=== PATIENT | female | born 1985 | race Caucasian/White ===

== ENCOUNTER 2019-03-31 14:20 | Emergency (ER) | payer OTHER, SELFPAY ==
--- OUTSIDE RECORDS SUMMARY | 2019-03-31 14:22 | XMS REPORT | Encounter Summary ---
:1985 Author Care Team Providers Name Role Phone Yane Clayton LINNETTE Primary Care Provider [phone] Reason for Visit medication refill Instructions 1. Insomnia insomnia: care instructions zolpidem 10 mg tablet Discussion Note: None recorded. Plan of Care Reminders Provider Appointments None recorded. Lab None recorded. Referral None recorded. Procedures None recorded. Surgeries None recorded. Imaging None recorded. Medications Name Start Date Dexilant 60 mg capsule, delayed release TAKE ONE CAPSULE BY MOUTH ONCE DAILY duloxetine 60 mg capsule,delayed release Take 1 capsule every day by oral route. omeprazole 40 mg capsule,delayed release pantoprazole 40 mg tablet,delayed release sumatriptan 50 mg tablet Xifaxan 550 mg tablet zolpidem 10 mg tablet TAKE 1 TABLET BY MOUTH ONCE DAILY take as needed for sleep Medications Administered None recorded. Vitals Height Weight BMI Blood Pressure 66 in 250 lbs 16 oz 40.5 kg/m2 108/92 mm[Hg] Lab Results None recorded. Allergies Code Code System Name Reaction Severity Status Onset 2556 RxNorm Citalopram Active Problems Name Status Onset Date Source Obesity Active Encounter Insomnia Active Encounter Migraine Active Encounter Acute Upper Respiratory Infection Active Encounter Gastroesophageal Reflux Disease Active Encounter Gastroenteritis Active Encounter Urinary Tract Infectious Disease Active Encounter Low Back Pain Active Encounter Fatigue Active Encounter Dyspnea Active Encounter Abdominal Pain Active Encounter Right Upper Quadrant Pain Active Encounter Sprain of Calcaneofibular Ligament Active Encounter Sprain of Distal Tibiofibular Ligament Active Encounter Strain of Back Muscle Active Encounter Procedures Date Name Performed by 03/05/2008 Cholecystectomy Information not available Vaccine List Vaccine Type Hep B, adolescent or pediatric 12/30/20150.5 mL Hep B, adult mL mL influenza, seasonal, injectable 03/05/2014 Social History Smoking Status Heavy Tobacco Smoker (1/2 PPD) Past Encounters 08/29/2018 Insomnia Yair Peters MD: [address] [place] [address], [address], [place] [address], Ph. History of Present Illness Note: CC insomnia<div>hpi pt has not been seen since 12/20 and is requesting ambien refill before going on vacation</div><div>ros</ div><div>gen doing well</div><div>c v neg</div>< div>resp neg</div><div>gi neg</div><div>
&lt ;/div>Review of Systems: ROS as noted in the HPI Review of Systems None recorded. Physical Exam Dr. Peters Brief Adult Exam - M/F Reported By: Patient Constitutional: General Appearance: well-developed, overweight. Level of Distress: NAD. Ambulation: ambulating normally Lungs: Auscultation: breath sounds normal, good air movement, CTA except as noted, no wheezing, no rales/crackles, no rhonchi Cardiovascular: Heart Auscultation: RRR, no rubs, no gallops
--- OUTSIDE RECORDS SUMMARY | 2019-03-31 14:23 | XMS REPORT | Encounter Summary ---
:1985 Author Care Team Providers Name Role Phone Yane Clayton LINNETTE Primary Care Provider [phone] Reason for Visit rash Instructions 1. Coxsackie virus exanthem Discussion Note: None recorded.Patient educational handouts: No information available. Plan of Care Patient Instructions May return to work 09/30/2018 Reminders Provider Appointments None recorded. Lab None recorded. Referral None recorded. Procedures None recorded. Surgeries None recorded. Imaging None recorded. Medications Name Start Date Dexilant 60 mg capsule, delayed release TAKE ONE CAPSULE BY MOUTH ONCE DAILY sumatriptan 50 mg tablet zolpidem 10 mg tablet TAKE 1 TABLET BY MOUTH ONCE DAILY take as needed for sleep Medications Administered None recorded. Vitals Height Weight BMI Blood Pressure 66 in 249 lbs 16 oz 40.4 kg/m2 118/81 mm[Hg] Lab Results Date Name Specimen Result Interpretation Description Value Range Status Address 09/23/2018 Rapid Flu Flu negative In-House (A+B) Results: For Internal Use Only 09/23/2018 Rapid Strep Strep negative In-House Group a, Result Results: For Throat Internal Use Only Allergies Code Code System Name Reaction Severity Status Onset 6086 RxNorm Citalopram Active Problems Name Status Onset [...] Performed by 03/05/2008 Cholecystectomy Information not available Ankle Arthroscopy/surgery Information not available Vaccine List Vaccine Type Hep B, adolescent or pediatric 12/30/20150.5 mL Hep B, adult mL mL influenza, seasonal, injectable 03/05/2014 Social History Tobacco Smoking Status Heavy Tobacco Smoker (1/2 PPD) Past Encounters 09/27/2018 Coxsackie Virus Exanthem Kate Guzmánkim Bartlett, HEAD PIECE ASSEMBLER: [address], [address], [place] [address], Ph. 09/23/2018 Coxsackie Virus Exanthem; Insomnia Yane Oseas, HEAD PIECE ASSEMBLER: [address], [address], [place] [address], Ph. 09/20/2018 Acute Pharyngitis; Headache Kate Nubia Bartlett, HEAD PIECE ASSEMBLER: [address], [address], [place] [address], Ph. 08/29/2018 Insomnia Yair Peters MD: [address], [address], [place] [address], Ph. History of Present Illness Note: Hand foot and mouth dx, now needs release for work. Denies fevers. Rash on hands going away. Review of Systems General Adult ROS Reported By: Patient Constitutional: Constitutional: no fever Eyes: Eyes: no dry eyes, no irritation, no vision change ENMT: Ears: no difficulty hearing, no ear pain. Nose: no frequent nosebleeds, no nose/sinus problems. Mouth/Throat: no sore throat, no snoring, no dry mouth, no mouth ulcers, no oral abnormalities, no teeth problems, No Post Nasal Dripping, Constantly clearing the throat, hiccups, itching throat, (normal) weak voice: constant Cardiovascular: Cardiovascular: no chest pain, no arm pain on exertion, no shortness of breath when walking, no shortness of breath when lying down, no palpitations, no known heart murmur Gastrointestinal: Gastrointestinal: no abdominal pain, no vomiting, normal appetite, no diarrhea, not vomiting blood Genitourinary: Genitourinary: no incontinence, no difficulty urinating, no hematuria, no increased frequency Musculoskeletal: Musculoskeletal: no muscle aches, no muscle weakness, no arthralgias/joint pain, no back pain, no swelling in the extremities Integumentary: Skin: no abnormal mole, no jaundice, no rashes Neurologic: Neurologic: no loss of consciousness, no weakness, no numbness, no seizures, no dizziness, no headaches Psychiatric: Psych: no depression, feeling safe in relationship, no alcohol abuse Endocrine: Endocrine: no fatigue Hematologic/Lymphatic: Hematologic/Lymphatic no swollen glands, no bruising Allergic/Immunologic: Allergy/Immunologic: no runny nose, no sinus pressure, no itching, no hives, no frequent sneezing Physical Exam Damaso Brief Adult Exam - M/F Reported By: Patient Constitutional: General Appearance: healthy-appearing, well-nourished, well-developed. Level of Distress: NAD. Ambulation: ambulating normally Psychiatric: Mental Status: active and alert ENMT: Ears: no lesions on external ear, EACs clear, TMs clear, TM mobility normal. Nose: nares patent, nasal passages clear. Oropharynx: moist mucous membranes, no erythema, no exudates, tonsils not enlarged Lungs: Auscultation: breath sounds normal Cardiovascular: Heart Auscultation: RRR, normal S1, normal S2, no murmurs Abdomen: Bowel Sounds: normal. Inspection and Palpation: soft, non-distended, no tenderness, no guarding Skin: Inspection and palpation: ; maculopapular rash noted to bilateral palmar and plantar surfaces
--- OUTSIDE RECORDS SUMMARY | 2019-03-31 14:23 | XMS REPORT | Encounter Summary ---
:1985 Author Care Team Providers Name Role Phone Yane Clayton LINNETTE Primary Care Provider [phone] Reason for Visit Follow Up Visit Instructions 1. Coxsackie virus exanthem 2. Insomnia zolpidem 10 mg tablet Discussion Note RTC for any other concerns Patient educational handouts: No information available. Plan of Care Patient Instructions push fluids and ensure rest; motrin and tylenol as needed Reminders Provider Appointments None recorded. Lab None [...] in 250 lbs 16 oz 40.5 kg/m2 108/78 mm[Hg] Lab Results Date Name Specimen Result [...] Heavy Tobacco Smoker (1/2 PPD) Past Encounters 09/23/2018 Coxsackie Virus Exanthem; Insomnia Yane Farooq, CHEESE WRAPPER: [address] [facility], [address], [place] [address], Ph. 09/20/2018 Acute Pharyngitis; Headache Kate Delacruz Tri, CHEESE WRAPPER: [address] [facility], [address], [place] [address], Ph. 08/29/2018 Insomnia Yair Peters MD: [address] [facility], [address], [place] [address], Ph. [phone] History of Present Illness Note: pt to clinic for f/u from ED; she was recently dx with hand foot and mouth; seen last week as walk in and told possible viral infection; dr in ED gave her fluids, toradol, solumedrol and rocephinReview of Systems: ROS as noted in the HPI Review of Systems None recorded. Physical Exam Damaso Brief Adult Exam - M/F Reported By: Patient Constitutional: General Appearance: healthy-appearing, well-nourished, well-developed. Level of Distress: NAD. Ambulation: ambulating normally Psychiatric: Mental Status: active and alert ENMT: Oropharynx: erythema, tonsils enlarged Lungs: Auscultation: breath sounds normal Cardiovascular: Heart Auscultation: RRR, normal S1, normal S2, no murmurs Abdomen: Bowel Sounds: normal. Inspection and Palpation: soft, non-distended, no tenderness, no guarding Skin: Inspection and palpation: ; maculopapular rash noted to bilateral palmar and plantar surfaces
--- OUTSIDE RECORDS SUMMARY | 2019-03-31 14:23 | XMS REPORT | Encounter Summary ---
:1985 Author Care Team Providers Name Role Phone Yane Clayton LINNETTE Primary Care Provider [phone] Reason for Visit Nausea; Abdominal Pain Instructions 1. Epigastric pain lipase, serum or plasma amylase, serum or plasma CBC w/ auto diff CMP, serum or plasma H pylori Ab, serum 2. Nausea ondansetron 4 mg disintegrating tablet 3. Gastroesophageal reflux disease without esophagitis Discussion Note RTC for any other concerns Patient educational handouts: No information available. Plan of Care Patient Instructions bland diet and advance as tolerated; ensure adequate rest, hydration and nutrition Reminders Provider Appointments None recorded. Lab Lipase, 12/19/2018 [facility] Serum or Plasma [facility] (Labs) (Xray) Amylase, 12/19/2018 [facility] Serum or Plasma [facility] (Labs) (Xray) CBC W/ Auto 12/19/2018 [facility] (Labs) (Xray) CMP, Serum 12/19/2018 [facility] (Labs) (Xray) H Pylori 12/19/2018 [facility] Ab Serum [facility] (Labs) (Xray) Referral None recorded. Procedures None recorded. Surgeries None recorded. Imaging None recorded. Medications Name Start Date Dexilant 60 mg capsule, delayed release TAKE ONE CAPSULE BY MOUTH ONCE DAILY ondansetron 4 mg disintegrating tablet Take 1-2 tablets every 6-8 hours as needed for nausea. Medications Administered None recorded. Vitals Height Weight BMI Blood Pressure 66 in 253 lbs 40.8 kg/m2 118/77 mm[Hg] Results Lab Results None recorded. Allergies Code Code System Name Reaction Severity Status Onset 4016 RxNorm Citalopram Active Problems Name Status Onset [...] Heavy Tobacco Smoker (1/2 PPD) Past Encounters 12/19/2018 Epigastric Pain; Nausea; Gastroesophageal Reflux Disease without Esophagitis Yane Farooq, HAIR DRESSER: [address], [place] [address], Ph. History of Present Illness Note: pt to clinic for nausea and upper abdominal pain; she sees GI; she reports hx of GERD, IBS; reports pain seems different than IBS and GERD; intermittent diarrhea; no constipation; last bm this am; takes dexilant dailyReview of Systems: ROS as noted in the HPI Review of Systems None recorded. Physical Exam Damaso Brief Adult Exam - M/F Reported By: Patient Constitutional: General Appearance: healthy-appearing, well-nourished, well-developed. Level of Distress: NAD. Ambulation: ambulating normally Psychiatric: Mental Status: active and alert Lungs: Auscultation: breath sounds normal Cardiovascular: Heart Auscultation: RRR, normal S1, normal S2, no murmurs Abdomen: Bowel Sounds: normal. Inspection and Palpation: soft, non-distended, no guarding, epigastric tenderness
--- OUTSIDE RECORDS SUMMARY | 2019-03-31 14:23 | XMS REPORT | Encounter Summary ---
:1985 Author Care Team Providers Name Role Phone Yane Clayton LINNETTE Primary Care Provider [phone] Reason for Visit sore throat; fever; headache Instructions 1. Acute pharyngitis rapid strep group A, throat rapid flu (A+B) sore throat: care instructions 2. Headache headache: care instructions ketorolac 30 mg/mL (1 mL) injection solution Phenergan 25 mg/mL injection solution Discussion Note: None recorded. Plan of Care Patient Instructions Push fluids gatorade and water. Rest. Do not take zolpidem tonight. Stay out of the sun and heat. Reminders Provider Appointments None recorded. Lab Rapid Strep 09/20/2018 In-House Results Group a, Throat Rapid Flu 09/20/2018 In-House Results (A+B) Referral None recorded. Procedures None recorded. Surgeries None recorded. Imaging None recorded. Medications Name Start Date Dexilant 60 mg capsule, delayed release TAKE ONE CAPSULE BY MOUTH ONCE DAILY sumatriptan 50 mg tablet zolpidem 10 mg tablet TAKE 1 TABLET BY MOUTH ONCE DAILY take as needed for sleep Medications Administered None recorded. Vitals Height Weight BMI Blood Pressure 66 in 253 lbs 1 oz 40.8 kg/m2 118/83 mm[Hg] Lab Results None recorded. Allergies Code [...] Vaccine Type Hep B, adolescent or pediatric .5 mL Hep B, adult mL mL influenza, seasonal, injectable 03/05/2014 Social History Smoking Status Heavy Tobacco Smoker (1/2 PPD) Past Encounters 09/20/2018 Acute Pharyngitis; Headache Kate Bartlett NP: [address], [address], [place] [address], Ph. 08/29/2018 Insomnia Yair Peters MD: [address], [address], [place] [address], Ph. History of Present Illness Note: Severe headache, body aches, sore throat and fever x 1 day. Taking ibuprofen for fever. 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 Review of Systems General Adult ROS Reported By: Patient Constitutional: Constitutional: fever Eyes: Eyes: no dry eyes, no irritation, no vision change ENMT: Mouth/Throat: sore throat Cardiovascular: Cardiovascular: no chest pain, no arm [...] in relationship, no alcohol abuse Endocrine: Endocrine: fatigue Hematologic/Lymphatic: Hematologic/Lymphatic no swollen glands, no bruising Allergic/Immunologic: Allergy/Immunologic: no runny nose, no sinus pressure, no itching, no hives, no frequent sneezing Physical Exam General Adult Exam - Female Reported By: Patient Constitutional: Level of Distress: moderate distress, acutely ill Psychiatric: Insight: good judgement. Mental Status: active and alert, normal mood, normal affect. Orientation: to time, to place, to person. Memory: recent memory normal, remote memory normal Head: Head: normocephalic, atraumatic Eyes: Lids and Conjunctivae: non-injected, no discharge, no pallor. Pupils: PERRLA. Corneas: grossly intact. Fundoscopic: grossly normal except where noted, normal optic discs, normal vessels, no exudates, no hemorrhages. EOM: EOMI. Lens: clear. Sclerae: non-icteric. Vision: peripheral vision grossly intact, acuity grossly intact ENMT: Ears: no lesions on external ear, EACs clear, TM bulging. Hearing: no hearing loss. Nose: no lesions on external nose, nares patent, no septal deviation, nasal passages clear, no sinus tenderness, no nasal discharge. Lips, Teeth, and Gums: no mouth or lip ulcers, no bleeding gums, normal dentition. Oropharynx: erythema Neck: Lymph Nodes: cervical LAD Lungs: Respiratory effort: no dyspnea. Percussion: no dullness, flatness, or hyperresonance. Auscultation: breath sounds normal, good air movement, CTA except as noted, no wheezing, no rales/crackles, no rhonchi Cardiovascular: Apical Impulse: not displaced. Heart Auscultation: RRR, normal S1, normal S2, no murmurs, no rubs, no gallops. Neck vessels: no carotid bruits. Pulses including femoral / pedal: normal throughout Neurologic: Gait and Station: normal gait, normal station. Cranial Nerves: grossly intact. Sensation: grossly intact, monofilament test intact. Reflexes: DTRs 2+ bilaterally throughout. Coordination and Cerebellum: [id number] intact, no tremor Skin: Inspection and palpation: ; sun burn face. Nails: normal
[2019-03-31] MEDS ORDERED: CYCLOBENZAPRINE 10 MG TAB ONE (15:36)
[2019-03-31] MEDS ORDERED: LIDOCAINE 4% PATCH ONE (15:37)
--- NOTE | 2019-03-31 16:47 | RAD REPORT ---
EXAM DESCRIPTION: RAD - Lumbar Spine 3 Views - 03/31/2019 4:42 pm CLINICAL HISTORY: PAIN Radiculopathy COMPARISON: No comparisons FINDINGS: Vertebral body heights appear maintained. No compression fracture noted. Mild disc thinnin g is present at L4-5 and L5-S1. Mild degenerative dextroscoliosis is evident. Pars defects may be pre sent at L5-S1.
--- NOTE | 2019-03-31 17:11 | ER ---
Nurse's Notes [facility] Name: Vicenta Daigle Age: 33 yrs Sex: Female : 1985 Arrival Date: 03/31/2019 Time: 14:22 Bed 27 Private MD: Diagnosis: Low back pain;Strain of muscle and tendon of back wall of thorax Presentation: 03/31 14:23 Presenting complaint: Patient states: was assisting a pt off of the ground to get her sv in the stretcher and pt started "flailing" around and lost her balance and she attempted to prevent her from falling, c/o mid back pain and left upper back pain. Transition of care: patient was not received from another setting of care. Onset of symptoms was March 31, 2019 at 13:45. Risk Assessment: Do you want to hurt yourself or someone else? Patient reports no desire to harm self or others. Initial Sepsis Screen: Does the patient meet any 2 criteria? No. Patient's initial sepsis screen is negative. Does the patient have a suspected source of infection? No. Patient's initial sepsis screen is negative. Care prior to arrival: None. 14:23 Method Of Arrival: Ambulatory sv 14:23 Acuity: SEAN 4 sv Triage Assessment: 14:26 General: Appears in no apparent distress. uncomfortable, well groomed, well developed, sv Behavior is calm, cooperative, appropriate for age. Pain: Complains of pain in left scapular area, left subscapular area, right subscapular area, left mid back and right mid back Pain currently is 6 out of 10 on a pain scale. Pain began 30 min ago. Is continuous, Aggravated by increased activity. Neuro: Level of Consciousness is awake, alert, obeys commands, Oriented to person, place, time, situation, Moves all extremities. Full function Gait is steady, Speech is normal. Respiratory: Airway is patent Respiratory effort is even, unlabored, Respiratory pattern is regular, symmetrical. Derm: Skin is pink, warm \\T\\ dry. Musculoskeletal: Circulation, motion, and sensation intact. Range of motion: intact in all extremities. Historical: - Allergies: 14:25 Aspirin; sv - PMHx: 14:25 Anxiety; GERD; insomnia; sv - PSHx: 14:25 Cholecystectomy; abd sx; left ankle; sv - Immunization history:: Adult Immunizations up to date. - Coronavirus screen:: The patient has NOT traveled to [place], [place], or [place] in the past 14 days. Proceed with normal triage process as indicated. The patient has NOT had contact with known/suspected case of Coronavirus? Proceed with normal triage procedures. - Social history:: Smoking status: Patient denies any tobacco usage or history of. - Ebola Screening: : No symptoms or risks identified at this time. Screenin:27 Abuse screen: Denies threats or abuse. Denies injuries from another. Nutritional sv screening: No deficits noted. Tuberculosis screening: No symptoms or risk factors identified. Fall Risk None identified. Assessment: 15:50 Reassessment: Patient appears in no apparent distress at this time. No changes from sv previously documented assessment. Patient and/or family updated on plan of care and expected duration. Pain level reassessed. Patient is alert, oriented x 3, equal unlabored respirations, skin warm/dry/pink. 17:36 Reassessment: Patient appears in no apparent distress at this time. Patient and/or sv family updated on plan of care and expected duration. Pain level reassessed. Patient is alert, oriented x 3, equal unlabored respirations, skin warm/dry/pink. Vital Signs: 14:24 BP 127 / 82; Pulse 113; Resp 18; Temp 98.6(O); Pulse Ox 98% ; lt1 15:59 BP 97 / 68; Pulse 104; Resp 16; Pulse Ox 99% ; sv ED Course: 14:22 Patient arrived in ED. sv 14:23 Pascale Winston RN is Primary Nurse. sv 14:24 Triage completed. sv 14:26 Arm band placed on. sv 14:27 Gregg Sood NP is PHCP. pm1 14:27 Steve Mcallister MD is Attending Physician. pm1 14:27 Patient has correct armband on for positive identification. Placed in gown. Bed in low sv position. Call light in reach. Pulse ox on. NIBP on. Door closed. Head of bed elevated. 15:50 Urine Dipstick--Ancillary (enter results) Sent. sv 16:26 Awaiting for x-ray. sv 16:43 Lumbar Spine (3 Views) XRAY In Process Unspecified. EDMS 17:36 No provider procedures requiring assistance completed. Patient did not have IV access sv during this emergency room visit. Administered Medications: 15:50 Drug: Flexeril 10 mg Route: PO; sv 17:30 Follow up: Response: No adverse reaction sv 15:51 Drug: Lidoderm 5 % (700 mg/patch) 1 patches Route: Topical; Site: affected area; sv Outcome: 17:11 Discharge ordered by . pm1 17:36 Patient left the ED. sv 17:36 Discharged to home ambulatory. sv 17:36 Condition: stable 17:36 Discharge instructions given to patient, Instructed on discharge instructions, follow up and referral plans. medication usage, Demonstrated understanding of instructions, follow-up care, medications, Prescriptions given X 3. Signatures: Dispatcher [employer] Pascale Collier RN RN sv Marinas, Patrick, NP PERSONAL DEVELOPMENT EDUCATOR pm1 Sanjuana Ortiz [facility] [facility]
--- NOTE | 2019-03-31 17:12 | EDPHYS ---
Physician Documentation [facility] Name: Vicenta Daigle Age: 33 yrs Sex: Female : 1985 Arrival Date: 03/31/2019 Time: 14:22 Bed 27 Private MD: ED Physician Steve Mcallister HPI: 03/31 16:32 This 33 yrs old Female presents to ER via Ambulatory with complaints of Back pm1 Injury. 16:32 The patient presents with pain that is acute. The symptoms are located in the left pm1 subscapular area, lumbar area and right mid back. Onset: The symptoms/episode began/occurred just prior to arrival. The pain does not radiate. Associated signs and symptoms: Pertinent negatives: abdominal pain, chest pain, dysuria, fever, incontinence, nausea, numbness, tingling, vomiting. 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 It caused her to lose her balance and she was trying to prevent the patient from falling at the same time. Presenting with pain to lower back, left subscapular area, and right mid back. Modifying factors: The patient symptoms are alleviated by nothing, the patient symptoms are aggravated by movement. Severity of symptoms: in the emergency department the symptoms are unchanged. The patient has not experienced similar symptoms in the past. The patient has not recently seen a physician. Historical: - Allergies: 14:25 Aspirin; sv - PMHx: 14:25 Anxiety; GERD; insomnia; sv - PSHx: 14:25 Cholecystectomy; abd sx; left ankle; sv - Immunization history:: Adult Immunizations up to date. - Coronavirus screen:: The patient has NOT traveled to [place], [place], or [place] in the past 14 days. Proceed with normal triage process as indicated. The patient has NOT had contact with known/suspected case of Coronavirus? Proceed with normal triage procedures. - Social history:: Smoking status: Patient denies any tobacco usage or history of. - Ebola Screening: : No symptoms or risks identified at this time. ROS: 16:32 Constitutional: Negative for fever, chills, and weight loss, Neck: Negative for injury, pm1 pain, and swelling, Cardiovascular: Negative for chest pain, palpitations, and edema, Respiratory: Negative for shortness of breath, cough, wheezing, and pleuritic chest pain, Abdomen/GI: Negative for abdominal pain, nausea, vomiting, diarrhea, and constipation. 16:32 : Negative for injury, bleeding, discharge, and swelling, MS/Extremity: Negative for injury and deformity, Skin: Negative for injury, rash, and discoloration. 16:32 Back: Positive for pain at rest, pain with movement, of the left subscapular area, lumbar area and right mid back. 16:32 Neuro: Negative for dizziness, headache, numbness, tingling, weakness. Exam: 16:39 Constitutional: This is a well developed, well nourished patient who is awake, alert, pm1 and in no acute distress. Head/Face: Normocephalic, atraumatic. Neck: Trachea midline, no thyromegaly or masses palpated, and no cervical lymphadenopathy. Supple, full range of motion without nuchal rigidity, or vertebral point tenderness. No Meningismus. Chest/axilla: Normal chest wall appearance and motion. Nontender with no deformity. No lesions are appreciated. Cardiovascular: Regular rate and rhythm with a normal S1 and S2. No gallops, murmurs, or rubs. Normal PMI, no JVD. No pulse deficits. Respiratory: Lungs have equal breath sounds bilaterally, clear to auscultation and percussion. No rales, rhonchi or wheezes noted. No increased work of breathing, no retractions or nasal flaring. 16:39 Skin: Warm, dry with normal turgor. Normal color with no rashes, no lesions, and no evidence of cellulitis. MS/ Extremity: Pulses equal, no cyanosis. Neurovascular intact. Full, normal range of motion. 16:39 Back: pain, that is moderate, of the left subscapular area, lumbar area and right mid back, normal spinal alignment noted, muscle spasm, is appreciated in the left subscapular area and right mid back. 16:39 Neuro: Orientation: is normal, Motor: is normal, moves all fours, Sensation: is normal, no obvious gross deficits, Gait: is steady, at a normal pace, without difficulty. Vital Signs: 14:24 BP 127 / 82; Pulse 113; Resp 18; Temp 98.6(O); Pulse Ox 98% ; lt1 15:59 BP 97 / 68; Pulse 104; Resp 16; Pulse Ox 99% ; sv MDM: 14:28 Patient medically screened. [facility] 16:40 Data reviewed: vital signs. Data interpreted: Pulse oximetry: on room air is 99 %. pm1 Interpretation: normal. 17:10 Counseling: I had a detailed discussion with the patient and/or guardian regarding: the pm1 historical points, exam findings, and any diagnostic results supporting the discharge/admit diagnosis, radiology results, the need for outpatient follow up, to return to the emergency department if symptoms worsen or persist or if there are any questions or concerns that arise at home. 03/31 15:49 Order name: Urine Dipstick--Ancillary (enter results) bd 03/31 16:08 Order name: Urine --Ancillary (enter results) bd 03/31 15:21 Order name: Lumbar Spine (3 Views) XRAY; Complete Time: 17:06 pm1 03/31 15:21 Order name: Urine Dipstick-Ancillary (obtain specimen); Complete Time: 15:50 pm1 03/31 15:21 Order name: Urine Test (obtain specimen); Complete Time: 15:50 pm1 Administered Medications: 15:50 Drug: Flexeril 10 mg Route: PO; sv 17:30 Follow up: Response: No adverse reaction sv 15:51 Drug: Lidoderm 5 % (700 mg/patch) 1 patches Route: Topical; Site: affected area; sv Disposition: 04/01 08:55 Co-signature as Attending Physician, Steve Mcallister MD I agree with the assessment and [facility] plan of care. Disposition: 03/31/19 17:11 Discharged to Home. Impression: Low back pain, Strain of muscle and tendon of back wall of thorax. - Condition is Stable. - Discharge Instructions: Back Pain, Adult, Muscle Strain, Musculoskeletal Pain, Back Injury Prevention, [id number]. - Prescriptions for Lidoderm 5 % Topical adhesive patch,medicated - apply 1 patch by TRANSDERMAL route once daily As needed; 30 Transdermal Patch. Cyclobenzaprine 10 mg Oral Tablet - take 1 tablet by ORAL route every 8 hours As needed; 30 tablet. Tylenol- Codeine #3 300-30 mg Oral Tablet - take 2 tablets by ORAL route every 6 hours As needed; 20 tablet. - Work release form, Medication Reconciliation Form, Thank You Letter, Antibiotic Education, Prescription Opioid Use form. - Follow up: Emergency Department; When: As needed; Reason: Worsening of condition. Follow up: Private Physician; When: 2 - 3 days; Reason: Recheck today's complaints, Continuance of care, Re-evaluation by your physician. - Problem is new. - Symptoms have improved. Signatures: Dispatcher [employer] Pascale Collier RN RN sv Anderson, Corey, MD MD cha Marinas, Patrick, OUTSOLE LEVELER OUTSOLE LEVELER pm1 Corrections: (The following items were deleted from the chart) 03/31 17:36 17:11 03/31/2019 17:11 Discharged to Home. Impression: Low back pain; Strain of muscle sv and tendon of back wall of thorax. Condition is Stable. Forms are Medication Reconciliation Form, Thank You Letter, Antibiotic Education, Prescription Opioid Use. Follow up: Emergency Department; When: As needed; Reason: Worsening of condition. Follow up: Private Physician; When: 2 - 3 days; Reason: Recheck today's complaints, Continuance of care, Re-evaluation by your physician. Problem is new. Symptoms have improved. pm1
[2019-03-31 17:53] VITALS: TEMP 98.6
[2019-03-31 17:55] VITALS: BP 97/68; O2SAT 99
[2019-03-31 20:13] LABS: Urine Glucose NEGATIVE (NEG)
[2019-03-31 20:15] LABS: Urine Blood NEGATIVE (NEG); Urine Protein NEGATIVE (NEG)
== END 2019-03-31 17:36 | disposition home or self-care (01) ==
LOC: ER 14:20
DX: S29.012A Strain of muscle and tendon of back wall of thorax, initial encounter (principal); X50.0XXA Overexertion from strenuous movement or load, initial encounter; Y93.89 Activity, other specified; Y92.9 Unspecified place or not applicable; Y99.8 Other external cause status; Z88.6 Allergy status to analgesic agent
CPT/HCPCS: 72100; 81003; 81025; 99284

== ENCOUNTER 2022-04-13 20:57 | Emergency (ER) | payer OTHER, SELFPAY ==
--- OUTSIDE RECORDS SUMMARY | 2022-04-13 21:03 | XMS REPORT | Continuity of Care Document ---
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 Height 2018-12-19 00:00:00 66 [in_i] [facility] BMI (Body Mass 2018-12-19 00:00:00 40.8 kg/m2 [facility] Index) Group BP Systolic 2018-12-19 00:00:00 118 mm[Hg] [facility] Body Weight 2018-12-19 00:00:00 4048 [oz_av] [facility] BP Diastolic 2018-09-27 00:00:00 81 mm[Hg] [facility] Height 2018-09-27 00:00:00 66 [in_i] [facility] BMI (Body Mass 2018-09-27 00:00:00 40.4 kg/m2 [facility] Index) Group BP Systolic 2018-09-27 00:00:00 118 mm[Hg] [facility] Body Weight 2018-09-27 00:00:00 4000 [oz_av] [facility] BP Diastolic 2018-09-23 00:00:00 78 mm[Hg] [facility] Height 2018-09-23 00:00:00 66 [in_i] [facility] BMI (Body Mass 2018-09-23 00:00:00 40.5 kg/m2 [facility] Index) Group BP Systolic 2018-09-23 00:00:00 108 mm[Hg] [facility] Body Weight 2018-09-23 00:00:00 4016 [oz_av] [facility] BP Diastolic 2018-09-20 00:00:00 83 mm[Hg] [facility] Height 2018-09-20 00:00:00 66 [in_i] [facility] BMI (Body Mass 2018-09-20 00:00:00 40.8 kg/m2 [facility]) Group BP Systolic 2018-09-20 00:00:00 118 mm[Hg] [facility] Body Weight 2018-09-20 00:00:00 4049 [oz_av] [facility] BP Diastolic 2018-08-29 00:00:00 92 mm[Hg] [facility] Height 2018-08-29 00:00:00 66 [in_i] [facility] BMI (Body Mass 2018-08-29 00:00:00 40.5 kg/m2 [facility]) Group BP Systolic 2018-08-29 00:00:00 108 mm[Hg] [facility] Body Weight 2018-08-29 00:00:00 4016 [oz_av] [facility] Procedures Procedure Date / Time Performing Clinician Source Performed unlisted imaging order 2022-03-23 00:00:00 [facility] Group unlisted imaging order 2021-07-06 00:00:00 [facility] Medical [facility] unlisted imaging order 2020-06-10 00:00:00 [facility] Group XR, knee, 1 or 2 view 2020-02-02 00:00:00 [facility] XR, knee, 1 or 2 view 2019-12-16 00:00:00 [facility] unlisted imaging order 2019-12-16 00:00:00 [facility] XR, knee, 3 view 2019-07-30 00:00:00 [facility] Colonoscopy 2017-09-11 00:00:00 [facility] Esophagogastroduodenoscopy 2017-08-14 00:00:00 [facility] Cholecystectomy [facility] Ankle Arthroscopy/surgery [facility] Ankle Surgery [facility] Plan of Care Planned Activity Planned Date Details Comments Source Diagnostic Test 2022-01-19 CMP, serum or [facility] P[facility] 00:00:00 plasma [code = CMP, Group serum or plasma] Diagnostic Test 2022-01-19 lipid panel, serum [facility] Pending 00:00:00 [code = lipid Group panel, serum] Diagnostic Test 2022-01-19 TSH, serum or [facility] 00:00:00 plasma [code = TSH, Group serum or plasma] Diagnostic Test 2022-01-19 CBC w/ auto diff [facility] Pending 00:00:00 [code = CBC w/ auto Group diff] Diagnostic Test 2022-01-19 hemoglobin A1c, QN, [facility] Pending 00:00:00 blood [code = Group hemoglobin A1c, QN, blood] Diagnostic Test 2022-01-19 urinalysis Abigail Laguna dical Pending 00:00:00 complete, reflex Group culture [code = urinalysis complete, reflex culture] Future Appointment 2022-04-24 Yane Peters, [address] [facility] 09:30:00 [facility] [address]; , [place] [address] Instructions [facility] Encounters Start End Encounter Admission Attending Care Care Encounter Source Date/Time Date/Time Type Type Clinicians Facility Department ID 2022-03-23 2022-03-23 Outpatient [facility] [id number] [facility] 10:45:00 10:45:00 YANE [id number] [facility] 2022-03-23 2022-03-23 Outpatient Shield MMG MMG [id number] [place] 00:00:00 00:00:00 119 [facility] 2022-03-23 2022-03-23 Yane [facility]G [place] - [id number] M [facility] 00:00:00 00:00:00 Discovery Lorraine da SELF CONTAINED BEHAVIOR UNIT TEACHER: 600 [facility] - [address] [place] [address] , Ph. 2022-02-21 2022-02-21 Outpatient Shield [facility] MMG [id number] [place] 00:00:00 00:00:00 220 [facility] 2022-02-21 2022-02-21 Yane MMG [place] - [id number] M [facility] 00:00:00 00:00:00 Discovery Lorraine da SELF CONTAINED BEHAVIOR UNIT TEACHER: [address] [place] [address] , Ph. 2022-02-15 2022-02-15 Outpatient Shield [facility]G MMG [id number] [place] 00:00:00 00:00:00 214 [facility] 2022-01-19 2022-01-19 [facility] [id number] [place] 11:24:00 11:24:00 YANE -[id number] da [facility] 2022-01-19 2022-01-19 Outpatient Shield MMG MMG [id number] 221 [place] 00:00:00 00:00:00 117 [facility] 2022-01-19 2022-01-19 Yane MMG [place] - [id number] M [facility] 00:00:00 00:00:00 Discovery Lorraine da SELF CONTAINED BEHAVIOR UNIT TEACHER: [address] [place] [address] , Ph. 2022-01-17 2022-01-17 Outpatient Shield [facility]G MMG [id number] 221 [place] 00:00:00 00:00:00 115 [facility] 2021-07-06 2021-07-06 Outpatient Shield [facility]G MMG [id number] 220 [place] 02:23:00 02:23:00 504 [facility] 2021-07-06 2021-07-06 Yane MMG [place] - [id number] M [facility] 00:00:00 00:00:00 Discovery Lorraine da SELF CONTAINED BEHAVIOR UNIT TEACHER: 600 [facility] - [address], [facility] [place] [address] , Ph. 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 2021-01-06 2021-01-06 Outpatient Shield [facility]G MMG [id number] [place] 04:08:00 04:08:00 104 [facility] 2020-12-08 2020-12-08 Outpatient Shield [facility] MMG [id number] 211 [place] 10:51:00 10:51:00 006 [facility] 2020-12-08 2020-12-08 Yane MMG [place] - [id number] M [facility] 00:00:00 00:00:00 Discovery josr Peters SELF CONTAINED BEHAVIOR UNIT TEACHER: 600 [facility] - [address], [facility] [place] [address] , Ph. 2020-07-08 2020-07-08 Outpatient Shield [facility] MMG [id number] 210 [place] 10:46:00 10:46:00 506 [facility] 2020-07-08 2020-07-08 Yane MMG [place] - [id number] M [facility] 00:00:00 00:00:00 Discovery josr Peters SELF CONTAINED BEHAVIOR UNIT TEACHER: 600 [facility] [place] [address] , Ph. 2020-06-30 2020-06-30 Outpatient Shield [facility] MMG [id number] 210 [place] 03:21:00 03:21:00 505 [facility] 2020-06-30 2020-06-30 Outpatient Shield [facility] MMG [id number] 210 [place] 03:18:00 03:18:00 428 [facility] 2020-06-10 2020-06-10 Outpatient [facility] [id number] [place] 11:25:00 11:25:00 H [id number] [facility] 2020-06-09 2020-06-09 Outpatient [facility] [id number] [place] 09:39:00 09:39:00 H [id number] [facility] 2020-06-08 2020-06-08 Outpatient [facility] [id number] [place] 04:52:00 04:52:00 H [id number] [facility] 2020-06-02 2020-06-02 Outpatient Shield [facility]G MMG [id number] [place] 11:04:00 11:04:00 331 [facility] 2020-05-31 2020-05-31 Outpatient [facility] [id number]- [place] 01:47:00 01:47:00 H [id number] [facility] 2020-05-31 2020-05-31 Efrain Payton [facility] [place] - [id number] [place] 00:00:00 00:00:00 Abigail Lara MD: [id number] [employer]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 2020-05-28 2020-05-28 Outpatient [facility] [id number]- [place] 03:14:00 03:14:00 H [id number] [facility] 2020-05-27 2020-05-27 Outpatient Shield [facility]G MMG [id number] 210 [place] 10:43:00 10:43:00 325 [facility] 2020-05-24 2020-05-24 Outpatient Shield [facility]G MMG [id number] 210 [place] 11:22:00 11:22:00 322 [facility] 2020-05-24 2020-05-24 Yane MMG [place] - [id number] M [place] 00:00:00 00:00:00 Discovery Lorraine da SELF CONTAINED BEHAVIOR UNIT TEACHER: 600 [facility] [address], [facility] [place] [address] , Ph. 2020-04-07 2020-04-07 Outpatient Shield [facility]G MMG [id number] 210 [place] 11:12:00 11:12:00 203 [facility] 2020-04-07 2020-04-07 Outpatient Shield [facility] MMG [id number] 210 [place] 11:12:00 11:12:00 205 [facility] 2020-04-07 2020-04-07 Yane MMG [place] - [id number] M [place] 00:00:00 00:00:00 Discovery Lorraine da SELF CONTAINED BEHAVIOR UNIT TEACHER: 600 [facility] [address], [facility] [place] [address] , Ph. 2020-03-04 2020-03-04 Outpatient [facility] 111 [id number] [place] 09:24:00 09:24:00 H [id number] [facility] 2020-03-04 2020-03-04 Outpatient [facility] 111 [id number] [place] 09:24:00 09:24:00 H [id number] [facility] 2020-03-01 2020-03-01 Outpatient Shield [facility]G MMG [id number] 201 [place] 09:29:00 09:29:00 228 [facility] 2020-03-01 2020-03-01 Outpatient Shield [facility] MMG [id number] 201 [place] 09:29:00 09:29:00 229 [facility] 2020-03-01 2020-03-01 Yane MMG [place] - [id number] M [place] 00:00:00 00:00:00 Lorraine da SELF CONTAINED BEHAVIOR UNIT TEACHER: 600 [facility] [address], [facility] [place] [address] , Ph. 2020-02-24 2020-02-24 Outpatient [facility] [id number] [place] 05:12:00 05:12:00 H [id number] [facility] 2020-02-17 2020-02-17 Outpatient Shield MMG MM [id number] 201 [place] 06:49:00 06:49:00 215 [facility] 2020-02-12 2020-02-12 Outpatient Shield [facility] MM [id number] 201 [place] 09:46:00 09:46:00 210 [facility] 2020-02-12 2020-02-12 Yane [facility] [place] - [id number] M at[place] 00:00:00 00:00:00 Discovery Lorraine da SELF CONTAINED BEHAVIOR UNIT TEACHER: 600 [facility] [address], [facility] [place] [address] , Ph. 2020-02-09 2020-02-09 Outpatient [facility] [id number] [place] 12:15:00 12:15:00 H [id number] [facility] 2020-02-09 2020-02-09 Iqra UMANA [place] - [id number] [place] 00:00:00 00:00:00 Renetta willett, RESEARCH SCHOLAR: Nondenominational Episco p 1700 [facility] deb [facility] [address] [facility] , Ph. [phone]) -20072020-02-08 2020-02-08 Outpatient cMcDonald MMG MM [id number]- [place] 11:24:00 11:24:00 206 [facility] 2020-02-03 2020-02-03 Outpatient cMcDonald MMG MM [id number]- [place] 12:09:00 12:09:00 201 [facility] 2020-02-03 2020-02-03 [facility] [place] [facility] [id number] M [facility] 00:00:00 00:00:00 Discovery josr Mcclellan MD: 600 [facility] [place] - [address], [place] [address] , Ph. 2020-01-21 2020-01-21 Outpatient cMcDonald MMG MMG [place] 02:48:00 02:48:00 118 [facility] 2020-01-18 2020-01-18 Outpatient cMcDonald MMG MMG [place] 01:17:00 01:17:00 115 [facility] 2020-01-16 2020-01-16 Outpatient cMcDonald MMG MMG 87 [place] 12:04:00 12:04:00 113 [facility] 2020-01-15 2020-01-15 Outpatient [facility] 111 [id number] [place] 05:47:00 05:47:00 H [id number] [facility] 2020-01-13 2020-01-13 Outpatient Shield MMG MMG [id number] 201 [place] 11:34:00 11:34:00 110 [facility] 2020-01-13 2020-01-13 Tono [facility] [place] - [id number] M at[place]or 00:00:00 00:00:00 Discovery josr Mcclellan MD: [address] [facility] [place] - [address], [place] [address] , Ph. 2020-01-09 2020-01-09 Outpatient Shield MMG MMG [id number] 201 [place] 10:12:00 10:12:00 106 [facility] 2020-01-09 2020-01-09 Outpatient Shield [facility] MMG [id number] 201 [place] 10:12:00 10:12:00 108 [facility] 2020-01-09 2020-01-09 Yane MMG [place] - [id number] M [place] 00:00:00 00:00:00 Discovery josr Peters SELF CONTAINED BEHAVIOR UNIT TEACHER: 600 [facility] [place] - [address], [facility] [address] , Ph. 2020-01-08 2020-01-08 Outpatient Shield [facility] MMG 201 [place] 03:08:00 03:08:00 105 [facility] 2019-12-25 2019-12-25 Outpatient cMcDonald MMG MMG [place] 03:52:00 03:52:00 022 [facility] 2019-12-25 2019-12-25 Outpatient cMcDonald MMG MMG [place] 03:52:00 03:52:00 023 [facility] 2019-12-23 2019-12-23 Outpatient cMcDonald MMG MMG [place] 10:29:00 10:29:00 020 [facility] 2019-12-23 2019-12-23 Tono MMG [place] - [id number] M [place] 00:00:00 00:00:00 Discovery josr Mcclellan MD: 600 [facility] [address], [place] [address] , Ph. 2019-12-23 2019-12-23 Letter Veronica WYAMBER [id number] 00:00:00 00:00:00 (Out) [facility] [id number] Surgical [id number] Special [id number] [address] [place] 2019-12-21 2019-12-21 Outpatient cMcDonald MMG MMG [place] 01:43:00 01:43:00 018 [facility] 2019-12-18 2019-12-18 Outpatient cMcDonald MMG MMG [place] 10:49:00 10:49:00 015 [facility] 2019-12-18 2019-12-18 Yane MMG [place] - [id number] M [place] 00:00:00 00:00:00 Discovery josr Peters SELF CONTAINED BEHAVIOR UNIT TEACHER: 600 [facility] - [address], [facility] [address] , Ph. 2019-12-18 2019-12-18 Telephone Veronica WYAMBER [id number] 00:00:00 00:00:00 [facility] [id number] Surgical [id number] Specialti [id number] es [address] [place] 2019-12-16 2019-12-16 Outpatient cMcDonald MMG MM [id number] [place] 10:06:00 10:06:00 013 [facility] 2019-12-16 2019-12-16 Tono MM [place] - [id number] M [place] 00:00:00 00:00:00 Discovery josr Mcclellan MD: 600 [facility] [address], [place] [address] , Ph. 2019-12-15 2019-12-15 Outpatient cMcDonald MMG MM [id number] [place] 09:46:00 09:46:00 012 Medical Group 2019-12-10 2019-12-10 Outpatient Shield [facility]G MM [id number] 201 [place] 09:30:00 09:30:00 008 [facility] 2019-12-09 2019-12-09 Outpatient Shield MM[facility] MM [id number] 201 [place] 09:44:00 09:44:00 006 Medical Group 2019-12-09 2019-12-09 Yane [facility] [place] - [id number] M at[place] 00:00:00 00:00:00 Discovery josr Peters SELF CONTAINED BEHAVIOR UNIT TEACHER: 600 [facility] [address], [facility] [address] , Ph. 2019-12-08 2019-12-08 Orders Doctor MASTERSON [id number] 00:00:00 00:00:00 Only Unassigned, NICOLE [id number] [facility] [id number] [id number] 2019-12-05 2019-12-05 [facility] [id number] 12:04:47 23:59:00 Encounter [facility] [id number] Surgical [id number] Specialti [id number] es 809 [place] 2019-12-05 2019-12-05 Office [place], [facility] [id number] 10:06:53 10:21:53 Visit [facility] [id number] Surgical [id number] Specialti [id number] es 198 [place] 2019-12-05 2019-12-05 [facility] [id number] Univers 10:15:00 10:15:00 TONO villavicencio [facility] 2019-12-05 2019-12-05 [facility] [id number] 00:00:00 00:00:00 (Out) [facility] [id number] Surgical [id number] Specialti [id number] es 198 [place] 2019-11-18 2019-11-18 Outpatient Shield MMG MMG [id number] 200 [place] 01:50:00 01:50:00 915 Medical [facility] 2019-11-18 2019-11-18 Outpatient Shield MMG MMG [id number] 200 [place] 01:50:00 01:50:00 923 Medical [facility] 2019-11-18 2019-11-18 Outpatient Shield MMG MMG [id number] 201 [place] 01:50:00 01:50:00 002 Medical [facility] 2019-11-18 2019-11-18 Yane MMG [place] - [id number] M [place] 00:00:00 00:00:00 Discovery Lorraine da SELF CONTAINED BEHAVIOR UNIT TEACHER: [address] [facility] [place] - [address], [facility] [place] [address] , Ph. 2019-10-22 2019-10-22 Outpatient Shield MMG MMG [id number] 200 [place] 06:57:00 06:57:00 819 Medical [facility] 2019-10-22 2019-10-22 Yane MMG [place] - [id number] M [place] 00:00:00 00:00:00 Discovery Lorraine da SELF CONTAINED BEHAVIOR UNIT TEACHER: [address] [facility] [place] - [address], [facility] [place] [address] , Ph. 2019-08-27 2019-08-27 Outpatient Shield MMG MMG [id number] 200 [place] 04:58:00 04:58:00 624 [facility] 2019-08-27 2019-08-27 Yane MMG [place] - [id number] M [place] 00:00:00 00:00:00 Discovery Lorraine da SELF CONTAINED BEHAVIOR UNIT TEACHER: [address] [facility] [place] - [address], [facility] [place] [address] , Ph. 2019-08-25 2019-08-25 Outpatient Shield MMG MMG [id number] 200 [place] 09:54:00 09:54:00 622 [facility] 2019-07-30 2019-07-30 Outpatient Shield [facility] MMG [id number] 200 [place] 05:09:00 05:09:00 527 [facility] 2019-07-30 2019-07-30 Yane MMG [place] - [id number] M [place] 00:00:00 00:00:00 Discovery Lorraine da SELF CONTAINED BEHAVIOR UNIT TEACHER: [address] [facility] [place] - [address], [facility] [place] [address] , Ph. 2019-06-08 2019-06-08 Outpatient Shield MMG MMG [id number] 200 [place] 02:34:00 02:34:00 405 [facility] 2019-06-05 2019-06-05 Yane MMG [place] - [id number] M [place] 00:00:00 00:00:00 Discovery Lorraine da SELF CONTAINED BEHAVIOR UNIT TEACHER: [address] [facility] [place] - [address], [facility] [place] [address] , Ph. 2018-12-31 2018-12-31 Outpatient Shield MMG MMG [id number] 200 [place] 03:36:00 03:36:00 402 [facility] 2018-12-19 2018-12-19 Yane MMG [place] - [id number] M [place] 00:00:00 00:00:00 Discovery Lorraine da SELF CONTAINED BEHAVIOR UNIT TEACHER: [address] [facility] [place] - [address], [facility] [place] [address] , Ph. 2018-09-27 2018-09-27 Kate MMG [place] - [id number] M [place] 00:00:00 00:00:00 [facility] SELF CONTAINED BEHAVIOR UNIT TEACHER: [address] [place] [address], [place] [address] , Ph. 2018-09-23 2018-09-23 Yane [facility] [place] - [id number] M at[place]or 00:00:00 00:00:00 Discovery josr Peters SELF CONTAINED BEHAVIOR UNIT TEACHER: [address] [place] [address], [facility] [address] , Ph. 2018-09-20 2018-09-20 Kate [facility] [place] - [id number] M at[place]or 00:00:00 00:00:00 [facility] SELF CONTAINED BEHAVIOR UNIT TEACHER: [address] [place] [address], [place] [address] , Ph. 2018-08-29 2018-08-29 Yair Mack [facility] [place] - [id number] M [place] 00:00:00 00:00:00 MD Fran: Discovery ovalles [address] [place] [address], [facility] [address] , Ph. Results Test Description Test Time Test Comments Results Result Comments Source rapid influenza virus A + B and SARS CoV + SARS CoV 2 Ag panel, 2021-03-04 09:42:00 [place], upper respiratory specimen Test Item Value Reference Range Interpretation Comme nts RAPID SARS COV (test code = RAPID SARS COV) negative RAPID FLU A (test code = RAPID FLU A) negative RAPID FLU B (test code = RAPID FLU B) negative [facility] W Auto Differential panel - [id number] 09:30:00 Test Item Value Reference Range Interpretation Comments white blood count (test code = 8.9 K/uL 4.0-11.5 white blood count) red blood count (test code = red 4.70 M/uL 3.80-5.20 blood count) hemoglobin (test code = 14.4 g/dL 10.5-15.7 hemoglobin) hematocrit (test code = 43.4 % 34.0-50.0 hematocrit) MCV [Entitic volume] (test code = 92.3 fL 86-100 52312-9) mean corpuscular hemoglobin (test 30.6 pg 26.2-33.4 code = mean corpuscular hemoglobin) mean corpuscular HGB conc (test 33.2 g/dL 30-34 code = mean corpuscular HGB conc) red cell distribution width (test 12.9 % 12.0-15.5 code = red cell distribution width) platelet count (test code = 323 K/uL 165-450 platelet count) mean platelet volume (test code = 9.0 fL 9.4-12.6 L mean platelet volume) Segmented neutrophils/100 66.3 % 44.4-80.1 leukocytes in Blood (test code = 68880-3) Immature granulocytes [#/volume] 0.0 K/uL 0.0-0.03 in Blood (test code = 36306-5) lymphocyte% (test code = 24.1 % 10.0-50.0 lymphocyte%) mono % (test code = mono %) 6.2 % 3.6-12.0 eos % (test code = eos %) 2.7 % 0.0-5.4 Basophils/100 leukocytes in 0.4 % 0.1-1.2 Unspecified specimen (test code = 50613-5) Band form neutrophils [#/volume] 5.89 K/uL 1.56-6.13 in Blood (test code = 15723-5) Lymphocytes [#/volume] in 2.1 K/uL 1.18-3.74 Unspecified specimen by Automated count (test code = 77438-8) mono # (test code = mono #) 0.55 K/uL 0.24-0.86 eos # (test code = eos #) 0.24 K/uL 0.04-0.36 basophil # (test code = basophil 0.04 K/uL 0.01-0.08 #) NRBC% (test code = NRBC%) 0 /100 WBC 0-0.2 NRBC# (test code = NRBC#) 0 [facility] Plasma 2020-12-08 09:30:00 Test Item Value Reference Range Interpretation Comments Glucose [Mass/volume] in Serum or 92 mg/dL 74-106 Plasma (test code = 2345-7) Urea nitrogen [Mass/volume] in 13 mg/dL 6-20 Serum or Plasma (test code = 3094-0) osmolality calculated,serum (test 276 mOsm/kg 280-300 L code = osmolality calculated,serum) creatinine (test code = 0.5 mg/dL 0.50-0.90 creatinine) glomerular filtration rate (test >60.00 code = glomerular filtration rate) Urea nitrogen/Creatinine [Mass 26.0 12-20 H Ratio] in Serum or Plasma (test code = 3097-3) sodium level (test code = sodium 138 mmol/L 135-145 level) potassium level (test code = 4.2 mmol/L 3.5-5.2 potassium level) chloride level (test code = 104 mmol/L 98-108 chloride level) CO2 (test code = CO2) 23 mmol/L 21-32 anion gap (test code = anion gap) 15.2 mEq/L 12-20 calcium level (test code = 9.4 mg/dL 8.6-10.0 calcium level) total protein (test code = total 7.5 g/dL 6.6-8.7 protein) albumin (test code = albumin) 4.3 g/dL 3.5-5.2 globulin (test code = globulin) 3.2 gm/dL A/G ratio (test code = A/G ratio) 1.3 >1.0 bilirubin,total (test code = 0.4 mg/dL 0.0-1.2 bilirubin,total) AST/SGOT (test code = AST/SGOT) 12 U/L 15-32 L Alanine aminotransferase 11 U/L 0-33 [Enzymatic activity/volume] in Serum or Plasma (test code = 1742-6) Alkaline phosphatase [Enzymatic 53 U/L 35-105 activity/volume] in Serum or Plasma (test code = 6768-6) [facility] - Serum or [id number] 09:30:00 Test Item Value Reference Range Interpretation Comments cholesterol level (test code = 230 mg/dL 150-200 H cholesterol level) triglycerides level (test code = 149 mg/dL <150 triglycerides level) HDL cholesterol (test code = HDL 43 mg/dL >65 L cholesterol) LDL cholesterol direct (test code = 167 mg/dL <100 H LDL cholesterol direct) cholesterol risk ratio (test code = 5.348 cholesterol risk ratio) [facility] Center[facility]inal[facility] complete W Reflex Culture panel - Urine 2020-12-08 09:30:00 Test Item Value Reference Range Interpretation Comments Color of Urine by Auto (test light yellow code = 81804-4) Appearance of Urine (test code = SL cloudy clear A 5767-9) Glucose [Presence] in Urine by negative negative Automated test strip (test code = 20893-8) Bilirubin.total [Mass/volume] in negative negative Urine (test code = 1978-6) Ketones [Mass/volume] in Urine negative negative by Automated test strip (test code = 95230-5) Specific gravity of Urine by 1.020 1.003-1.030 Automated test strip (test code = 73394-6) blood urine (test code = blood negative negative urine) pH of Urine (test code = 2756-5) 5.500 5-9 protein urine (UA) (test code = negative negative protein urine (UA)) Urobilinogen [Presence] in Urine normal 0.2-1.0 (test code = 96468-5) Nitrite [Presence] in Urine by negative negative Test strip (test code = 5802-4) Leukocyte esterase [Presence] in negative negative Urine by Automated test strip (test code = 79165-0) Erythrocytes [#/volume] in Urine =1-5 0-5 by Automated count (test code = 798-9) Leukocytes [#/area] in Urine =11-14 0-5 H sediment by Automated count (test code = 86649-3) Epithelial cells [Presence] in =6-10 0-5 Urine sediment by Light microscopy (test code = 61268-5) Bacteria identified in Urine by tntc (4 none detect H Culture (test code = 630-4) Casts [#/area] in Urine sediment =2-5 none detect by Automated count (test code = 75539-8) urine culture added? (test code yes = urine culture added?) Pathologic casts [Presence] in none seen none detect Urine by Automated (test code = 89705-5) [facility] CenterBacteria identified in Urine by [id number] 09:30:00[facility] testing, [id number] 09:30:00 Test Item Value Reference Range Interpretation Comments Gentamicin [Susceptibility] by >8 Minimum inhibitory concentration (NELSON) (test code = 267-5) Ampicillin [Susceptibility] by >16 Minimum inhibitory concentration (NELSON) (test code = 28-1) ceFAZolin [Susceptibility] by Minimum 2 ug/mL inhibitory concentration (NELSON) (test code = 76-0) Trimethoprim+Sulfamethoxazole =2/38 [Susceptibility] by Minimum inhibitory concentration (NELSON) (test code = 516-5) Tetracycline [Susceptibility] by >8 Minimum inhibitory concentration (NELSON) (test code = 496-0) Amoxicillin+Clavulanate =8/4 [Susceptibility] by Minimum inhibitory concentration (NELSON) (test code = 20-8) Tobramycin [Susceptibility] by 8 ug/mL Minimum inhibitory concentration (NELSON) (test code = 508-2) Nitrofurantoin [Susceptibility] by <=16 Minimum inhibitory concentration (NELSON) (test code = 363-2) cefOXitin [Susceptibility] by Minimum <=4 inhibitory concentration (NELSON) (test code = 116-4) levoFLOXacin [Susceptibility] by <=0.5 Minimum inhibitory concentration (NELSON) (test code = 59784-8) cefTAZidime [Susceptibility] by <=2 Minimum inhibitory concentration (NELSON) (test code = 133-9) cefTRIAXone [Susceptibility] by <=1 Minimum inhibitory concentration (NELSON) (test code = 141-2) Ciprofloxacin [Susceptibility] by <=0.25 Minimum inhibitory concentration (NELSON) (test code = 185-9) Ampicillin+Sulbactam [Susceptibility] =16/8 by Minimum inhibitory concentration (NELSON) (test code = 32-3) Ertapenem [Susceptibility] by Minimum <=0.25 inhibitory concentration (NELSON) (test code = 08641-9) Aztreonam [Susceptibility] by Minimum <=2 inhibitory concentration (NELSON) (test code = 44-8) Cefepime [Susceptibility] by Minimum <=1 inhibitory concentration (NELSON) (test code = 6644-9) Meropenem [Susceptibility] by Minimum <=0.5 inhibitory concentration (NELSON) (test code = 6652-2) Moxifloxacin [Susceptibility] by <=1 Minimum inhibitory concentration (NELSON) (test code = 34515-8) Amikacin [Susceptibility] by Minimum <=8 inhibitory concentration (NELSON) (test code = 12-5) Piperacillin+Tazobactam =2/4 [Susceptibility] by Minimum inhibitory concentration (NELSON) (test code = 412-7) Ceftaroline [Susceptibility] by <=0.25 Minimum inhibitory concentration (NELSON) (test code = 64989-2) Tigecycline [Susceptibility] by <=1 Minimum inhibitory concentration (NELSON) (test code = 92432-5) [facility] CenterHemoglobin A1c [Mass/volume] in [id number] 00:00:00 Test Item Value Reference Range Interpretation Comments Hemoglobin A1c [Mass/volume] in Blood 5.7 % 4.0-6.0 (test code = 26082-3) [facility] CenterDifferential panel, method unspecified - [id number] 00:00:00NeutrophilsBandLymphocyteAtypical LymphMonocyteEosinophilBasophilMetamyelocyteMyelocytePromyelocyteAbs Neutrophil Count (Man)Abs Lymph Count (Man)Abs Monocyte Count (Man)Abs Eosinophil Count (Man)Abs Basophil Count (Man)Platelet EstimatePlatelet MorphologyHypochromasiaAnisocytosisTear Drop CellsStomatocytDiamond Grove Centerpregnancy test, [id number] 05:20:00 Test Item Value Reference Range Interpretation Comments Choriogonadotropin ( test) negative neg [Presence] in Urine (test code = 2106-3) [facility] CenterUrinalysis macro (dipstick) panel - [id number] 17:11:00 Test Item Value Reference Range Interpretation Comments Leukocytes (test code = Trace Leukocytes) Nitrite (test code = Nitrite) negative Urobilinogen (test code = .2 Urobilinogen) Protein (test code = Protein) Negative pH (test code = pH) 5.5 Blood (test code = Blood) Negative Specific [place] (test code = 1.030 Specific [place]) Ketone (test code = Ketone) Negative Bilirubin (test code = Bilirubin) Negative Glucose (test code = Glucose) Negative Appearance (test code = Turbid Appearance) Color (test code = Color) Dark Yellow [facility] W Auto Differential panel - [id number] 03:24:00 Test Item Value Reference Range Interpretation Comments white blood count (test code = 9.8 K/uL 4.0-11.5 white blood count) red blood count (test code = red 4.89 M/uL 3.80-5.20 blood count) hemoglobin (test code = 15.2 g/dL 10.5-15.7 hemoglobin) hematocrit (test code = 44.9 % 34.0-50.0 hematocrit) MCV [Entitic volume] (test code = 91.8 fL 86-100 27327-7) mean corpuscular hemoglobin (test 31.1 pg 26.2-33.4 code = mean corpuscular hemoglobin) mean corpuscular HGB conc (test 33.9 g/dL 30-34 code = mean corpuscular HGB conc) red cell distribution width (test 13.6 % 12.0-15.5 code = red cell distribution width) platelet count (test code = 312 K/uL 165-450 platelet count) mean platelet volume (test code = 8.6 fL 9.4-12.6 L mean platelet volume) Segmented neutrophils/100 68.3 % 44.4-80.1 leukocytes in Blood (test code = 04775-3) Immature granulocytes [#/volume] 0.1 K/uL 0.0-0.03 H in Blood (test code = 12857-6) lymphocyte% (test code = 22.9 % 10.0-50.0 lymphocyte%) mono % (test code = mono %) 6.0 % 3.6-12.0 eos % (test code = eos %) 1.8 % 0.0-5.4 Basophils/100 leukocytes in 0.5 % 0.1-1.2 Unspecified specimen (test code = 14425-2) Band form neutrophils [#/volume] 6.69 K/uL 1.56-6.13 H in Blood (test code = 76861-2) Lymphocytes [#/volume] in 2.2 K/uL 1.18-3.74 Unspecified specimen by Automated count (test code = 69369-1) mono # (test code = mono #) 0.59 K/uL 0.24-0.86 eos # (test code = eos #) 0.18 K/uL 0.04-0.36 basophil # (test code = basophil 0.05 K/uL 0.01-0.08 #) NRBC% (test code = NRBC%) 0 /100 WBC 0-0.2 NRBC# (test code = NRBC#) 0 K/uL [facility] CenterDifferential panel, method unspecified - [id number] 03:24:00NeutrophilsBandLymphocyteAtypical LymphMonocyteEosinophilBasophilMetamyelocyteMyelocyteNucleated RedBlood CellAbs Neutrophil Count (Man)Abs Lymph Count (Man)Abs Monocyte Count (Man)Abs Eosinophil Count (Man)Abs Basophil Count (Man)Platelet EstimatePlatelet MorphologyHypochromasiaAnisocytosisMacrocytosisToxic GranulationToxic VacuolationCla[facility] CenterComprehensive metabolic 2000 panel - Serum or [id number] 03:24:00 Test Item Value Reference Range Interpretation Comments glucose (test code = glucose) 115 mg/dL 74-106 H Urea nitrogen [Mass/volume] in 19 mg/dL 6-20 Serum or Plasma (test code = 3094-0) osmolality calculated,serum (test 277 mOsm/kg 280-300 L code = osmolality calculated,serum) creatinine (test code = 0.8 mg/dL 0.50-0.90 creatinine) glomerular filtration rate (test >60.00 code = glomerular filtration rate) Urea nitrogen/Creatinine [Mass 23.8 12-20 H Ratio] in Serum or Plasma (test code = 3097-3) sodium level (test code = sodium 137 mmol/L 135-145 level) Potassium [Moles/volume] in Body 3.8 mmol/L 3.5-5.2 fluid (test code = 2821-7) chloride level (test code = 102 mmol/L 98-108 chloride level) CO2 (test code = CO2) 22 mmol/L 21-32 anion gap (test code = anion gap) 16.8 mEq/L 12-20 calcium level (test code = 9.6 mg/dL 8.6-10.0 calcium level) total protein (test code = total 7.8 g/dL 6.6-8.7 protein) albumin (test code = albumin) 4.4 g/dL 3.5-5.2 globulin (test code = globulin) 3.4 gm/dL A/G ratio (test code = A/G ratio) 1.3 >1.0 bilirubin,total (test code = <0.3 0.0-1.2 bilirubin,total) AST/SGOT (test code = AST/SGOT) 15 U/L 15-32 Alanine aminotransferase 13 U/L 0-33 [Enzymatic activity/volume] in Serum or Plasma (test code = 1742-6) Alkaline phosphatase [Enzymatic 70 U/L 35-105 activity/volume] in Serum or Plasma (test code = 6768-6) [facility] CenterLipase [Enzymatic activity/volume] in Serum or Plasma 2020-05-22 03:24:00 Test Item Value Reference Range Interpretation Comments lipase (test code = lipase) 18 U/L 13-60 [facility] Centerrapid flu (A+B)2018-09-23 08:08:00 Test Item Value Reference Range Interpretation Comments Flu (test code = Flu) negative [facility], [id number] 08:08:00 Test Item Value Reference Range Interpretation Comments Strep Result (test code = Strep negative Result) [facility]2018-09-23 08:08:00 Test Item Value Reference Range Interpretation Comments Flu (test code = Flu) negative [facility] group A, [id number] 08:08:00 Test Item Value Reference Range Interpretation Comments Strep Result (test code = Strep negative Result) [facility]
[2022-04-13 21:46] LABS: Urine Blood Negative (Negative); Urine Glucose Negative (Negative); Urine Protein Negative (Negative); Urine Specific Gravity <=1.005 (1.005-1.030); Urine pH 6.5 (5.0-7.0)
[2022-04-13] MEDS ORDERED: ONDANSETRON 4 MG/2 ML VIAL ONE (21:51)
[2022-04-13] MEDS ORDERED: NA CHLORIDE 0.9% 1,000 ML ONE ×2 (21:51→22:55)
[2022-04-13 21:52] LABS: Urine Specific Gravity/Preg 1.005 (1.005-1.030)
[2022-04-13 21:53] LABS: Absolute Lymphocytes (CBC) 2.9 K/uL (0.7-4.9); MCV 92.5 fL (80-100); RBC Red Blood Cell Count 4.86 M/uL (3.86-4.86)
[2022-04-13 22:08] LABS: ALT/SGPT 23 U/L (13-56); AST/SGOT 10 U/L (15-37); Albumin 3.9 g/dL (3.4-5.0); Alkaline Phosphatase 61 U/L (45-117); BUN Blood Urea Nitrogen 12 mg/dL (7-18); Bicarbonate 22 mmol/L (21-32); Bilirubin Total 0.2 mg/dL (0.2-1.0); Glomerular Filtration Rate 97 ml/min (=/>90); Glucose Level 125 mg/dL (74-106); Lipase 118 U/L (73-393); Potassium 3.8 mmol/L (3.5-5.1); Protein, Total 8.2 g/dL (6.4-8.2); Sodium Level 137 mmol/L (136-145)
--- NOTE | 2022-04-13 22:37 | RAD REPORT ---
EXAM DESCRIPTION: CTAbdomen Pelvis W Contrast - 04/13/2022 10:29 pm CLINICAL HISTORY: Abdominal pain. Abd pain COMPARISON: CT ABD PELVIS W CONTRAST dated 10/28/2007 TECHNIQUE: Biphasic CT imaging of the abdomen and pelvis was performed with 100 ml non-ionic IV cont rast. All CT scans are performed using dose optimization technique as appropriate and may include automated exposure control or mA/KV adjustment according to patient size. FINDINGS: The lung bases are clear.Cholecystectomy clips. The liver, spleen, pancreas, adrenal glands and kidneys are within normal limits. No bowel obstruction, free air, free fluid or abscess. Moderate stool is present throughout the colon . The appendix is normal. No evidence of significant lymphadenopathy. No suspicious bony findings. IMPRESSION: No acute intra-abdominal or pelvic finding.
[2022-04-13 22:48] LABS: SARS-COV-2 RT PCR NEGATIVE (NEGATIVE)
[2022-04-14] MEDS ORDERED: MECLIZINE HCL 12.5 MG TAB ONE (00:14)
--- NOTE | 2022-04-14 02:07 | EDPHYS ---
Physician Documentation [facility] Name: Vicenta Daigle Age: 36 yrs Sex: Female : 1985 Arrival Date: 04/13/2022 Time: 21:00 Bed 20 Private MD: ED Physician Yogesh Amaya HPI: 04/13 23:34 This 36 yrs old Female presents to ER via Ambulatory with complaints of rn Weakness. 23:34 The patient presents to the emergency department with weakness of the entire body, rn generalized weakness. Onset: The symptoms/episode began/occurred 2 week(s) ago. Context: occurred at home, occurred while the patient was at rest. Associated signs and symptoms: Pertinent positives: weakness, Pertinent negatives: fever, seizure, syncope. Severity of symptoms: At their worst the symptoms were moderate in the emergency department the symptoms are unchanged. Current symptoms: generalized weakness. The patient has not experienced similar symptoms in the past. The patient has been recently seen by a physician:. Pt reports 2 weeks of generalized weakness and fatigue, increased urination, abd pain, constipation. NO fever. Seen at clinic recently, had neg KUB. Doesn't feel better. . Historical: - Home Meds: 21:18 Ambien 12.5 Oral tab 1 tab once daily [Active]; Effexor 150 Oral tab daily [Active]; kl Wellbutrin XL 150 mg Oral Tb24 1 tab once daily [Active]; - PMHx: 21:18 Anxiety; GERD; insomnia; kl 21:20 IBS; Depressive disorder; kl - PSHx: 21:20 Cholecystectomy; Exploratory laparotomy; kl - Immunization history:: Adult Immunizations not up to date. - Social history:: Smoking status: Patient reports the use of cigarette tobacco products, smokes one pack cigarettes per day. - Family history:: not pertinent. - Hospitalizations: : No recent hospitalization is reported. ROS: 23:34 Constitutional: Negative for fever, chills, and weight loss, Eyes: Negative for injury, rn pain, redness, and discharge, Neck: Negative for injury, pain, and swelling, Cardiovascular: Negative for chest pain, palpitations, and edema, Respiratory: Negative for shortness of breath, cough, wheezing, and pleuritic chest pain, Abdomen/GI: + abd pain and constipation MS/Extremity: Negative for injury and deformity, Skin: Negative for injury, rash, and discoloration, Neuro: Negative for headache, numbness, tingling, and seizure. Exam: 23:34 Constitutional: This is a well developed, well nourished patient who is awake, alert, rn and in no acute distress. Seems anxious. Head/Face: Normocephalic, atraumatic. ENT: dry MM Cardiovascular: Tachycardic, regular. No pulse deficits. Respiratory: No increased work of breathing, no retractions or nasal flaring. Abdomen/GI: Soft, non-tender, with normal bowel sounds. No distension or tympany. No guarding or rebound. No evidence of tenderness throughout. Skin: Warm, dry MS/ Extremity: Pulses equal, no cyanosis. Neurovascular intact. Full, normal range of motion. Equal circumference. Neuro: Awake and alert, GCS 15 Vital Signs: 21:16 BP 150 / 95; Pulse 117; Resp 18; Temp 98.5(TE); Pulse Ox 100% on R/A; Weight 104.33 kg kl (R); Height 5 ft. 6 in. (167.64 cm); Pain /10; 04/14 01:16 BP 101 / 57; Pulse 97; Resp 18 S; Pulse Ox 98% ; aa9 02:08 BP 104 / 66; Pulse 95; Resp 19 S; Pulse Ox 97% on R/A; aa9 04/13 21:16 Body Mass Index 37.12 (104.33 kg, 167.64 cm) NIH Stroke Scale Scores: 04/13 22:53 NIHSS Score: 0 aa9 MDM: 21:05 Patient medically screened. rn 04/14 02:04 Data reviewed: vital signs, nurses notes, lab test result(s), radiologic studies, CT rn scan, and as a result, I will discharge patient. Consideration of Admission/Observation Escalation of care including admission/observation considered. Counseling: I had a detailed discussion with the patient and/or guardian regarding: the historical points, exam findings, and any diagnostic results supporting the discharge/admit diagnosis, lab results, radiology results, the need for outpatient follow up, to return to the emergency department if symptoms worsen or persist or if there are any questions or concerns that arise at home. Response to treatment: the patient's symptoms have markedly improved after treatment, and as a result, I will discharge patient. Special discussion: I discussed with the patient/guardian in detail that at this point there is no indication for admission to the hospital. It is understood, however, that if the symptoms persist or worsen the patient needs to return immediately for re-evaluation. Based on the history and exam findings, there is no indication for further emergent testing or inpatient evaluation. I discussed with the patient/guardian the need to see the primary care provider for further evaluation of the symptoms. ED course: Pt feels much better, CT abdomen negative, normal glucose, neg ketones, blood shows dehydration and ct shows constipation without acute abnormal findings. In middle of evaluation patient changed dizziness to more of vertigo symptoms, and improved after meclizine and fluids. CT head neg. Will dc home with meclizine and prn zofran with return precautions. . 04/13 21:28 Order name: CBC with Diff; Complete Time: 22:38 rn 04/13 21:28 Order name: CMP; Complete Time: 22:38 rn 04/13 21:28 Order name: Lipase; Complete Time: 22:38 rn 04/13 21:28 Order name: Ketone, Serum; Complete Time: 22:38 rn 04/13 21:28 Order name: COVID-19/FLU A+B; Complete Time: 22:57 rn 04/13 21:42 Order name: Glucose, Ancillary Testing; Complete Time: 22:38 EDMS 04/13 21:28 Order name: CT Abd/Pelvis - IV Contrast Only; Complete Time: 22:38 rn 04/13 21:47 Order name: Urine Dipstick-Ancillary; Complete Time: 22:38 EDMS 04/13 21:47 Order name: Urine --Ancillary (enter results); Complete Time: 22:38 ds4 04/13 23:47 Order name: CT Head Brain wo Cont rn 04/13 21:28 Order name: IV Saline Lock; Complete Time: 21:46 rn 04/13 21:28 Order name: Labs collected and sent; Complete Time: 21:46 rn 04/13 21:28 Order name: Urine Dipstick-Ancillary (obtain specimen); Complete Time: 21:46 rn 04/13 21:28 Order name: Urine Test (obtain specimen); Complete Time: 21:46 rn 04/13 21:28 Order name: Glucose Level; Complete Time: 21:42 rn Administered Medications: 04/13 21:52 Drug: NS 0.9% 1000 ml Route: IV; Rate: 1 bolus; Site: right antecubital; 21:52 Drug: Zofran (Ondansetron) 4 mg Route: IVP; Site: right antecubital; 22:53 Follow up: Response: No adverse reaction 22:53 Drug: NS 0.9% 1000 ml Route: IV; Rate: 1000 ml; Site: right antecubital; 04/14 00:13 Drug: Meclizine 50 mg Route: PO; aa 02:06 Follow up: Response: No adverse reaction aa9 Disposition Summary: 04/14/22 02:07 Discharge Ordered Location: Home rn Problem: new rn Symptoms: have improved rn Condition: Stable rn Diagnosis - Dehydration rn - Other peripheral vertigo rn - Constipation, unspecified rn Followup: rn - With: Private Physician - When: As needed - Reason: Recheck today's complaints, Re-evaluation by your physician Discharge Instructions: - Discharge Summary Sheet rn - Constipation, Adult rn - Dehydration, Adult rn - Vertigo rn Forms: - Medication Reconciliation Form rn - Thank You Letter rn - Antibiotic metal burnisher - Prescription Opioid Use rn Prescriptions: - Meclizine 25 mg Oral Tablet - take 1 tablet by ORAL route every 8 hours As needed; 30 tablet; Refills: 0, rn Product Selection Permitted - ondansetron 4 mg Oral - take 4 milligrams by SUBLINGUAL route every 8 hours; 15 tablet; Refills: 0, rn Product Selection Permitted NIH Stroke Scale - NIH Stroke Score Date: 04/13/2022 Time: 22:53 Total Score = 0 1a. Level of Consciousness (LOC) - 0(Alert) 1b. Level of Consciousness (LOC) (Month \T\ Age) - 0(Both) 1c. LOC Commands (Open \T\ Closes Eyes/Flight Operations Inspector) - 0(Both) 2. Best Gaze (Lateral Gaze Paresis) - 0(Normal) 3. Visual Field Loss - 0(No visual loss) 4. Facial Palsy - 0(Normal) 5a. Left Arm: Motor (10-second hold) - 0(No drift) 5b. Right Arm: Motor (10-second hold) - 0(No drift) 6a. Left Leg: Motor (5-second hold - always test supine) - 0(No drift) 6b. Right Leg: Motor (5-second hold - always test supine) - 0(No drift) 7. Limb Ataxia (finger/nose \T\ heel/vallecillo - test with eyes open) - 0(Absent) 8. Sensory Loss (pinprick arms/legs/face) - 0(Normal) 9. Best Language: Aphasia (description/naming/reading) - 0(No aphasia) 10. Dysarthria (speech clarity - read or repeat words) - 0(Normal) 11. Extinction and Inattention (visual/tactile/auditory/spatial/personal) - 0(No abnormality) Initials: aa9 Signatures: Dispatcher [employer] Lupe Lima RN RN kl Nieto, Roman, MD MD rn Avalos, Aylin, RN RN aa9 Corrections: (The following items were deleted from the chart) 04/13 21:21 21:18 Allergies: Aspirin; tarik montanez
--- NOTE | 2022-04-14 02:07 | ER ---
Nurse's Notes [facility] Seraf[place] Name: Vicenta Daigle Age: 36 yrs Sex: Female : 1985 Arrival Date: 04/13/2022 Time: 21:00 Bed 20 Private MD: Diagnosis: Dehydration;Other peripheral vertigo;Constipation, unspecified Presentation: 04/13 21:16 Chief complaint: Patient states: weak dizziness began this morning positive nausea kl constipation x 2 weeks. Coronavirus screen: Vaccine status: Patient reports being unvaccinated. Ebola Screen: Patient negative for fever greater than or equal to 101.5 degrees Fahrenheit, and additional compatible Ebola Virus Disease symptoms. Initial Sepsis Screen: Does the patient meet any 2 criteria? No. Patient's initial sepsis screen is negative. Does the patient have a suspected source of infection? No. Patient's initial sepsis screen is negative. Risk Assessment: Do you want to hurt yourself or someone else? Patient reports no desire to harm self or others. 21:16 Method Of Arrival: Ambulatory 21:16 Acuity: SEAN 3 kl 22:54 No acute neurological deficit is noted. Pre-hospital glucose is not applicable to this aa9 patient. Onset of symptoms was April 13, 2022. Triage Assessment: 21:21 General: Appears uncomfortable, well groomed, well developed, Behavior is cooperative, kl flat, quiet. Pain: Complains of pain in abdomen Pain currently is 7 out of 10 on a pain scale. Neuro: No deficits noted. Level of Consciousness is awake, alert, obeys commands, Oriented to person, place, time, situation, Senior Administrative Support are equal bilaterally Moves all extremities. Gait is steady, Speech is normal, Facial symmetry appears normal. 21:24 GI: Reports constipation, nausea. kl Stroke Activation: Physician: Stroke Attending; Name: ; Notified At: ; Arrived At: Physician: Chief Stroke Resident; Name: ; Notified At: ; Arrived At: Physician: Stroke Resident; Name: ; Notified At: ; Arrived At: Physician: ED Attending; Name: Monique; Notified At: ; Arrived At: Physician: ED Resident; Name: ; Notified At: ; Arrived At: Historical: - Home Meds: 21:18 Ambien 12.5 Oral tab 1 tab once daily [Active]; Effexor 150 Oral tab daily [Active]; kl Wellbutrin XL 150 mg Oral Tb24 1 tab once daily [Active]; - PMHx: 21:18 Anxiety; GERD; insomnia; kl 21:20 IBS; Depressive disorder; kl - PSHx: 21:20 Cholecystectomy; Exploratory laparotomy; kl - Immunization history:: Adult Immunizations not up to date. - Social history:: Smoking status: Patient reports the use of cigarette tobacco products, smokes one pack cigarettes per day. - Family history:: not pertinent. - Hospitalizations: : No recent hospitalization is reported. Screenin:54 [facility] ED Fall Risk Assessment (Adult) History of falling in the last 3 months, aa9 including since admission No falls in past 3 months (0 pts) Confusion or Disorientation No (0 pts) Intoxicated or Sedated No (0 pts) Impaired Gait No (0 pts) Mobility Assist Device Used No (0 pt) Altered Elimination No (0 pt) Score/Fall Risk Level 0 - 2 = Low Risk. Abuse screen: Denies threats or abuse. Denies injuries from another. Nutritional screening: No deficits noted. Tuberculosis screening: No symptoms or risk factors identified. Assessment: 21:55 The patient has not been NPO before screening. The patient is alert, and able to follow aa9 commands. The patient does not exhibit slurred or garbled speech. The patient is not exhibiting difficulty speaking. The patient does not exhibit difficulty understanding words. The patient is able to swallow own secretions with no drooling or need for suction. Patient tolerated one teaspoon of water. No drooling, immediate coughing, gurgling, or clearing of the throat was noted. TNKase (Tenecteplase) Screening:. General: Appears in no apparent distress. ill, Behavior is calm. Neuro: No deficits noted. Reports weakness generalized. Cardiovascular: Patient's skin is warm and dry. Respiratory: Airway is patent Respiratory effort is even, unlabored. GI: Reports upper abdominal pain. Derm: Skin is dry. Musculoskeletal: Reports weakness in Generalized. 22:53 VAN Scoring: Arm Drift: Patients demonstrates NO arm weakness. Patient is VAN Negative. aa9 The patient passed the bedside swallow screening. Oral medications may be given as ordered. Contact Physician for further diet orders. Provider notified of bedside swallow screening results: Yogesh Amaya MD. 04/14 01:12 Reassessment: Patient appears in no apparent distress at this time. Patient and/or aa9 family updated on plan of care and expected duration. Pain level reassessed. Patient is alert, oriented x 3, equal unlabored respirations, skin warm/dry/pink. Patient states symptoms have improved. Vital Signs: 04/13 21:16 BP 150 / 95; Pulse 117; Resp 18; Temp 98.5(TE); Pulse Ox 100% on R/A; Weight 104.33 kg kl (R); Height 5 ft. 6 in. (167.64 cm); Pain 7/10; 02 01:16 BP 101 / 57; Pulse 97; Resp 18 S; Pulse Ox 98% ; aa9 02:08 BP 104 / 66; Pulse 95; Resp 19 S; Pulse Ox 97% on R/A; aa9 04/13 21:16 Body Mass Index 37.12 (104.33 kg, 167.64 cm) kl NIH Stroke Scale Scores: 04/13 22:53 NIHSS Score: 0 aa9 ED Course: 21:00 Patient arrived in ED. [email or web address] 21:05 Yogesh Amaya MD is Attending Physician. rn 21:18 Triage completed. kl 21:46 Inserted saline lock: 22 gauge in right antecubital area, using aseptic technique. ds4 Blood collected. 22:05 Grisel Magallon, RN is Primary Nurse. aa9 22:05 COVID-19/FLU A+B Sent. aa9 22:31 CT Abd/Pelvis - IV Contrast Only In Process Unspecified. EDMS 22:54 Arm band placed on right wrist. aa9 22:55 No provider procedures requiring assistance completed. aa9 22:55 Patient has correct armband on for positive identification. Bed in low position. Side aa9 rails up X 1. 04/14 00:08 CT Head Brain wo Cont In Process Unspecified. EDMS 02:28 IV discontinued, intact, bleeding controlled, No redness/swelling at site. Pressure aa9 dressing applied. Administered Medications: 04/13 21:52 Drug: NS 0.9% 1000 ml Route: IV; Rate: 1 bolus; Site: right antecubital; aa9 21:52 Drug: Zofran (Ondansetron) 4 mg Route: IVP; Site: right antecubital; aa9 22:53 Follow up: Response: No adverse reaction aa9 22:53 Drug: NS 0.9% 1000 ml Route: IV; Rate: 1000 ml; Site: right antecubital; 9 04/14 00:13 Drug: Meclizine 50 mg Route: PO; aa9 02:06 Follow up: Response: No adverse reaction aa9 Medication: 04/13 22:54 VIS not applicable for this client. aa9 Outcome: 04/14 02:07 Discharge ordered by . myah 02:08 Condition: stable aa9 02:27 Discharged to home ambulatory. aa9 02:27 Discharge instructions given to patient, Instructed on discharge instructions, follow up and referral plans. medication usage, Demonstrated understanding of instructions, follow-up care, medications, Prescriptions given X 2. 02:28 Patient left the ED. aa9 NIH Stroke Scale - NIH Stroke Score Date: 04/13/2022 Time: 22:53 Total Score = 0 1a. Level of Consciousness (LOC) - 0(Alert) 1b. Level of Consciousness (LOC) (Month \T\ Age) - 0(Both) 1c. LOC Commands (Open \T\ Closes Eyes/Fire Pilot) - 0(Both) 2. Best Gaze (Lateral Gaze Paresis) - 0(Normal) 3. Visual Field Loss - 0(No visual loss) 4. Facial Palsy - 0(Normal) 5a. Left Arm: Motor (10-second hold) - 0(No drift) 5b. Right Arm: Motor (10-second hold) - 0(No drift) 6a. Left Leg: Motor (5-second hold - always test supine) - 0(No drift) 6b. Right Leg: Motor (5-second hold - always test supine) - 0(No drift) 7. Limb Ataxia (finger/nose \T\ heel/vallecillo - test with eyes open) - 0(Absent) 8. Sensory Loss (pinprick arms/legs/face) - 0(Normal) 9. Best Language: Aphasia (description/naming/reading) - 0(No aphasia) 10. Dysarthria (speech clarity - read or repeat words) - 0(Normal) 11. Extinction and Inattention (visual/tactile/auditory/spatial/personal) - 0(No abnormality) Initials: aa9 Signatures: Dispatcher [employer] EDLupe Breen RN RN kl Nieto, Roman, MD MD rn Swanson, Donovan ds4 Renee Carreno6 Grisel Magallon, RN RN aa9 Corrections: (The following items were deleted from the chart) 04/13 21:21 21:18 Allergies: Aspirin; kl kl 21:57 21:55 NIHSS Score: 0 aa9 aa9
[2022-04-14 03:09] VITALS: TEMP 98.5
[2022-04-14 03:20] VITALS: BP 104/66; O2SAT 97
--- NOTE | 2022-04-14 20:34 | RAD REPORT ---
EXAM DESCRIPTION: CT - Head Brain Wo Cont - 04/14/2022 7:08 am CLINICAL HISTORY: The patient is 36 years old and is Female; DIZZINESS TECHNIQUE: Axial computed tomography images of the head/brain without intravenous contrast. Sagitt al and coronal reformatted images were created and reviewed. This CT exam was performed using one o r more of the following dose reduction techniques: automated exposure control, adjustment of the mA and/or kV according to patient size, and/or use of iterative reconstruction technique. COMPARISON: No relevant prior studies available. FINDINGS: Brain: Unremarkable. No hemorrhage. No significant white matter disease. No edema. Ventricles: Unremarkable. No ventriculomegaly. Bones/joints: Unremarkable. No acute fracture. Soft tissues: Unremarkable. Sinuses: Unremarkable as visualized. Mastoid air cells: Unremarkable as visualized. No mastoid effusion. IMPRESSION: No acute intracranial abnormality. Electronically signed by: Vivek Buckner MD 04/14/2022 12:36 AM ADOBE ARCHITECT Due to temporary technical issues with the PACS/Fluency reporting system, reports are being signed by the in house radiologists without review as a courtesy to insure prompt reporting. The interpreting radiologist is fully responsible for the content of the report.
== END 2022-04-14 02:28 | disposition home or self-care (01) ==
LOC: ER 20:57
DX: E86.0 Dehydration (principal); H81.399 Other peripheral vertigo, unspecified ear; K59.00 Constipation, unspecified; F32.A Depression, unspecified; F17.210 Nicotine dependence, cigarettes, uncomplicated
CPT/HCPCS: 0240U; 36415; 70450; 74177; 80053; 81003; 81025; 82010; 82947; 83690; 85025; 96374; 99284; J2405; J7030; J8597; Q9967

== ENCOUNTER 2022-05-10 08:41 | Observation (INO) | payer OTHER ==
--- OUTSIDE RECORDS SUMMARY | 2022-05-10 08:46 | XMS REPORT | Continuity of Care Document ---
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 00:00:00 00:00:00 Discovery josr Mcclellan MD: [address] [place], [place] [address]a - [address], [place] [address] , Ph. 2019-12-15 2019-12-15 Outpatient cMcDonald MMG MM 8784- [place] 09:46:00 09:46:00 012 [facility] 2019-12-10 2019-12-10 Outpatient Shield MMG MMG [id number] 201 [place] 09:30:00 09:30:00 008 [facility] 2019-12-09 2019-12-09 Outpatient Shield MMG MMG [id number] 201 [place] 09:44:00 09:44:00 006 [facility] 2019-12-09 2019-12-09 Yane MMG [place] - [id number] M [place] 00:00:00 00:00:00 Discovery Lorraine da SOCIAL INSURANCE ADVISER: [address], [facility] [address] , Ph. 2019-12-08 2019-12-08 Orders Doctor ZELALEM [id number] 00:00:00 00:00:00 Only Unassigned, NICOLE 350.1.13.10 [facility] 4.2.7.2.686 [id number] 2019-12-05 2019-12-05 [facility] [id number] 12:04:47 23:59:00 Encounter [facility] [id number] Surgical 4.2.7.2.686 Specialti [id number] es 809 [place] 2019-12-05 2019-12-05 Office [facility] [place] [id number] 10:06:53 10:21:53 Visit [facility] [id number] Surgical 4.2.7.2.686 Specialti [id number] es 198 [place] 2019-12-05 2019-12-05 Outpatient R VY [facility] [id number] [facility] 10:15:00 10:15:00 TONO villavicencio of [facility] 2019-12-05 2019-12-05 Letter [facility] [id number] 00:00:00 00:00:00 (Out) [facility] [id number] Surgical 4.2.7.2.686 [facility] [id number] es 198 [place] 2019-11-18 2019-11-18 Outpatient Shield MMG MMG [id number] 200 [place] 01:50:00 01:50:00 915 [facility] 2019-11-18 2019-11-18 Outpatient Shield MMG MMG [id number] 200 [place] 01:50:00 01:50:00 923 [facility] 2019-11-18 2019-11-18 Outpatient Shield MMG MMG [id number] 201 [place] 01:50:00 01:50:00 002 [facility] 2019-11-18 2019-11-18 Yane MMG [place] - [id number] M [place] 00:00:00 00:00:00 Discovery oLrraine da SOCIAL INSURANCE ADVISER: [address] [place] [address] , Ph. 2019-10-22 2019-10-22 Outpatient Shield MMG MMG [id number] 200 [place] 06:57:00 06:57:00 819 [facility] 2019-10-22 2019-10-22 Yane MMG [place] - [id number] M [place] 00:00:00 00:00:00 Discovery Lorraine da SOCIAL INSURANCE ADVISER: 600 [facility] [address], [facility] [place] [address] , Ph. 2019-08-27 2019-08-27 Outpatient Shield MMG MMG [id number] 200 [place] 04:58:00 04:58:00 624 [facility] 2019-08-27 2019-08-27 Yane MMG [place] - [id number] M [place] 00:00:00 00:00:00 Discovery Lorraine da SOCIAL INSURANCE ADVISER: [address] [facility] [address], [facility] [place] [address] , Ph. 2019-08-25 2019-08-25 Outpatient Shield MMG MMG [id number] 200 [place] 09:54:00 09:54:00 622 [facility] 2019-07-30 2019-07-30 Outpatient Shield MMG MMG [id number] 200 [place] 05:09:00 05:09:00 527 [facility] 2019-07-30 2019-07-30 Yane MMG [place] - [id number] M [place] 00:00:00 00:00:00 Discovery Lorraine da SOCIAL INSURANCE ADVISER: 600 [facility] 201[facility] [place] [address] , Ph. 2019-06-08 2019-06-08 Outpatient Shield MMG MMG [id number] 200 [place] 02:34:00 02:34:00 405 [facility] 2019-06-05 2019-06-05 Yane MMG [place] - [id number] M [place] 00:00:00 00:00:00 Discovery Lorraine da SOCIAL INSURANCE ADVISER: [address] [place] [address] , Ph. 2018-12-31 2018-12-31 Outpatient Shield MMG MMG [id number] 200 [place] 03:36:00 03:36:00 402 [facility] 2018-12-19 2018-12-19 Yane MMG [place] - [id number] M [place] 00:00:00 00:00:00 Discovery Lorraine da SOCIAL INSURANCE ADVISER: [address] [place] [address] , Ph. 2018-09-27 2018-09-27 Kate MMG [place] - [id number] M [place] 00:00:00 00:00:00 [facility] SOCIAL [facility]URANCE ADVIS[facility]: [address] [place] [address] , Ph. 2018-09-23 2018-09-23 Yane MMG [place] - [id number] M [place] 00:00:00 00:00:00 Discovery josr Peters SOCIAL INSURANCE ADVISER: [address] [place] [address] , Ph. 2018-09-20 2018-09-20 Kate [facility] [place] - [id number] M [place] 00:00:00 00:00:00 Nubia Edward, [facility] SOCIAL INSURANCE ADVISER: [address] [place] [address] 201, [place] [address] , Ph. 2018-08-29 2018-08-29 Yair Mack [facility] [place] - [id number] M [place] 00:00:00 00:00:00 MD Fran: Discovery ovalles [address] [place] [address], [facility] [address] , Ph. Results Test Description Test Time [...] (test code = RAPID FLU B) negative [facility] W Auto Differential panel - [id number] 09:30:00 Test Item Value Reference Range Interpretation Comments white blood count (test code = 8.9 K/uL 4.0-11.5 white blood count) red blood count (test code = red 4.70 M/uL 3.80-5.20 blood count) hemoglobin (test code = 14.4 g/dL 10.5-15.7 hemoglobin) hematocrit (test code = 43.4 % 34.0-50.0 hematocrit) MCV [Entitic volume] (test code = 92.3 fL 86-100 73235-7) mean corpuscular hemoglobin (test 30.6 pg 26.2-33.4 [...] 44.4-80.1 leukocytes in Blood (test code = 04263-5) Immature granulocytes [#/volume] 0.0 K/uL 0.0-0.03 in Blood (test code = 23601-6) lymphocyte% (test code = 24.1 % 10.0-50.0 lymphocyte%) mono % (test code = mono %) 6.2 % 3.6-12.0 eos % (test code = eos %) 2.7 % 0.0-5.4 Basophils/100 leukocytes in 0.4 % 0.1-1.2 Unspecified specimen (test code = 97427-9) Band form neutrophils [#/volume] 5.89 K/uL 1.56-6.13 in Blood (test code = 50053-8) Lymphocytes [#/volume] in 2.1 K/uL 1.18-3.74 Unspecified specimen by Automated count (test code = 86376-2) mono # (test code = mono #) 0.55 K/uL 0.24-0.86 eos # (test code = eos #) 0.24 K/uL 0.04-0.36 basophil # (test code = basophil 0.04 K/uL 0.01-0.08 #) NRBC% (test code = NRBC%) 0 /100 WBC 0-0.2 NRBC# (test code = NRBC#) 0 K/uL [facility] 2000 panel - Serum or Plasma [...] Serum or Plasma (test code = 6768-6) [facility] System[facility] 1996 panel - Serum or [id number] 09:30:00 Test Item Value Reference Range Interpretation Comments cholesterol level (test code = 230 mg/dL 150-200 H cholesterol level) triglycerides level (test code = 149 mg/dL <150 triglycerides level) HDL cholesterol (test code = HDL 43 mg/dL >65 L cholesterol) LDL cholesterol direct (test code = 167 mg/dL <100 H LDL cholesterol direct) cholesterol risk ratio (test code = 5.348 cholesterol risk ratio) [facility] SystemUrinalysis complete W Reflex Culture panel - Urine 2020-12-08 09:30:00 Test Item Value Reference Range Interpretation Comments Color of Urine by Auto (test light yellow code = 04457-6) Appearance of Urine (test code = SL cloudy clear A 5767-9) Glucose [Presence] in Urine by negative negative Automated test strip (test code = 81131-9) Bilirubin.total [Mass/volume] in negative negative Urine (test code = 1978-6) Ketones [Mass/volume] in Urine negative negative by Automated test strip (test code = 00922-4) Specific gravity of Urine by 1.020 1.003-1.030 Automated test strip (test code = 02222-1) blood urine (test code = blood negative negative urine) pH of Urine (test code = 2756-5) 5.500 5-9 protein urine (UA) (test code = negative negative protein urine (UA)) Urobilinogen [Presence] in Urine normal 0.2-1.0 (test code = 32285-0) Nitrite [Presence] in Urine by negative negative Test strip (test code = 5802-4) Leukocyte esterase [Presence] in negative negative Urine by Automated test strip (test code = 82516-9) Erythrocytes [#/volume] in Urine =1-5 0-5 by Automated count (test code = 798-9) Leukocytes [#/area] in Urine =11-14 0-5 H sediment by Automated count (test code = 98167-3) Epithelial cells [Presence] in =6-10 0-5 Urine sediment by Light microscopy (test code = 49616-1) Bacteria identified in Urine by tntc (4 none detect H Culture (test code = 630-4) Casts [#/area] in Urine sediment =2-5 none detect by Automated count (test code = 32760-9) urine culture added? (test code yes = urine culture added?) Pathologic casts [Presence] in none seen none detect Urine by Automated (test code = 54595-9) [facility] GroupBacteria identified in Urine by [id number] 09:30:00Bacteria Ur CultGatagriffin hospitala Medical Groupantibiotic sensitivity testing, [id number] 09:30:00 Test Item Value Reference Range Interpretation [...] Minimum inhibitory concentration (NELSON) (test code = 80992-4) cefTAZidime [Susceptibility] by <=2 Minimum inhibitory concentration (NELSON) (test code = 133-9) cefTRIAXone [Susceptibility] by <=1 Minimum inhibitory concentration (NELSON) (test code = 141-2) Ciprofloxacin [Susceptibility] by <=0.25 Minimum inhibitory concentration (NELSON) (test code = 185-9) Ampicillin+Sulbactam [Susceptibility] =16/8 by Minimum inhibitory concentration (NELSON) (test code = 32-3) Ertapenem [Susceptibility] by Minimum <=0.25 inhibitory concentration (NELSON) (test code = 42266-4) Aztreonam [Susceptibility] by Minimum <=2 inhibitory concentration (NELSON) (test code = 44-8) Cefepime [Susceptibility] by Minimum <=1 inhibitory concentration (NELSON) (test code = 6644-9) Meropenem [Susceptibility] by Minimum <=0.5 inhibitory concentration (NELSON) (test code = 6652-2) Moxifloxacin [Susceptibility] by <=1 Minimum inhibitory concentration (NELSON) (test code = 63287-9) Amikacin [Susceptibility] by Minimum <=8 inhibitory concentration (NELSON) (test code = 12-5) Piperacillin+Tazobactam =2/4 [Susceptibility] by Minimum inhibitory concentration (NELSON) (test code = 412-7) Ceftaroline [Susceptibility] by <=0.25 Minimum inhibitory concentration (NELSON) (test code = 99578-1) Tigecycline [Susceptibility] by <=1 Minimum inhibitory concentration (NELSON) (test code = 14854-2) [facility] SystemHemoglobin A1c [Mass/volume] in [id number] 00:00:00 Test Item Value Reference Range Interpretation Comments Hemoglobin A1c [Mass/volume] in Blood 5.7 % 4.0-6.0 (test code = 62750-9) [facility] SystemDifferential panel, method unspecified - [id number] 00:00:00NeutrophilsBandLymphocyteAtypical LymphMonocyteEosinophilBasophilMetamyelocyteMyelocytePromyelocyteAbs Neutrophil Count (Man)Abs Lymph Count (Man)Abs Monocyte Count (Man)Abs Eosinophil Count (Man)Abs Basophil Count (Man)Platelet EstimatePlatelet MorphologyHypochromasiaAnisocytosisTear Drop CellsStomatocytMethodist Olive Branch Hospitalpregnancy test, [id number] 05:20:00 Test Item Value Reference Range Interpretation Comments Choriogonadotropin ( test) negative neg [Presence] in Urine (test code = 2106-3) [facility] SystemUrinalysis macro (dipstick) panel - [id number] 17:11:00 Test Item Value Reference Range Interpretation Comments Leukocytes (test code = Trace Leukocytes) Nitrite (test code = Nitrite) negative Urobilinogen (test code = .2 Urobilinogen) Protein (test code = Protein) Negative pH (test code = pH) 5.5 Blood (test code = Blood) Negative Specific [place] (test code = 1.030 Specific [place]) Ketone (test code = Ketone) Negative Bilirubin (test code = Bilirubin) Negative Glucose (test code = Glucose) Negative Appearance (test code = Turbid Appearance) Color (test code = Color) Dark Yellow [facility] SystemCBC W Auto Differential panel - [id number] 03:24:00 Test Item Value Reference Range Interpretation Comments white blood count (test code = 9.8 K/uL 4.0-11.5 white blood count) red blood count (test code = red 4.89 M/uL 3.80-5.20 blood count) hemoglobin (test code = 15.2 g/dL 10.5-15.7 hemoglobin) hematocrit (test code = 44.9 % 34.0-50.0 hematocrit) MCV [Entitic volume] (test code = 91.8 fL 86-100 20356-9) mean corpuscular hemoglobin (test 31.1 pg 26.2-33.4 [...] 44.4-80.1 leukocytes in Blood (test code = 75661-3) Immature granulocytes [#/volume] 0.1 K/uL 0.0-0.03 H in Blood (test code = 65571-5) lymphocyte% (test code = 22.9 % 10.0-50.0 lymphocyte%) mono % (test code = mono %) 6.0 % 3.6-12.0 eos % (test code = eos %) 1.8 % 0.0-5.4 Basophils/100 leukocytes in 0.5 % 0.1-1.2 Unspecified specimen (test code = 79362-8) Band form neutrophils [#/volume] 6.69 K/uL 1.56-6.13 H in Blood (test code = 71288-6) Lymphocytes [#/volume] in 2.2 K/uL 1.18-3.74 Unspecified specimen by Automated count (test code = 03945-8) mono # (test code = mono #) 0.59 K/uL 0.24-0.86 eos # (test code = eos #) 0.18 K/uL 0.04-0.36 basophil # (test code = basophil 0.05 K/uL 0.01-0.08 #) NRBC% (test code = NRBC%) 0 /100 WBC 0-0.2 NRBC# (test code = NRBC#) 0 K/uL [facility] SystemDifferential panel, method unspecified - [id number] 03:24:00NeutrophilsBandLymphocyteAtypical LymphMonocyteEosinophilBasophilMetamyelocyteMyelocyteNucleated RedBlood CellAbs Neutrophil Count (Man)Abs Lymph Count (Man)Abs Monocyte Count (Man)Abs Eosinophil Count (Man)Abs Basophil Count (Man)Platelet EstimatePlatelet MorphologyHypochromasiaAnisocytosisMacrocytosisToxic GranulationToxic VacuolationThe [facility] GroupComprehensive metabolic 2000 panel - Serum or [id number] 03:24:00 Test Item Value Reference Range Interpretation [...] Serum or Plasma (test code = 6768-6) [facility] SystemLipase [Enzymatic activity/volume] in Serum or Plasma 2020-05-22 03:24:00 Test Item Value Reference Range Interpretation Comments lipase (test code = lipase) 18 U/L 13-60 [facility]2018-09-23 08:08:00 Test Item Value Reference Range Interpretation Comments Flu (test code = Flu) negative [facility], [id number] 08:08:00 Test Item Value Reference Range Interpretation Comments Strep Result (test code = Strep negative Result) [facility]2018-09-23 08:08:00 Test Item Value Reference Range Interpretation Comments Flu (test code = Flu) negative [facility], [id number] 08:08:00 Test Item Value Reference Range Interpretation Comments Strep Result (test code = Strep negative Result) [facility]
[2022-05-10 09:14] LABS: Urine Blood Negative (Negative); Urine Glucose Negative (Negative); Urine Protein Negative (Negative); Urine pH 6.5 (5.0-7.0)
[2022-05-10 09:22] LABS: Urine Bacteria None Seen /HPF (<20); Urine RBC <5 /HPF (None Seen)
[2022-05-10 09:23] LABS: Absolute Lymphocytes (CBC) 2.7 K/uL (0.7-4.9); Lymphocytes % 25.2 % (15.3-44.8); MCV 92.5 fL (80-100); MPV 6.9 fL (7.6-11.3); RBC Red Blood Cell Count 4.53 M/uL (3.86-4.86)
[2022-05-10 09:24] LABS: Protime INR 0.85
[2022-05-10 09:44] LABS: ALT/SGPT 24 U/L (13-56); AST/SGOT 14 U/L (15-37); Albumin 3.7 g/dL (3.4-5.0); Alkaline Phosphatase 58 U/L (45-117); BUN Blood Urea Nitrogen 12 mg/dL (7-18); Bicarbonate 27 mmol/L (21-32); Bilirubin Total 0.2 mg/dL (0.2-1.0); Glomerular Filtration Rate 97 ml/min (=/>90); Glucose Level 104 mg/dL (74-106); Magnesium 2.4 mg/dL (1.6-2.4); Potassium 3.8 mmol/L (3.5-5.1); Protein, Total 7.5 g/dL (6.4-8.2); Sodium Level 139 mmol/L (136-145)
[2022-05-10 09:45] LABS: Bilirubin Direct < 0.1 mg/dL (0-0.2); NT PRO-BNP < 5 pg/mL (<125); Troponin High Sensitivity < 3.0 pg/mL (<58.9)
[2022-05-10] MEDS ORDERED: NA CHLORIDE 0.9% 1,000 ML ONE ×2 (09:52→13:06)
[2022-05-10] MEDS ORDERED: PANTOPRAZOLE 40 MG INJ ONE (09:52)
--- NOTE | 2022-05-10 10:15 | RAD REPORT ---
EXAM DESCRIPTION: RAD - Chest Single View - 05/10/2022 10:03 am CLINICAL HISTORY: PALPITATIONS Chest pain. COMPARISON: Chest Pa And Lat (2 Views) dated 12/02/2016; CHEST SINGLE VIEW dated 11/05/2014 FINDINGS: Portable technique limits examination quality. The lungs are grossly clear. The heart is normal in size. No displaced fractures. IMPRESSION: No acute intrathoracic process suspected.
[2022-05-10] MEDS ORDERED: MAGNES/ALUMIN/SIMET 30ML UCUP ONE (11:40)
[2022-05-10] MEDS ORDERED: LIDOCAINE VISCOUS 2% SOLN 15 ML UDC ONE (11:40)
[2022-05-10] MEDS ORDERED: ACETAMINOPHEN 325 MG TABLET ONE (18:29)
[2022-05-10] MEDS ORDERED: PROMETHAZINE 25 MG TABLET ONE (18:29)
--- NOTE | 2022-05-10 19:24 | P.HP ---
Certification for Inpatient Patient admitted to: Observation With expected LOS: <2 Midnights Patient will require the following post-hospital care: None Practitioner: I am a practitioner with admitting privileges, knowledge of patient current condition, hospital course, and medical plan of care. Services: Services provided to patient in accordance with Admission requirements found in Title 42 Section 412.3 of the Code of Federal Regulations Patient History Date of Service: 05/10/22 Primary Care Provider: Rosalia Cobos Reason for admission: Hypotension History of Present Illness: Patient is a 36 year old female with past medical history of GERD, IBS, depression, and anxiety who presented to the emergency department with comp laints of racing heart, nausea, and generally feeling unwell. She states that she has had a URI the past 3 weeks but today she started to feel worse. 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 Patient remained in the emergency department all day without any improvement in symptoms and her blood pressure slowly declined despite IV fluids, systolic consistently < 100. ED provider wishes to admit patient for observation. 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 - Family History Father -: Heart disease - Social History Smoking Status: Current every day smoker Alcohol use: No CD- Drugs: No Caffeine use: Yes Place of Residence: Home Review of Systems General: Weakness, Malaise Cardiovascular: Palpitations Gastrointestinal: Nausea Physical Examination - Vital Signs Temperature: 98.4 F Blood Pressure: 96/63 Pulse: 83 Respirations: 15 Pulse Ox (%): 95 - Physical Exam General: Alert, In no apparent distress HEENT: Atraumatic, Other (Dry mucous membranes), EOMI, Sclerae nonicteric Neck: Supple, 2+ carotid pulse no bruit Respiratory: Clear to auscultation bilaterally, Normal air movement Cardiovascular: Regular rate/rhythm, Normal S1 S2 Gastrointestinal: Normal bowel sounds, No tenderness Musculoskeletal: No tenderness Integumentary: No rashes Neurological: Normal speech, Normal affect - Studies Laboratory Data (last 24 hrs) 05/10/22 09:10: PT 9.3 L, INR 0.85 05/10/22 09:10: WBC 10.60, Hgb 14.3, Hct 42.0, Plt Count 334 05/10/22 09:10: Sodium 139, Potassium 3.8, BUN 12, Creatinine 0.80, Glucose 104, Magnesium 2.4, Total Bilirubin 0.2, AST 14 L, ALT 24, Alkaline Phosphatase 58 Assessment and Plan - Problems (Diagnosis) (1) Hypotension Current Visit: Yes Status: Acute Qualifiers: Hypotension type: unspecified hypotension type Qualified Code(s): I95.9 - Hypotension, unspecified (2) GERD (gastroesophageal reflux disease) Current Visit: Yes Status: Chronic Qualifiers: Esophagitis presence: without esophagitis Qualified Code(s): K21.9 - Gastro-esophageal reflux disease without esophagitis (3) Tobacco abuse Current Visit: Yes Status: Chronic - Plan Patient is admitted for observation for further management of hypotension. Cause of hypotension is unclear at this point, possibly related to hypovolemia. Patient also had her effexor increased 3 months ago. Thyroid panel negative. Will additionally check lipid panel, UDS, and mono screen. Per chart review on last ED visit, BP was 100/110s systolic. She does not take any antihypertensives. Continue IV fluids and monitoring BP closely. Orthostatic vitals negative. Cardiac enzymes negative. No chest pain. Will repeat in the morning. EKG with QT prolongation. Hold QT prolonging medications. Tobacco cessation counseling. Monitor and replete electrolytes per protocol. Discharge Plan: Home Plan to discharge in: 24 Hours - Advance Directives Does patient have a Living Will: No Does patient have a Durable POA for Healthcare: No - Code Status/Comfort Care Code Status Assessed: Yes Code Status: Full Code Physician Review: Patient Assessed, Agree with Above Assessment and Plan Critical Care: No Time Spent Managing Pts Care (In Minutes): 50
[2022-05-10] MEDS: NA CHLORIDE 0.9% 1,000 ML IV SCH (22:02)
[2022-05-10] MEDS: ACETAMINOPHEN 500 MG TAB PO PRN (22:11)
[2022-05-10 23:28] LABS: SARS-CoV-2 Antigen Rapid Res Negative (Negative)
[2022-05-11 02:42] VITALS: BMI 37.8
[2022-05-11] MEDS: ACETAMINOPHEN 500 MG TAB PO PRN (07:26)
[2022-05-11] MEDS ORDERED: ACETAMINOPHEN 500 MG TAB ONE (07:29)
[2022-05-11 07:34] LABS: BUN Blood Urea Nitrogen 9 mg/dL (7-18); Bicarbonate 26 mmol/L (21-32); Creatine Phosphokinase 176 U/L (26-192); Glomerular Filtration Rate 116 ml/min (=/>90); Glucose Level 98 mg/dL (74-106); HDL Cholesterol 37 mg/dL (40-60); LDL Cholesterol, Calculated 145 mg/dL (<130); Magnesium 2.4 mg/dL (1.6-2.4); Potassium 3.7 mmol/L (3.5-5.1); Sodium Level 141 mmol/L (136-145)
[2022-05-11 07:36] LABS: Troponin High Sensitivity < 3.0 pg/mL (<58.9)
[2022-05-11 07:39] LABS: Absolute Lymphocytes (CBC) 2.2 K/uL (0.7-4.9); Hematocrit 37.3 % (36.0-45.0); Lymphocytes % 34.2 % (15.3-44.8); MCV 93.1 fL (80-100)
[2022-05-11] MEDS: NA CHLORIDE 0.9% 1,000 ML IV SCH ×2 (08:02→14:44)
[2022-05-11] MEDS ORDERED: PROMETHAZINE 25 MG TABLET PO ONE (10:42)
[2022-05-11] MEDS ORDERED: ACETAMIN/CAFFEINE/BUTALB TAB PO ONE ×2 (10:42→10:50)
[2022-05-11] MEDS ORDERED: NA CHLORIDE 0.9% 1,000 ML IV ONE (10:43)
[2022-05-11] MEDS ORDERED: PROMETHAZINE 25 MG TABLET ONE (10:50)
[2022-05-11] MEDS ORDERED: NA CHLORIDE 0.9% 1,000 ML ONE (10:51)
[2022-05-11] MEDS ORDERED: SUMATRIPTAN SUCCI 50 MG TAB PO ONE (15:52)
--- NOTE | 2022-05-11 16:24 | EKG ---
Test Date: 2022-05-10 Test Time: 08:55:24 Bobbin Handler: PATRICIA MEASUREMENT RESULTS: Intervals: Rate: 97 PA: 140 QRSD: 82 QT: 384 QTc: 487 [place]: P: 39 PA: 140 QRS: 27 T: 44 INTERPRETIVE STATEMENTS: Normal sinus rhythm Low voltage QRS Prolonged QT Abnormal ECG Compared to ECG 12/02/2016 22:21:23 Low QRS voltage now present Prolonged QT interval now present Sinus tachycardia no longer present Electronically Signed On 05-11-22 16:20:24 SCREEN MAKING TECHNICIAN by Benjamin Berry
[2022-05-12] MEDS: NA CHLORIDE 0.9% 1,000 ML IV SCH ×2 (03:27→10:06)
[2022-05-12] MEDS ORDERED: PROMETHAZINE 25 MG TABLET PO ONE ×2 (04:38→15:34)
[2022-05-12 05:11] LABS: Potassium 3.6 mmol/L (3.5-5.1)
--- NOTE | 2022-05-12 07:46 | ECHO ---
HEIGHT: 5 ft 2 in WEIGHT: 282 lb 0 oz DATE OF STUDY: 05/11/[address]: Susie Koenig MD 2-DIMENSIONAL: YES M.MODE: YES DOPPLER: YES COLOR FLOW: YES TDS: PORTABLE: YES DEFINITY: BUBBLE STUDY: DIAGNOSIS: HYPOTENSION CARDIAC HISTORY: CATHERIZATION: SURGERY: PROSTHETIC VALVE: PACEMAKER: MEASUREMENTS (cm) DIASTOLIC (NORMALS) SYSTOLIC (NORMALS) IVSd 1.1 (0.6-1.2) LA Diam 3.6 (1.9-4.0) LVEF 55-60% LVIDd 4.1 (3.5-5.7) LVIDs 3.0 (2.0-3.5) %FS 26% LVPWd 0.9 (0.6-1.2) Ao Diam 2.7 (2.0-3.7) 2 DIMENSIONAL ASSESSMENT: RIGHT ATRIUM: NORMAL LEFT ATRIUM: NORMAL RIGHT VENTRICLE: NORMAL LEFT VENTRICLE: NORMAL TRICUSPID VALVE: TRACE TRICUSPID REGURGITATION MITRAL VALVE: NORMAL PULMONIC VALVE: NORMAL AORTIC VALVE: NORMAL PERICARDIAL EFFUSION: NONE AORTIC ROOT: NORMAL LEFT VENTRICULAR WALL MOTION: NORMAL DOPPLER/COLOR FLOW: MILD TRICUSPID REGURGITATION COMMENTS: 1. NORMAL LEFT VENTRICULAR EJECTION FRACTION 55-60% 2. NORMAL WALL MOTION 3. NORMAL DIASTOLIC FUNCTION 4. MILD TRICUSPID REGURGITATION TECHNOLOGIST: JACQUES CLEMENTS
[2022-05-12] MEDS ORDERED: POTASSIUM CL SA 10 MEQ TAB PO ONE (09:00)
[2022-05-12] MEDS ORDERED: HYDROCORTISONE SUC 100 MG INJ IV ONE (12:00)
[2022-05-12 22:17] VITALS: O2SAT 95
[2022-05-13] MEDS: ACETAMINOPHEN 500 MG TAB PO PRN (00:53)
[2022-05-13] MEDS ORDERED: HYDROCORTISONE SUC 100 MG INJ IV ONE (04:07)
[2022-05-13 05:05] LABS: Potassium 3.4 mmol/L (3.5-5.1)
[2022-05-13] MEDS ORDERED: POTASSIUM CL SA 10 MEQ TAB PO ONE (08:00)
[2022-05-13 12:09] VITALS: BP 93/52
[2022-05-13 13:17] VITALS: TEMP 97.6
== END 2022-05-13 15:03 | disposition home or self-care (01) ==
LOC: ER 08:41 → ERHOLD 19:37 → 4TH 05-11 13:12
PROVIDERS: ADMIT Hospitalist; ATTEND Hospitalist
DX: I95.9 Hypotension, unspecified (principal); K21.9 Gastro-esophageal reflux disease without esophagitis; K58.9 Irritable bowel syndrome, unspecified; F32.A Depression, unspecified; F41.9 Anxiety disorder, unspecified; R11.0 Nausea; Z72.0 Tobacco use; Z20.822 Contact with and (suspected) exposure to COVID-19
CPT/HCPCS: 96361; 93005; 93306; 87088; 85025 ×2; 87086; 80048 ×4; 36415 ×3; 83735 ×2; 82550; 86308; 81025; 84100; 84132; 85610; 80061; 80076; 84443; 84484 ×2; 84439; 82533; 84145; 83880; 84244; 71045; 96374; 99285; 87811; Q0169 ×5; C9113; J1720 ×2; J7030 ×7; 81003; 81015

== ENCOUNTER 2022-11-12 17:57 | Emergency (ER) | payer OTHER ==
--- OUTSIDE RECORDS SUMMARY | 2022-11-12 18:04 | XMS REPORT | Continuity of Care Document ---
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 (Body Mass 2020-01-09 00:00:00 35.3 kg/m2 [facility] Index) Group BP Systolic 2020-01-09 00:00:00 116 mm[Hg] [facility] Body Weight 2020-01-09 00:00:00 3504 [oz_av] [facility] BP Diastolic 2019-12-23 00:00:00 73 mm[Hg] [facility] Height 2019-12-23 00:00:00 66 [in_i] [facility] BMI (Body Mass 2019-12-23 00:00:00 37.4 kg/m2 [facility] Index) Group BP Systolic 2019-12-23 00:00:00 109 mm[Hg] [facility] Body Weight 2019-12-23 00:00:00 232 [lb_av] [facility] Height 2019-12-18 00:00:00 66 [in_i] [facility] BMI (Body Mass 2019-12-18 00:00:00 37.4 kg/m2 [facility] Body Weight 2019-12-18 00:00:00 3712 [oz_av] [facility] BP Diastolic 2019-12-16 00:00:00 73 mm[Hg] [facility] Height 2019-12-16 00:00:00 66 [in_i] [facility] BMI (Body Mass 2019-12-16 00:00:00 37.4 kg/m2 [facility] Index) [facility] BP Systolic 2019-12-16 00:00:00 109 mm[Hg] [facility] Body Weight 2019-12-16 00:00:00 232 [lb_av] [facility] BP Diastolic 2019-12-09 00:00:00 73 mm[Hg] [facility] Height 2019-12-09 00:00:00 66 [in_i] [facility] BMI (Body Mass 2019-12-09 00:00:00 37.4 [facility]/m2 [facility] BP Systolic 2019-12-09 00:00:00 109 mm[Hg] [facility] Body Weight 2019-12-09 00:00:00 3712 [oz_av] [facility] BP Diastolic 2019-11-18 00:00:00 83 mm[Hg] [facility] Height 2019-11-18 00:00:00 66 [in_i] [facility] BMI (Body Mass 2019-11-18 00:00:00 38.4 kg/m2 [facility] BP Systolic 2019-11-18 00:00:00 120 mm[Hg] [facility] Body Weight 2019-11-18 00:00:00 3808 [oz_av] [facility] Height 2019-10-22 00:00:00 66 [in_i] [facility] BP Diastolic 2019-08-27 00:00:00 86 mm[Hg] [facility] Height 2019-08-27 00:00:00 66 [in_i] [facility] BMI (Body Mass 2019-08-27 00:00:00 40.8 kg/m2 [facility] Index) [facility] BP Systolic 2019-08-27 00:00:00 128 mm[Hg] [facility] Body Weight 2019-08-27 00:00:00 4040 [oz_av] [facility] BP Diastolic 2018-12-19 00:00:00 77 mm[Hg] [facility] Height 2018-12-19 00:00:00 66 [in_i] [facility] BMI (Body Mass 2018-12-19 00:00:00 40.8 kg/m2 [facility] Index) [facility] BP Systolic 2018-12-19 00:00:00 118 mm[Hg] [facility] Body Weight 2018-12-19 00:00:00 4048 [oz_av] [facility] BP Diastolic 2018-09-27 00:00:00 81 mm[Hg] [facility] Height 2018-09-27 00:00:00 66 [in_i] [facility] BMI (Body Mass 2018-09-27 00:00:00 40.4 kg/m2 [facility] Index) [facility] BP Systolic 2018-09-27 00:00:00 118 mm[Hg] [facility] Body Weight 2018-09-27 00:00:00 4000 [oz_av] [facility] BP Diastolic 2018-09-23 00:00:00 78 mm[Hg] [facility] Height 2018-09-23 00:00:00 66 [in_i] [facility] BMI (Body Mass 2018-09-23 00:00:00 40.5 kg/m2 [facility] Index) [facility] BP Systolic 2018-09-23 00:00:00 108 mm[Hg] [facility] Body Weight 2018-09-23 00:00:00 4016 [oz_av] [facility] BP Diastolic 2018-09-20 00:00:00 83 mm[Hg] [facility] Height 2018-09-20 00:00:00 66 [in_i] [facility] BMI (Body Mass 2018-09-20 00:00:00 40.8 kg/m2 [facility] lap checker Medical Index) Group BP Systolic 2018-09-20 00:00:00 118 mm[Hg] [facility] Body Weight 2018-09-20 00:00:00 4049 [oz_av] [facility] BP Diastolic 2018-08-29 00:00:00 92 mm[Hg] [facility] Height 2018-08-29 00:00:00 66 [in_i] [facility] BMI (Body Mass 2018-08-29 00:00:00 40.5 kg/m2 [facility] lap checker Medical Index) Group BP Systolic 2018-08-29 00:00:00 108 mm[Hg] [facility] Body Weight 2018-08-29 00:00:00 4016 [oz_av] [facility] Temperature Oral (F) 2022-09-28 06:00:00 98.2 F [facility] Heart Rate 2022-09-28 06:00:00 [facility] Systolic (mm Hg) 2022-09-28 06:00:00 [facility] Diastolic (mm Hg) 2022-09-28 06:00:00 [facility] Height 2022-09-28 03:47:00 5 [ft_i] [facility] BMI Calculated 2022-09-28 03:47:00 [facility] Weight 2022-09-28 03:47:00 [facility] Weight 2022-07-02 03:14:00 [facility] Systolic (mm Hg) 2022-07-02 03:14:00 Dave [facility] Diastolic (mm Hg) 2022-07-02 03:14:00 [facility] Heart Rate 2022-07-02 03:14:00 [facility] Temperature Oral (F) 2022-07-02 03:14:00 98.5 F [facility] Height 2022-07-02 03:14:00 5 [ft_i] [facility] BMI Calculated 2022-07-02 03:14:00 [facility] Diastolic (mm Hg) 2014-02-02 16:18:00 [facility] Systolic (mm Hg) 2014-02-02 16:18:00 Dave [facility] Heart Rate 2014-02-02 16:18:00 [facility] Respitory Rate 2014-02-02 16:18:00 [facility] Respitory Rate 2014-02-02 15:21:00 [facility] Diastolic (mm Hg) 2014-02-02 15:21:00 [facility] Systolic (mm Hg) 2014-02-02 15:21:00 [facility] Heart Rate 2014-02-02 15:21:00 [facility] Temperature Oral (F) 2014-02-02 15:21:00 96.7 F [facility] Temperature Oral (F) 2014-02-02 13:27:00 97.5 F [facility] Respitory Rate 2014-02-02 13:19:00 [facility] Heart Rate 2014-02-02 13:19:00 [facility] Systolic (mm Hg) 2014-02-02 13:19:00 [facility] Diastolic (mm Hg) 2014-02-02 13:19:00 [facility] Temperature Oral (F) 2014-02-02 10:51:00 97.7 F [facility] Height 2014-02-02 08:51:00 167.64 cm [facility] BMI Calculated 2014-02-02 08:51:00 [facility] Weight 2014-02-02 08:51:00 [facility] Procedures Procedure Date / Time Performing Source Performed Clinician RAPID RESPONSE TEAM DOCUMENTATION 2022-05-31 [facility] 05:01:00 Unassigned, No [facility] Branch unlisted imaging order 2022-03-23 [facility] 00:00:00 Group unlisted imaging order 2021-07-06 [facility] 00:00:00 Group unlisted imaging order 2020-06-10 [facility] 00:00:00 Group XR, knee, 1 or 2 view 2020-02-02 [facility] 00:00:00 Group XR, knee, 1 or 2 view 2019-12-16 [facility] 00:00:00 Group unlisted imaging order 2019-12-16 [facility] 00:00:00 Group XR, knee, 3 view 2019-07-30 [facility] 00:[facility]00 [facility] Colonoscopy 2017-09-11 [facility] 00[facility]00 [facility] Esophagogastroduodenoscopy 2017-08-14 [facility] 00:[facility]00 [facility] Ankle Surgery [facility] Cholecystectomy [facility] Ankle Arthroscopy/surgery [facility] Foot joint operations<sup>1</sup> [facility] Excision of intra-abdominal mass [facility] Cholecystectomy [facility] Plan of Care Planned Activity Planned Date Details Comments Source Diagnostic Test Pending 2022-04-24 BMP, serum or [facility] 00:00:00 plasma [code = Group BMP, serum or plasma] Diagnostic Test Pending 2022-04-24 CBC w/ auto diff [facility] 00:00:00 [code = CBC w/ Group auto diff] Instructions [facility] Encounters Start End Encounter Admission Attending Care Care Encounter Source Date/Time Date/Time Type Type Clinicians Facility Department ID 2022-09-28 2022-09-28 Emergency [facility] [id number] [facility] 03:45:50 07:09:[address] 2022-09-27 2022-09-28 Outpatient Alejandro Thomson [facility] [id number] 22:45:50 02:09:00 Vivek 02 2022-09-27 2022-09-28 Emergency ALEJANDRO CASTLENE [id number] [facility] 22:45:00 02:09:00 02 2022-09-27 2022-09-28 Emergency ALEJANDRO CASTLE [facility] [id number] [facility] 22:45:00 02:09:00 2022-09-28 2022-09-28 Outpatient RADHA FABIAN [id number] [facility] 01:00:00 02:00:00 [facility] 12 2022-09-28 2022-09-28 Outpatient RADHA FABIAN [id number] [facility] 01:00:00 02:00:00 FARID 2022-09-14 2022-09-15 Emergency WAN [place]isle [id number] [facility] 20:30:00 01:53:[address] [place] [address] 2022-08-23 2022-08-23 Outpatient Shield [facility]G [id number] [facility] 00:00:00 00:00:00 621 [facility] 2022-08-23 2022-08-23 Leonardo CERNA [place] - [id number] M at[facility] 00:00:00 00:00:00 Discovery Lorraine da SUTURE WINDER HAND: [address] [place] [address] , Ph. 2022-07-02 2022-07-[address] [facility] [id number] [facility] 02:16:09 04:05:[address] 2022-07-01 2022-07-01 Outpatient Amanda [facility] [id number] 21:16:09 23:05:00 Zelalem Ortiz 2022-05-31 2022-05-31 Orders Doctor ZELALEM [id number] [facility] 00:00:00 00:00:00 Only Unassigned, NICOLE [id number] ity of [place] [facility] [id number] Izaiah as [phone] [address] 2022-05-18 2022-05-18 Telephone [facility] [id number] [facility] 00:00:00 00:00:00 [facility] [id number] it y of [place] [id number] Izaiah as COSME?BLEA [id number] [place] emily [address] MEDICAL OFFICE BUILDING 2022-05-16 2022-05-16 Outpatient [facility] [id number] [facility] 00:00:00 00:00:00 314 [facility] 2022-05-16 2022-05-16 Leonardo CERNA [place] - [id number] M [facility] 00:00:00 00:00:00 Discovery josr Peters SUTURE WINDER HAND: [address] [place] [address] , Ph. 2022-04-24 2022-04-24 Outpatient PHUONG [facility]ERS [facility] [id number] [facility] 09:28:00 09:28:00 LEONARDO -[id number] da [facility] 2022-04-24 2022-04-24 Outpatient [facility] [id number] [place] 00:00:00 00:00:00 220 [facility] 2022-04-24 2022-04-24 Leonardo MMG [place] - [id number] M [facility] 00:00:00 00:00:00 Discovery Lorraine da SUTURE WINDER HAND: 600 [facility] [place] - [address] [place] [address] , Ph. 2022-03-23 2022-03-23 Outpatient PHUONG [facility]ERS [facility] [id number] [place] 10:45:00 10:45:00 LEONARDO -[id number] da [facility] 2022-03-23 2022-03-23 Outpatient Shield [facility] MMG [id number] [place] 00:00:00 00:00:00 119 da Medical [facility] 2022-03-23 2022-03-23 Leonardo MMG [place] - [id number] M at[facility] 00:00:00 00:00:00 Discovery Lorraine da SUTURE WINDER HAND: [address] [facility] [address] [place] [address] , Ph. 2022-02-21 2022-02-21 Outpatient [facility] [id number] [place] 00:00:00 00:00:00 220 [facility] 2022-02-21 2022-02-21 Leonardo MMG [place] - [id number] M [facility] 00:00:00 00:00:00 Discovery Lorraine da SUTURE WINDER HAND: [address] [facility] [address] [place] [address] , Ph. 2022-02-15 2022-02-15 Outpatient [facility] [id number] [place] 00:00:00 00:00:00 214 [facility] 2022-01-19 2022-01-19 Outpatient PHUONG LORRAINE [facility] [id number] [facility] 11:24:00 11:24:00 LEONARDO -[id number] da [facility] 2022-01-19 2022-01-19 Outpatient [facility] [id number] 221 [place] 00:00:00 00:00:00 117 [facility] 2022-01-19 2022-01-19 Leonardo MMG [place] - [id number] M [facility] 00:00:00 00:00:00 Discovery Lorraine da SUTURE WINDER HAND: [address] [facility] [address] [place] [address] , Ph. 2022-01-17 2022-01-17 Outpatient [facility] [id number] [place] 00:00:00 00:00:00 115 [facility] 2021-07-06 2021-07-06 Outpatient [facility] [id number] 220 [place] 02:23:00 02:23:00 504 [facility] 2021-07-06 2021-07-06 Leonardo MMG [place] - [id number] M [facility] 00:00:00 00:00:00 Discovery Lorraine da SUTURE WINDER HAND: 600 [facility] - [address] [place] [address] [place] [address] , Ph. 2021-03-04 2021-03-04 Outpatient [facility] [id number] 211 [place] 09:46:00 09:46:00 231 [facility] 2021-03-04 2021-03-04 Pascale MMG [place] - [id number] [place] 00:00:00 00:00:00 Discovery Óscar da FRUIT CUTTER-C: [address] [facility] [address] [place] [address] , Ph. 2021-01-06 2021-01-06 Outpatient [facility] [id number] 211 [place] 04:08:00 04:08:00 104 [facility] 2020-12-08 2020-12-08 Outpatient [facility] [id number] 211 [place] 10:51:00 10:51:00 006 [facility] 2020-12-08 2020-12-08 Leonardo MMG [place] - [id number] M [facility] 00:00:00 00:00:00 Discovery Lorraine da SUTURE WINDER HAND: 600 [facility] [address] [place] [address] , Ph. 2020-07-08 2020-07-08 Outpatient [facility] [id number] 210 [place] 10:46:00 10:46:00 506 [facility] 2020-07-08 2020-07-08 Leonardo MMG [place] - [id number] M [facility] 00:00:00 00:00:00 Discovery Lorraine da SUTURE WINDER HAND: 600 [facility] [address], [facility] [place] [address] , Ph. 2020-06-30 2020-06-30 Outpatient [facility] [id number] 210 [place] 03:21:00 03:21:00 505 [facility] 2020-06-30 2020-06-30 Outpatient [facility] [id number] 210 [place] 03:18:00 03:18:00 428 [facility] 2020-06-10 2020-06-10 Outpatient DESAI_RAKES MEHOP [facility] 111 [id number] [facility] 11:25:00 11:25:00 H [id number] [facility] 2020-06-09 2020-06-09 Outpatient DESAI_RAKES MEHOP T[facility]OP 111 [id number] [facility] 09:39:00 09:39:00 H 93775 [facility] 2020-06-08 2020-06-08 Outpatient DESAI_RAKES MEHOP MEHOP 111 [id number] [facility] 04:52:00 04:52:00 H 04159 [facility] 2020-06-02 2020-06-02 Outpatient [facility] [id number] [place] 11:04:00 11:04:00 331 [facility] 2020-05-31 2020-05-31 Outpatient DESAI_RAKES MEHOP MEHOP 111 [id number] [facility] 01:47:00 01:47:00 H 41311 [facility] 2020-05-31 2020-05-31 Efrain Payton [facility] [place] - [id number] [place] 00:00:00 00:00:00 Abigail Lara MD: [id number] Yarsani Epis type copyist [place] [address] - [facility] [address] [place] [facility] [place] Program [address] , Ph. 2020-05-28 2020-05-28 Outpatient DESAI_MONY [facility] 111 [id number] [place] 03:14:00 03:14:00 H 14390 [facility] 2020-05-27 2020-05-27 Outpatient Shield [facility]G [id number] [place] 10:43:00 10:43:00 325 [facility] 2020-05-24 2020-05-24 Outpatient [facility]G [id number] 210 [place] 11:22:00 11:22:00 322 [facility] 2020-05-24 2020-05-24 Leonardo MMG [place] - [id number] M [facility] 00:00:00 00:00:00 Discovery Lorraine da SUTURE WINDER HAND: 600 [facility] 201[facility] [place] [address] , Ph. 2020-04-07 2020-04-07 Outpatient Shield [facility] MMG [id number] 210 [place] 11:12:00 11:12:00 203 [facility] 2020-04-07 2020-04-07 Outpatient [facility] MMG [id number] 210 [place] 11:12:00 11:12:00 205 [facility] 2020-04-07 2020-04-07 Leonardo MMG [place] - [id number] M [facility] 00:00:00 00:00:00 Discovery Lorraine da SUTURE WINDER HAND: 600 [facility] 201[facility] [place] [address] , Ph. 2020-03-04 2020-03-04 Outpatient DESAI_RAKES MEHOP MEHOP 111 [id number] [place] 09:24:00 09:24:00 H 47560 [facility] 2020-03-04 2020-03-04 Outpatient DESAI_RAKES MEHOP MEHOP 111 [id number] [place] 09:24:00 09:24:00 H 39092 [facility] 2020-03-01 2020-03-01 Outpatient [facility]G [id number] 201 [place] 09:29:00 09:29:00 228 [facility] 2020-03-01 2020-03-01 Outpatient [facility]G [id number] 201 [place] 09:29:00 09:29:00 229 [facility] 2020-03-01 2020-03-01 Leonardo MMG [place] - [id number] M [facility] 00:00:00 00:00:00 Discovery Lorraine da SUTURE WINDER HAND: [address] [place] [address] , Ph. 2020-02-24 2020-02-24 Outpatient DESAI_RAKES MEHOP MEHOP 111 [id number] [place] 05:12:00 05:12:00 H 61562 [facility] 2020-02-17 2020-02-17 Outpatient Shield [facility]G [id number] 201 [place] 06:49:00 06:49:00 215 [facility] 2020-02-12 2020-02-12 Outpatient [facility]G [id number] 201 [place] 09:46:00 09:46:00 210 [facility] 2020-02-12 2020-02-12 Leonardo MMG [place] - [id number] M [facility] 00:00:00 00:00:00 Discovery Lorraine da SUTURE WINDER HAND: 600 [facility] 201[facility] [place] [address] , Ph. 2020-02-09 2020-02-09 Outpatient DESAI_RAKES MEHOP MEHOP 111 [id number] [place] 12:15:00 12:15:00 H [id number] [facility] 2020-02-09 2020-02-09 Iqra TNKAITLIN [place] - [id number] [facility] 00:00:00 00:00:00 Renetta willett, ORCHESTRA LEADER: Yarsani Episco p [facility] [address] Progr , Ph. [phone] 2020-02-08 Outpatient cMcDonald MMG MMG 8784 [place] 11:24:00 11:24:00 206 [facility] 2020-02-03 2020-02-03 Outpatient cMcDonald MMG MMG 8784 [place] 12:09:00 12:09:00 201 [facility] 2020-02-03 2020-02-03 Tono MM [place] - [id number] M at[place] 00:00:00 00:00:00 Discovery josr Mcclellan MD: [address] [place] [address] Group [facility] - [address], [place] [address] , Ph. 2020-01-21 2020-01-21 Outpatient cMcDonald MMG MMG [id number]- [place] 02:48:00 02:48:00 118 [facility] 2020-01-18 2020-01-18 Outpatient cMcDonald MMG MMG [id number]- [place] 01:17:00 01:17:00 115 [facility] 2020-01-16 2020-01-16 Outpatient cMcDonald MMG MMG [id number]- [place] 12:04:00 12:04:00 113 [facility] 2020-01-15 2020-01-15 Outpatient DESAI_RAKES [facility] 111 [id number] [place] 05:47:00 05:47:00 H [id number] [facility] 2020-01-13 2020-01-13 Outpatient Shield [facility] MMG [id number] 201 [place] 11:34:00 11:34:00 110 [facility] 2020-01-13 2020-01-13 Tono MMG [place] - [id number] M [facility] 00:00:00 00:00:00 Discovery josr Mcclellan MD: [address] [facility] [address], [place] [address] , Ph. [phone] 2020-01-09 2020-01-09 Outpatient [facility]G [id number] 201 [place] 10:12:00 10:12:00 106 [facility] 2020-01-09 2020-01-09 Outpatient [facility] MMG [id number] 201 [place] 10:12:00 10:12:00 108 [facility] 2020-01-09 2020-01-09 Leonardo MMG [place] - [id number] M [facility] 00:00:00 00:00:00 Discovery josr Peters SUTURE WINDER HAND: 600 [facility] [place] [address], [facility] [address] , Ph. 2020-01-08 2020-01-08 Outpatient [facility] [id number] 201 [place] 03:08:00 03:08:00 105 [facility] 2019-12-25 2019-12-25 Outpatient cMcDonald MMG MMG [id number] [place] 03:52:00 03:52:00 022 [facility] 2019-12-25 2019-12-25 Outpatient cMcDonald MMG MMG [id number]- [place] 03:52:00 03:52:00 023 [facility] 2019-12-23 2019-12-23 Outpatient cMcDonald MMG MMG 8784- [place] 10:29:00 10:29:00 020 [facility] 2019-12-23 2019-12-23 Tono MMG [place] - [id number] M [facility] 00:00:00 00:00:00 Discovery josr Mcclellan MD: [address] [facility] [address], [place] [address] , Ph. [phone] 2019-12-23 2019-12-23 MARISA Gunter [id number] 00:00:00 00:00:00 (Out) [facility] [id number] Surgical [id number] Specialti [id number] es [address] [place] 2019-12-21 2019-12-21 Outpatient cMcDonald MMG MMG [place] 01:43:00 01:43:00 018 [facility] 2019-12-18 2019-12-18 Outpatient cMcDonald MMG MMG [place] 10:49:00 10:49:00 015 [facility] 2019-12-18 2019-12-18 Leonardo MMG [place] - [id number] M [facility] 00:00:00 00:00:00 Discovery josr Peters SUTURE WINDER HAND: [address] [facility] [address] [place] [address] , Ph. 2019-12-18 2019-12-18 Telephone HOWARD Martin [id number] 00:00:00 00:00:00 [place] [id number] Surgical [id number] Specialti [id number] es [address] [place] 2019-12-16 2019-12-16 Outpatient cMcDonald MMG MMG [place] 10:06:00 10:06:00 013 [facility] 2019-12-16 2019-12-16 Tono MMG [place] - [id number] M [facility] 00:00:00 00:00:00 Discovery josr Mcclellan MD: [address] [facility] [address], [place] [address] , Ph. 2019-12-15 2019-12-15 Outpatient cMcDonald MMG [facility] [place] 09:46:00 09:46:00 [facility]12 [facility] 2019-12-10 2019-12-10 Outpatient Shield MMG MMG [id number] [place] 09:30:00 09:30:00 [facility]8 [facility] 2019-12-09 2019-12-09 Outpatient Shield MMG MMG [id number] 201 [place] 09:44:00 09:44:00 006 [facility] 2019-12-09 2019-12-09 Leonardo MM[facility] [place] - [id number] M [place] 00:00:00 00:00:00 Discovery Lorraine da SUTURE WINDER HAND: [address] [facility] [place] - [address], [facility] [address] , Ph. 2019-12-08 2019-12-08 Orders Doctor ZELALEM [id number] 00:00:00 00:00:00 Only Unassigned, NICOLE [id number] [facility] [id number] 2019-12-05 2019-12-05 [facility] [id number] 12:04:47 23:59:00 Encounter [facility] [id number] Surgical [id number] Specialti [phone] es 809 [place] 2019-12-05 2019-12-05 Office [facility] [id number] 10:06:53 10:21:53 Visit [facility] [id number] Surgical [id number] Specialti [id number] es 198 [place] 2019-12-05 2019-12-05 [facility] [id number] [facility] 10:15:00 10:15:00 [facility]ON[facility] 2019-12-05 2019-12-05 Letter [facility] - [place] [id number] 00:00:00 00:00:00 (Out) [facility] 350.1.13.10 Surgical 4.2.7.2.686 Specialti [phone] es [address] [place] 2019-11-18 2019-11-18 Outpatient Shield MMG MMG 8784-20 200 [place] 01:50:00 01:50:00 915 da [facility] 2019-11-18 2019-11-18 Outpatient Shield MMG MMG 8784-20 200 [place] 01:50:00 01:50:00 923 da Medical [facility] 2019-11-18 2019-11-18 Outpatient Shield MMG MMG 8784-20 201 [place] 01:50:00 01:50:00 002 da [facility] 2019-11-18 2019-11-18 Leonardo MMG [place] - [id number] M atagor 00:00:00 00:00:00 ShieldDiscovery da SUTURE WINDER HAND: [address] [facility] [place] - [address], [facility] [place] [address] , Ph. 2019-10-22 2019-10-22 Outpatient Shield MMG MMG 8784-20 200 [place] 06:57:00 06:57:00 819 da [facility] 2019-10-22 2019-10-22 Leonardo MMG [place] - [id number] M at[place] 00:00:00 00:00:00 LorraineDiscovery da SUTURE WINDER HAND: [address] [facility] [place] - [address], [facility] [place] [address] , Ph. 2019-08-27 2019-08-27 Outpatient Shield MMG MMG 8784-20 200 [place] 04:58:00 04:58:00 624 da [facility] Group 2019-08-27 2019-08-27 Leonardo MMG [place] - [id number] M at[place]or 00:00:00 00:00:00 Lorraine da SUTURE WINDER HAND: [address] [facility] [place] - [address], [facility] [place] [address] , Ph. 2019-08-25 2019-08-25 Outpatient Shield MMG MMG 8784-20 200 [place] 09:54:00 09:54:00 622 da Medical Group 2019-07-30 2019-07-30 Outpatient Shield MMG MMG 8784-20 200 [place] 05:09:00 05:09:00 527 da Medical Group 2019-07-30 2019-07-30 Leonardo MMG [place] - [id number] M at[place]or 00:00:00 00:00:00 LorraineDiscovery da SUTURE WINDER HAND: [address] [facility] [place] - [address], [facility] [place] [address] , Ph. 2019-06-08 2019-06-08 Outpatient Shield MMG MMG 8784-20 200 [place] 02:34:00 02:34:00 405 da Medical Group 2019-06-05 2019-06-05 Leonardo MM [place] - [id number] M [place] 00:00:00 00:00:00 Discovery josr Peters SUTURE WINDER HAND: [address] [place] [address] 201, [facility] [place] [address] , Ph. 2018-12-31 2018-12-31 Outpatient Shield [facility] 8784-20 200 [place] 03:36:00 03:36:00 [facility] josr [facility] 2018-12-19 2018-12-19 Leonardo CERNA [place] - [id number] M at[place] 00:00:00 00:00:00 Discovery josr Peters SUTURE WINDER HAND: [address] [place] [address] 201, [facility] [place] [address] , Ph. 2018-09-27 2018-09-27 Kate CERNA [place] - [id number] M at[place]or 00:00:00 00:00:00 [facility] SUTURE WINDER HAND: [address] [place] [address] 201, [place] [address] , Ph. 2018-09-23 2018-09-23 Leonardo CERNA [place] - [id number] M atagor 00:00:00 00:00:00 Discovery josr Peters SUTURE WINDER HAND: [address] [place] [address] 201, [facility] [place] [address] , Ph. 2018-09-20 2018-09-20 Kate MM [place] - [id number] M at[place]or 00:00:00 00:00:00 [facility] SUTURE WINDER HAND: [address] [place] [address] 201, [place] [address] , Ph. 2018-08-29 2018-08-29 Yair White [facility] [place] - [id number] M atagor 00:00:00 00:00:00 MD Fran: Discovery ovalles [address] [place] [address] 201, [facility] [place] [address] , Ph. 2014-02-02 2014-02-02 [facility] [id number] 875 [facility] 08:45:00 16:27:00 Emergency r Cadet 00 l [facility] 2014-02-02 2014-02-02 Outpatient Dee, 2.16.840. 2.16.840.1. 4 [id number] 02:45:00 10:27:00 Amado [id number]. [id number] 00 Fernando 3.615.0.1 5.0.101 01 Results Test Description Test Time Test Comments Results Result Comments Source RADRPT 2022-09-28 05:27:45 Test Item Value Reference Range Interpretation Comme [facility] RADRPT (test code = RADRPT) PROCEDURE INFORMATION: Exam: XR Pelvis Exam date and time: 09/28/2022 12:14 AM Age: 36 years old Clinical indication: /hip pain TECHNIQUE: Imaging protocol: Radiologic exam of the pelvis. Views: 1 or 2 view. COMPARISON: No relevant prior studies available. FINDINGS: Bones/joints: There are no fractures or dislocations of the pelvis. The pelvic and obturator rings are intact. The pubic rami are intact. The symphysis pubis and sacroiliac joints are unremarkable. The visualized sacral foramina are unremarkable. The hip joint spaces, proximal femoral regions and acetabular regions are unremarkable. Soft tissues: Unremarkable. Notes: If there is further concern, recommend follow-up radiographs or MRI for complete assessment. IMPRESSION: No acute findings. Navin Steinberg MD On 09/28/2022 00:26:27; [id number] [facility] ResourcesTHYROID STIMULATING [id number] 01:34:00 Test Item Value Reference Range Interpretation Comments THYROID STIMULATING HORMONE 0.434 mcIU/ML 0.340-4.820 N (test code = TSH) - CTA CHEST FOR [id number] 23:44:00 [facility] ESPER[facility] : 1985 Sex: F Name: ESPERANZA DAIGLE : 1985 Age/S: 36 / F [address] Unit #: [id number] Loc: [place] [address] Phys: Maye Victor DO Acct: [id number] Dis Date: Status: REG ER PHONE #: [phone] Exam Date: 09/14/2022 3657 FAX #: Reason: chest pain, r/o PE EXAMS: CPT: [id number] [place] [address] Location: Chest CTA , 09/14/22 TECHNIQUE: Chest CTA with and without contrast was performed on a helical scanner. 2D Coronal and sagittal images acquired on the CT workstation system by the reliability technologist. Volumetric imaging acquired utilizing maximum intensity protocol. Axial scanning performed from thoracic inlet through diaphragms. Non ionic contrast was administered . Vascular protocol performed . Scanning conducted in the axial plane with contiguous slice thickness acquired . The examination was performed on a updated helical CT scanner utilizing low-dose radiation technique. Automatic exposure time was utilized to reduce radiation dose. Unless otherwise specified , incidental findings do not require dedicated imaging follow up . The DLP is 525.78 mGy -cm CLINICAL HISTORY: Chest pain COMPARISON EXAMS: Chest x-ray exam of 09/14/22 FINDINGS: No PE or acute aortic syndrome is seen. Examination of the lung parenchyma unremarkable. No endobronchial lesion or pleural-based abnormality is seen. No infiltrates are identified. No pathological mediastinal or hilar adenopathy is seen. Heart size within normal limits. No cardiac decompensation seen . Upper abdominal structures visualized are unremarkable. Patient status post cholecystectomy. There is no acute osseous finding. Mild multilevel thoracic spondylosis IMPRESSION: No PE or acute cardiopulmonary process PAGE 1 Signed Report (CONTINUED) Name: ESPERANZA DAIGLE : 1985 Age/S: 36/ F [address] Unit #: [id number] Loc: [place] [address] Phys: Maye Victor DO Acct: [id number] Dis Date: Status: REG ER PHONE #: [phone] Exam Date: 09/14/2022 2330 FAX #: Reason: c hest pain, r/o PE EXAMS: CPT: [id number] [place] [address] (Continued) No acute osseous finding at 2344 Reported and signed by: Ciera Slaughter M.D. CC: Maye Victor DO Technologist:Maria Ines Nunn, RT(R)(CT) CTDI: DLP: Trnscb Date/Time: 09/14/2022 (112) [email or web address] Orig Print D/T: S: 09/14/2022 (8017) PAGE 2 Signed ReportTHROMBOPLASTIN TIME [id number] 22:49:00 Test Item Value Reference Range Interpretation Comments THROMBOPLASTIN TIME PARTIAL 32.1 SECONDS 26-35 N (test code = PTT) [id number] 22:49:00 Test Item Value Reference Range Interpretation Comments D-DIMER (test 1196 ng/mLFEU 215-500 HH THROMBOSIS AN D/OR PULMONARY code = EMBOLISM AND TH E CLINICAL DDIMER) CUT-OFF VALUE F OR EXCLUSION (500 ng/mL FEU) OF THESE CONDITIONSIS VA LIDATED BY THE MANUFACTURE R OF THE METHOD. A NEGAT ANA D-DIMER RESULT WHEN COM BINED WITH A CLINICALASSESSM ENT OF LOW PRETEST PROBABI LITY HAS BEEN SHOWN TO H AVEA HIGH NEGATIVE PREDIC TIVE VALUE OF DVT OR PE. D -DIMER VALUES >500 ng/ mL FEU ARE NOT DIAGNOSTIC FOR DVT, PEor DIC WITHOU T OTHER CONFIRMATORY TE STS AND APPROPRIATECLIN ICAL EUALUATIONS. PROTHROMBIN [id number] 22:49:00 Test Item Value Reference Range Interpretation Comments PT PATIENT (test 11.6 SECONDS 9.3-12.9 N code = PTP) INTERNATIONAL NORMAL 1.04 INR Unit 0.8-1.2 N TARGE T INR BY RATIO (test code = INDICATIO N Indication INR) INR1. Prophylax is of venous thrombos is 2.0 - 3.0 (orthoped ic surgery), Proph ylaxis of venous throm bosis (other than hig h-risk surgery), Treat ment of Deep Vein Thrombosis/Pulm onary Embolism, Preve ntion of systemic emb olism - Tissue heart va lves, Acute Myocardia l Infarction (to prevent systemic emboli sm), Valvular heart disease, Acute Myocardial Infa rction (to prevent sys temic embolism), Valv ular heart disease, Atrial Fibrillation, Bileaflet mecha nical valve in aortic position.2. Mec hanical prosthetic valv es (high risk), 2. 5 - 3.5 Presence of Lup us Anticoagulant o r Antiphospholipi d Antibodies, Pre vention of systemic emb olism - Acute Myocardia l Infarction (to prevent recurrent infar ct). HCG [id number] 21:37:00 Test Item Value Reference Range Interpretation Comments HCG SERUM (test < 1 mi-IU/ML 0-6 N 0 - 6 NOT P REGNANT > 6 code = HCG) SUGGESTIVE OF E NOBLE RISES TWO FOLD EVERY 2 DAYS; S UGGEST RECONFIRMING AF TER 2 DAYS. 150,000-2 00,[address] TRIMESTER 10 ,000 - 50,000 2ND & 3R D TRIMESTER BASIC METABOLIC [id number] 21:37:00 Test Item Value Reference Range Interpretation Comments SODIUM (test code 139 mmol/L 134-147 N = NA) POTASSIUM (test 3.6 mmol/L 3.4-5.0 N code = K) CHLORIDE (test 106 mmol/L 100-108 N code = CL) CARBON DIOXIDE 23 mmol/L 21-32 N (test code = CO2) ANION GAP (test 10.0 GAP calc 4.0-15.0 N code = GAP) GLUCOSE (test code 96 MG/DL 70-110 N = GLU) BLOOD UREA 9 MG/DL 7-18 N NITROGEN (test code = BUN) GLOMERULAR >=60 max >60 The Glomerular FILTRATION RATE estimate estGFR Filtratio n Rate is a (test code = GFR) calculated parameterbased on serum Creatinin e, patient age and sex. GFR valuesless than 60 mL/min/1.73 square meters are meghna cative ofChronic Kidne y Disease. Values less than 15 mL/min/1.73squa re meters indicate Kidney failure. The calculation for GFR is based on the CK D-EPI (2020) calculat ion. This formulais race indifferent and is the recommended formula for GFR by the National Kidney Foundation for Adults.The GFR will not calculate i f the sex is unknown or if thepatient's ag e is <18 years. CREATININE (test 0.8 MG/DL 0.6-1.0 N code = CREAT) CALCIUM (test code 9.5 MG/DL 8.5-10.1 N = CA) TROP-I HIGH [id number] 21:37:00 Test Item Value Reference Range Interpretation Comments TROP-I HIGH 3.6 ng/L 0-54 N CAUTION: Units of the SENSITIVITY (test current te st methodology code = TROPIHS) (ng/L) diffe rfrom the prior test meth odology (ng/mL) by a fa ctor of 1000. 99t h Percentile Uppe r Reference Limit (URL):Fem ales: 54 ng/LMales: 79 ng/L In order to distin guish acute elevations of h igh sensitivitytrop onin from other clinical conditions, the FourthUnive rsal Definition of M yocardial Infarction stressesclinica l assessment and the demonstration o f a rise and/orfall in s erial troponin result s above the URL. Results fr om different metho dologies should not be c omparedto one another as quantitative re sults and URLs may varyby method. - XR CHEST 1 [id number] 21:35:00 [facility], ESPERANZAEileen HAMMOND : 1985 Sex: F Name: ESPERANZA DAIGLE : 1985 Age/S: 36 / F [address] Unit #: [id number] Loc: [place] [address] Phys: VictorMaye Kavon DO Acct: [id number] Dis Date: Status: REG ER PHONE #: [phone] Exam Date: 09/14/20222115 FAX #: Reason: chest pain EXAMS: CPT: [id number] XR CHEST 1 V 17740 Fluoro Time: DAP (Gy m2): Air Kerma (mGy): EXAMINATION: - XR CHEST 1 V INDICATION:chest pain COMPARISON: None available at time of dictation LOCATION: H96 FINDINGS: Clear lungs. No visible pleural fluid or pneumothorax. Normal cardiac silhouette. IMPRESSION: No acute radiographic abnormality. at 2134 Reported and signed by: Cleve Olivares M.D. CC: Maye Victor DO PAGE 1 Signed Report Name: ESPERANZA DAIGLE : 1985 Age/S: 36 / F [address] [place] [address] Unit #: [id number] Loc: [place] [address] Phys: VictorWilmerMaye C DO Acct: [id number] Dis Date: Status: REG ER PHONE #: [phone] Exam Date: 09/14/20222115 FAX #: Reason: chest pain EXAMS: CPT: [id number] XR CHEST 1 V 91359 Fluoro Time: DAP (Gy m2): Air Kerma (mGy): (Continued) Technologist: Vivek Estrada, RT(R)(CT) Trnscb Date/Time: 09/14/2022 (2134) Erika Orig Print D/T: S: 09/14/2022 (2137) PAGE 2 Signed ReportCBC W/O [id number] 21:16:00 Test Item Value Reference Range Interpretation Comments WHITE BLOOD CELL (test code = WBC) 6.4 K/mm3 3.5-11.0 N RED BLOOD CELL (test code = RBC) 4.70 M/mm3 4.70-6.10 N HEMOGLOBIN (test code = HGB) 14.3 G/DL 10.4-14.9 N HEMATOCRIT (test code = HCT) 41.2 % 31.5-44.1 N MEAN CELL VOLUME (test code = MCV) 87.7 Fl 84.5-98.6 N MEAN CELL HGB (test code = MCH) 30.4 pg 27.0-34.2 N MEAN CELL HGB CONCETRATION (test 34.7 G/DL 31.5-34.0 H code = MCHC) RED CELL DISTRIBUTION WIDTH (test 13.6 SD 11.5-14.5 N code = RDW) PLATELET COUNT (test code = PLT) 325 K/mm3 150-450 N MEAN PLATELET VOLUME (test code = 8.70 fL 7.0-10.5 N MPV) Basic metabolic 2000 panel - Serum or [id number] 13:42:00 Test Item Value Reference Range Interpretation Comments glucose (test code = glucose) 104 mg/dL 74-106 blood urea nitrogen (test code = 10 mg/dL 6-20 blood urea nitrogen) osmolality calculated,serum (test 277 mOsm/kg 280-300 L code = osmolality calculated,serum) creatinine (test code = 0.69 mg/dL 0.50-0.90 creatinine) glomerular filtration rate (test > 60.00 code = glomerular filtration rate) BUN/creatinine ratio (test code = 14.5 12.0-20.0 BUN/creatinine ratio) sodium level (test code = sodium 139 mmol/L 135-145 level) potassium level (test code = 3.7 mmol/L 3.5-5.2 potassium level) chloride level (test code = 103 mmol/L 98-108 chloride level) CO2 (test code = CO2) 26 mmol/L 21-32 anion gap (test code = anion gap) 13.7 mEq/L 12.0-20.0 calcium level (test code = 9.9 mg/dL 8.6-10.0 calcium level) [facility] W Auto Differential panel - [id number] 13:10:00 Test Item Value Reference Range Interpretation Comments white blood count (test code = 10.5 K/uL 4.0-11.5 white blood count) red blood count (test code = red 4.37 M/uL 3.80-5.20 blood count) hemoglobin (test code = 13.2 g/dL 10.5-15.7 hemoglobin) hematocrit (test code = 40.8 % 34.0-50.0 hematocrit) mean corpuscular volume (test code 93.4 fL 86.0-100.0 = mean corpuscular volume) mean corpuscular hemoglobin (test 30.2 pg 26.2-33.4 code = mean corpuscular hemoglobin) mean corpuscular HGB conc (test 32.4 g/dL 30.0-34.0 code = mean corpuscular HGB conc) red cell distribution width (test 12.7 % 12.0-15.5 code = red cell distribution width) platelet count (test code = 344 K/uL 165-450 platelet count) mean platelet volume (test code = 8.8 fL 9.4-12.6 L mean platelet volume) neutrophils % (test code = 71.2 % 44.4-80.1 neutrophils %) Ig% (test code = Ig%) 0.5 % 0.0-0.4 H lymphocyte% (test code = 19.1 % 10.0-50.0 lymphocyte%) mono % (test code = mono %) 6.5 % 3.6-12.0 eos % (test code = eos %) 2.3 % 0.0-5.4 basophil % (test code = basophil 0.4 % 0.1-1.2 %) absolute neutrophil count (test 7.51 K/uL 1.56-6.13 H code = absolute neutrophil count) Ig# (test code = Ig#) 0.05 K/uL 0.00-0.03 H lymph # (test code = lymph #) 2.01 K/uL 1.18-3.74 mono # (test code = mono #) 0.68 K/uL 0.24-0.86 eos # (test code = eos #) 0.24 K/uL 0.04-0.36 basophil # (test code = basophil 0.04 K/uL 0.01-0.08 #) NRBC% (test code = NRBC%) 0 /100 WBC 0-0.2 NRBC# (test code = NRBC#) 0 K/uL [facility] + B and SARS CoV + SARS CoV 2 Ag panel, IA, upper respiratory [id number] 09:42:00 Test Item Value Reference Range Interpretation Comments RAPID SARS COV (test code = RAPID negative SARS COV) RAPID FLU A (test code = RAPID FLU negative A) RAPID FLU B (test code = RAPID FLU negative B) [facility] W Auto Differential panel - [id number] 09:30:00 Test Item Value Reference Range Interpretation Comments white blood count (test code = 8.9 K/uL 4.0-11.5 white blood count) red blood count (test code = red 4.70 M/uL 3.80-5.20 blood count) hemoglobin (test code = 14.4 g/dL 10.5-15.7 hemoglobin) hematocrit (test code = 43.4 % 34.0-50.0 hematocrit) MCV [Entitic volume] (test code = 92.3 fL 86-100 83890-6) mean corpuscular hemoglobin (test 30.6 pg 26.2-33.4 [...] 44.4-80.1 leukocytes in Blood (test code = 96959-4) Immature granulocytes [#/volume] 0.0 K/uL 0.0-0.03 in Blood (test code = 93330-2) lymphocyte% (test code = 24.1 % 10.0-50.0 lymphocyte%) mono % (test code = mono %) 6.2 % 3.6-12.0 eos % (test code = eos %) 2.7 % 0.0-5.4 Basophils/100 leukocytes in 0.4 % 0.1-1.2 Unspecified specimen (test code = 33649-0) Band form neutrophils [#/volume] 5.89 K/uL 1.56-6.13 in Blood (test code = 39872-0) Lymphocytes [#/volume] in 2.1 K/uL 1.18-3.74 Unspecified specimen by Automated count (test code = 11007-3) mono # (test code = mono #) 0.55 K/uL 0.24-0.86 eos # (test code = eos #) 0.24 K/uL 0.04-0.36 basophil # (test code = basophil 0.04 K/uL 0.01-0.08 #) NRBC% (test code = NRBC%) 0 /100 WBC 0-0.2 NRBC# (test code = NRBC#) 0 K/uL [facility] CenterComprehensive metabolic 2000 panel - Serum or [...] Serum or Plasma (test code = 6768-6) [facility] CenterLipid 1996 panel - Serum or [id number] 09:30:00 Test Item Value Reference Range Interpretation Comments cholesterol level (test code = 230 mg/dL 150-200 H cholesterol level) triglycerides level (test code = 149 mg/dL <150 triglycerides level) HDL cholesterol (test code = HDL 43 mg/dL >65 L cholesterol) LDL cholesterol direct (test code = 167 mg/dL <100 H LDL cholesterol direct) cholesterol risk ratio (test code = 5.348 cholesterol risk ratio) [facility] CenterUrinalysis complete W Reflex Culture panel - Urine 2020-12-08 09:30:00 Test Item Value Reference Range Interpretation Comments Color of Urine by Auto (test light yellow code = 50963-7) Appearance of Urine (test code = SL cloudy clear A 5767-9) Glucose [Presence] in Urine by negative negative Automated test strip (test code = 99175-4) Bilirubin.total [Mass/volume] in negative negative Urine (test code = 1978-6) Ketones [Mass/volume] in Urine negative negative by Automated test strip (test code = 97019-5) Specific gravity of Urine by 1.020 1.003-1.030 Automated test strip (test code = 88970-5) blood urine (test code = blood negative negative urine) pH of Urine (test code = 2756-5) 5.500 5-9 protein urine (UA) (test code = negative negative protein urine (UA)) Urobilinogen [Presence] in Urine normal 0.2-1.0 (test code = 76906-1) Nitrite [Presence] in Urine by negative negative Test strip (test code = 5802-4) Leukocyte esterase [Presence] in negative negative Urine by Automated test strip (test code = 32974-1) Erythrocytes [#/volume] in Urine =1-5 0-5 by Automated count (test code = 798-9) Leukocytes [#/area] in Urine =11-14 0-5 H sediment by Automated count (test code = 24678-0) Epithelial cells [Presence] in =6-10 0-5 Urine sediment by Light microscopy (test code = 53576-4) Bacteria identified in Urine by tntc (4 none detect H Culture (test code = 630-4) Casts [#/area] in Urine sediment =2-5 none detect by Automated count (test code = 59797-5) urine culture added? (test code yes = urine culture added?) Pathologic casts [Presence] in none seen none detect Urine by Automated (test code = 17034-8) [facility] CenterBacteria identified in Urine by [id number] 09:30:00Bacteria Ur [facility], [id number] 09:30:00 Test Item Value Reference Range Interpretation [...] Minimum inhibitory concentration (NELSON) (test code = 42733-8) cefTAZidime [Susceptibility] by <=2 Minimum inhibitory concentration (NELSON) (test code = 133-9) cefTRIAXone [Susceptibility] by <=1 Minimum inhibitory concentration (NELSON) (test code = 141-2) Ciprofloxacin [Susceptibility] by <=0.25 Minimum inhibitory concentration (NELSON) (test code = 185-9) Ampicillin+Sulbactam [Susceptibility] =16/8 by Minimum inhibitory concentration (NELSON) (test code = 32-3) Ertapenem [Susceptibility] by Minimum <=0.25 inhibitory concentration (NELSON) (test code = 60095-6) Aztreonam [Susceptibility] by Minimum <=2 inhibitory concentration (NELSON) (test code = 44-8) Cefepime [Susceptibility] by Minimum <=1 inhibitory concentration (NELSON) (test code = 6644-9) Meropenem [Susceptibility] by Minimum <=0.5 inhibitory concentration (NELSON) (test code = 6652-2) Moxifloxacin [Susceptibility] by <=1 Minimum inhibitory concentration (NELSON) (test code = 66109-7) Amikacin [Susceptibility] by Minimum <=8 inhibitory concentration (NELSON) (test code = 12-5) Piperacillin+Tazobactam =2/4 [Susceptibility] by Minimum inhibitory concentration (NELSON) (test code = 412-7) Ceftaroline [Susceptibility] by <=0.25 Minimum inhibitory concentration (NELSON) (test code = 95141-4) Tigecycline [Susceptibility] by <=1 Minimum inhibitory concentration (NELSON) (test code = 39221-5) [facility] CenterHemoglobin A1c [Mass/volume] in [id number] 00:00:00 Test Item Value Reference Range Interpretation Comments Hemoglobin A1c [Mass/volume] in Blood 5.7 % 4.0-6.0 (test code = 79580-6) [facility] CenterDifferential panel, method unspecified - [id number] 00:00:00NeutrophilsBandLymphocyteAtypical LymphMonocyteEosinophilBasophilMetamyelocyteMyelocytePromyelocyteAbs Neutrophil Count (Man)Abs Lymph Count (Man)Abs Monocyte Count (Man)Abs Eosinophil Count (Man)Abs Basophil Count (Man)Platelet EstimatePlatelet MorphologyHypochromasiaAnisocytosisTear Drop CellsStomatocyteMatEast Mississippi State Hospitalpregnancy test, [id number] 05:20:00 Test Item Value Reference Range Interpretation Comments Choriogonadotropin ( test) negative neg [Presence] in Urine (test code = 2106-3) [facility] CenterUrinalysis macro (dipstick) panel - [id number] 17:11:00 Test Item Value Reference Range Interpretation Comments Leukocytes (test code = Trace Leukocytes) Nitrite (test code = Nitrite) negative Urobilinogen (test code = .2 Urobilinogen) Protein (test code = Protein) Negative pH (test code = pH) 5.5 Blood (test code = Blood) Negative Specific Spelter (test code = 1.030 Specific Spelter) Ketone (test code = Ketone) Negative Bilirubin (test code = Bilirubin) Negative Glucose (test code = Glucose) Negative Appearance (test code = Turbid Appearance) Color (test code = Color) Dark Yellow [facility] CenterCB W Auto Differential panel - [id number] 03:24:00 Test Item Value Reference Range Interpretation Comments white blood count (test code = 9.8 K/uL 4.0-11.5 white blood count) red blood count (test code = red 4.89 M/uL 3.80-5.20 blood count) hemoglobin (test code = 15.2 g/dL 10.5-15.7 hemoglobin) hematocrit (test code = 44.9 % 34.0-50.0 hematocrit) MCV [Entitic volume] (test code = 91.8 fL 86-100 21303-0) mean corpuscular hemoglobin (test 31.1 pg 26.2-33.4 [...] 44.4-80.1 leukocytes in Blood (test code = 99994-8) Immature granulocytes [#/volume] 0.1 K/uL 0.0-0.03 H in Blood (test code = 65351-1) lymphocyte% (test code = 22.9 % 10.0-50.0 lymphocyte%) mono % (test code = mono %) 6.0 % 3.6-12.0 eos % (test code = eos %) 1.8 % 0.0-5.4 Basophils/100 leukocytes in 0.5 % 0.1-1.2 Unspecified specimen (test code = 31920-7) Band form neutrophils [#/volume] 6.69 K/uL 1.56-6.13 H in Blood (test code = 51935-0) Lymphocytes [#/volume] in 2.2 K/uL 1.18-3.74 Unspecified specimen by Automated count (test code = 26571-2) mono # (test code = mono #) 0.59 K/uL 0.24-0.86 eos # (test code = eos #) 0.18 K/uL 0.04-0.36 basophil # (test code = basophil 0.05 K/uL 0.01-0.08 #) NRBC% (test code = NRBC%) 0 /100 WBC 0-0.2 NRBC# (test code = NRBC#) 0 K/uL [facility] CenterDifferent[facility], method unspecified - [id number] 03:24:00NeutrophilsBandLymphocyteAtypical LymphMonocyteEosinophilBasophilMetamyelocyteMyelocyteNucleated RedBlood CellAbs Neutrophil Count (Man)Abs Lymph Count (Man)Abs Monocyte Count (Man)Abs Eosinophil Count (Man)Abs Basophil Count (Man)Platelet EstimatePlatelet MorphologyHypochromasiaAnisocytosisMacrocytosisToxic GranulationToxic VacuolationMagnolia Regional Health CenterComprehensive metabolic 2000 panel - Serum or [id number] 03:24:00 Test Item Value Reference Range Interpretation [...] Serum or Plasma (test code = 6768-6) [facility] GroupLip[facility] [Enzymatic activity/volume] in Serum or Plasma 2020-05-22 03:24:00 Test Item Value Reference Range Interpretation Comments lipase (test code = lipase) 18 U/L 13-60 [facility] Grouprapid flu (A+B)2018-09-23 08:08:00 Test Item Value Reference Range Interpretation Comments Flu (test code = Flu) negative [facility] Grouprapid strep group A, [id number] 08:08:00 Test Item Value Reference Range Interpretation Comments Strep Result (test code = Strep negative Result) [facility] Grouprapid flu (A+B)2018-09-23 08:08:00 Test Item Value Reference Range Interpretation Comments Flu (test code = Flu) negative [facility] Center[facility] strep group A, [id number] 08:08:00 Test Item Value Reference Range Interpretation Comments Strep Result (test code = Strep negative Result) [facility] AND [id number] 12:10:23 Test Item Value Reference Range Interpretation Comments UA Urobilinogen (test code = UA 1.0 0.1-1.0 Urobilinogen) [facility] AND [id number] 12:10:23 Test Item Value Reference Range Interpretation Comments UA Leuk Est (test Negative (02/02/14 6:10 code = UA Leuk Est) AM) [facility] AND [id number] 12:10:23 Test Item Value Reference Range Interpretation Comments UA Nitrite (test code Negative (02/02/14 6:10 = UA Nitrite) AM) [facility] AND [id number] 12:10:23 Test Item Value Reference Range Interpretation Comments UA Color (test code = Yellow *NA*(02/02/14 UA Color) 6:10 AM) [facility] AND [id number] 12:10:23 Test Item Value Reference Range Interpretation Comments UA Turbidity (test code = Clear (02/02/14 6:10 UA Turbidity) AM) [facility] AND [id number] 12:10:23 Test Item Value Reference Range Interpretation Comments UA Spec Grav (test code = UA Spec 1.025 1 Grav) [facility] AND [id number] 12:10:23 Test Item Value Reference Range Interpretation Comments UA pH (test code = UA pH) 6.0 1 5.0-8.0 [facility] AND [id number] 12:10:23 Test Item Value Reference Range Interpretation Comments UA Glucose (test code Negative (02/02/14 6:10 = UA Glucose) AM) [facility] AND [id number] 12:10:23 Test Item Value Reference Range Interpretation Comments UA Protein (test code Negative (02/02/14 6:10 = UA Protein) AM) [facility] AND [id number] 12:10:23 Test Item Value Reference Range Interpretation Comments UA Ketones (test code = UA Ketones) 15 mg/dL [facility] AND [id number] 12:10:23 Test Item Value Reference Range Interpretation Comments UA Bili (test code = Small *ABN*(02/02/14 UA Bili) 6:10 AM) [facility] AND [id number] 12:10:23 Test Item Value Reference Range Interpretation Comments UA Blood (test code = Negative (02/02/14 6:10 UA Blood) AM) [facility] AND [id number] 12:10:23 Test Item Value Reference Range Interpretation Comments UA Sq Epi (test code = None Seen (02/02/14 6:10 UA Sq Epi) AM) [facility] AND [id number] 12:10:23 Test Item Value Reference Range Interpretation Comments UA WBC (test code = UA None Seen (02/02/14 6:10 WBC) AM) [facility] AND [id number] 12:10:23 Test Item Value Reference Range Interpretation Comments Micro? (test code = Performed (02/02/14 6:10 Micro?) AM) [facility] AND [id number] 12:10:23 Test Item Value Reference Range Interpretation Comments UA RBC (test None Seen See_Comment [Automated mes mati] code = UA RBC) (02/02/14 6:10 The system w hich AM) generated this result transmitted ref erence range: <=2. The reference range was not used to int erpret this result as normal/abnormal . [facility] AND [id number] 12:10:23 Test Item Value Reference Range Interpretation Comments UA Bacteria (test code = None Seen (02/02/14 UA Bacteria) 6:10 AM) [facility] [employer] [id number] 11:41:00 Test Item Value Reference Range Interpretation Comments eGFR (test code = eGFR) 99 [facility] [id number] 11:41:00 Test Item Value Reference Range Interpretation Comments Calcium Lvl (test code = Calcium Lvl) 9.4 8.5-10.5 [facility] [id number] 11:41:00 Test Item Value Reference Range Interpretation Comments CO2 (test code = CO2) 26 24-32 [facility] [employer] [id number] 11:41:00 Test Item Value Reference Range Interpretation Comments Chloride Lvl (test code = Chloride Lvl) 101 95-109 [facility]2014-12-01 11:41:00 Test Item Value Reference Range Interpretation Comments BUN (test code = BUN) 14 7-22 [place] [id number] 11:41:00 Test Item Value Reference Range Interpretation Comments Glucose Lvl (test code = Glucose Lvl) 81 70-99 [facility]2014-12-01 11:41:00 Test Item Value Reference Range Interpretation Comments Potassium Lvl (test code = Potassium 3.6 3.5-5.1 Lvl) [facility]2014-12-01 11:41:00 Test Item Value Reference Range Interpretation Comments Sodium Lvl (test code = Sodium Lvl) 138 135-145 [place] [id number] 11:41:00 Test Item Value Reference Range Interpretation Comments Creatinine Lvl (test code = Creatinine 0.8 0.5-1.4 Lvl) [facility]2014-12-01 11:41:00 Test Item Value Reference Range Interpretation Comments Bili Total (test code = Bili Total) 0.5 0.2-1.3 [facility]2014-12-01 11:41:00 Test Item Value Reference Range Interpretation Comments Alk Phos (test code = Alk Phos) 60 39-136 [place] [id number] 11:41:00 Test Item Value Reference Range Interpretation Comments AST (test code = AST) 15 See_Comment [Auto mated message] The system which ge nerated this result transmit karis reference range : <=37. The reference range was not used to interpr et this result as parisa l/abnormal. [facility]2014-12-01 11:41:00 Test Item Value Reference Range Interpretation Comments ALT (test code = ALT) 20 See_Comment [Auto mated message] The system which ge nerated this result transmit karis reference range : <=65. The reference range was not used to interpr et this result as parisa l/abnormal. [place] [id number] 11:41:00 Test Item Value Reference Range Interpretation Comments Albumin Lvl (test code = Albumin Lvl) 4.1 3.5-5.0 [facility]2014-12-01 11:41:00 Test Item Value Reference Range Interpretation Comments Total Protein (test code = Total 8.1 6.4-8.4 Protein) [facility]2014-12-01 11:41:00 Test Item Value Reference Range Interpretation Comments B/C Ratio (test code = B/C Ratio) 18 6-25 [facility]2014-12-01 11:41:00 Test Item Value Reference Range Interpretation Comments AGAP (test code = AGAP) 14.6 10.0-20.0 [facility]2014-12-01 11:41:00 Test Item Value Reference Range Interpretation Comments A/G Ratio (test code = A/G Ratio) 1.0 0.7-1.6 [facility]2014-12-01 11:41:00 Test Item Value Reference Range Interpretation Comments Globulin (test code = Globulin) 4.0 2.0-4.0 [facility]2014-12-01 11:41:00 Test Item Value Reference Range Interpretation Comments Lipase Lvl (test code = Lipase Lvl) 125 73-393 [place] [id number] 11:41:00 Test Item Value Reference Range Interpretation Comments S Preg (test code = S Negative (02/02/14 5:41 Preg) AM) [id number] 11:41:00 Test Item Value Reference Range Interpretation Comments RBC (test code = RBC) 4.95 4.20-5.40 [facility] H[id number] 11:41:00 Test Item Value Reference Range Interpretation Comments WBC (test code = WBC) 10.2 3.7-10.4 [facility] Ho[id number] 11:41:00 Test Item Value Reference Range Interpretation Comments RDW (test code = RDW) 12.0 11.5-14.5 [facility] Hos[id number] 11:41:00 Test Item Value Reference Range Interpretation Comments MPV (test code = MPV) 7.5 7.4-10.4 [facility] HospitalVpvvubyDZTYFDOVLE9954-06-15 11:41:00 Test Item Value Reference Range Interpretation Comments Platelet (test code = Platelet) 272 133-450 [facility] HospitalClbzwduOSGOQIKYBS1303-30-11 11:41:00 Test Item Value Reference Range Interpretation Comments MCV (test code = MCV) 90.1 80.0-98.0 [facility] Hos[id number] 11:41:00 Test Item Value Reference Range Interpretation Comments Hct (test code = Hct) 44.6 36.0-48.0 [facility] H[id number] 11:41:00 Test Item Value Reference Range Interpretation Comments MCHC (test code = MCHC) 35.1 32.0-36.0 [facility] HospitalBmpdtpgFKCILFTUJS5429-91-03 11:41:00 Test Item Value Reference Range Interpretation Comments MCH (test code = MCH) 31.6 pg 27.0-31.0 [facility] Hospit[id number] 11:41:00 Test Item Value Reference Range Interpretation Comments Hgb (test code = Hgb) 15.7 12.0-16.0 [facility] H[id number] 11:41:00 Test Item Value Reference Range Interpretation Comments Basophils # (test code 0.0 See_Comment [Aut omated message] The = Basophils #) system which generated this result tra nsmitted reference range : <=0.2. The reference r frankie was not used to int erpret this result as normal/abnormal . [facility] HospitalUlfmzggZGMLHNVRIA5789-00-22 11:41:00 Test Item Value Reference Range Interpretation Comments Monocytes # (test code 0.5 See_Comment [Aut omated message] The = Monocytes #) system which generated this result tra nsmitted reference range : <=0.8. The reference r frankie was not used to int erpret this result as normal/abnormal . [facility] HospitalXcpskvjHAWITKWRZR5923-92-31 11:41:00 Test Item Value Reference Range Interpretation Comments Eosinophils # (test code 0.2 See_Comment [A utomated message] The = Eosinophils #) system whic h generated this result tra nsmitted reference range : <=0.5. The reference r frankie was not used to int erpret this result as normal/abnormal . [facility] HospitalZewtafeOHZXVDZNOK7432-26-28 11:41:00 Test Item Value Reference Range Interpretation Comments Segs (test code = Segs) 59.3 45.0-75.0 [facility] H[id number] 11:41:00 Test Item Value Reference Range Interpretation Comments Lymphocytes (test code = Lymphocytes) 33.4 20.0-40.0 [facility] HospitalGzaknmlHWJJGCEBIV1561-10-30 11:41:00 Test Item Value Reference Range Interpretation Comments Eosinophils (test code = 2.2 See_Comment [A utomated message] The Eosinophils) system which ge nerated this result tra nsmitted reference range : <=4.0. The reference r frankie was not used to int erpret this result as normal/abnormal . [facility] HospitalKpyalsxDZCCFNAPVZ9559-27-99 11:41:00 Test Item Value Reference Range Interpretation Comments Monocytes (test code = Monocytes) 4.8 2.0-12.0 [facility] HospitalEfqnnhpKYCLGTPXGH4178-36-18 11:41:00 Test Item Value Reference Range Interpretation Comments Segs-Bands # (test code = Segs-Bands #) 6.1 1.5-8.1 [facility] Hospit[id number] 11:41:00 Test Item Value Reference Range Interpretation Comments Lymphocytes # (test code = Lymphocytes 3.4 1.0-5.5 #) [facility] HospitalAvrlwinPSWDXNEAQP9840-52-32 11:41:00 Test Item Value Reference Range Interpretation Comments Basophils (test code = 0.3 See_Comment [Aut omated message] The Basophils) system which ge nerated this result tra nsmitted reference range : <=1.0. The reference r frankie was not used to int erpret this result as normal/abnormal . [facility] Notes Date/Time Note Provider Source 2022-09-28 PROCEDURE INFORMATION: RUTH Naranjo ast 00:15:00-00:00 Exam: XR Pelvis Exam date and time: 09/28/2022 12:14 AM Age: 36 years old Clinical indication: /hip pain TECHNIQUE: Imaging protocol: Radiologic exam of the pelvis. Views: 1 or 2 view. COMPARISON: No relevant prior studies available. FINDINGS: Bones/joints: There are no fractures or dislocations of the pelvis. The pelvic and obturator rings are intact. The pubi c rami are intact. The symphysis pubis and sacroiliac joints are unremarkable. The visu alized sacral foramina are unremarkable. The hip joint spaces, proximal fem oral regions and acetabular regions are unremarkable. Soft tissues: Unremarkable. Notes: If there is further concern, monika mmend follow-up radiographs or MRI for complete assessment. IMPRESSION: No acute findings. Navin Steinberg MD On 09/28/2022 00:26:27; [id number] 2022-09-14 [facility] 21:13:00-00:00 [facility] ([facility]) EMERGENCY PROVIDER REPORT REPORT#:[id number] REPORT STATUS: Signed DATE:09/14/22 TIME:2112 PATIENT: ESPERANZA DAIGLE UNIT #: [id number] ROOM/BED: : 83 AGE: 36 SEX: F PCP PHYS: No Prima ry or Family Physician SERVICE AUTHOR: Maye Victor * ALL edits or amendments must be made on the [employer]/computer document * HPI-Palpit/Arrhyth General Initial Greet Date/Time 09/14/222033 Presentation Chief Complaint Chest pain, Palpitations Free Text HPI Notes Free Text HPI Notes The patient is a 36-year-old female with a past medical history significant for GERD and insomnia who is pre senting with palpitations and chest pain 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 The patient placed her finger on a pulse ox and her heart rate fluc tuated between 140 and 150. This lasted for several minutes and it decreased to the low 100s. It was associated with dizziness. She denies experienci ng a syncopal event. She denies any history of fever, runny nose, cough, congestion, recent caffeine use or herbal supplements, history of DVT/PE or shor tness of breath. Review of Systems ROS Statements All systems rev neg except as marked. Past Medical History - Adult Stated Complaint CHEST PAIN, NAUSEA, DIZZY Allergies Coded Allergies: No Known Allergies (09/14/22) Additional Medical History GERD, INSOMNIA, DEPRESSION, ADHD Additional Surgical History CHOLECYSTECTOMY Alcohol Use Denies EtOH use Drug Use Denies recreational drugs Smoking status for patients 13 years old or olde r: Never Smoker Physical Exam Vital Signs Vital Signs First Documented: Result Date Time Pulse Ox 98 09/14 2042 B/P 140/73 09/14 2042 B/P Mean 95 09/14 2042 O2 Delivery Room air 09/14 2042 Temp 37.6 09/14 2042 Pulse 116 09/14 2042 Resp 18 09/14 2042 Last Documented: Result Date Time Pulse Ox 95 09/15 152 B/P 120/66 09/15 152 B/P Mean 84 09/15 152 O2 Delivery Room air 09/15 152 Temp 37.2 09/15 152 Pulse 74 09/15 152 Resp 16 09/15 152 Review of Vital Signs Reviewed Free Text PE Notes Free Text PE Notes Free Text PE Notes Physical Exam General/Const General/Const Awake, Alert, No acute distress, Well appearing MS Head Head Atraumatic, Normocephalic Eyes Eyes Atraumatic, No scleral icterus Ears/Nose/Throat Ears/Nose/Throat Atraumatic, Airway patent, Muc ous membranes moist, Pharynx NL MS Neck Neck Atraumatic, Supple, No meningismus, Full r frankie of motion Resp/Chest Respiratory/Chest Atraumatic, Breath sounds NL, Breath sounds = bilat, No respiratory distress Cardiovascular Cardiovascular Heart rate NL, Regular rhythm, H eart sounds NL, No gallop, No murmurs Abdomen/GI Abdomen/GI Atraumatic, Soft, Non-tender, McBurn ey's non-tender, No guarding MS Back Back Atraumatic, No muscle spasm MS Upper Extrem Upper Extremity/MS Atraumatic, Inspection NL, N o swelling MS Lower Extrem Lower Ext/Pelvis/MS Atraumatic, Inspection NL, No swelling, Non-tender Skin Skin Atraumatic, Color NL, No rash, Warm Neurologic Neurologic Oriented X3, Speech NL, No motor def icits, No sensory deficits Interpretation Diagnostics Lab Results Interpretation Results Laboratory Tests 09/14/222105: [Embedded Image Not Available] 09/14/222104: [Embedded Image Not Available] Laboratory Tests: 09/15 09/14 09/14 0101 2201 2105 Chemistry TSH (0.340 - 4.820 mcIU/ML) 0.434 Coagulation INR (0.8 - 1.2 INR Unit) 1.04 PTT ([place]) (26 - 35 SECONDS) 32.1 PT Patient/Control Mix (9.3 - 12.9 SECONDS) 11. 6 D-Dimer (215 - 500 ng/mLFEU) 1196 *H Hematology WBC (3.5 - 11.0 K/mm3) 6.4 RBC (4.70 - 6.10 M/mm3) 4.70 Hgb (10.4 - 14.9 G/DL) 14.3 Hct (31.5 - 44.1 %) 41.2 MCV (84.5 - 98.6 Fl) 87.7 MCH (27.0 - 34.2 pg) 30.4 MCHC (31.5 - 34.0 G/DL) 34.7 H RDW (11.5 - 14.5 SD) 13.6 Plt Count (150 - 450 K/mm3) 325 MPV (7.0 - 10.5 fL) 8.70 Miscellaneous Maternal Serum HCG (0 - 6 mi-IU/ML) < 1 09/14 2104 Chemistry Sodium (134 - 147 mmol/L) 139 Potassium (3.4 - 5.0 mmol/L) 3.6 Chloride (100 - 108 mmol/L) 106 Carbon Dioxide (21 - 32 mmol/L) 23 Anion Gap (4.0 - 15.0 GAP calc) 10.0 BUN (7 - 18 MG/DL) 9 Creatinine (0.6 - 1.0 MG/DL) 0.8 Glomerular Filtr Rate (>60 estGFR) >=60 max est imate Glucose (70 - 110 MG/DL) 96 Calcium (8.5 - 10.1 MG/DL) 9.5 Troponin I High Sens (0 - 54 ng/L) 3.6 Recent Impressions: RADIOLOGY - XR CHEST 1 V 09/14 2110 Report Impression - Status: SIGNED Entered: 09/14/20222137 IMPRESSION: No acute radiographic abnormality. Impression By: [email or web address] - Cleve Olivares M.D. CAT SCAN - CTA CHEST FOR PE 09/145 Report Impression - Status: SIGNED Entered: 09/14/2022 2347 IMPRESSION: No PE or acute cardiopulmonary process No acute osseous finding Impression By: [email or web address] - Ciera douglas M.D. ECG #1 Interpretation Text/Dict Note EKG is independently interpr eted by myself. Sinus tachycardia with a heart rate of 117. Normal intervals, no STEMI. Date 09/14/22 Time 2040 Interpreted by ED physician Rate 117 Re-Evaluation MDM Free Text MDM Notes Free Text MDM Notes Differential diagnosis includes but is not limit ed to STEMI, NSTEMI, CHF exacerbation, aortic dissection, cardiac tamponade, arrhythmia, PE, Pneumonia, Pneumothorax, pancreatitis, Boerhhaave s syndrome, cholecystitis, pancreatitis. I reviewed and I independently interpreted the p prashanth's laboratory results. Re-Evaluation/Progress #1 Text/Dict Note The patient's palpitations have resolved. I revi ewed her event monitor and there is no evidence of an arrhythmia. Shared de cision-making was performed with the patient regarding an admission to the hospital for observation versus following up with cardiology as an outpatient. I independently reviewed her laboratory results. She would prefer to be discharged home. Return precautions were discussed. Time of Re-Eval 0140 Re-Eval Status Improved ED Course Medication(s) Ordered Medication(s) Ordered: Diagnostic Agents Sig/Britney Start time Last Medication Dose Route Stop Time Status Admin Iopamidol 0 .STK-MED ONE 09/14 2316 DC 09/14 .ROUTE 2338 Electrolytic, Caloric, And Abhinav Sig/Britney Start time Last Medication Dose Route Stop Time Status Admin Sodium Chloride 100 ML .STK-MED ONE 09/14 2340 DC 09/14 IV 09/14 2341 2340 MDM-Complexity Ruled Out Diagnoses Pneumothorax, PE Patient Discharge Departure Vital Signs/Condition Vital Signs First Documented: Result Date Time Pulse Ox 98 09/14 2042 B/P 140/73 09/14 2042 B/P Mean 95 09/14 2042 O2 Delivery Room air 09/14 2042 Temp 37.6 09/14 2042 Pulse 116 09/14 204 Resp 18 09/14 2042 Last Documented: Result Date Time Pulse Ox 95 09/15 0153 B/P 120/66 09/15 0153 B/P Mean 84 09/15 0153 O2 Delivery Room air 09/15 015 Temp 37.2 09/15 015 Pulse 74 09/15 0153 Resp 16 09/15 152 All vital signs available at the time of this en try have been reviewed. Clinical Impression Clinical Impression Primary Impression: Palpitations Disposition Decision Discharge )( Discharged to Home Yes )( Time 0145 )( Date 09/15/22 Discharge/Care Plan Referrals Provider Referral: Yordan Gimenez MD Address: [address] [place] [address] at 0338 RPT #: [id number] END OF REPORT 2014-02-02 EXAM: CT ABDOMEN AND PELVIS WITH CONTRAST [facility] 09:13:38-00:00 DATE: 02/02/2014 at 0830 hours. INDICATION: 28-year-old traci valdivia complaining of generalized abdominal pain with history of 'masses in my stomach.' ADDITIONAL INFORMATION: None. COMPARISON: None. TECHNIQUE: Helical acquisiti on of the abdomen and pelvis was obtained from the lung bases to the symphysis pubis after administration of oral contrast, and after uneventful administration of 101 mL of O mnipaque 350 intravenous con trast in the venous and delayed phases of contrast enhancement. Axial, sagittal and coronal images were interpreted. FINDINGS: The lung bases, pleura and v isualized portions of the heart and pericardium are clear. The liver, bile ducts, splee n, pancreas, and adrenals show no significant abnormalities. The gallbladder is surgically absent. The stomach, small bowel and colon are nondilated. There is a small hiatal hernia. There is no bowel thickening. The appendix is normal (series 6 B, image 54). No free intraperitoneal air or free fluid is seen. Kidneys, collecting systems and ureters demonstrate normal concentration and excretion of contrast into a normal urinary bladder. The uterus and ovaries are unremarkable. Aorta and IVC are normal in diameter . No mesenteric or retroperitoneal lymphadenopathy is seen. Skeletal structures demonstr ate mild degenerative changes in the lower thoracic spine, but no worrisome lesions. No subcutaneous/soft tissue abnormalities. IMPRESSION: No acute intra-abdominal abnormality.
[2022-11-12 19:29] LABS: Absolute Lymphocytes (CBC) 2.3 K/uL (0.7-4.9); Hematocrit 39.4 % (36.0-45.0); Lymphocytes % 26.1 % (15.3-44.8); Platelets 300 thou/uL (152-406); RBC Red Blood Cell Count 4.38 M/uL (3.86-4.86); Specific Gravity 1.006 (1.005-1.030); Urine Bilirubin NEGATIVE (Negative); Urine Blood Negative (Negative); Urine Clarity Clear (Clear); Urine Color Colorless (Yellow); Urine Glucose NEGATIVE (Negative); Urine Protein NEGATIVE (Negative); Urine Urobilinogen Normal (Normal); Urine pH 5.5 (5.0-7.0)
[2022-11-12] MEDS ORDERED: FAMOTIDINE 20 MG/2 ML VIAL IV ONE (19:38)
[2022-11-12] MEDS ORDERED: MAGNES/ALUMIN/SIMET 30ML UCUP ONE (19:38)
[2022-11-12 19:47] LABS: Albumin 3.9 g/dL (3.4-5.0); Bilirubin Total 0.3 mg/dL (0.2-1.0); Potassium 3.7 mEq/L (3.5-5.1); Protein, Total 7.7 g/dL (6.4-8.2)
--- NOTE | 2022-11-12 20:52 | RAD REPORT ---
EXAM DESCRIPTION: CT - Abdomen Pelvis W Contrast - 11/12/2022 8:05 pm CLINICAL HISTORY: ABD PAIN COMPARISON: Abdomen Pelvis W Contrast dated 04/13/2022; CT ABD PELVIS W CONTRAST dated 10/28/2007 TECHNIQUE: Thin cut axial CT imaging of the abdomen and pelvis was performed following intravenous a dministration of 87 mL Isovue 300. Multiplanar reformats were generated and reviewed. All CT scans are performed using dose optimization technique as appropriate and may include automated exposure control or mA/KV adjustment according to patient size. FINDINGS: No suspicious findings in the lung bases. The liver, spleen, adrenal glands, and pancreas show no suspicious findings. Gallbladder was surgical ly removed. Symmetric renal function is seen with no hydronephrosis or suspicious renal mass. No dilated bowel loops. Long segment mild wall thickening along the ascending and most of the transve rse colon, with some transmural fat deposition, could relate to sequelae of mild colitis or repeated attacks of colitis. No free air, free fluid or inflammatory stranding. No hernia, mass or bulky lymph adenopathy. The urinary bladder is without significant finding. No suspicious bony findings. IMPRESSION: Long segment mild wall thickening along the ascending and most of the transverse colon, with appearance that could relate to sequelae of mild colitis or repeated attacks of colitis.
--- NOTE | 2022-11-12 21:01 | ER ---
Nurse's Notes [facility] Name: Vicenta Daigle Age: 37 yrs Sex: Female : 1985 Arrival Date: 11/12/2022 Time: 17:57 Bed 19 Private MD: Diagnosis: Ascending and Transverse Colitis Presentation: 11/12 18:05 Chief complaint: Patient states: Abdominal pain on/off for about a week, getting worse. nj1 Nausea and vomiting when the pain comes. Coronavirus screen: Vaccine status: Patient reports being unvaccinated. Ebola Screen: Patient denies travel to an Ebola-affected area in the 21 days before illness onset. Initial Sepsis Screen: Does the patient meet any 2 criteria? No. Patient's initial sepsis screen is negative. Does the patient have a suspected source of infection? No. Patient's initial sepsis screen is negative. Risk Assessment: Do you want to hurt yourself or someone else? Patient reports no desire to harm self or others. Onset of symptoms was November 2022. 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 - Social history:: Smoking status: Patient/guardian denies using tobacco, Stopped _ months ago 1. Screenin:30 [facility] ED Fall Risk Assessment (Adult) History of falling in the last 3 months, cm10 including since admission No falls in past 3 months (0 pts) Confusion or Disorientation No (0 pts) Intoxicated or Sedated No (0 pts) Impaired Gait No (0 pts) Mobility Assist Device Used No (0 pt) Altered Elimination No (0 pt) Score/Fall Risk Level 0 - 2 = Low Risk Oriented to surroundings, Maintained a safe environment, Hourly rounding (assess needs \T\ fall precautionary measures) done. Abuse screen: Denies threats or abuse. Denies injuries from another. Nutritional screening: No deficits noted. Tuberculosis screening: No symptoms or risk factors identified. Assessment: 19:30 General: Appears in no apparent distress. comfortable, Behavior is calm, cooperative, cm10 appropriate for age. Neuro: No deficits noted. Level of Consciousness is awake, alert, obeys commands, Oriented to person, place, time, situation. Cardiovascular: No deficits noted. Respiratory: No deficits noted. Airway is patent Respiratory effort is even, unlabored, Respiratory pattern is regular, symmetrical. GI: Abdomen is non-distended, Bowel sounds present X 4 quads. Abd is soft Abdomen is tender to palpation in right upper quadrant. 20:30 Reassessment: Patient and/or family updated on plan of care and expected duration. Pain cm10 level reassessed. Patient is alert, oriented x 3, equal unlabored respirations, skin warm/dry/pink. Patient states feeling better. Pain: Complains of pain in right upper quadrant. Vital Signs: 18:05 BP 135 / 72; Pulse 78; Resp 18; Temp 98.7(O); Pulse Ox 98% ; Weight 104.33 kg; Height 5 nj1 ft. 6 in. ; Pain 8/10; 19:30 BP 113 / 77; Pulse 81; Resp 18; Pulse Ox 98% on R/A; cm10 20:00 BP 112 / 73; Pulse 77; Resp 16; Pulse Ox 100% ; cm10 20:30 BP 123 / 76; Pulse 67; Resp 18; Pulse Ox 99% ; cm10 18:05 Body Mass Index 37.12 (104.33 kg, 167.64 cm) nj1 18:05 Pain Scale: Adult [facility] ED Course: 18:00 Patient arrived in ED. ts1 18:00 Carolyn Thomson PA-C is PHCP. sb4 18:00 Yogesh Amaya MD is Attending Physician. sb4 18:06 Triage completed. nj1 18:07 Arm band placed on right wrist. nj1 19:22 Jerilyn Cid, KAROLYN is Primary Nurse. cm10 19:23 CBC with Diff Sent. cm10 19:23 CMP Sent. cm10 19:23 Lipase Sent. cm10 19:23 Test, Urine Sent. cm10 19:23 Urinalysis w/ reflexes Sent. cm10 19:23 Initial lab(s) drawn, by sc, sent to lab. Urine collected: clean catch specimen, clear. cm10 Inserted saline lock: 20 gauge in right forearm, using aseptic technique. Blood collected. 19:30 Patient has correct armband on for positive identification. Bed in low position. Call cm10 light in reach. Side rails up X2. Provided Education on: N/A. 20:07 CT Abd/Pelvis - IV Contrast Only In Process Unspecified. EDMS 21:08 No provider procedures requiring assistance completed. IV discontinued, intact, cm10 bleeding controlled, No redness/swelling at site. Pressure dressing applied. Administered Medications: 19:35 Drug: Famotidine IVP 20 mg Route: IVP; Site: right forearm; cm10 21:06 Follow up: Response: No adverse reaction cm10 19:35 Drug: Alum-Mag Hydroxide-Simeth PO Suspension (200 mg-200 mg-20 mg/5 mL) 30 ml Route: cm10 PO; 21:06 Follow up: Response: No adverse reaction cm10 Medication: 21:09 VIS not applicable for this client. cm10 Outcome: 21:00 Discharge ordered by MD. sb4 21:08 Discharged to home ambulatory, with family. cm10 21:08 Condition: good 21:08 Discharge instructions given to patient, Instructed on discharge instructions, follow up and referral plans. medication usage, Demonstrated understanding of instructions, follow-up care, medications, Prescriptions given X 2. 21:09 Patient left the ED. cm10 Signatures: Dispatcher [employer] EDMS Carolyn Thomson PA-C PA-C sb4 Marlene Odell, RN RN nj1 Laura Beltran PAS PAS ts1 Jerilyn Cid, RN RN cm10 Corrections: (The following items were deleted from the chart) 18:07 18:06 Social history: Smoking status: Patient denies any tobacco usage or history of. nj1 nj1
--- NOTE | 2022-11-12 21:01 | EDPHYS ---
Physician Documentation [facility] Name: Vicenta Daigle Age: 37 yrs Sex: Female : 1985 Arrival Date: 11/12/2022 Time: 17:57 Bed 19 Private MD: ED Physician Yogesh Amaya HPI: 11/12 19:25 This 37 yrs old Female presents to ER via Ambulatory with complaints of sb4 Abdominal Pain. 19:25 The patient presents with abdominal pain in the epigastric area. Onset: The sb4 symptoms/episode began/occurred 1 week(s) ago. The symptoms radiate to back. Associated signs and symptoms: Pertinent positives: nausea and vomiting, Pertinent negatives: blood in stools, diarrhea, dysuria, fever. The symptoms are described as stabbing. Modifying factors: The symptoms are alleviated by nothing, the symptoms are aggravated by nothing. The patient has not experienced similar symptoms in the past. The patient has not recently seen a physician. 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 - Social history:: Smoking status: Patient/guardian denies using tobacco, Stopped _ months ago 1. ROS: 19:25 Constitutional: Negative for fever, chills, and weight loss. sb4 19:25 Abdomen/GI: Positive for abdominal pain, nausea and vomiting. 19:25 All other systems are negative. Exam: 19:25 Constitutional: This is a well developed, well nourished patient who is awake, alert, sb4 and in no acute distress. Head/Face: Normocephalic, atraumatic. Eyes: Extra-ocular motions intact. Periorbital areas with no swelling, redness, or edema. ENT: Mucous membranes moist. Cardiovascular: Regular rate and rhythm with a normal S1 and S2. Respiratory: Lungs have equal breath sounds bilaterally, clear to auscultation and percussion. No rales, rhonchi or wheezes noted. No increased work of breathing, no retractions or nasal flaring. Abdomen/GI: Soft, non-tender, no distension. Skin: Warm, dry with normal turgor. Normal color with no rashes, no lesions, and no evidence of cellulitis. MS/ Extremity: Pulses equal, no cyanosis. Neurovascular intact. Full, normal range of motion. Neuro: Awake and alert, GCS 15, oriented to person, place, time, and situation. Cranial nerves II-XII grossly intact. Motor strength 5/5 in all extremities. Sensory grossly intact. Cerebellar exam normal. Normal gait. Vital Signs: 18:05 BP 135 / 72; Pulse 78; Resp 18; Temp 98.7(O); Pulse Ox 98% ; Weight 104.33 kg; Height 5 nj1 ft. 6 in. ; Pain 8/10; 19:30 BP 113 / 77; Pulse 81; Resp 18; Pulse Ox 98% on R/A; cm10 20:00 BP 112 / 73; Pulse 77; Resp 16; Pulse Ox 100% ; cm10 20:30 BP 123 / 76; Pulse 67; Resp 18; Pulse Ox 99% ; cm10 18:05 Body Mass Index 37.12 (104.33 kg, 167.64 cm) nj1 18:05 Pain Scale: Adult nj1 MDM: 18:01 Patient medically screened. sb4 19:25 Differential diagnosis: gastritis, gastroesophageal reflux disease, non-specific abd sb4 pain, pancreatitis, Peptic Ulcer Disease. 20:58 Data reviewed: vital signs, nurses notes, lab test result(s), radiologic studies, I sb4 have discussed the patient's presentation/case with the attending Emergency Department Physician; and as a result, I will discharge patient. Historians other than the Patient: Parent: mother. Counseling: I had a detailed discussion with the patient and/or guardian regarding the historical points, exam findings, and any diagnostic results supporting the discharge/admit diagnosis, lab results, radiology results, to return to the emergency department if symptoms worsen or persist or if there are any questions or concerns that arise at home. 11/12 18:41 Order name: CBC with Diff; Complete Time: 19:34 sb4 11/12 18:41 Order name: CMP; Complete Time: 19:50 sb4 11/12 18:41 Order name: Lipase; Complete Time: 19:50 sb4 11/12 18:41 Order name: Test, Urine; Complete Time: 19:31 sb4 11/12 18:41 Order name: Urinalysis w/ reflexes; Complete Time: 19:31 sb4 11/12 18:41 Order name: CT Abd/Pelvis - IV Contrast Only; Complete Time: 20:53 sb4 11/12 18:41 Order name: IV Saline Lock; Complete Time: 19:23 sb4 11/12 18:41 Order name: Labs collected and sent; Complete Time: 19:23 sb4 Administered Medications: 19:35 Drug: Famotidine IVP 20 mg Route: IVP; Site: right forearm; cm10 21:06 Follow up: Response: No adverse reaction cm10 19:35 Drug: Alum-Mag Hydroxide-Simeth PO Suspension (200 mg-200 mg-20 mg/5 mL) 30 ml Route: cm10 PO; 21:06 Follow up: Response: No adverse reaction cm10 Disposition Summary: 11/12/22 21:00 Discharge Ordered Location: Home sb4 Problem: new sb4 Symptoms: have improved sb4 Condition: Stable sb4 Diagnosis - Ascending and Transverse Colitis sb4 Followup: sb4 - With: Private Physician - When: As needed - Reason: Recheck today's complaints, Continuance of care, Re-evaluation by your physician Discharge Instructions: - Discharge Summary Sheet sb4 - Colitis sb4 Forms: - Medication Reconciliation Form sb4 - Thank You Letter sb4 - Antibiotic Education sb4 - Prescription Opioid Use sb4 - Patient Portal Instructions sb4 - Leadership Thank You Letter sb4 Prescriptions: - Flagyl 500 mg Oral Tablet - take 1 tablet by ORAL route every 12 hours for 7 days; 14 tablet; Refills: 0, sb4 Product Selection Permitted - Cipro 500 mg Oral Tablet - take 1 tablet by ORAL route every 12 hours for 7 days; 14 tablet; Refills: 0, sb4 Product Selection Permitted Addendum: 11/16/2022 00:03 Co-signature as Attending Physician, Yogesh Amaya MD I reviewed the patient's care r n provided by the Advanced Practice Provider and agree with the diagnosis and treatment plan. Signatures: Dispatcher [employer] EDYogesh Masters MD MD rn Brown, Sophia, PAKimo PAKimo sb4 Marlene Odell RN RN nj1 Jerilyn Cid RN RN cm10 Corrections: (The following items were deleted from the chart) 09/10 18:07 18:06 Social history: Smoking status: Patient denies any tobacco usage or history of. nj1 nj1
[2022-11-12 21:48] VITALS: TEMP 98.7
[2022-11-12 21:52] VITALS: BP 123/76; O2SAT 99
== END 2022-11-12 21:09 | disposition home or self-care (01) ==
LOC: ER 17:57
DX: K52.9 Noninfective gastroenteritis and colitis, unspecified (principal); F41.9 Anxiety disorder, unspecified; F32.A Depression, unspecified; K21.9 Gastro-esophageal reflux disease without esophagitis; F90.9 Attention-deficit hyperactivity disorder, unspecified type; K58.9 Irritable bowel syndrome, unspecified; G47.00 Insomnia, unspecified; Z88.8 Allergy status to other drugs, medicaments and biological substances
CPT/HCPCS: 85025; 36415; 81025; 81003; 83690; 80053; 74177; 96374; 99284; Q9967

== ENCOUNTER 2022-12-28 21:46 | Emergency (ER) | payer OTHER ==
--- OUTSIDE RECORDS SUMMARY | 2022-12-28 21:52 | XMS REPORT | Continuity of Care Document ---
:1985 Author Organization [facility] t Address [address] [place] [address] [place] [id number] Care Team Providers Name Role Phone Dorina Petit Primary Care Physician ELIGIO VAUGHAN Attending Clinician Unavailable Lorraine Attending Clinician Unavailable ALEJANDRO CHUNG Attending Clinician Unavailable LAURO FABIAN Attending Clinician Unavailable Maye Victor Attending Clinician Unavailable Doctor Unassigned, Mertens Attending Clinician Unavailable Amado Stout MD Attending Clinician LEONARDO PETERS Attending Clinician Unavailable GREGORY Attending Clinician Unavailable Ruthie Attending Clinician Unavailable Justus Crouch Attending Clinician TONO MCCLELLAN Attending Clinician Unavailable Lorraine Admitting Clinician Unavailable Physician, No Primary or Family Admitting Clinician Unavaila ble GREGORY Admitting Clinician Unavailable Ruthie Admitting Clinician Unavailable Payers Payer Name Policy Type Policy Number Effective Date Expiration Date Kane EASTMAN [id number] 2019 INSURANCE - UNITED 00:00:00 HEALTHCARE - CHOICE PLUS (PPO) Problems Condition Condition Condition Status Onset Resolution Last Treating Co mments Source Name Details Category Date Date Treatment Clinician Date Body mass Body Mass Problem Active 2022-03 [place] index 30+ Index 30+ 0-04 da - obesity - Obesity 00:00: Medi [facility] 00 Group Nausea Nausea Problem Active 2022-03 [place] 0-04 da 00:00: Medical 00 Group Contusion Contusion Diagnosis Active 2022-09-30 Memoria (disorder) (disorder) 09-28 21:22:04 l Active 00:00: [place] 09/28/2022 00 Diagnosis 09/30/2022 [facility] POST/ACC/U POST/ACC/ Diagnosis Active 2022-10-03 Memoria DS UDS Active 09-28 12:45:00 l 09/28/2022 00:00: Anselmo white 00 [place] FALL FALL Diagnosis Active 2022-10-18 Mem oria Active 09-27 13:22:00 l 09/27/2022 00:00: Anselmo white 00 [place] Back Back Diagnosis Active 2022-07-04 Mem oria strain of strain of 07-01 03:57:24 l thoracic thoracic 00:00: Anselmo white region region 00 (disorder) (disorder) Active 07/01/2022 Diagnosis 07/04/2022 [facility] BACK PAIN, BACK Diagnosis Active 2022-07-03 [facility] WORK COMP PAIN, WORK 07-01 08:43:00 l COMP 00:00: [place] Active 00 07/01/2022 [facility] Exposure Exposure Problem Active 2020-03 [place] [...] PAIN PAIN 04-03 06:43:00 l Active 00:00: Marlon 02/01/2014 00 [facility] Adjustment Adjustment Problem Active M [facility] disorder [...] of ion of 21:22:04 l lumbar lumbar [place] interverte interverte bral disc bral disc (disorder) (disorder) Active Problem 09/30/2022 [facility] Gastroesop Gastroeso Problem Active 2022-09-30 [facility] hageal phageal 21:22:04 l reflux reflux [place] disease disease (disorder) (disorder) Active Problem 09/30/2022 [facility] Insomnia Insomnia Problem Active 2022-09-30 [facility] (disorder) (disorder) 21:22:04 l Active [place] Problem 09/30/2022 [facility] Irritable Irritable Problem Active 2022-09-30 [facility] colon colon 21:22:04 l (disorder) (disorder) He rmann Active Problem 09/30/2022 [facility] Mixed Mixed Problem Active 2022-09-30 Memor ia anxiety anxiety 21:22:04 l and and [place] depressive depressive disorder disorder (disorder) (disorder) Active Problem 09/30/2022 [facility] Prolapsed Prolapsed Problem Active 2022-09-30 [facility] lumbar lumbar 21:22:04 l interverte interverte He r[place] bral disc bral disc (disorder) (disorder) Active Problem 09/30/2022 L4/L5 [facility] EXAM-MEDIC EXAM-MEDI Diagnosis Active 2022-10-03 [facility] OLEGAL COLEGAL 12:45:00 l REASONS REASONS [place] Active [facility] History of Past Illness Condition Condition Condition Status Onset Resolution Last Treating Co mments Source Name Details Category Date Date Treatment Clinician Date Traumatic Traumatic Diagnosis 2022-09-30 2022-09-30 [facility] AND/OR AND/OR 09-28 21:22:04 21:22:04 l non-trauma non-trauma 05:37: [place] r[place] tic injury tic injury 00 (disorder) (disorder) 09/28/2022 Diagnosis 09/30/2022 [facility] Injury of Injury of Diagnosis 2022-07-04 2022-07-04 Memoria muscle and muscle and 07-02 03:57:24 03:57:24 l tendon at tendon at 03:19: Herm reinier thorax thorax 00 level level (disorder) (disorder) 07/02/2022 Diagnosis 07/04/2022 [facility] Discharge Discharge Problem [id number] 2014-02-05 Memoria Diagnosis: Diagnosis: 04-05 02:29:33 02:29:33 l Abdominal Abdominal 06:00: Herm reinier pain pain 00 02/02/2014 02/05/2014 [facility] Allergies, Adverse Reactions, Alerts Allergy Allergy Status Severity Reaction(s) Onset Inactive Treating Comm ents Source Name Type Date Date Clinician No Known DA Active U [facility] Allergie 09-14 [place] s 00:00: d 00 [facility] Citalopr Allergy Active [place] am to [facility] Medical e Group NO KNOWN Drug Active Univers ALLERGIE Class ity of S [facility] No Known No Known Active Memori a Medicati Medicati l on on Marlon Allergdelmar Allergdelmar [facility] Social History Social Habit Start Date Stop Date Quantity Comments Source History of Smokes tobacco University of tobacco use daily [facility] Tobacco use and 2019-12-05 2019-12-05 Smokeless tobacco Un iversity of exposure 00:00:00 00:00:00 non-user [facility] Alcohol intake 2019-12-05 2019-12-05 Lifetime University of 00:00:00 00:00:00 non-drinker [facility] (finding) Branch History SDOH 2019-12-05 2019-12-05 1 University o f Alcohol Frequency 00:00:00 00:00:00 [place] [facility] History SDOH 2019-12-05 2019-12-05 99 University o f Alcohol Std 00:00:00 00:00:00 [place] Medical Drinks Branch History SDOH 2019-12-05 2019-12-05 1 University o f Alcohol Binge 00:00:00 00:00:00 [place] [facility] al Branch Sex [birth year] At [birth year] Universit y of 00:00:00 00:00:00 [facility] Smoking Status Start Date Stop Date Source Heavy Tobacco Smoker [facility] Former Smoker [facility] Smokes tobacco daily 2019-12-05 00:00:00 Univers ity of [facility] Social History [facility] Medications Ordered Filled Start Stop Current Ordering Indication Dosage Frequency Signature Comments Components Source Medication Medication Date Date Medication? Clinician (SIG) Name Name ibuprofen Yes 800 mg = 1 Me moria 800 mg oral 4-30 tab, PO, l tablet 03:19: Q8H, PRN [place] 00 Pain, Take with food, X 10 day, # 30 tab, 0 Refill(s) Flexeril 10 Yes 10 mg, PO, Memoria mg oral 4-30 TID, PRN l tablet 03:18: Muscle [place] 00 Spasm, X 10 day, # 20 tab, 0 Refill(s) acetaminoph 2019-03 Yes Univer s en-codeine 0-01 ity of 300-30 mg 00:00: [place] tablet 00 [facility] acetaminoph 2019- Yes Univer s en-codeine 0-01 ity of 300-30 mg 00:00: [place] tablet 00 [facility] DEXILANT 60 2019-0 Yes Univer s mg capsule 9-17 ity of 00:00: [place] 00 [facility] DEXILANT 60 2019-0 Yes Univer s mg capsule 9-17 ity of 00:00: [place] [facility] ALPRAZolam 2019-0 Yes .5mg Take 0.5 [...] BY ity of tablet 00:00: MOUTH ONCE [place] 00 DAILY Medical NEEDED Branch venlafaxine 2019-0 Yes 75mg Take 75 mg Univers XR 75 mg 24 9-15 by mouth ity of hr capsule 00:00: daily. Medical Branch zolpidem 10 0 Yes 10mg Take 10 mg Univers mg tablet 9-15 by mouth ity of 00:00: daily. Medical Branch ALPRAZolam 2019- Yes .5mg Take 0.5 Uni vers 0.5 mg 9-15 mg by ity of tablet 00:00: mouth 2 [place] (two) Medical times Branch daily. methocarbam Yes TAKE 1 Univ ers oL 750 mg 9-15 TABLET BY ity o f tablet 00:00: MOUTH EVERY 8 Medical HOURS Branch NEEDED ondansetron Yes DISSOLVE 1 Univers 4 mg 9-15 TO 2 ity of disintegrat 00:00: TABLETS IN [place] ing tablet 00 MOUTH Medical EVERY 6 TO Branch 8 HOURS NEEDED FOR NAUSEA SUMAtriptan Yes TAKE 1 Univ ers 50 mg 9-15 TABLET BY ity of tablet 00:00: MOUTH ONCE [place] DAILY Medical NEEDED Branch venlafaxine Yes 75mg Take 75 mg Univers XR 75 mg 24 9-15 by mouth ity of hr capsule 00:00: daily. Medical Branch zolpidem 10 Yes 10mg Take 10 mg Univers mg tablet 9-15 by mouth ity of 00:00: daily. [place] [facility] hyoscyamine 2013-03 Yes 0.125 mg = Memoria 0.125 mg 04-05 1 tab, PO, l oral 15:47: QID, Marlon tablet, 00 Spasm, # disintegrat 20 tab, 0 ing Refill(s) tramadol 2013-03 Yes 50 mg, PO, Mem oria hydrochlori 01 Q6H, # 10 l de 50 MG 15:43: tab, 0 [place] Oral Tablet 00 Refill(s) Morphine 2013-03 No 4 mg, Memoria 04-05 Route: l 13:56: IVP, Drug [place] 00 form: INJ, ONCE, Dosing Weight 102.273, kg, Priority: STAT, Start date: 02/02/14 7:56:00, Stop date: 02/02/14 7:56:00 Sodium 2014-1 No 500 mL, Memoria Chloride 2-01 500 ml/hr, l 0.154 13:55: Infuse [place] MEQ/ML 00 Over: 1 Injectable hr, Route: Solution IV, ONCE, Priority: STAT, Dosing Weight 102.273 kg, Start date: 02/02/14 7:55:00, Duration: 1 doses or times, Stop date: 02/02/14 7:55:00 Acetaminoph 2013-03 No 1 tab, Adve marlene en 325 MG / 04-05 Route: PO, l Hydrocodone 12:31: Drug Form: [place] Bitartrate 00 TAB, 5 MG Oral Dosing Tablet Weight 102.273, kg, ONCE, STAT, Start date: 02/02/14 6:31:00, Stop date: 02/02/14 6:31:00 Iohexol 2013-03 No Notes: Memoria 04-05 (same l 12:15: as:Omnipaq Marlon 00 ue 350). bupropion bupropion No bupropion [place] HCl XL [...] al MOUTH ONCE MOUTH ONCE TABLET BY [facility] DAILY DAILY MOUTH ONCE [facility] DAILY h [...] TAKE 1 al MOUTH MOUTH TABLET BY [facility] BEFORE BEFORE MOUTH [facility] MEAL(S) AND [...] al MOUTH THREE MOUTH THREE TABLET BY [facility] TIMES A DAY TIMES A DAY MOUTH [facility] FOR 14 DAYS FOR 14 DAYS THREE h TIMES A Program DAY FOR 14 DAYS zolpidem ER zolpidem ER No zolpidem [place] 12.5 mg 12.5 mg ER 12.5 mg da tablet,exte tablet,exte tablet,ext [facility] n[facility] nded ended al release,mul release,mul release,[facility] tiphase tiphase ltiphase Outre [facility] TAKE 1 TAKE 1 TAKE 1 h TABLET BY TABLET BY TABLET BY Program MOUTH ONCE MOUTH ONCE MOUTH ONCE DAILY DAILY DAILY zolpidem ER zolpidem ER No zolpidem [place] 6.25 mg 6.25 mg ER 6.25 mg da tablet,exte tablet,exte tablet,ext [facility] nded nded ended al release,mul release,mul release,[facility] tiphase tiphase ltiphase Outre ac TAKE [...] MOUTH ONCE MOUTH ONCE DAILY DAILY DAILY dexmethylph dexmethylph No dexmethylp [place] enidate ER enidate ER henidate da 30 mg 30 mg ER 30 mg Medical capsule,ext capsule,ext capsule,ex Group ended ended tended release release release [id number] TAKE 1 50 TAKE 1 -50 TAKE 1 CAPSULE BY CAPSULE BY CAPSULE BY MOUTH EVERY MOUTH EVERY MOUTH MORNING MORNING EVERY DIRECTED DIRECTED MORNING DIRECTED dicyclomine dicyclomine No dicyclomin [place] 10 mg 10 mg e 10 mg da capsule capsule capsule Medica l TAKE 1 TAKE 1 TAKE 1 Group CAPSULE BY CAPSULE BY CAPSULE BY MOUTH EVERY MOUTH EVERY MOUTH 8 HOURS 8 HOURS EVERY 8 NEEDED NEEDED HOURS NEEDED famotidine famotidine No famotidine [place] [facility] [...] n HCl 4 mg d a tablet Take tablet Take tablet Medical 1-2 tablets 1-2 tablets Take 1-2 Group every 6-8 every 6-8 tablets hours for hours for every 6-8 nausea/vomi nausea/vomi hours for ting. ting. nausea/vom iting. pantoprazol pantoprazol No pantoprazo [place] e 40 mg e 40 mg le 40 mg da tablet,letitia tablet,letitia tablet,del Medical yed release yed release ayed G roup TAKE 1 TAKE 1 release TABLET BY TABLET BY TAKE 1 MOUTH ONCE MOUTH ONCE TABLET BY DAILY DAILY MOUTH ONCE DAILY paroxetine paroxetine No paroxetine [place] 40 mg 40 mg 40 mg da tablet TAKE tablet TAKE tablet Medical 1 TABLET BY 1 TABLET BY TAKE 1 Group MOUTH TWICE MOUTH TWICE TABLET BY DAILY DAILY MOUTH DIRECTED DIRECTED TWICE WEAN UP ON WEAN UP ON DAILY MEDICATION MEDICATION DIRECTED DIRECTED DIRECTED WEAN UP ON PER PER MEDICATION INSTRUCIONS INSTRUCIONS DIRECTED PER INSTRUCION S propranolol propranolol No propranolo [place] 20 mg 20 mg l 20 mg da tablet TAKE tablet TAKE tablet Medical 1/2 TO 1 1/2 TO 1 TAKE 1/2 [place] up (ONE-HALF (ONE-HALF TO 1 TO ONE) TO ONE) (ONE-HALF TABLET BY TABLET BY TO ONE) MOUTH TWICE MOUTH TWICE TABLET BY DAILY DAILY MOUTH NEEDED FOR NEEDED FOR TWICE ANXIETY / ANXIETY / DAILY PANIC PANIC NEEDED FOR ATTACK ATTACK ANXIETY / PANIC ATTACK zolpidem ER zolpidem ER No zolpidem [place] 12.5 mg 12.5 mg ER 12.5 mg da tablet,exte tablet,exte tablet,ext Medical nded nded ended Group release,mul release,mul release,mu tiphase tiphase ltiphase TAKE 1 TAKE 1 TAKE 1 TABLET BY TABLET BY TABLET BY MOUTH ONCE MOUTH ONCE MOUTH ONCE DAILY DAILY DAILY acetaminoph acetaminoph No acetaminop [place] en 300 [...] TYLENOL( ACETAMINOP HEN) Ambien Ambien No Ambien [facility] Program Immunizations Ordered Filled Immunization Date Status Comments [facility] e Immunization Name Name influenza, influenza, 2020-01-08 Completed [place] injectable, injectable, 00:00:00 Medical Grou p quadrivalent quadrivalent influenza, influenza, 2020-01-08 Completed [place] injectable, injectable, 00:00:00 Medical Grou p quadrivalent quadrivalent influenza, influenza, 2020-01-08 Completed [place] injectable, injectable, 00:00:00 Medical Grou p quadrivalent quadrivalent influenza, influenza, 2020-01-08 Completed [place] injectable, injectable, 00:00:00 Medical Grou p quadrivalent quadrivalent influenza, influenza, 2020-01-08 Completed [place] injectable, injectable, 00:00:00 Medical Grou p quadrivalent quadrivalent influenza, influenza, 2020-01-08 Completed [place] injectable, injectable, 00:00:00 Medical Grou p quadrivalent quadrivalent influenza, influenza, 2020-01-08 Completed [place] injectable, injectable, 00:00:00 Medical Grou p quadrivalent quadrivalent influenza, influenza, 2020-01-08 Completed [place] injectable, injectable, 00:00:00 Medical Grou p quadrivalent quadrivalent influenza, influenza, 2020-01-08 Completed [place] injectable, injectable, 00:00:00 Medical Grou p quadrivalent quadrivalent influenza, influenza, 2020-01-08 Completed [place] injectable, injectable, 00:00:00 Medical Grou p quadrivalent quadrivalent influenza, influenza, 2020-01-08 Completed [place] injectable, injectable, 00:00:00 Medical Grou p quadrivalent quadrivalent influenza, influenza, 2020-01-08 Completed [place] injectable, injectable, 00:00:00 Medical Grou p quadrivalent quadrivalent influenza, influenza, 2020-01-08 Completed [place] injectable, injectable, 00:00:00 Medical Grou p quadrivalent quadrivalent influenza, influenza, 2020-01-08 Completed [place] injectable, injectable, 00:00:00 Medical Grou p quadrivalent quadrivalent influenza, influenza, 2018-03-05 Completed [place] injectable, injectable, 00:00:00 Medical Grou p quadrivalent quadrivalent influenza, influenza, 2018-03-05 Completed [place] injectable, injectable, 00:00:00 Medical Grou p quadrivalent quadrivalent influenza, influenza, 2018-03-05 Completed [place] injectable, injectable, 00:00:00 Medical Grou p quadrivalent quadrivalent influenza, influenza, 2018-03-05 Completed [place] injectable, injectable, 00:00:00 Medical Grou p quadrivalent quadrivalent influenza, influenza, 2018-03-05 Completed [place] injectable, injectable, 00:00:00 Medical Grou p quadrivalent quadrivalent influenza, influenza, 2018-03-05 Completed [place] injectable, injectable, 00:00:00 Medical Grou p quadrivalent quadrivalent influenza, influenza, 2018-03-05 Completed [place] injectable, injectable, 00:00:00 Medical Grou p quadrivalent quadrivalent Hep B, adolescent Hep B, adolescent 2015-12-30 Completed [place] or pediatric or pediatric 10:39:11 Medical Gr oup Hep B, adolescent Hep B, adolescent 2015-12-30 Completed [place] or pediatric or pediatric 10:39:11 Medical Gr oup Hep B, adolescent Hep B, adolescent 2015-12-30 Completed [place] or pediatric or pediatric 10:39:11 Medical Gr oup Hep B, adolescent Hep B, adolescent 2015-12-30 Completed [place] or pediatric or pediatric 10:39:11 Medical Gr oup Hep B, adolescent Hep B, adolescent 2015-12-30 Completed [place] or pediatric or pediatric 10:39:11 Medical Gr oup Hep B, adolescent Hep B, adolescent 2015-12-30 Completed [place] or pediatric or pediatric 10:39:11 Medical Gr oup Hep B, adolescent Hep B, adolescent 2015-12-30 Completed [place] or pediatric or pediatric 10:39:11 Medical Gr oup Hep B, adult Hep B, adult 2015-09-27 Completed [place] 00:00:00 Medical Group Hep B, adult Hep B, adult 2015-09-27 Completed [place] 00:00:00 Medical Group Hep B, adult Hep B, adult 2015-09-27 Completed [place] 00:00:00 Medical Group Hep B, adult Hep B, adult 2015-09-27 Completed [place] 00:00:00 Medical Group Hep B, adult Hep B, adult 2015-09-27 Completed [place] 00:00:00 Medical Group Hep B, adult Hep B, adult 2015-09-27 Completed [place] 00:00:00 Medical Group Hep B, adult Hep B, adult 2015-09-27 Completed [place] 00:00:00 Medical Group Hep B, adult Hep B, adult 2015-08-04 Completed [place] 16:58:00 Medical Group Hep B, adult Hep B, adult 2015-08-04 Completed [place] 16:58:00 Medical Group Hep B, adult Hep B, adult 2015-08-04 Completed [place] 16:58:00 Medical Group Hep B, adult Hep B, adult 2015-08-04 Completed [place] 16:58:00 Medical Group Hep B, adult Hep B, adult 2015-08-04 Completed [place] 16:58:00 Medical Group Hep B, adult Hep B, adult 2015-08-04 Completed [place] 16:58:00 Medical Group Hep B, adult Hep B, adult 2015-08-04 Completed [place] 16:58:00 Medical Group influenza, influenza, 2014-03-05 Completed [place] seasonal, seasonal, 00:00:00 Medical Group injectable injectable influenza, influenza, 2014-03-05 Completed [place] seasonal, seasonal, 00:00:00 Medical Group injectable injectable influenza, influenza, 2014-03-05 Completed [place] seasonal, seasonal, 00:00:00 Medical Group injectable injectable influenza, influenza, 2014-03-05 Completed [place] seasonal, seasonal, 00:00:00 Medical Group injectable injectable influenza, influenza, 2014-03-05 Completed [place] seasonal, seasonal, 00:00:00 Medical Group injectable injectable influenza, influenza, 2014-03-05 Completed [place] seasonal, seasonal, 00:00:00 Medical Group injectable injectable influenza, influenza, 2014-03-05 Completed [place] seasonal, seasonal, 00:00:00 Medical Group injectable injectable Hep B, adolescent Hep B, adolescent Unknown Completed [place] or pediatric or pediatric Medical Gr oup Hep B, adult Hep B, adult Unknown Completed [place] [facility] influenza, influenza, Unknown Completed [place] injectable, injectable, Medical Grou p quadrivalent quadrivalent influenza, influenza, Unknown Completed [place] injectable, injectable, Medical Grou p quadrivalent quadrivalent influenza, influenza, Unknown Completed [place] injectable, injectable, Medical Grou p quadrivalent quadrivalent Hep B, adult Hep B, adult Unknown Completed [place] [facility] influenza, influenza, Unknown Completed [place] seasonal, seasonal, Medical Group injectable injectable Vital Signs Vital Name Observation Time Observation Value Comments Source Height 2022-12-06 00:00:00 66 [in_i] [facility] BP Diastolic 2022-12-06 00:00:00 74 mm[Hg] [facility] BMI (Body Mass 2022-12-06 00:00:00 38.3 kg/m2 [facility]) Group BP Systolic 2022-12-06 00:00:00 114 mm[Hg] [facility] Body Weight 2022-12-06 00:00:00 3792 [oz_av] [facility] BP Diastolic 2022-08-23 00:00:00 79 mm[Hg] [facility] Height 2022-08-23 00:00:00 66 [in_i] [facility] BMI (Body Mass 2022-08-23 00:00:00 38.6 kg/m2 [facility] Index) Group BP Systolic 2022-08-23 00:00:00 117 mm[Hg] [facility] Body Weight 2022-08-23 00:00:00 3824 [oz_av] [facility] BP Diastolic 2022-05-16 00:00:00 79 mm[Hg] [facility] Height 2022-05-16 00:00:00 66 [in_i] [facility] BMI (Body Mass 2022-05-16 00:00:00 37.8 kg/m2 [facility] Index) Group BP Systolic 2022-05-16 00:00:00 110 mm[Hg] [facility] Body Weight 2022-05-16 00:00:00 3744 [oz_av] [facility] BP Diastolic 2022-04-24 00:00:00 84 mm[Hg] [facility] Height 2022-04-24 00:00:00 66 [in_i] [facility] BMI (Body Mass 2022-04-24 00:00:00 38.1 kg/m2 [facility] Index) Group BP Systolic 2022-04-24 00:00:00 123 mm[Hg] [facility] Body Weight 2022-04-24 00:00:00 3776 [oz_av] [facility] BP Diastolic 2022-03-23 00:00:00 75 mm[Hg] [facility] Height 2022-03-23 00:00:00 66 [in_i] [facility] BMI (Body Mass 2022-03-23 00:00:00 37.8 kg/m2 [facility] Index) Group BP Systolic 2022-03-23 00:00:00 113 mm[Hg] [facility] Body Weight 2022-03-23 00:00:00 3746 [oz_av] [facility] BP Diastolic 2022-02-21 00:00:00 81 mm[Hg] [facility] Height 2022-02-21 00:00:00 66 [in_i] [facility] BMI (Body Mass 2022-02-21 00:00:00 37.3 kg/m2 [facility] Index) Group BP Systolic 2022-02-21 00:00:00 128 mm[Hg] [facility] Body Weight 2022-02-21 00:00:00 3696 [oz_av] [facility] BP Diastolic 2022-01-19 00:00:00 76 mm[Hg] [facility] Height 2022-01-19 00:00:00 66 [in_i] [facility] BMI (Body Mass 2022-01-19 00:00:00 38.4 kg/m2 [facility] Index) Group BP Systolic 2022-01-19 00:00:00 114 mm[Hg] [facility] Body Weight 2022-01-19 00:00:00 3808 [oz_av] [facility] BP Diastolic 2021-07-06 00:00:00 78 mm[Hg] [facility] Height 2021-07-06 00:00:00 66 [in_i] [facility] BMI (Body Mass 2021-07-06 00:00:00 38.3 kg/m2 [facility] Index) Group BP Systolic 2021-07-06 00:00:00 109 mm[Hg] [facility] Body Weight 2021-07-06 00:00:00 3792 [oz_av] [facility] Height 2021-03-04 00:00:00 66 [in_i] [facility] BMI (Body Mass 2021-03-04 00:00:00 37.1 kg/m2 [facility]) Group Body Weight 2021-03-04 00:00:00 3680 [oz_av] [facility] BP Diastolic 2020-12-08 00:00:00 74 mm[Hg] [facility] Height 2020-12-08 00:00:00 66 [in_i] [facility] BMI (Body Mass 2020-12-08 00:00:00 37.2 kg/m2 [facility]) Group BP Systolic 2020-12-08 00:00:00 107 mm[Hg] [facility] Body Weight 2020-12-08 00:00:00 3683 [oz_av] [facility] BP Diastolic 2020-07-08 00:00:00 80 mm[Hg] [facility] Height 2020-07-08 00:00:00 66 [in_i] [facility] BMI (Body Mass 2020-07-08 00:00:00 36.5 kg/m2 [facility] Index) Group BP Systolic 2020-07-08 00:00:00 119 mm[Hg] [facility] Body Weight 2020-07-08 00:00:00 3616 [oz_av] [facility] BP Diastolic 2020-05-31 00:00:00 90 mm[Hg] [facility] [facility] Height 2020-05-31 00:00:00 66 [in_i] [place] [facility] BMI (Body Mass 2020-05-31 00:00:00 34[facility]7 [facility] BP Systolic 2020-05-31 00:00:00 137 mm[Hg] [place] [facility] Body Weight 2020-05-31 00:00:00 215 [lb_av] [place] [facility] BP Diastolic 2020-05-24 00:00:00 83 mm[Hg] [facility] Height 2020-05-24 00:00:00 66 [in_i] [facility] BMI (Body Mass 2020-05-24 00:00:00 35.8 kg/m2 [place] [facility] BP Systolic 2020-05-24 00:00:00 127 mm[Hg] [facility] Body Weight 2020-05-24 00:00:00 3552 [oz_av] [facility] Height 2020-04-07 00:00:00 66 [in_i] [facility] BMI (Body Mass 2020-04-07 00:00:00 34.7 kg/m2 [facility] Body Weight 2020-04-07 00:00:00 3440 [oz_av] [facility] Height 2020-03-01 00:00:00 66 [in_i] [facility] BP Diastolic 2020-02-12 00:00:00 73 mm[Hg] [facility] Height 2020-02-12 00:00:00 66 [in_i] [facility] BMI (Body Mass 2020-02-12 00:00:00 35.8 kg/m2 [facility] BP Systolic 2020-02-12 00:00:00 108 mm[Hg] [facility] Body Weight 2020-02-12 00:00:00 3552 [oz_av] [facility] BP Diastolic 2020-02-03 00:00:00 80 mm[Hg] [facility] Height 2020-02-03 00:00:00 66 [in_i] [facility] BMI (Body Mass 2020-02-03 00:00:00 35.3 kg/m2 [facility] BP Systolic 2020-02-03 00:00:00 118 mm[Hg] [facility] Body Weight 2020-02-03 00:00:00 219 [lb_av] [facility] BP Diastolic 2020-01-13 00:00:00 76 mm[Hg] [facility] Height 2020-01-13 00:00:00 66 [in_i] [facility] BMI (Body Mass 2020-01-13 00:00:00 35.3 kg/m2 [facility] BP Systolic 2020-01-13 00:00:00 116 mm[Hg] [facility] Body Weight 2020-01-13 00:00:00 219 [lb_av] [facility] BP Diastolic 2020-01-09 00:00:00 76 mm[Hg] [facility] Height 2020-01-09 00:00:00 66 [in_i] [facility] BMI (Body Mass 2020-01-09 00:00:00 35.3 kg/m2 [facility] BP Systolic 2020-01-09 00:00:00 116 mm[Hg] [facility] Body Weight 2020-01-09 00:00:00 3504 [oz_av] [facility] BP Diastolic 2019-12-23 00:00:00 73 mm[Hg] [facility] Height 2019-12-23 00:00:00 66 [in_i] [facility] BMI (Body Mass 2019-12-23 00:00:00 37.4 kg/m2 [facility] BP Systolic 2019-12-23 00:00:00 109 mm[Hg] [facility] Body Weight 2019-12-23 00:00:00 232 [lb_av] [facility] Height 2019-12-18 00:00:00 66 [in_i] [facility] BMI (Body Mass 2019-12-18 00:00:00 37.4 kg/m2 [facility] Body Weight 2019-12-18 00:00:00 3712 [oz_av] [facility] BP Diastolic 2019-12-16 00:00:00 73 mm[Hg] [facility] Height 2019-12-16 00:00:00 66 [in_i] [facility] BMI (Body Mass 2019-12-16 00:00:00 37.4 kg/m2 [facility] Index) Group BP Systolic 2019-12-16 00:00:00 109 mm[Hg] [facility] Body Weight 2019-12-16 00:00:00 232 [lb_av] [facility] BP Diastolic 2019-12-09 00:00:00 73 mm[Hg] [facility] Height 2019-12-09 00:00:00 66 [in_i] [facility] BMI (Body Mass 2019-12-09 00:00:00 37.4 kg/m2 [facility] Medical Index) Group BP Systolic 2019-12-09 00:00:00 109 mm[Hg] [facility] Body Weight 2019-12-09 00:00:00 3712 [oz_av] [facility] BP Diastolic 2019-11-18 00:00:00 83 mm[Hg] [facility] Height 2019-11-18 00:00:00 66 [in_i] [facility] BMI (Body Mass 2019-11-18 00:00:00 38.4 kg/m2 [facility] Medical Index) Group BP Systolic 2019-11-18 00:00:00 120 mm[Hg] [facility] Body Weight 2019-11-18 00:00:00 3808 [oz_av] [facility] Height 2019-10-22 00:00:00 66 [in_i] [facility] BP Diastolic 2019-08-27 00:00:00 86 mm[Hg] [facility] Height 2019-08-27 00:00:00 66 [in_i] [facility] BMI (Body Mass 2019-08-27 00:00:00 40.8 kg/m2 [facility] Index) Group BP Systolic 2019-08-27 00:00:00 128 mm[Hg] [facility] Body Weight 2019-08-27 00:00:00 4040 [oz_av] [facility] BP Diastolic 2018-12-19 00:00:00 77 mm[Hg] [facility] Height 2018-12-19 00:00:00 66 [in_i] [facility] BMI (Body Mass 2018-12-19 00:00:00 40.8 kg/m2 [facility] Index) Group BP Systolic 2018-12-19 00:00:00 118 mm[Hg] [facility] Body Weight 2018-12-19 00:00:00 4048 [oz_av] [facility] BP Diastolic 2018-09-27 00:00:00 81 mm[Hg] [facility] Height 2018-09-27 00:00:00 66 [in_i] [facility] BMI (Body Mass 2018-09-27 00:00:00 40.4 kg/m2 [facility] Index) Group BP Systolic 2018-09-27 00:00:00 118 mm[Hg] [facility] Body Weight 2018-09-27 00:00:00 4000 [oz_av] [facility] BP Diastolic 2018-09-23 00:00:00 78 mm[Hg] [facility] Height 2018-09-23 00:00:00 66 [in_i] [facility] BMI (Body Mass 2018-09-23 00:00:00 40.5 kg/m2 [facility] Index) Group BP Systolic 2018-09-23 00:00:00 108 mm[Hg] [facility] Body Weight 2018-09-23 00:00:00 4016 [oz_av] [facility] BP Diastolic 2018-09-20 00:00:00 83 mm[Hg] [facility] Height 2018-09-20 00:00:00 66 [in_i] [facility] BMI (Body Mass 2018-09-20 00:00:00 40.8 kg/m2 [facility] Index) Group BP Systolic 2018-09-20 00:00:00 118 mm[Hg] [facility] Body Weight 2018-09-20 00:00:00 4049 [oz_av] [facility] BP Diastolic 2018-08-29 00:00:00 92 mm[Hg] [facility] Height 2018-08-29 00:00:00 66 [in_i] [facility] BMI (Body Mass 2018-08-29 00:00:00 40.5 kg/m2 [facility] BP Systolic 2018-08-29 00:00:00 108 mm[Hg] [facility] Body Weight 2018-08-29 00:00:00 4016 [oz_av] [facility] Temperature Oral (F) 2022-09-28 06:00:00 98.2 F [facility] Heart Rate 2022-09-28 06:00:00 [facility] Systolic (mm Hg) 2022-09-28 06:00:00 Dave rial [place] Diastolic (mm Hg) 2022-09-28 06:00:00 Mem [facility] Height 2022-09-28 03:47:00 5 [ft_i] [facility] BMI Calculated 2022-09-28 03:47:00 [facility] [place] Weight 2022-09-28 03:47:00 [facility] Systolic (mm Hg) 2022-07-02 03:14:00 Dave rial [place] Diastolic (mm Hg) 2022-07-02 03:14:00 Mem orial [place] Heart Rate 2022-07-02 03:14:00 [facility] Temperature Oral (F) 2022-07-02 03:14:00 98.5 F [facility] Height 2022-07-02 03:14:00 5 [ft_i] [facility] BMI Calculated 2022-07-02 03:14:00 [facility] [place] Weight 2022-07-02 03:14:00 [facility] Diastolic (mm Hg) 2014-02-02 16:18:00 Mem orial [place] Systolic (mm Hg) 2014-02-02 16:18:00 Dave rial [place] Heart Rate 2014-02-02 16:18:00 [facility] Respitory Rate 2014-02-02 16:18:00 Memori al [place] Respitory Rate 2014-02-02 15:21:00 Memori al [place] Diastolic (mm Hg) 2014-02-02 15:21:00 Mem orial [place] Systolic (mm Hg) 2014-02-02 15:21:00 Dave rial [place] Heart Rate 2014-02-02 15:21:00 [facility] Temperature Oral (F) 2014-02-02 15:21:00 96.7 F [facility] Temperature Oral (F) 2014-02-02 13:27:00 97.5 F [facility] Respitory Rate 2014-02-02 13:19:00 Memori al [place] Heart Rate 2014-02-02 13:19:00 [facility] Systolic (mm Hg) 2014-02-02 13:19:00 Dave rial [place] Diastolic (mm Hg) 2014-02-02 13:19:00 Mem orial [place] Temperature Oral (F) 2014-02-02 10:51:[address] [facility] [place] Height 2014-02-02 08:51:00 [facility] Calculated 2014-02-02 08:51:00 Memori al [place] Weight 2014-02-02 08:51:00 [facility] Procedures Procedure Date / Time Performing Source Performed Clinician RAPID RESPONSE TEAM DOCUMENTATION 2022-05-31 [facility] 05:01:00 Unassigned, No [place] [facility] unlisted imaging order 2022-03-23 [facility] 00:00:00 Group unlisted imaging order 2021-07-06 [facility] 00:00:00 Group unlisted imaging order 2020-06-10 [facility] 00:00:00 Group XR, knee, 1 or 2 view 2020-02-02 [facility] 00:00:00 Group XR, knee, 1 or 2 view 2019-12-16 [facility] 00:00:00 Group unlisted imaging order 2019-12-16 [facility] 00:00:00 Group XR, knee, 3 view 2019-07-30 [facility] 00:00:00 Group Colonoscopy 2017-09-11 [place] 00:00:00 [facility] Esophagogastroduodenoscopy 2017-08-14 [facility] 00:[facility]:00 [facility] Ankle Surgery [place] [facility] Cholecystectomy [place] [facility] Ankle Arthroscopy/surgery [facility] Foot joint operations<sup>1</sup> [facility] Excision of intra-abdominal mass [facility] Cholecystectomy [facility] Plan of Care Planned Activity Planned Date Details Comments Source Diagnostic Test 2022-04-24 BMP, serum or [place] [facility] Pending 00:00:00 plasma [code = Group BMP, serum or plasma] Diagnostic Test 2022-04-24 CBC w/ auto diff [facility] Pending 00:00:00 [code = CBC w/ Group auto diff] Future Appointment 2023-01-08 Cody Shah 08:30:00 [facility] [address], [place] [address] Instructions [facility] [facility] Encounters Start End Encounter Admission Attending Care Care Encounter Source Date/Time Date/Time Type Type Clinicians Facility Department ID 2022-12-27 2022-12-27 Emergency AGUSTINA ROSENBERG [facility] [id number] FB 14:09:00 19:20:00 ELIGIO 03 2022-12-06 2022-12-06 Outpatient [facility] MM [id number] [place] 00:00:00 00:00:00 004 [facility] Group 2022-12-06 2022-12-06 Leonardo [facility]G [place] - [id number] M atagor 00:00:00 00:00:00 Discovery josr Peters PROBATION WORKER: 600 [facility] - [address] [address] , Ph. 2022-10-20 2022-10-20 Outpatient Shield [facility]G MMG [id number] [place] 00:00:00 00:00:00 929 [facility] 2022-09-28 2022-09-[address] [facility] [id number] Memlorene 03:45:50 07:09:00 Marlon 02 l [facility] 2022-09-27 2022-09-28 Emergency ALEJANDRO CASTLE JANET NE [id number] NE 22:45:00 02:09:00 02 2022-09-27 2022-09-28 Emergency E ALEJANDRO CHUNG RUTHNE MHNE [id number] MHNE 22:45:00 02:09:00 2022-09-28 2022-09-28 Outpatient RADHA FABIAN [id number] [facility]NE 01:00:00 02:00:00 FARID 12 2022-09-28 2022-09-28 Outpatient RADHA FABIAN [id number] MHNE 01:00:00 02:00:00 FARID 2022-09-14 2022-09-15 Emergency EM Victor, HCAPM BAYLEE [id number] [facility] 20:30:00 01:53:00 Maye 83 [facility] [place], [facility] 2022-08-23 2022-08-23 Outpatient Shield MMG MM [id number] [place] 00:00:00 00:00:00 621 da Medical Group 2022-08-23 2022-08-23 Leonardo [facility] [place] - [id number] M atagor 00:00:00 00:00:00 Discovery josr Peters PROBATION WORKER: 600 [facility] [place] [place] - [address], [place] [address] , Ph. 2022-07-02 2022-07-02 Emergency [facility] [id number] Memoria 02:16:09 04:05:00 [place] 01 l [facility] 2022-05-31 2022-05-31 Orders Doctor ZELALEM [id number] Univers 00:00:00 00:00:00 Only Unassigned, NICOLE [id number] ity of [place] [id number] Izaiah as [id number] [address] 2022-05-18 2022-05-18 Telephone MARISA Stout [id number] [facility] 00:00:00 00:00:00 [facility] [id number] it y of [place] [id number] Izaiah as COSME?BLEA [id number] Nm emily [address] MEDICAL OFFICE BUILDING 2022-05-16 2022-05-16 Outpatient Shield [facility] MMG [id number] [place] 00:00:00 00:00:00 314 [facility] 2022-05-16 2022-05-16 Leonardo MMG [place] - [id number] M atagor 00:00:00 00:00:00 LorraineDiscovery da PROBATION WORKER: [address] [place] [address] , Ph. 2022-04-24 2022-04-24 Outpatient PHUONG PETERS, [facility] [id number] [place] 09:28:00 09:28:00 LEONARDO -[id number] da [facility] 2022-04-24 2022-04-24 Outpatient Shield MMG MMG [id number] [place] 00:00:00 00:00:00 220 [facility] 2022-04-24 2022-04-24 Leonardo MMG [place] - [id number] M at[place]or 00:00:00 00:00:00 Lorraine da PROBATION WORKER: [address] [place] [address] [place] [address] , Ph. 2022-03-23 2022-03-23 Outpatient PHUONG PETERS, [facility] [id number] [place] 10:45:00 10:45:00 LEONARDO -[id number] da [facility] 2022-03-23 2022-03-23 Outpatient Shield MMG MMG [id number] [place] 00:00:00 00:00:00 119 [facility] 2022-03-23 2022-03-23 Leonardo MMG [place] - [id number] M atagor 00:00:00 00:00:00 Lorraine da PROBATION WORKER: [address] [place] [address] [place] [address] , Ph. 2022-02-21 2022-02-21 Outpatient Shield MMG MMG [id number] [place] 00:00:00 00:00:00 220 [facility] 2022-02-21 2022-02-21 Leonardo MMG [place] - [id number] M atagor 00:00:00 00:00:00 LorraineDiscovery da PROBATION WORKER: 600 [facility] [address] [place] [address] [place] [address] , Ph. 2022-02-15 2022-02-15 Outpatient Shield MMG MMG [id number] 221 [place] 00:00:00 00:00:00 214 [facility] 2022-01-19 2022-01-19 Outpatient LORRAINE, [facility] [id number] [place] 11:24:00 11:24:00 LEONARDO -[id number] da [facility] 2022-01-19 2022-01-19 Outpatient Shield MMG MMG [id number] 221 [place] 00:00:00 00:00:00 117 [facility] 2022-01-19 2022-01-19 Leonardo MMG [place] - [id number] M at[place]or 00:00:00 00:00:00 Lorraine da PROBATION WORKER: 600 [facility] [address] [place] [address] , Ph. 2022-01-17 2022-01-17 Outpatient Shield MMG MMG [id number] 221 [place] 00:00:00 00:00:00 115 [facility] 2021-07-06 2021-07-06 Outpatient Shield MMG MMG [id number] 220 [place] 02:23:00 02:23:00 504 [facility] 2021-07-06 2021-07-06 Leonardo MMG [place] - [id number] M at[place]or 00:00:00 00:00:00 Lorraine da PROBATION WORKER: 600 [facility] [address] [place] [address] [place] [address] , Ph. 2021-03-04 2021-03-04 Outpatient Shield MMG MMG [id number] 211 [place] 09:46:00 09:46:00 231 [facility] 2021-03-04 2021-03-04 Pascale MMG [place] - [id number] [place] 00:00:00 00:00:00 Discovery Óscar da LAND DEVELOPMENT MANAGER-C: 600 [facility] 201[facility] [place] [address] , Ph. 2021-01-06 2021-01-06 Outpatient Shield MMG MMG [id number] 211 [place] 04:08:00 04:08:00 104 da [facility] 2020-12-08 2020-12-08 Outpatient Shield MMG MMG [id number] 211 [place] 10:51:00 10:51:00 006 da [facility] 2020-12-08 2020-12-08 Leonardo MMG [place] - [id number] M at[place]or 00:00:00 00:00:00 Discovery josr Peters PROBATION WORKER: 600 [facility] - [address], [place] [address] , Ph. 2020-07-08 2020-07-08 Outpatient Shield MMG MMG [id number] 210 [place] 10:46:00 10:46:00 506 da [facility] 2020-07-08 2020-07-08 Leonardo MM [place] - [id number] M at[place]or 00:00:00 00:00:00 Discovery josr Peters PROBATION WORKER: [address] [place] [address] , Ph. 2020-06-30 2020-06-30 Outpatient Shield MMG MMG [id number] 210 [place] 03:21:00 03:21:00 505 [facility] 2020-06-30 2020-06-30 Outpatient Shield MMG MMG [id number] 210 [place] 03:18:00 03:18:00 428 [facility] 2020-06-10 2020-06-10 Outpatient DESAI_RAKES [facility] 111 [id number] [place] 11:25:00 11:25:00 H [id number] da [facility] [place], [facility] Program 2020-06-09 2020-06-09 Outpatient DESAI_RAKES [facility] 111 [id number] [place] 09:39:00 09:39:00 H 05181 [facility] 2020-06-08 2020-06-08 Outpatient DESAI_RAJERO [facility] 111 [id number] [place] 04:52:00 04:52:00 H 65213 [facility] 2020-06-02 2020-06-02 Outpatient Shield MMG MM [id number] [place] 11:04:00 11:04:00 331 [facility] 2020-05-31 2020-05-31 Outpatient DESAI_RA[facility]ERO [facility] [id number] [place] 01:47:00 01:47:00 H 68054 [facility] 2020-05-31 2020-05-31 Efrain Payton [facility] [place] - [id number] [place] 00:00:00 00:00:00 Abigail Lara MD: [id number] Yarsani Epis 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 2020-05-28 2020-05-28 Outpatient DESAI_[facility] [id number] [place] 03:14:00 03:14:00 H 70771 [facility] 2020-05-27 2020-05-27 Outpatient Shield MMG MMG [id number] [place] 10:43:00 10:43:00 325 da [facility] 2020-05-24 2020-05-24 Outpatient Shield MMG MMG [id number] 210 [place] 11:22:00 11:22:00 322 da [facility] 2020-05-24 2020-05-24 Leonardo [facility] [place] - [id number] M atagor 00:00:00 00:00:00 Discovery josr Peters PROBATION WORKER: 600 [facility] [address] [place] [address] , Ph. 2020-04-07 2020-04-07 Outpatient Shield MMG MMG [id number] 210 [place] 11:12:00 11:12:00 203 [facility] 2020-04-07 2020-04-07 Outpatient Shield MMG MMG [id number] 210 [place] 11:12:00 11:12:00 205 [facility] 2020-04-07 2020-04-07 Leonardo CERNAG [place] - [id number] M atagor 00:00:00 00:00:00 Discovery Lorraine da PROBATION WORKER: 600 [facility] [address], [place] [address] , Ph. 2020-03-04 2020-03-04 Outpatient DESAI_RAKES [facility] 111 [id number] [place] 09:24:00 09:24:00 H 97603 [facility] 2020-03-04 2020-03-04 Outpatient DESAI_[facility]KES [facility] 111 [id number] [place] 09:24:00 09:24:00 H 85882 [facility] 2020-03-01 2020-03-01 Outpatient Shield MMG MMG [id number] 201 [place] 09:29:00 09:29:00 228 [facility] 2020-03-01 2020-03-01 Outpatient Shield MMG MMG [id number] 201 [place] 09:29:00 09:29:00 229 [facility] 2020-03-01 2020-03-01 Leonardo CERNAG [place] - [id number] M atagor 00:00:00 00:00:00 Discovery Lorraine da PROBATION WORKER: 600 [facility] [address] [place] [address] , Ph. 2020-02-24 2020-02-24 Outpatient DESAI_RAKES [facility] 111 [id number] [place] 05:12:00 05:12:00 H 35653 [facility] 2020-02-17 2020-02-17 Outpatient Shield MMG MMG [id number] 201 [place] 06:49:00 06:49:00 215 da [facility] 2020-02-12 2020-02-12 Outpatient Shield MMG MMG [id number] 201 [place] 09:46:00 09:46:00 210 da [facility] 2020-02-12 2020-02-12 Leonardo [facility] [place] - [id number] M atagor 00:00:00 00:00:00 Discovery josr Peters PROBATION WORKER: 600 [facility] - [address], [place] [address] , Ph. 2020-02-09 2020-02-09 Outpatient DESAIDEN_MONY [facility] 111 [id number] [place] 12:15:00 12:15:00 H 75038 da [facility] [place] 2020-02-09 2020-02-09 Iqra [facility] [place] - [id number] M atagor 00:00:00 00:00:00 Renetta willett, SHELTER ADVOCATE: Yarsani Episco p 1700 [facility] [address] [facility] , Ph. [phone] 2020-02-08 2020-02-08 Outpatient cMcDonald MMG MM [id number]- [place] 11:24:00 11:24:00 206 [facility] 2020-02-03 2020-02-03 Outpatient cMcDonald MMG MM [id number]- [place] 12:09:00 12:09:00 201 da [facility] 2020-02-03 2020-02-03 Tono [facility] [place] - [id number] M atagor 00:00:00 00:00:00 Discovery josr Mcclellan MD: 600 [facility] - [address], [place] [address] , Ph. 2020-01-21 2020-01-21 Outpatient cMcDonald MMG MMG [id number]- [place] 02:48:00 02:48:00 118 [facility] 2020-01-18 2020-01-18 Outpatient cMcDonald MMG MMG [id number] [place] 01:17:00 01:17:00 115 [facility] 2020-01-16 2020-01-16 Outpatient cMcDonald MMG MM [id number] [place] 12:04:00 12:04:00 113 da [facility] 2020-01-15 2020-01-15 Outpatient DESAI_RAJERO [facility] 111 [id number] [place] 05:47:00 05:47:00 H 25209 da [facility] [place] 2020-01-13 2020-01-13 Outpatient Shield MMG MMG [id number] 201 [place] 11:34:00 11:34:00 110 da [facility] 2020-01-13 2020-01-13 Tono MMG [place] - [id number] M at[place]or 00:00:00 00:00:00 Discovery josr Mcclellan MD: 600 [facility] [address], [place] [address] , Ph. 2020-01-09 2020-01-09 Outpatient Shield MMG MMG [id number] 201 [place] 10:12:00 10:12:00 106 da [facility] 2020-01-09 2020-01-09 Outpatient Shield MMG MMG [id number] 201 [place] 10:12:00 10:12:00 108 [facility] 2020-01-09 2020-01-09 Leonardo MMG [place] - [id number] M at[place]or 00:00:00 00:00:00 Discovery josr Peters PROBATION WORKER: [address] [facility] [address], [facility] [address] , Ph. 2020-01-08 2020-01-08 Outpatient Shield MMG MMG [id number] 201 [place] 03:08:00 03:08:00 105 da [facility] Group 2019-12-25 2019-12-25 Outpatient cMcDonald MMG MMG [id number]- [place] 03:52:00 03:52:00 022 da [facility] Group 2019-12-25 2019-12-25 Outpatient cMcDonald MMG MMG [id number]- [place] 03:52:00 03:52:00 023 da [facility] 2019-12-23 2019-12-23 Outpatient cMcDonald MMG MMG [id number]- [place] 10:29:00 10:29:00 020 da [facility] 2019-12-23 2019-12-23 Tono MMG [place] - [id number] M at[place]or 00:00:00 00:00:00 Discovery josr Mcclellan MD: 600 [facility] [address], [place] [address] , Ph. 2019-12-23 2019-12-23 [facility] [id number] 00:00:00 00:00:00 (Out) [facility] [id number] Surgical [id number] Specialti [id number] es 198 [place] 2019-12-21 2019-12-21 Outpatient cMcDonald MMG MMG [place] 01:43:00 01:43:00 018 Medical Group 2019-12-18 2019-12-18 Outpatient cMcDonald MMG MMG [place] 10:49:00 10:49:00 015 da [facility] Group 2019-12-18 2019-12-18 Leonardo MMG [place] - [id number] M at[place]or 00:00:00 00:00:00 Discovery josr Peters PROBATION WORKER: [address] [place] [address] 201, [facility] [address] , Ph. 2019-12-18 2019-12-18 Telephone [place] [id number] 00:00:00 00:00:00 [facility] [id number] Surgical [id number] Specialti [id number] es 198 [place] 2019-12-16 2019-12-16 Outpatient cMcDonald MMG MMG [place] 10:06:00 10:06:00 013 Medical Group 2019-12-16 2019-12-16 Tono MM [place] - [id number] M at[place]or 00:00:00 00:00:00 Discovery josr Mcclellan MD: 600 [facility] [address], [place] [address] , Ph. 2019-12-15 2019-12-15 Outpatient cMcDonald MMG MMG [id number] [place] 09:46:00 09:46:00 012 da Medical Group 2019-12-10 2019-12-10 Outpatient Shield MMG [facility] [id number] 201 [place] 09:30:00 09:30:00 008 [facility] 2019-12-09 2019-12-09 Outpatient Shield [facility] [id number] 201 [place] 09:44:00 09:44:00 006 [facility] 2019-12-09 2019-12-09 Leonardo [facility] [place] - [id number] [place] 00:00:00 00:00:00 Discovery Lorraine da PROBATION WORKER: [address] [facility] [place] [address], [place] [address] , Ph. 2019-12-08 2019-12-08 Orders Doctor ZELALEM [id number] 00:00:00 00:00:00 Only Unassigned, NICOLE [id number] [facility] [id number] 2019-12-05 2019-12-05 [facility] [id number] 12:04:47 23:59:00 Encounter [facility] [id number] Surgical [id number] Specialti [id number] es 809 [place] 2019-12-05 2019-12-05 Office [facility] [id number] 10:06:53 10:21:53 Visit [facility] [id number] Surgical [id number] Specialti [id number] es 198 [place] 2019-12-05 2019-12-05 [facility] [id number] [facility] 10:15:00 10:15:00 TONO villavicencio [facility] 2019-12-05 2019-12-05 [facility] [id number] 00:00:00 00:00:00 (Out) [facility] [id number] Surgical [id number] Specialti [id number] es [address] [place] 2019-11-18 2019-11-18 Outpatient Shield MMG MMG 8784-20 200 [place] 01:50:00 01:50:00 [facility]15 [facility] 2019-11-18 2019-11-18 Outpatient Shield MMG MMG 8784-20 200 [place] 01:50:00 01:50:00 923 [facility] 2019-11-18 2019-11-18 Outpatient Shield MMG MMG 8784-20 201 [place] 01:50:00 01:50:00 002 [facility] 2019-11-18 2019-11-18 Leonardo MMG [place] - [id number] M atagor 00:00:00 00:00:00 ShieldDiscovery da PROBATION WORKER: [address] [facility] [place] - [address] [place] [address] , Ph. 2019-10-22 2019-10-22 Outpatient Shield MMG MMG 8784-20 200 [place] 06:57:00 06:57:00 819 [facility] 2019-10-22 2019-10-22 Leonardo MMG [place] - [id number] M at[place] 00:00:00 00:00:00 Lorraine Discovery da PROBATION WORKER: [address] [facility] [place] - [address], [place] [address] , Ph. 2019-08-27 2019-08-27 Outpatient Shield MMG MMG 8784-20 200 [place] 04:58:00 04:58:00 624 [facility] 2019-08-27 2019-08-27 Leonardo MMG [place] - [id number] M [place] 00:00:00 00:00:00 Shield Discovery da PROBATION WORKER: [address] [facility] [place] - [address], [place] [address] , Ph. 2019-08-25 2019-08-25 Outpatient Shield MMG MMG 8784-20 200 [place] 09:54:00 09:54:00 622 [facility] 2019-07-30 2019-07-30 Outpatient Shield MMG MMG 8784-20 200 [place] 05:09:00 05:09:00 527 [facility] 2019-07-30 2019-07-30 Leonardo MMG [place] - [id number] M [place] 00:00:00 00:00:00 Discovery josr Peters PROBATION WORKER: [address] [address], [place] [address] , Ph. 2019-06-08 2019-06-08 Outpatient Shield MMG MMG 8784-20 200 [place] 02:34:00 02:34:00 405 [facility] 2019-06-05 2019-06-05 Leonardo MMG [place] - [id number] M [place] 00:00:00 00:00:00 Discovery josr Peters PROBATION WORKER: [address] [place] [address] , Ph. 2018-12-31 2018-12-31 Outpatient Shield MMG MMG 8784-20 200 [place] 03:36:00 03:36:00 402 [facility] 2018-12-19 2018-12-19 Leonardo MMG [place] - [id number] M [place] 00:00:00 00:00:00 Discovery josr Peters PROBATION WORKER: [address] [place] [address] [place] [address] , Ph. 2018-09-27 2018-09-27 Kate MMG [place] - [id number] M [place] 00:00:00 00:00:00 Nubia [facility] Medical PROBATION WORKER: [address] [place] [address] , Ph. 2018-09-23 2018-09-23 Leonardo MMG [place] - [id number] M at[place] 00:00:00 00:00:00 Discovery josr Peters PROBATION WORKER: [address] [place] [address] , Ph. 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 2018-08-29 2018-08-29 Yair White MMG [place] - [id number] M [place] 00:00:00 00:00:00 MD Fran: Discovery ovalles [address] [place] [address] - [address], [facility], [facility] [address] , Ph. 2014-02-02 2014-02-02 [facility] [id number] 875 Memoria 08:45:00 16:27:00 Emergency r [address] Results Test Description Test Time Test Comments Results Result Comments Source RADRPT 2022-09-28 05:27:45 Test Item Value Reference Range Interpretation Comme [facility] RADRPT (test code = RADRPT) PROCEDURE [...] findings. Navin Steinberg MD On 09/28/2022 00:26:27; [id number] [facility] [id number] 01:34:00 Test Item Value Reference Range Interpretation Comments THYROID STIMULATING HORMONE 0.434 mcIU/ML 0.340-4.820 N (test code = TSH) - CTA CHEST FOR [id number] 23:44:00 [facility] 1985 Sex: F Name: ESPERANZA DAIGLE [facility] : 1985 Age/S: 36 / F [address] Unit #: [id number] Loc: [place] [address] Phys: Maye Victor DO Acct: [id number] Dis Date: Status: REG ER PHONE #: [phone] Exam Date: 09/14/2022 2330 FAX #: Reason: chest pain, r/o PE EXAMS: CPT: [id number] [address] Location: Chest CTA , 09/14/22 TECHNIQUE: Chest CTA with and without contrast was performed on a helical scanner. 2D Coronal and sagittal images acquired on the CT workstation system by the ct scan technologist. Volumetric imaging acquired utilizing maximum intensity [...] spondylosis IMPRESSION: No PE or acute cardiopulmonary processPAGE 1 Signed Report (CONTINUED) Name: ESPERANZA DAIGLE [place] : 1985 Age/S: 36 / F [id number] Unit #: [id number] Loc: [place] [address] Phys: Maye Victor DO Acct: [id number] Dis Date: Status: REG ER PHONE #: [phone] Exam Date: 09/14/2022 2330 FAX #: Reason: chest pain, r/o PE EXAMS: CPT: [id number] [place] [address] (Continued) No acute osseous finding at 2344 Reported and signed by: Ciera Slaughter M.D. CC: Maye Victor DO Technologist:Maria Ines Nunn, RT(R)(CT) CTDI: DLP: Trnscb Date/Time: 09/14/2022 (3574) [email or web address] Orig Print D/T: S: 09/14/2022 (5734) PAGE 2 Signed [id number] 22:49:00 Test Item Value Reference Range Interpretation [...] TE STS AND APPROPRIATECLIN ICAL EUALUATIONS. PROTHROMBIN [id number] 22:49:00 Test Item Value Reference Range Interpretation [...] l Infarction (to prevent recurrent infar ct). THROMBOPLASTIN TIME [id number] 22:49:00 Test Item Value Reference Range Interpretation Comments THROMBOPLASTIN TIME PARTIAL 32.1 SECONDS 26-35 N (test code = PTT) HCG [id number] 21:37:00 Test Item Value Reference Range Interpretation Comments HCG SERUM (test < 1 mi-IU/ML 0-6 N 0 - 6 NOT P REGNANT > 6 code = HCG) SUGGESTIVE OF E NOBLE RISE S TWO FOLD EVERY 2 DA YS; SUGGEST RECONFI RMING AFTER 2 DAYS. 150,000-200,[address] TRIMESTER 10,00 0 - 50,000 2ND & 3R D TRIMESTER BASIC METABOLIC [id number] 21:37:00 Test Item Value Reference Range Interpretation [...] MG/DL 8.5-10.1 N = CA) TROP-I HIGH [id number] 21:37:00 Test Item Value Reference Range Interpretation Comments TROP-I HIGH 3.6 ng/L 0-54 N CAUTION: Units of the SENSITIVITY (test current te st methodology code = TROPIHS) (ng/L) diffe rfrom the prior test meth odology (ng/mL) by a fa ctor of 1000. 99t h Percentile Uppe r Reference Limit (URL):Fem ales: 54 ng/LMales: 79 n g/L In order to distin guish acute elevations [...] may varyby method. - XR CHEST 1 [id number] 21:35:00 [facility] : 1985 Sex: F Name: ESPERANZA DAIGLE [place] : 1985 Age/S: 36 / F [id number] Unit #: [id number] Loc: [place] [address] Phys: Maye Victor DO Acct: [id number] Dis Date: Status: REG ERPHONE #: [phone] Exam Date: 09/14/20222115 FAX #: Reason: chest pain EXAMS: CPT: [id number] XRCHEST 1 V 62941 Fluoro Time: DAP (Gy m2): Air Kerma (mGy): EXAMINATION: - XR CHEST 1 V INDICATION: chest pain COMPARISON: None available at time of dictation LOCATION: H96 FINDINGS: Clear lungs. No visible pleural fluid or pneumothorax. Normal cardiac silhouette. IMPRESSION: No acute radiographic abnormality. at 2134 Reported andsigned by: Cleve Olivares M.D. CC: Maye Victor DO PAGE 1 Signed Report Name: ESPERANZA DAIGLE [place] : 1985 Age/S: 36 / F [id number] [place] [address] Unit #: [id number] [place] [address] Phys: Maye Victor DO Acct: [id number] Dis Date: Status: REG ER PHONE #: [phone] Exam Date: 09/14/20222115 FAX #: Reason: chest pain EXAMS: CPT: [id number] XR CHEST 1 V 57503 Fluoro Time: DAP (Gy m2): Air Kerma (mGy): (Continued) Technologist: Vivek Estrada, RT(R)(CT) Trnscb Date/Time: 09/14/2022 (2134) [email or web address] Orig Print D/T: S: 09/14/2022 (4412) PAGE 2 Signed ReportOUR LADY OF [facility] W/O [id number] 21:16:00 Test Item Value Reference Range Interpretation [...] Basic metabolic 2000 panel - Serum or [id number] 13:42:00 Test Item Value Reference Range Interpretation [...] code = 9.9 mg/dL 8.6-10.0 calcium level) [facility] W Auto Differential panel - [id number] 13:10:00 Test Item Value Reference Range Interpretation [...] NRBC# (test code = NRBC#) 0 K/uL [facility] + B and SARS CoV + SARS CoV 2 Ag panel, IA, upper respiratory [id number] 09:42:00 Test Item Value Reference Range Interpretation Comments RAPID SARS COV (test code = RAPID negative SARS COV) RAPID FLU A (test code = RAPID FLU negative A) RAPID FLU B (test code = RAPID FLU negative B) [facility] W Auto Differential panel - [id number] 09:30:00 Test Item Value Reference Range Interpretation Comments white blood count (test code = 8.9 K/uL 4.0-11.5 white blood count) red blood count (test code = red 4.70 M/uL 3.80-5.20 blood count) hemoglobin (test code = 14.4 g/dL 10.5-15.7 hemoglobin) hematocrit (test code = 43.4 % 34.0-50.0 hematocrit) MCV [Entitic volume] (test code = 92.3 fL 86-100 50424-5) mean corpuscular hemoglobin (test 30.6 pg 26.2-33.4 [...] 44.4-80.1 leukocytes in Blood (test code = 62198-2) Immature granulocytes [#/volume] 0.0 K/uL 0.0-0.03 in Blood (test code = 56556-9) lymphocyte% (test code = 24.1 % 10.0-50.0 lymphocyte%) mono % (test code = mono %) 6.2 % 3.6-12.0 eos % (test code = eos %) 2.7 % 0.0-5.4 Basophils/100 leukocytes in 0.4 % 0.1-1.2 Unspecified specimen (test code = 41437-9) Band form neutrophils [#/volume] 5.89 K/uL 1.56-6.13 in Blood (test code = 42131-1) Lymphocytes [#/volume] in 2.1 K/uL 1.18-3.74 Unspecified specimen by Automated count (test code = 83996-5) mono # (test code = mono #) 0.55 K/uL 0.24-0.86 eos # (test code = eos #) 0.24 K/uL 0.04-0.36 basophil # (test code = basophil 0.04 K/uL 0.01-0.08 #) NRBC% (test code = NRBC%) 0 /100 WBC 0-0.2 NRBC# (test code = NRBC#) 0 K/uL [facility] HospitalComprehensive metabolic 2000 panel - Serum or Plasma [...] Serum or Plasma (test code = 6768-6) [facility] HospitalLipid 1996 panel - Serum or [id number] 09:30:00 Test Item Value Reference Range Interpretation Comments cholesterol level (test code = 230 mg/dL 150-200 H cholesterol level) triglycerides level (test code = 149 mg/dL <150 triglycerides level) HDL cholesterol (test code = HDL 43 mg/dL >65 L cholesterol) LDL cholesterol direct (test code = 167 mg/dL <100 H LDL cholesterol direct) cholesterol risk ratio (test code = 5.348 cholesterol risk ratio) [facility] HospitalUrinalysis complete W Reflex Culture panel - Urine 2020-12-08 09:30:00 Test Item Value Reference Range Interpretation Comments Color of Urine by Auto (test light yellow code = 92924-9) Appearance of Urine (test code = SL cloudy clear A 5767-9) Glucose [Presence] in Urine by negative negative Automated test strip (test code = 95023-2) Bilirubin.total [Mass/volume] in negative negative Urine (test code = 1977-6) Ketones [Mass/volume] in Urine negative negative by Automated test strip (test code = 43806-3) Specific gravity of Urine by 1.020 1.003-1.030 Automated test strip (test code = 37729-3) blood urine (test code = blood negative negative urine) pH of Urine (test code = 2756-5) 5.500 5-9 protein urine (UA) (test code = negative negative protein urine (UA)) Urobilinogen [Presence] in Urine normal 0.2-1.0 (test code = 29512-4) Nitrite [Presence] in Urine by negative negative Test strip (test code = 5802-4) Leukocyte esterase [Presence] in negative negative Urine by Automated test strip (test code = 13873-8) Erythrocytes [#/volume] in Urine =1-5 0-5 by Automated count (test code = 798-9) Leukocytes [#/area] in Urine =11-14 0-5 H sediment by Automated count (test code = 11453-0) Epithelial cells [Presence] in =6-10 0-5 Urine sediment by Light microscopy (test code = 21017-6) Bacteria identified in Urine by tntc (4 none detect H Culture (test code = 630-4) Casts [#/area] in Urine sediment =2-5 none detect by Automated count (test code = 35359-8) urine culture added? (test code yes = urine culture added?) Pathologic casts [Presence] in none seen none detect Urine by Automated (test code = 21544-4) [facility] GroupBacteria identified in Urine by [id number] 09:30:00Bacteria Ur CultMatamiddlesex hospitala Medical Groupantibiotic sensitivity testing, [id number] 09:30:00 Test Item Value Reference Range Interpretation [...] Minimum inhibitory concentration (NELSON) (test code = 86877-9) cefTAZidime [Susceptibility] by <=2 Minimum inhibitory concentration (NELSON) (test code = 133-9) cefTRIAXone [Susceptibility] by <=1 Minimum inhibitory concentration (NELSON) (test code = 141-2) Ciprofloxacin [Susceptibility] by <=0.25 Minimum inhibitory concentration (NELSON) (test code = 185-9) Ampicillin+Sulbactam [Susceptibility] =16/8 by Minimum inhibitory concentration (NELSON) (test code = 32-3) Ertapenem [Susceptibility] by Minimum <=0.25 inhibitory concentration (NELSON) (test code = 34192-6) Aztreonam [Susceptibility] by Minimum <=2 inhibitory concentration (NELSON) (test code = 44-8) Cefepime [Susceptibility] by Minimum <=1 inhibitory concentration (NELSON) (test code = 6644-9) Meropenem [Susceptibility] by Minimum <=0.5 inhibitory concentration (NELSON) (test code = 6652-2) Moxifloxacin [Susceptibility] by <=1 Minimum inhibitory concentration (NELSON) (test code = 14440-6) Amikacin [Susceptibility] by Minimum <=8 inhibitory concentration (NELSON) (test code = 12-5) Piperacillin+Tazobactam =2/4 [Susceptibility] by Minimum inhibitory concentration (NELSON) (test code = 412-7) Ceftaroline [Susceptibility] by <=0.25 Minimum inhibitory concentration (NELSON) (test code = 38307-4) Tigecycline [Susceptibility] by <=1 Minimum inhibitory concentration (NELSON) (test code = 26597-2) [facility] HospitalHemoglobin A1c [Mass/volume] in [id number] 00:00:00 Test Item Value Reference Range Interpretation Comments Hemoglobin A1c [Mass/volume] in Blood 5.7 % 4.0-6.0 (test code = 21699-7) [facility] HospitalDifferential panel, method unspecified - [id number] 00:00:00NeutrophilsBandLymphocyteAtypical LymphMonocyteEosinophilBasophilMetamyelocyteMyelocytePromyelocyteAbs Neutrophil Count (Man)Abs Lymph Count (Man)Abs Monocyte Count (Man)Abs Eosinophil Count (Man)Abs Basophil Count (Man)Platelet EstimatePlatelet MorphologyHypochromasiaAnisocytosisTear Drop CellsStomatocytMerit Health Centralpregnancy test, [id number] 05:20:00 Test Item Value Reference Range Interpretation Comments Choriogonadotropin ( test) negative neg [Presence] in Urine (test code = 2106-3) [facility] HospitalUrinalysis macro (dipstick) panel - [id number] 17:11:00 Test Item Value Reference Range Interpretation Comments Leukocytes (test code = Trace Leukocytes) Nitrite (test code = Nitrite) negative Urobilinogen (test code = .2 Urobilinogen) Protein (test code = Protein) Negative pH (test code = pH) 5.5 Blood (test code = Blood) Negative Specific [place] (test code = 1.030 Specific [place]) Ketone (test code = Ketone) Negative Bilirubin (test code = Bilirubin) Negative Glucose (test code = Glucose) Negative Appearance (test code = Turbid Appearance) Color (test code = Color) Dark Yellow [facility] HospitalCBC W Auto Differential panel - [id number] 03:24:00 Test Item Value Reference Range Interpretation Comments white blood count (test code = 9.8 K/uL 4.0-11.5 white blood count) red blood count (test code = red 4.89 M/uL 3.80-5.20 blood count) hemoglobin (test code = 15.2 g/dL 10.5-15.7 hemoglobin) hematocrit (test code = 44.9 % 34.0-50.0 hematocrit) MCV [Entitic volume] (test code = 91.8 fL 86-100 52983-0) mean corpuscular hemoglobin (test 31.1 pg 26.2-33.4 [...] 44.4-80.1 leukocytes in Blood (test code = 91399-0) Immature granulocytes [#/volume] 0.1 K/uL 0.0-0.03 H in Blood (test code = 03466-4) lymphocyte% (test code = 22.9 % 10.0-50.0 lymphocyte%) mono % (test code = mono %) 6.0 % 3.6-12.0 eos % (test code = eos %) 1.8 % 0.0-5.4 Basophils/100 leukocytes in 0.5 % 0.1-1.2 Unspecified specimen (test code = 98750-0) Band form neutrophils [#/volume] 6.69 K/uL 1.56-6.13 H in Blood (test code = 98740-3) Lymphocytes [#/volume] in 2.2 K/uL 1.18-3.74 Unspecified specimen by Automated count (test code = 55913-5) mono # (test code = mono #) 0.59 K/uL 0.24-0.86 eos # (test code = eos #) 0.18 K/uL 0.04-0.36 basophil # (test code = basophil 0.05 K/uL 0.01-0.08 #) NRBC% (test code = NRBC%) 0 /100 WBC 0-0.2 NRBC# (test code = NRBC#) 0 K/uL [facility] HospitalDifferential panel, method unspecified - [id number] 03:24:00NeutrophilsBandLymphocyteAtypical LymphMonocyteEosinophilBasophilMetamyelocyteMyelocyteNucleated RedBlood CellAbs Neutrophil Count (Man)Abs Lymph Count (Man)Abs Monocyte Count (Man)Abs Eosinophil Count (Man)Abs Basophil Count (Man)Platelet EstimatePlatelet MorphologyHypochromasiaAnisocytosisMacrocytosisToxic GranulationToxic VacuolationTyler [facility] Memorial HospitalComprehensive metabolic 2000 panel - Serum or [id number] 03:24:00 Test Item Value Reference Range Interpretation [...] Serum or Plasma (test code = 6768-6) [facility] GroupLipase [Enzymatic activity/volume] in Serum or Plasma 2020-05-22 03:24:00 Test Item Value Reference Range Interpretation Comments lipase (test code = lipase) 18 U/L 13-60 [facility] Grouprapid flu (A+B)2018-09-23 08:08:00 Test Item Value Reference Range Interpretation Comments Flu (test code = Flu) negative [facility] strep group A, [id number] 08:08:00 Test Item Value Reference Range Interpretation Comments Strep Result (test code = Strep negative Result) [facility] flu (A+B)2018-09-23 08:08:00 Test Item Value Reference Range Interpretation Comments Flu (test code = Flu) negative [facility] strep group A, [id number] 08:08:00 Test Item Value Reference Range Interpretation Comments Strep Result (test code = Strep negative Result) [facility] AND [id number] 12:10:23 Test Item Value Reference Range Interpretation Comments UA Urobilinogen (test code = UA 1.0 0.1-1.0 Urobilinogen) [facility] AND [id number] 12:10:23 Test Item Value Reference Range Interpretation Comments UA Leuk Est (test Negative (02/02/14 6:10 code = UA Leuk Est) AM) [facility] AND [id number] 12:10:23 Test Item Value Reference Range Interpretation Comments UA Nitrite (test code Negative (02/02/14 6:10 = UA Nitrite) AM) [facility] AND [id number] 12:10:23 Test Item Value Reference Range Interpretation Comments UA Color (test code = Yellow *NA*(02/02/14 UA Color) 6:10 AM) [facility] AND [id number] 12:10:23 Test Item Value Reference Range Interpretation Comments UA Turbidity (test code = Clear (02/02/14 6:10 UA Turbidity) AM) [facility] AND [id number] 12:10:23 Test Item Value Reference Range Interpretation Comments UA Spec Grav (test code = UA Spec 1.025 1 Grav) [facility] AND [id number] 12:10:23 Test Item Value Reference Range Interpretation Comments UA pH (test code = UA pH) 6.0 1 5.0-8.0 [facility] AND [id number] 12:10:23 Test Item Value Reference Range Interpretation Comments UA Glucose (test code Negative (02/02/14 6:10 = UA Glucose) AM) [facility] AND [id number] 12:10:23 Test Item Value Reference Range Interpretation Comments UA Protein (test code Negative (02/02/14 6:10 = UA Protein) AM) [facility] AND [id number] 12:10:23 Test Item Value Reference Range Interpretation Comments UA Ketones (test code = UA Ketones) 15 mg/dL [facility] AND [id number] 12:10:23 Test Item Value Reference Range Interpretation Comments UA Bili (test code = Small *ABN*(02/02/14 UA Bili) 6:10 AM) [facility] AND [id number] 12:10:23 Test Item Value Reference Range Interpretation Comments UA Blood (test code = Negative (02/02/14 6:10 UA Blood) AM) [facility] AND [id number] 12:10:23 Test Item Value Reference Range Interpretation Comments UA Sq Epi (test code = None Seen (02/02/14 6:10 UA Sq Epi) AM) [facility] AND [id number] 12:10:23 Test Item Value Reference Range Interpretation Comments UA WBC (test code = UA None Seen (02/02/14 6:10 WBC) AM) [facility] AND [id number] 12:10:23 Test Item Value Reference Range Interpretation Comments Micro? (test code = Performed (02/02/14 6:10 Micro?) AM) [facility] AND [id number] 12:10:23 Test Item Value Reference Range Interpretation Comments UA RBC (test None Seen See_Comment [Automated mes mati] code = UA RBC) (02/02/14 6:10 The [facility] AM) generated this result transmitted ref erence range: <=2. The reference range was not used to int erpret this result as normal/abnormal . [facility] AND [id number] 12:10:23 Test Item Value Reference Range Interpretation Comments UA Bacteria (test code = None Seen (02/02/14 UA Bacteria) 6:10 AM) [facility] [id number] 11:41:00 Test Item Value Reference Range Interpretation Comments eGFR (test code = eGFR) 99 [facility]World[facility] [id number] 11:41:00 Test Item Value Reference Range Interpretation Comments Calcium Lvl (test code = Calcium Lvl) 9.4 8.5-10.5 [facility]2014-12-01 11:41:00 Test Item Value Reference Range Interpretation Comments CO2 (test code = CO2) 26 24-32 [facility]2014-12-01 11:41:00 Test Item Value Reference Range Interpretation Comments Chloride Lvl (test code = Chloride Lvl) 101 95-109 [facility]2014-12-01 11:41:00 Test Item Value Reference Range Interpretation Comments BUN (test code = BUN) 14 7-22 [facility]2014-12-01 11:41:00 Test Item Value Reference Range Interpretation Comments Glucose Lvl (test code = Glucose Lvl) 81 70-99 [facility]2014-12-01 11:41:00 Test Item Value Reference Range Interpretation Comments Potassium Lvl (test code = Potassium 3.6 3.5-5.1 Lvl) [facility]2014-12-01 11:41:00 Test Item Value Reference Range Interpretation Comments Sodium Lvl (test code = Sodium Lvl) 138 135-145 [facility]2014-12-01 11:41:00 Test Item Value Reference Range Interpretation Comments Creatinine Lvl (test code = Creatinine 0.8 0.5-1.4 Lvl) [facility]2014-12-01 11:41:00 Test Item Value Reference Range Interpretation Comments Bili Total (test code = Bili Total) 0.5 0.2-1.3 [facility]2014-12-01 11:41:00 Test Item Value Reference Range Interpretation Comments Alk Phos (test code = Alk Phos) 60 39-136 [facility]2014-12-01 11:41:00 Test Item Value Reference Range Interpretation Comments AST (test code = AST) 15 See_Comment [Auto mated message] The system which ge nerated this result transmit karis reference range : <=37. The reference range was not used to interpr et this result as parisa l/abnormal. [facility]2014-12-01 11:41:00 Test Item Value Reference Range Interpretation Comments ALT (test code = ALT) 20 See_Comment [Auto mated message] The system which ge nerated this result transmit karis reference range : <=65. The reference range was not used to interpr et this result as parisa l/abnormal. [facility]2014-12-01 11:41:00 Test Item Value Reference Range Interpretation Comments Albumin Lvl (test code = Albumin Lvl) 4.1 3.5-5.0 [facility]2014-12-01 11:41:00 Test Item Value Reference Range Interpretation Comments Total Protein (test code = Total 8.1 6.4-8.4 Protein) [facility]2014-12-01 11:41:00 Test Item Value Reference Range Interpretation Comments B/C Ratio (test code = B/C Ratio) 18 6-25 [facility]2014-12-01 11:41:00 Test Item Value Reference Range Interpretation Comments AGAP (test code = AGAP) 14.6 10.0-20.0 [facility]2014-12-01 11:41:00 Test Item Value Reference Range Interpretation Comments A/G Ratio (test code = A/G Ratio) 1.0 0.7-1.6 [facility]2014-12-01 11:41:00 Test Item Value Reference Range Interpretation Comments Globulin (test code = Globulin) 4.0 2.0-4.0 [facility]2014-12-01 11:41:00 Test Item Value Reference Range Interpretation Comments Lipase Lvl (test code = Lipase Lvl) 125 73-393 [place] [id number] 11:41:00 Test Item Value Reference Range Interpretation Comments S Preg (test code = S Negative (02/02/14 5:41 Preg) AM) [id number] 11:41:00 Test Item Value Reference Range Interpretation Comments RBC (test code = RBC) 4.95 4.20-5.40 [facility]KkggntpSUIJYOLYOW1931-75-85 11:41:00 Test Item Value Reference Range Interpretation Comments WBC (test code = WBC) 10.2 3.7-10.4 [facility] CenterXzkagxeBPZASZTIWY6742-31-39 11:41:00 Test Item Value Reference Range Interpretation Comments RDW (test code = RDW) 12.0 11.5-14.5 [facility] [id number] 11:41:00 Test Item Value Reference Range Interpretation Comments MPV (test code = MPV) 7.5 7.4-10.4 [facility] [id number] 11:41:00 Test Item Value Reference Range Interpretation Comments Platelet (test code = Platelet) 272 133-450 [facility] [id number] 11:41:00 Test Item Value Reference Range Interpretation Comments MCV (test code = MCV) 90.1 80.0-98.0 [facility] [id number] 11:41:00 Test Item Value Reference Range Interpretation Comments Hct (test code = Hct) 44.6 36.0-48.0 [facility] CenterOwesignKBTGPAMKWV4934-05-02 11:41:00 Test Item Value Reference Range Interpretation Comments MCHC (test code = MCHC) 35.1 32.0-36.0 [facility] [id number] 11:41:00 Test Item Value Reference Range Interpretation Comments MCH (test code = MCH) 31.6 pg 27.0-31.0 [facility] CenterCnhfdjsVYPJOJRTTH3934-06-02 11:41:00 Test Item Value Reference Range Interpretation Comments Hgb (test code = Hgb) 15.7 12.0-16.0 [facility] CenterGvyvkveSRWJORJDIF7612-10-46 11:41:00 Test Item Value Reference Range Interpretation Comments Basophils # (test code 0.0 See_Comment [Aut omated message] The = Basophils #) system which generated this result tra nsmitted reference range : <=0.2. The reference r frankie was not used to int erpret this result as normal/abnormal . [facility] CenterKrsdpisICPAAIZUMX3888-02-14 11:41:00 Test Item Value Reference Range Interpretation Comments Monocytes # (test code 0.5 See_Comment [Aut omated message] The = Monocytes #) system which generated this result tra nsmitted reference range : <=0.8. The reference r frankie was not used to int erpret this result as normal/abnormal . [facility] [id number] 11:41:00 Test Item Value Reference Range Interpretation Comments Eosinophils # (test code 0.2 See_Comment [A utomated message] The = Eosinophils #) system whic h generated this result tra nsmitted reference range : <=0.5. The reference r frankie was not used to int erpret this result as normal/abnormal . [facility] [id number] 11:41:00 Test Item Value Reference Range Interpretation Comments Segs (test code = Segs) 59.3 45.0-75.0 [facility] C[id number] 11:41:00 Test Item Value Reference Range Interpretation Comments Lymphocytes (test code = Lymphocytes) 33.4 20.0-40.0 [facility] CenterRajmepjQPAWBTFHVS0564-27-05 11:41:00 Test Item Value Reference Range Interpretation Comments Eosinophils (test code = 2.2 See_Comment [A utomated message] The Eosinophils) system which ge nerated this result tra nsmitted reference range : <=4.0. The reference r frankie was not used to int erpret this result as normal/abnormal . [facility] CenterMagjzdzLOBZUQHVMD2676-26-68 11:41:00 Test Item Value Reference Range Interpretation Comments Monocytes (test code = Monocytes) 4.8 2.0-12.0 [facility] [id number] 11:41:00 Test Item Value Reference Range Interpretation Comments Segs-Bands # (test code = Segs-Bands #) 6.1 1.5-8.1 [facility] [id number] 11:41:00 Test Item Value Reference Range Interpretation Comments Lymphocytes # (test code = Lymphocytes 3.4 1.0-5.5 #) [facility] C[id number] 11:41:00 Test Item Value Reference Range Interpretation Comments Basophils (test code = 0.3 See_Comment [Aut omated message] The Basophils) system which ge nerated this result tra nsmitted reference range : <=1.0. The reference r frankie was not used to int erpret this result as normal/abnormal . [facility]
[2022-12-28] MEDS ORDERED: ONDANSETRON 4 MG/2 ML VIAL ONE (22:45)
[2022-12-28] MEDS ORDERED: MORPHINE 4 MG/ML SYR ONE (22:45)
[2022-12-28] MEDS ORDERED: NA CHLORIDE 0.9% 1,000 ML ONE (22:46)
[2022-12-28] MEDS ORDERED: FAMOTIDINE 20 MG/2 ML VIAL IV ONE (22:46)
[2022-12-28 22:47] LABS: Specific Gravity 1.025 (1.005-1.030); Urine Bacteria None Seen /HPF (<20); Urine Bilirubin NEGATIVE (Negative); Urine Blood Negative (Negative); Urine Clarity Clear (Clear); Urine Color Light-Yellow (Yellow); Urine Glucose NEGATIVE (Negative); Urine Mucus Slight /HPF (None Seen); Urine Protein NEGATIVE (Negative); Urine RBC <5 /HPF (None Seen); Urine Urobilinogen Normal (Normal); Urine pH 5.5 (5.0-7.0)
[2022-12-28 22:56] LABS: Absolute Lymphocytes (CBC) 2.5 K/uL (0.7-4.9); Hematocrit 39.5 % (36.0-45.0); Lymphocytes % 24.6 % (15.3-44.8); Platelets 347 thou/uL (152-406); RBC Red Blood Cell Count 4.44 M/uL (3.86-4.86)
[2022-12-28 23:02] LABS: Albumin 3.8 g/dL (3.4-5.0); Bilirubin Total 0.3 mg/dL (0.2-1.0); Potassium 3.5 mEq/L (3.5-5.1); Protein, Total 8.1 g/dL (6.4-8.2)
[2022-12-28] MEDS ORDERED: METOCLOPRAMIDE 10 MG/2mL INJ ONE (23:59)
--- NOTE | 2022-12-29 02:51 | EDPHYS ---
Physician Documentation [facility] Name: Vicenta Daigle Age: 37 yrs Sex: Female : 1985 Arrival Date: 12/28/2022 Time: 21:46 Bed 6 Private MD: ED Physician Yogesh Amaya HPI: 12/28 22:09 This 37 yrs old Female presents to ER via Ambulatory with complaints of rn Abdominal Pain. 22:09 The patient presents with abdominal pain in the epigastric area, in the periumbilical rn area. Onset: The symptoms/episode began/occurred today. The symptoms do not radiate. Associated signs and symptoms: Pertinent positives: nausea and vomiting, Pertinent negatives: blood in stools, fever, vomiting blood. Modifying factors: The symptoms are alleviated by nothing, the symptoms are aggravated by pressure, touching the area. Severity of pain: At its worst the pain was moderate in the emergency department the pain is unchanged. The patient has experienced similar episodes in the past. The patient has been recently seen by a physician:. Patient reports abdominal pain that started again today with vomiting. Just saw Dr. Henry this last week for upper scope that showed hiatal hernia, gastritis, and told likely has gastroparesis. Reports another antacid medication added. Now having worse abdominal pain and vomiting. No fever. No blood in emesis or stool. No chest pain.. Historical: - Allergies: 22:09 Bleach (Sodium Hypochlorite); pf1 - PMHx: 22:09 adhd; Anxiety; depressive disorder; GERD; ibs; insomnia; pf1 22:09 hiatal hernia; gastric ulcer; pf1 - PSHx: 22:09 Cholecystectomy; Exploratory laparotomy; pf1 - Immunization history:: Adult Immunizations up to date, Client reports having NOT received the Covid vaccine. Last tetanus immunization: < 5 years ago Flu vaccine is not up to date. - Social history:: Smoking status: Patient denies any tobacco usage or history of. Patient/guardian denies using alcohol, street drugs. - Family history:: not pertinent. - Hospitalizations: : No recent hospitalization is reported. ROS: 22:09 Constitutional: Negative for fever, chills, and weight loss, Cardiovascular: Negative rn for chest pain, palpitations, and edema, Respiratory: Negative for shortness of breath, cough, wheezing, and pleuritic chest pain, Abdomen/GI: Positive for abdominal pain/nausea/vomiting MS/Extremity: Negative for injury and deformity, Skin: Negative for injury, rash, and discoloration, Neuro: Positive for generalized weakness and malaise Exam: 22:09 Constitutional: This is a well developed, well nourished patient who is awake, alert, rn appears uncomfortable Cardiovascular: Tachycardic, regular.. No pulse deficits. Respiratory: No increased work of breathing, no retractions or nasal flaring. Abdomen/GI: Soft, mild epigastric and right upper quadrant tenderness, periumbilical tenderness, nondistended, no peritoneal signs Skin: Warm, dry MS/ Extremity: Pulses equal, no cyanosis. Neuro: Awake and alert, GCS 15, normal gait, ambulatory to room without assistance Vital Signs: 22:01 BP 133 / 85; Pulse 107; Resp 18; Temp 98.4; Pulse Ox 99% on R/A; Weight 107.5 kg; pf1 Height 5 ft. 6 in. ; Pain 8/10; 22:15 BP 128 / 66; Pulse 99; Resp 16; Pulse Ox 98% on R/A; me1 22:30 BP 110 / 84; Pulse 93; Resp 16; Pulse Ox 99% on R/A; me1 23:30 BP 107 / 66; Pulse 81; Resp 12 S; Pulse Ox 96% on R/A; km8 12/29 00:00 BP 108 / 47; Pulse 92; Resp 12 S; Pulse Ox 95% on R/A; km8 00:35 BP 107 / 65; Pulse 84; Resp 16; Pulse Ox 96% ; Pain 5/10; pf1 01:00 BP 109 / 60; Pulse 91; Resp 16; Pulse Ox 94% on R/A; km8 02:00 BP 109 / 68; Pulse 79; Resp 16; Pulse Ox 97% ; Pain 5/10; pf1 03:00 BP 110 / 74; Pulse 72; Resp 16; Pulse Ox 96% on R/A; Pain 5/10; pf1 12/28 22:01 Body Mass Index 38.25 (107.50 kg, 167.64 cm) pf1 12/28 22:01 Pain Scale: Adult pf1 00:35 Pain Scale: Adult pf1 02:00 Pain Scale: Adult pf1 03:00 Pain Scale: Adult pf1 MDM: 12/28 21:59 Patient medically screened. rn 12/29 02:49 Differential diagnosis: appendicitis, bowel obstruction, diverticulitis, gastritis, rn gastroesophageal reflux disease, non-specific abd pain, Hiatal hernia, gastritis, esophagitis, gastroparesis. Data reviewed: vital signs, nurses notes, lab test result(s), radiologic studies, CT scan, and as a result, I will discharge patient. Counseling: I had a detailed discussion with the patient and/or guardian regarding the historical points, exam findings, and any diagnostic results supporting the discharge/admit diagnosis, lab results, radiology results, the need for outpatient follow up, to return to the emergency department if symptoms worsen or persist or if there are any questions or concerns that arise at home. Response to treatment: the patient's symptoms have mildly improved after treatment, and as a result, I will discharge patient. Special discussion: Based on the patient's Hx, exam, and Dx evaluation, there is no indication for emergent surgery or inpatient Tx. It is understood by the patient/guardian that if the Sx's persist or worsen they need to return immediately for re-evaluation. I discussed with the patient/guardian in detail that at this point there is no indication for admission to the hospital. It is understood, however, that if the symptoms persist or worsen the patient needs to return immediately for re-evaluation. ED course: Offered patient observation in hospital for pain control, patient states nausea is gone and if likely gastroparesis would like to try the Reglan at home as it helped her here and has not tried it before. Will DC home with Reglan and GI follow-up. Already has colonoscopy scheduled. H. pylori testing pending. I have personally reviewed all of the results, including but not limited to blood tests and imaging deemed necessary to safely discharge this patient at this time. All results given to and printed out for patient. I personally went over all the results with the patient and answered all questions. Patient will follow-up with PCP and or specialist as discussed. Return precautions given and understood.. 12/28 22:08 Order name: CBC with Diff; Complete Time: 23:12 rn 12/28 22:08 Order name: CMP; Complete Time: 23:12 rn 12/28 22:08 Order name: Lipase; Complete Time: 23:12 rn 12/28 22:13 Order name: Test, Urine; Complete Time: 23:12 rn 12/28 22:13 Order name: Urinalysis w/ reflexes; Complete Time: 23:12 rn 12/29 01:00 Order name: CREATININE WHOLE BLOOD; Complete Time: 01:57 EDMS 12/28 22:08 Order name: CT Abd/Pelvis - IV Contrast Only rn 12/28 22:08 Order name: IV Saline Lock; Complete Time: 22:29 rn 12/28 22:08 Order name: Labs collected and sent; Complete Time: 22:29 rn Administered Medications: 12/28 22:40 Drug: Famotidine IVP 20 mg IVP once; dilute with 10 mL 0.9% NaCl; give over 2 minutes me1 Route: IVP; Site: right antecubital; 23:40 Follow up: Response: No adverse reaction me1 22:41 Drug: NS 0.9% IV 1000 ml IV at 1 bolus Per protocol; 1000 mL bolus Route: IV; Rate: 1 me1 bolus; Site: right antecubital; 23:40 Follow up: Response: No adverse reaction; Marked relief of symptoms; IV Status: pf1 Completed infusion; IV Intake: 1000ml 22:41 Drug: Ondansetron IVP 4 mg IVP once; over 2 minutes Route: IVP; Site: right antecubital;me1 23:40 Follow up: Response: No adverse reaction; Nausea is decreased me1 22:41 Drug: morphine IVP or IV 4 mg IVP once over 4 mins Route: IVP; Infused Over: 4 mins; me1 Site: right antecubital; 23:39 Follow up: Response: No adverse reaction; Pain is decreased me1 23:48 Drug: metoCLOPramide IVP 10 mg IVP once; over 1 to 2 minutes Route: IVP; Site: right me1 antecubital; 12/29 00:35 Follow up: Response: No adverse reaction; Marked relief of symptoms pf1 Disposition Summary: 12/29/22 02:51 Discharge Ordered Notes: Location: Home rn Problem: an acute exacerbation rn Symptoms: have improved rn Condition: Stable rn Diagnosis - Gastroparesis rn - Upper abdominal pain, unspecified rn - Gastritis, unspecified rn Followup: rn - With: Private Physician - When: As needed - Reason: Recheck today's complaints, Re-evaluation by your physician Discharge Instructions: - Discharge Summary Sheet rn - Abdominal Pain, Adult rn - Gastritis, Adult rn - Gastroparesis rn Forms: - Medication Reconciliation Form rn - Thank You Letter rn - Antibiotic rn document improvement - Prescription Opioid Use rn - Patient Portal Instructions rn - Leadership Thank You Letter rn - Work release form rv1 Prescriptions: - Reglan 10 mg Oral tablet - take 1 tablet ORAL route every 8 hours As needed take 30 minutes before meals rn and at bedtime; 30 tablet; Refills: 0, Product Selection Permitted Signatures: Dispatcher [employer] EDYogesh Masters MD MD rn Finley, Pamala, RN RN pf1 Gilda Boyer RN RN me1 Corrections: (The following items were deleted from the chart) 12/28 22:10 22:09 PMHx: hiatal hernia (Exploratory laparotomy); pf1 pf1
--- NOTE | 2022-12-29 02:51 | ER ---
Nurse's Notes [facility] Name: Vicenta Daigle Age: 37 yrs Sex: Female : 1985 Arrival Date: 12/28/2022 Time: 21:46 Bed 6 Private MD: Diagnosis: Gastroparesis;Upper abdominal pain, unspecified;Gastritis, unspecified Presentation: 12/28 22:01 Chief complaint: Patient states: upper abdominal pain of 8,onset 2 months,worse in the pf1 past 3 days with vomiting x 4 episodes today. Patient stated followed up with Dr. Henry on Sunday, had an endoscopy performed. Coronavirus screen: Vaccine status: Patient reports being unvaccinated. Client denies travel out of the [place] in the last 14 days. Client presents with at least one sign or symptom that may indicate coronavirus-19. Ebola Screen: Patient negative for fever greater than or equal to 101.5 degrees Fahrenheit, and additional compatible Ebola Virus Disease symptoms. Initial Sepsis Screen: Does the patient meet any 2 criteria? HR > 90 bpm. No. Patient's initial sepsis screen is negative. Does the patient have a suspected source of infection? No. Patient's initial sepsis screen is negative. Risk Assessment: Do you want to hurt yourself or someone else? Patient reports no desire to harm self or others. 22:01 Method Of Arrival: Ambulatory pf1 22:01 Acuity: SEAN 3 pf1 Historical: - Allergies: 22:09 Bleach (Sodium Hypochlorite); pf1 - PMHx: 22:09 adhd; Anxiety; depressive disorder; GERD; ibs; insomnia; pf1 22:09 hiatal hernia; gastric ulcer; pf1 - PSHx: 22:09 Cholecystectomy; Exploratory laparotomy; pf1 - Immunization history:: Adult Immunizations up to date, Client reports having NOT received the Covid vaccine. Last tetanus immunization: < 5 years ago Flu vaccine is not up to date. - Social history:: Smoking status: Patient denies any tobacco usage or history of. Patient/guardian denies using alcohol, street drugs. - Family history:: not pertinent. - Hospitalizations: : No recent hospitalization is reported. Screenin:42 [facility] ED Fall Risk Assessment (Adult) History of falling in the last 3 months, me1 including since admission No falls in past 3 months (0 pts) Confusion or Disorientation No (0 pts) Intoxicated or Sedated No (0 pts) Impaired Gait No (0 pts) Mobility Assist Device Used No (0 pt) Altered Elimination No (0 pt) Score/Fall Risk Level 0 - 2 = Low Risk. Abuse screen: Denies threats or abuse. Nutritional screening: No deficits noted. Tuberculosis screening: No symptoms or risk factors identified. Assessment: 22:42 General: Appears uncomfortable, well groomed, well developed, well nourished, Behavior me1 is calm, cooperative, appropriate for age, Reports upper abdominal pain for the past two months that has worsened over the past couple of days. Pain is 8/10 now. c/o n/v- vomited x4 today. Has been seeing GI and had an upper endoscopy done and has a colonoscopy scheduled. Pain: Complains of pain in epigastric area and right upper quadrant Pain does not radiate. Pain currently is 8 out of 10 on a pain scale. Quality of pain is described as stabbing, Pain began several months ago but worse over the past couple of days. Is continuous. Neuro: Level of Consciousness is awake, alert, obeys commands, Oriented to person, place, time, situation, Appropriate for age. Cardiovascular: Capillary refill < 3 seconds Patient's skin is warm and dry. Respiratory: Airway is patent Respiratory effort is even, unlabored, Respiratory pattern is regular, symmetrical. GI: Abdomen is round Bowel sounds present X 4 quads. Abd is soft X 4 quads Reports upper abdominal pain, nausea, vomiting. 12/29 00:30 Reassessment: Patient appears in no apparent distress at this time. Patient and/or pf1 family updated on plan of care and expected duration. Pain level reassessed. Patient is alert, oriented x 3, equal unlabored respirations, skin warm/dry/pink. Patient states symptoms have improved. 01:30 Reassessment: Patient appears in no apparent distress at this time. Patient and/or pf1 family updated on plan of care and expected duration. Pain level reassessed. Patient is alert, oriented x 3, equal unlabored respirations, skin warm/dry/pink. 02:30 Reassessment: Patient appears in no apparent distress at this time. Patient and/or pf1 family updated on plan of care and expected duration. Pain level reassessed. Patient is alert, oriented x 3, equal unlabored respirations, skin warm/dry/pink. Patient states feeling better. Patient states symptoms have improved. Vital Signs: 12/28 22:01 BP 133 / 85; Pulse 107; Resp 18; Temp 98.4; Pulse Ox 99% on R/A; Weight 107.5 kg; pf1 Height 5 ft. 6 in. ; Pain 8/10; 22:15 BP 128 / 66; Pulse 99; Resp 16; Pulse Ox 98% on R/A; me1 22:30 BP 110 / 84; Pulse 93; Resp 16; Pulse Ox 99% on R/A; me1 23:30 BP 107 / 66; Pulse 81; Resp 12 S; Pulse Ox 96% on R/A; km8 12/29 00:00 BP 108 / 47; Pulse 92; Resp 12 S; Pulse Ox 95% on R/A; km8 00:35 BP 107 / 65; Pulse 84; Resp 16; Pulse Ox 96% ; Pain 5/10; pf1 01:00 BP 109 / 60; Pulse 91; Resp 16; Pulse Ox 94% on R/A; km8 02:00 BP 109 / 68; Pulse 79; Resp 16; Pulse Ox 97% ; Pain 5/10; pf1 03:00 BP 110 / 74; Pulse 72; Resp 16; Pulse Ox 96% on R/A; Pain 5/10; pf1 12/28 22:01 Body Mass Index 38.25 (107.50 kg, 167.64 cm) pf1 12/28 22:01 Pain Scale: Adult pf1 00:35 Pain Scale: Adult pf1 02:00 Pain Scale: Adult pf1 03:00 Pain Scale: Adult pf1 ED Course: 12/28 21:58 Patient arrived in ED. gm2 21:59 Yogesh Amaya MD is Attending Physician. rn 22:09 Triage completed. pf1 22:29 Gilda Boyer, KAROLYN is Primary Nurse. me1 22:29 Inserted saline lock: 20 gauge in right antecubital area, using aseptic technique. me1 22:29 Test, Urine Sent. me1 22:29 Urinalysis w/ reflexes Sent. me1 22:29 CBC with Diff Sent. me1 22:29 CMP Sent. me1 22:29 Lipase Sent. me1 22:42 No provider procedures requiring assistance completed. Flushed right antecubital. me1 22:42 Patient has correct armband on for positive identification. Bed in low position. Call me1 light in reach. Side rails up X2. Provided Education on: POC. Verbalized understanding.. 22:47 Arm band placed on Patient placed in waiting room. me1 23:15 CT Abd/Pelvis - IV Contrast Only In Process Unspecified. EDMS 12/29 03:11 IV discontinued, intact, bleeding controlled, No redness/swelling at site. Pressure pf1 dressing applied. Administered Medications: 12/28 22:40 Drug: Famotidine IVP 20 mg IVP once; dilute with 10 mL 0.9% NaCl; give over 2 minutes me1 Route: IVP; Site: right antecubital; 23:40 Follow up: Response: No adverse reaction me1 22:41 Drug: NS 0.9% IV 1000 ml IV at 1 bolus Per protocol; 1000 mL bolus Route: IV; Rate: 1 me1 bolus; Site: right antecubital; 23:40 Follow up: Response: No adverse reaction; Marked relief of symptoms; IV Status: pf1 Completed infusion; IV Intake: 1000ml 22:41 Drug: Ondansetron IVP 4 mg IVP once; over 2 minutes Route: IVP; Site: right antecubital;me1 23:40 Follow up: Response: No adverse reaction; Nausea is decreased me1 22:41 Drug: morphine IVP or IV 4 mg IVP once over 4 mins Route: IVP; Infused Over: 4 mins; me1 Site: right antecubital; 23:39 Follow up: Response: No adverse reaction; Pain is decreased me1 23:48 Drug: metoCLOPramide IVP 10 mg IVP once; over 1 to 2 minutes Route: IVP; Site: right me1 antecubital; 12/29 00:35 Follow up: Response: No adverse reaction; Marked relief of symptoms pf1 Medication: 12/28 22:42 VIS not applicable for this client. me1 Intake: 23:40 IV: 1000ml; Total: 1000ml. pf1 Outcome: 12/29 02:51 Discharge ordered by rn 03:11 Discharged to home ambulatory, pf1 03:11 Condition: improved 03:11 Discharge instructions given to patient, Instructed on discharge instructions, follow up and referral plans. Demonstrated understanding of instructions, follow-up care, medications, Prescriptions given X 1, 03:11 Patient left the ED. pf1 Signatures: Dispatcher [employer] EDYogesh Masters MD MD rn Finley, Pamala, RN RN pf1 Gilda Boyer RN RN ar1 Nara Loco 2 Tere Cortez RN RN km8 Corrections: (The following items were deleted from the chart) 12/28 22:10 22:09 PMHx: hiatal hernia (Exploratory laparotomy); pf1 pf1 12/29 05:02 03:17 Patient left the ED. pf1 pf1
[2022-12-29 03:47] VITALS: TEMP 98.4
[2022-12-29 04:02] VITALS: BP 110/74; O2SAT 96
--- NOTE | 2022-12-29 15:14 | RAD REPORT ---
EXAM DESCRIPTION: Abdomen Pelvis W Contrast 12/28/2022 11:27 PM CDT CLINICAL HISTORY: 37 years, Female, ABD PAIN COMPARISON: None TECHNIQUE: Contrast-enhanced images of the abdomen and pelvis were performed utilizing 5 mm slice th ickness at 5 mm interval reconstruction from the lung bases to the ischial tuberosities after the adm inistration of IV contrast. In addition multiplanar reformats in the coronal and sagittal plane were obtained and reviewed. This exam was performed according to our departmental dose-optimization protocol, which includes auto mated exposure control, adjustment of the mA and/or kV according to patient size and/or use of iterat aly reconstruction technique. FINDINGS: Lung bases: The lung bases demonstrate to be clear Liver: The liver demonstrate decreased attenuation corresponding to mild fatty infiltration Gallbladder: Surgical clips within the gallbladder fossa correspond to previous cholecystectomy. No s ignificant biliary duct dilatation Pancreas: The pancreas demonstrate to be within normal limits. Spleen: The spleen demonstrate to be within normal limits. Adrenal gland: The adrenal glands demonstrate to be normal. Kidneys: The kidneys demonstrate normal uptake of contrast media. There is no evidence for nephrolith iasis and/or hydronephrosis. GI: Grossly the unopacified stomach, small bowel and large bowel demonstrate to be within normal limi ts. There is no evidence for bowel dilatation/or free air. The appendix is normal. The left site colon is decompressed with no gross abnormalities. Urinary bladder: The urinary bladder partially distended with no gross abnormalities. The uterus demonstrate to be within normal limits. There are no adnexal masses. Abdominal aorta: The abdominal aorta demonstrate to be within normal limits. Retroperitoneum: There is no retroperitoneal lymphadenopathy. There is no evidence for ascites/or abn ormal fluid collections. Bones: The bone windows demonstrate to be within normal limits. No evidence for significant skeletal lesions. Soft tissues: The soft tissues demonstrate to be within normal limits. IMPRESSION: No acute intra-abdominal process. Mild fatty infiltration of the liver. Status post cholecystectomy. Electronically signed by: Don Rosenbaum MD 12/28/2022 11:29 PM CDT Due to temporary technical issues with the PACS/Fluency reporting system, reports are being signed by the in house radiologists without review as a courtesy to insure prompt reporting. The interpreting radiologist is fully responsible for the content of the report.
== END 2022-12-29 03:17 | disposition home or self-care (01) ==
LOC: ER 21:46
DX: K31.84 Gastroparesis (principal); K29.70 Gastritis, unspecified, without bleeding; F41.9 Anxiety disorder, unspecified; F90.9 Attention-deficit hyperactivity disorder, unspecified type; F32.A Depression, unspecified; K21.9 Gastro-esophageal reflux disease without esophagitis; G47.00 Insomnia, unspecified; Z91.048 Other nonmedicinal substance allergy status
CPT/HCPCS: 36415; 74177; 80053; 81001; 81025; 82565; 83690; 85025; 96361; 96374; 96375; 99284; J2405; J2765; J7030; Q9967

== ENCOUNTER 2023-01-30 11:39 | Emergency (ER) | payer OTHER ==
--- OUTSIDE RECORDS SUMMARY | 2023-01-30 11:45 | XMS REPORT | Continuity of Care Document ---
:1985 Author Organization [facility] t Address [address] [facility] [address] [place] [address] Care Team Providers Name Role Phone Dorina Petit Primary Care Physician Eligio Sims Attending Clinician ELIGIO SIMS Attending Clinician Unavailable Lorraine Attending Clinician Unavailable Alejandro Thomson Attending Clinician ALEJANDRO THOMSON Attending Clinician Unavailable LAURO FABIAN Attending Clinician Unavailable Maye Victor Attending Clinician Unavailable Zelalem Patel III Attending Clinician Doctor Unassigned, Watchtower Attending Clinician Unavailable Amado Stout MD Attending Clinician LEONARDO PETERS Attending Clinician Unavailable GREGORY Attending Clinician Unavailable Ruthie Attending Clinician Unavailable Justus Crouch Attending Clinician TONO MCCLELLAN Attending Clinician Unavailable Amado Price Attending Clinician Lorraine Admitting Clinician Unavailable Physician, No Primary or Family Admitting Clinician Unavaila joey JENKINS Admitting Clinician Unavailable Ruthie Admitting Clinician Unavailable Payers Payer Name Policy Type Policy Number Effective Date Expiration Date Kane EASTMAN [id number] INSURANCE - UNITED 00:00:00 HEALTHCARE - CHOICE PLUS (PPO) Problems Condition Condition Condition Status Onset Resolution Last Treating Co mments Source Name Details Category Date Date Treatment Clinician Date ABD PAIN ABD PAIN Diagnosis Active 2022-032022-12-27 Memoria Active 14:51:00 l 12/27/2022 00:00: Anselmo MIRANDA [place] 00 [place] Body mass Body Mass Problem Active 2022-03 [place] index 30+ Index 30+ 0-04 da - obesity - Obesity 00:00: Medi romeo 00 Group Nausea Nausea Problem Active 2022-03 [place] 0-04 da 00:00: Medical 00 Group Contusion Contusion Diagnosis Active 2022-09-30 Memoria (disorder) (disorder) 09-28 21:22:04 l Active 00:00: Straughn 09/28/2022 00 Diagnosis 09/30/2022 [facility] POST/ACC/U POST/ACC/ Diagnosis Active 2022-10-03 Memoria DS UDS 09-28 12:45:00 l Active 00:00: Marlon 09/28/2022 00 [facility] FALL FALL Diagnosis Active 2022-10-18 Mem oria Active 09-27 13:22:00 l 09/27/2022 00:00: Anselmo MIRANDA [address] [facility] Back Back Diagnosis Active 2022-07-04 Mem oria strain of strain of 07-01 03:57:24 l thoracic thoracic 00:00: Anselmo region region 00 (disorder) (disorder) Active 07/01/2022 Diagnosis 07/04/2022 [facility] BACK PAIN, BACK Diagnosis Active 2022-07-03 Memoria WORK COMP PAIN, WORK 07-01 08:43:00 l COMP 00:00: Straughn Active 00 07/01/2022 [facility] Exposure Exposure Problem Active 2020-03 [place] to to da SARS-CoV-2 SARS-CoV-2 00:00: Me dical 00 [...] ABDOMINAL Diagnosis Active 2013-032014-02-02 Memoria PAIN PAIN -30 06:43:00 l Active 00:00: Marlon 02/01/2014 00 [facility] Adjustment Adjustment Problem Active M atagor disorder 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 Anxiety al and and Health depressed Depressed Outr eac mood Mood h Program Adjustment Adjustment Problem Active M [facility] disorder 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 emotional Emotional al features Features Health Outreac h Program EXAM-MEDIC EXAM-MEDI Diagnosis Active 2022-10-03 Memoria OLEGAL COLEGAL 12:45:00 l REASONS REASONS Marlon Active [facility] Obesity Obesity Problem Active [facility] [...] Medica l Group Degenerati Degenerat Problem Active 2022-12-30 Memoria on of ion of 06:19:48 l lumbar lumbar Marlon interverte interverte bral disc bral disc (disorder) (disorder) Active Problem 12/30/2022 [facility] Gastroesop Gastroeso Problem Active 2022-12-30 Memoria hageal phageal 06:19:48 l reflux reflux Straughn disease disease (disorder) (disorder) Active Problem 12/30/2022 [facility] Insomnia Insomnia Problem Active 2022-12-30 Memoria (disorder) (disorder) 06:19:48 l Active Marlon Problem 12/30/2022 [facility] Irritable Problem Active 2022-12-30 Me moria colon Irritable 06:19:48 l (disorder) colon Anselmo n (disorder) Active Problem 12/30/2022 [facility] Mixed Mixed Problem Active 2022-12-30 Dave marlene anxiety anxiety 06:19:48 l and and Straughn depressive depressive disorder disorder (disorder) (disorder) Active Problem 12/30/2022 [facility] Prolapsed Problem Active 2022-12-30 Me moria lumbar Prolapsed 06:19:48 l interverte lumbar Anselmo n bral disc interverte (disorder) bral disc (disorder) Active Problem 12/30/2022 L4/L5 [facility] History of Past Illness Condition Condition Condition Status Onset Resolution Last Treating Co mments Source Name Details Category Date Date Treatment Clinician Date Traumatic Diagnosis 2022-09-30 2022-09-30 Memoria AND/OR Traumatic 09-28 21:22:04 21:22:04 l non-trauma AND/OR 05:37: Anselmo n tic injury non-trauma 00 (disorder) tic injury (disorder) 09/28/2022 Diagnosis 09/30/2022 [facility] Injury of Injury of Diagnosis 2022-07-04 2022-07-04 Memoria muscle and muscle and 07-02 03:57:24 03:57:24 l tendon at tendon at 03:19: Herm reinier thorax thorax 00 level level (disorder) (disorder) 07/02/2022 Diagnosis 07/04/2022 [facility] Discharge Discharge Problem 2013-032014-02-05 2014-02-05 Memoria Diagnosis: Diagnosis: 2- 02:29:33 02:29:33 l Abdominal Abdominal 06:00: Herm reinier pain pain 00 02/02/2014 02/05/2014 [facility] Allergies, Adverse Reactions, Alerts Allergy Allergy Status Severity Reaction(s) Onset Inactive Treating Comm ents Source Name Type Date Date Clinician No Known DA Active [facility] Allergie 7-13 [place] s 00:00: d 00 [facility] Center NO KNOWN Drug Active Univers ALLERGIE Class ity of S [facility] Citalopr Allergy Active [place] [facility] Medical e Group No Known No Known Active Memori a Medicati Medicati l on on Marlon Allergdelmar Allergdelmar s s Social History Social Habit Start Date Stop Date Quantity Comments Source History of Smokes tobacco University of tobacco use daily [facility] Tobacco use and 2019-12-05 2019-12-05 Smokeless tobacco Un iversity of exposure 00:00:00 00:00:00 non-user [facility] Alcohol intake 2019-12-05 2019-12-05 Lifetime University of 00:00:00 00:00:00 non-drinker [facility] (finding) Branch History SDOH 2019-12-05 2019-12-05 1 [place] o f Alcohol Frequency 00:00:00 00:00:00 [place] M [facility] Branch History SDMS 2019-12-05 2019-12-05 99 [place] o f Alcohol Std 00:00:00 00:00:00 [place] Medical Drinks Branch History [facility] 2019-12-05 2019-12-05 1 [place] o f Alcohol Binge 00:00:00 00:00:00 [place] [facility] al Branch Sex [birth year] At [birth year] Universit y of 00:00:00 00:00:00 [facility] Smoking Status Start Date Stop Date Source Heavy Tobacco Smoker [facility] Former Smoker [place] [facility] Smokes tobacco daily 2019-12-05 00:00:00 [facility] Tobacco smoking status [facility] Medications Ordered Filled Start Stop Current Ordering Indication Dosage Frequency Signature Comments Components Source Medication Medication Date Date Medication? Clinician (SIG) Name Name ibuprofen Yes 800 mg = 1 Me moria 800 mg oral 4-30 tab, PO, l tablet 03:19: Q8H, PRN Straughn 00 Pain, Take with food, X 10 day, # 30 tab, 0 Refill(s) ibuprofen Yes 800 mg = 1 Me moria 800 mg oral 4-30 tab, PO, l tablet 03:19: Q8H, PRN Marlon 00 Pain, Take with food, X 10 day, # 30 tab, 0 Refill(s) Flexeril 10 Yes 10 mg, PO, Memoria mg oral 4-30 TID, PRN l tablet 03:18: Muscle Straughn 00 Spasm, X 10 day, # 20 tab, 0 Refill(s) Flexeril 10 Yes 10 mg, PO, Memoria mg oral 4-30 TID, PRN l tablet 03:18: Muscle Marlon 00 Spasm, X 10 day, # 20 tab, 0 Refill(s) acetaminoph 2019-03 Yes Univer s en-codeine 0-01 ity of 300-30 mg 00:00: [place] tablet Medical Branch acetaminoph 2019-03 Yes Univer s en-codeine 0-01 ity of 300-30 mg 00:00: [place] tablet Medical Branch DEXILANT 60 2020-0 Yes Univer s mg capsule 9-17 ity of 00:00: Medical Branch DEXILANT 60 2020-0 Yes Univer s mg capsule 9-17 ity of 00:00: Medical Branch ALPRAZolam 2020-0 Yes .5mg Take 0.5 Uni vers 0.5 mg 9-15 mg by ity of tablet 00:00: mouth 2 (two) Medical times Branch daily. methocarbam 2020-0 Yes TAKE 1 Univ ers oL 750 mg 9-15 TABLET BY ity o f tablet 00:00: MOUTH [place] 00 EVERY 8 Medical HOURS Branch NEEDED ondansetron 2019-0 Yes DISSOLVE 1 Univers 4 mg 9-15 TO 2 ity of disintegrat 00:00: TABLETS IN [place] ing tablet 00 MOUTH Medical EVERY 6 TO Branch 8 HOURS NEEDED FOR NAUSEA SUMAtriptan 2019-0 Yes TAKE 1 Univ ers 50 mg 9-15 TABLET BY ity of tablet 00:00: MOUTH ONCE DAILY Medical NEEDED Branch venlafaxine 2019-0 Yes 75mg Take 75 mg Univers XR 75 mg 24 9-15 by mouth ity of hr capsule 00:00: daily. Medical Branch zolpidem 10 2019-0 Yes 10mg Take 10 mg Univers mg tablet 9-15 by mouth ity of 00:00: daily. Medical Branch ALPRAZolam 2019-0 Yes .5mg Take 0.5 Uni vers 0.5 mg 9-15 mg by ity of tablet 00:00: mouth 2 (two) Medical times Branch daily. methocarbam 2020-0 Yes TAKE 1 Univ ers oL 750 [...] BY ity of tablet 00:00: MOUTH ONCE 00 DAILY Medical NEEDED Branch venlafaxine 2020-0 Yes 75mg Take 75 mg Univers XR 75 mg 24 9-15 by mouth ity of hr capsule 00:00: daily. Medical Branch zolpidem 10 2019-0 Yes 10mg Take 10 mg Univers mg tablet 9-15 by mouth ity of 00:00: daily. [address] hyoscyamine 2013-03 Yes 0.125 mg = Memoria 0.125 mg 2-01 1 tab, PO, l oral 15:47: QID, Straughn tablet, 00 Spasm, # disintegrat 20 tab, 0 ing Refill(s) hyoscyamine 2013-03 Yes 0.125 mg = Memoria 0.125 mg 2-01 1 tab, PO, l oral 15:47: QID, Marlon tablet, 00 Spasm, # disintegrat 20 tab, 0 ing Refill(s) tramadol 2013-03 Yes 50 mg, PO, Mem oria hydrochlori 2-01 Q6H, # 10 l de 50 MG 15:43: tab, 0 Marlon Oral Tablet 00 Refill(s) tramadol 2013-03 Yes 50 mg, PO, Mem oria hydrochlori 2-01 Q6H, # 10 l de 50 MG 15:43: tab, 0 Marlon Oral Tablet 00 Refill(s) Morphine 2013-03 No 4 mg, Memoria 2-01 Route: l 13:56: IVP, Drug Marlon 00 form: INJ, ONCE, Dosing Weight 102.273, kg, Priority: STAT, Start date: 02/02/14 7:56:00, Stop date: 02/02/14 7:56:00 Morphine 2013-03 No 4 mg, Memoria 2- Route: l 13:56: IVP, Drug Straughn 00 form: INJ, ONCE, Dosing Weight 102.273, kg, Priority: STAT, Start date: 02/02/14 7:56:00, Stop date: 02/02/14 7:56:00 Sodium 2013-03 No 500 mL, Memoria Chloride 2-01 500 ml/hr, l 0.154 13:55: Infuse Straughn MEQ/ML 00 Over: 1 Injectable hr, Route: Solution IV, ONCE, Priority: STAT, Dosing Weight 102.273 kg, Start date: 02/02/14 7:55:00, Duration: 1 doses or times, Stop date: 02/02/14 7:55:00 Sodium 2013-03 No 500 mL, Memoria Chloride 2-01 500 ml/hr, l 0.154 13:55: Infuse Marlon [...] date: 02/02/14 6:31:00, Stop date: 02/02/14 6:31:00 Acetaminoph 2013-03 No 1 tab, Dave marlene en 325 MG / 04-05 Route: PO, l Hydrocodone 12:31: Drug Form: Straughn Bitartrate 00 TAB, 5 MG Oral Dosing Tablet Weight 102.273, kg, ONCE, STAT, Start date: 02/02/14 6:31:00, Stop date: 02/02/14 6:31:00 Iohexol 2013-03 No Notes: Memoria 04-05 (same l 12:15: as:Omnipaq Straughn 00 ue 350). Iohexol 2013-03 No Notes: Memoria 04-05 (same l 12:15: as:Omnipaq Marlon 00 ue 350). acetaminoph acetaminoph No acetaminop [...] al MOUTH THREE MOUTH THREE TABLET BY [facility] TIMES A DAY TIMES A DAY [...] [facility] nded nded ended al release,mul release,mul release,[facility] tiphase tiphase ltiphase Outre ac TAKE [...] Group ended ended tended release release release [id number] TAKE 1 50 TAKE 1 -50 [...] MOUTH ONCE DAILY DAILY DAILY Immunizations Ordered Filled Immunization Date Status Comments [facility] Immunization Name Name influenza, influenza, 2020-01-08 Completed [place] injectable, injectable, 00:00:00 Medical Grou p quadrivalent quadrivalent influenza, influenza, 2020-01-08 Completed [place] injectable, injectable, 00:00:00 Medical Grou p quadrivalent quadrivalent influenza, influenza, 2020-01-08 Completed [place] injectable, injectable, 00:00:00 Medical Grou p quadrivalent quadrivalent influenza, influenza, 2020-01-08 Completed [place] injectable, injectable, 00:00:00 Medical Grou p quadrivalent quadrivalent influenza, influenza, 2020-01-08 Completed [place] injectable, injectable, 00:00:00 Medical Grou p quadrivalent quadrivalent influenza, influenza, 2020-01-08 Completed [place] injectable, injectable, 00:00:00 Medical Grou p quadrivalent quadrivalent influenza, influenza, 2020-01-08 Completed [place] injectable, injectable, 00:00:00 Medical Grou p quadrivalent quadrivalent influenza, influenza, 2020-01-08 Completed [place] injectable, injectable, 00:00:00 Medical Grou p quadrivalent quadrivalent influenza, influenza, 2020-01-08 Completed [place] injectable, injectable, 00:00:00 Medical Grou p quadrivalent quadrivalent influenza, influenza, 2020-01-08 Completed [place] injectable, injectable, 00:00:00 Medical Grou p quadrivalent quadrivalent influenza, influenza, 2020-01-08 Completed [place] injectable, injectable, 00:00:00 Medical Grou p quadrivalent quadrivalent influenza, influenza, 2020-01-08 Completed [place] injectable, injectable, 00:00:00 Medical Grou p quadrivalent quadrivalent influenza, influenza, 2020-01-08 Completed [place] injectable, injectable, 00:00:00 Medical Grou p quadrivalent quadrivalent influenza, influenza, 2020-01-08 Completed [place] injectable, injectable, 00:00:00 Medical Grou p quadrivalent quadrivalent influenza, influenza, 2018-03-05 Completed [place] injectable, injectable, 00:00:00 Medical Grou p quadrivalent quadrivalent influenza, influenza, 2018-03-05 Completed [place] injectable, injectable, 00:00:00 Medical Grou p quadrivalent quadrivalent influenza, influenza, 2018-03-05 Completed [place] injectable, injectable, 00:00:00 Medical Grou p quadrivalent quadrivalent influenza, influenza, 2018-03-05 Completed [place] injectable, injectable, 00:00:00 Medical Grou p quadrivalent quadrivalent influenza, influenza, 2018-03-05 Completed [place] injectable, injectable, 00:00:00 Medical Grou p quadrivalent quadrivalent influenza, influenza, 2018-03-05 Completed [place] injectable, injectable, 00:00:00 Medical Grou p quadrivalent quadrivalent influenza, influenza, 2018-03-05 Completed [place] injectable, injectable, 00:00:00 Medical Grou p quadrivalent quadrivalent Hep B, adolescent Hep B, adolescent 2015-12-30 Completed [place] or pediatric or pediatric 10:39:11 Medical Gr oup Hep B, adolescent Hep B, adolescent 2015-12-30 Completed [place] or pediatric or pediatric 10:39:11 Medical Gr oup Hep B, adolescent Hep B, adolescent 2015-12-30 Completed [place] or pediatric or pediatric 10:39:11 Medical Gr oup Hep B, adolescent Hep B, adolescent 2015-12-30 Completed [place] or pediatric or pediatric 10:39:11 Medical Gr oup Hep B, adolescent Hep B, adolescent 2015-12-30 Completed [place] or pediatric or pediatric 10:39:11 Medical Gr oup Hep B, adolescent Hep B, adolescent 2015-12-30 Completed [place] or pediatric or pediatric 10:39:11 Medical Gr oup Hep B, adolescent Hep B, adolescent 2015-12-30 Completed [place] or pediatric or pediatric 10:39:11 Medical Gr oup Hep B, adult Hep B, adult 2015-09-27 Completed [place] 00:00:00 Medical Group Hep B, adult Hep B, adult 2015-09-27 Completed [place] 00:00:00 Medical Group Hep B, adult Hep B, adult 2015-09-27 Completed [place] 00:00:00 Medical Group Hep B, adult Hep B, adult 2015-09-27 Completed [place] 00:00:00 Medical Group Hep B, adult Hep B, adult 2015-09-27 Completed [place] 00:00:00 Medical Group Hep B, adult Hep B, adult 2015-09-27 Completed [place] 00:00:00 Medical Group Hep B, adult Hep B, adult 2015-09-27 Completed [place] 00:00:00 Medical Group Hep B, adult Hep B, adult 2015-08-04 Completed [place] 16:58:00 Medical Group Hep B, adult Hep B, adult 2015-08-04 Completed [place] 16:58:00 Medical Group Hep B, adult Hep B, adult 2015-08-04 Completed [place] 16:58:00 Medical Group Hep B, adult Hep B, adult 2015-08-04 Completed [place] 16:58:00 Medical Group Hep B, adult Hep B, adult 2015-08-04 Completed [place] 16:58:00 Medical Group Hep B, adult Hep B, adult 2015-08-04 Completed [place] 16:58:00 Medical Group Hep B, adult Hep B, adult 2015-08-04 Completed [place] 16:58:00 Medical Group influenza, influenza, 2014-03-05 Completed [place] seasonal, seasonal, 00:00:00 Medical Group injectable injectable influenza, influenza, 2014-03-05 Completed [place] seasonal, seasonal, 00:00:00 Medical Group injectable injectable influenza, influenza, 2014-03-05 Completed [place] seasonal, seasonal, 00:00:00 Medical Group injectable injectable influenza, influenza, 2014-03-05 Completed [place] seasonal, seasonal, 00:00:00 Medical Group injectable injectable influenza, influenza, 2014-03-05 Completed [place] seasonal, seasonal, 00:00:00 Medical Group injectable injectable influenza, influenza, 2014-03-05 Completed [place] seasonal, seasonal, 00:00:00 Medical Group injectable injectable influenza, influenza, 2014-03-05 Completed [place] seasonal, seasonal, 00:00:00 Medical Group injectable injectable Hep B, adolescent Hep B, adolescent Unknown Completed [place] or pediatric or pediatric Medical Gr oup Hep B, adult Hep B, adult Unknown Completed [place] [facility] influenza, influenza, Unknown Completed [place] injectable, injectable, Medical Grou p quadrivalent quadrivalent influenza, influenza, Unknown Completed [place] injectable, injectable, Medical Grou p quadrivalent quadrivalent influenza, influenza, Unknown Completed [place] injectable, injectable, Medical Grou p quadrivalent quadrivalent Hep B, adult Hep B, adult Unknown Completed [place] [facility] influenza, influenza, Unknown Completed [place] seasonal, seasonal, Medical Group injectable injectable Vital Signs Vital Name Observation Time Observation Value Comments Source Height 2022-12-06 00:00:00 66 [in_i] [facility] BP Diastolic 2022-12-06 00:00:00 74 mm[Hg] [facility] BMI (Body Mass 2022-12-06 00:00:00 38.3 kg/m2 [facility] Index) Group BP Systolic 2022-12-06 00:00:00 114 mm[Hg] [facility] Body Weight 2022-12-06 00:00:00 3792 [oz_av] [facility] BP Diastolic 2022-08-23 00:00:00 79 mm[Hg] [facility] Height 2022-08-23 00:00:00 66 [in_i] [facility] BMI (Body Mass 2022-08-23 00:00:00 38.6 kg/m2 [facility] [employer] Medical Index) Group BP Systolic 2022-08-23 00:00:00 117 mm[Hg] [facility] Body Weight 2022-08-23 00:00:00 3824 [oz_av] [facility] BP Diastolic 2022-05-16 00:00:00 79 mm[Hg] [facility] Height 2022-05-16 00:00:00 66 [in_i] [facility] BMI (Body Mass 2022-05-16 00:00:00 37.8 kg/m2 [facility] Index) Group BP Systolic 2022-05-16 00:00:00 110 mm[Hg] [facility] Body Weight 2022-05-16 00:00:00 3744 [oz_av] [facility] BP Diastolic 2022-04-24 00:00:00 84 mm[Hg] [facility] Height 2022-04-24 00:00:00 66 [in_i] [facility] BMI (Body Mass 2022-04-24 00:00:00 38.1 kg/m2 [facility] Index) Group BP Systolic 2022-04-24 00:00:00 123 mm[Hg] [facility] Body Weight 2022-04-24 00:00:00 3776 [oz_av] [facility] BP Diastolic 2022-03-23 00:00:00 75 mm[Hg] [facility] Height 2022-03-23 00:00:00 66 [in_i] [facility] BMI (Body Mass 2022-03-23 00:00:00 37.8 kg/m2 [facility] Index) Group BP Systolic 2022-03-23 00:00:00 113 mm[Hg] [facility] Body Weight 2022-03-23 00:00:00 3746 [oz_av] [facility] BP Diastolic 2022-02-21 00:00:00 81 mm[Hg] [facility] Height 2022-02-21 00:00:00 66 [in_i] [facility] BMI (Body Mass 2022-02-21 00:00:00 37.3 kg/m2 [facility] Index) Group BP Systolic 2022-02-21 00:00:00 128 mm[Hg] [facility] Body Weight 2022-02-21 00:00:00 3696 [oz_av] [facility] BP Diastolic 2022-01-19 00:00:00 76 mm[Hg] [facility] Height 2022-01-19 00:00:00 66 [in_i] [facility] BMI (Body Mass 2022-01-19 00:00:00 38.4 kg/m2 [facility] Index) Group BP Systolic 2022-01-19 00:00:00 114 mm[Hg] [facility] Body Weight 2022-01-19 00:00:00 3808 [oz_av] [facility] BP Diastolic 2021-07-06 00:00:00 78 mm[Hg] [facility] Height 2021-07-06 00:00:00 66 [in_i] [facility] BMI (Body Mass 2021-07-06 00:00:00 38.3 kg/m2 [facility] Index) Group BP Systolic 2021-07-06 00:00:00 109 mm[Hg] [facility] Body Weight 2021-07-06 00:00:00 3792 [oz_av] [facility] Height 2021-03-04 00:00:00 66 [in_i] [facility] BMI (Body Mass 2021-03-04 00:00:00 37.1 kg/m2 [facility]) Group Body Weight 2021-03-04 00:00:00 3680 [oz_av] [facility] BP Diastolic 2020-12-08 00:00:00 74 mm[Hg] [facility] Height 2020-12-08 00:00:00 66 [in_i] [facility] BMI (Body Mass 2020-12-08 00:00:00 37.2 kg/m2 [facility] Index) Group BP Systolic 2020-12-08 00:00:00 107 mm[Hg] [facility] Body Weight 2020-12-08 00:00:00 3683 [oz_av] [facility] BP Diastolic 2020-07-08 00:00:00 80 mm[Hg] [facility] Height 2020-07-08 00:00:00 66 [in_i] [facility] BMI (Body Mass 2020-07-08 00:00:00 36.5 kg/m2 [facility] BP Systolic 2020-07-08 00:00:00 119 mm[Hg] [facility] Body Weight 2020-07-08 00:00:00 3616 [oz_av] [facility] BP Diastolic 2020-05-31 00:00:00 90 mm[Hg] [facility] Height 2020-05-31 00:00:00 66 [in_i] [facility] BMI (Body Mass 2020-05-31 00:00:00 34.7 kg/m2 [facility] BP Systolic 2020-05-31 00:00:00 137 mm[Hg] [facility] [facility] Body Weight 2020-05-31 00:00:00 215 [lb_av] [facility] [facility] BP Diastolic 2020-05-24 00:00:00 83 mm[Hg] [facility] Height 2020-05-24 00:00:00 66 [in_i] [facility] BMI (Body Mass 2020-05-24 00:00:00 35.8 kg/m2 [facility] BP Systolic 2020-05-24 00:00:00 127 mm[Hg] [facility] Body Weight 2020-05-24 00:00:00 3552 [oz_av] [facility] Height 2020-04-07 00:00:00 66 [in_i] [facility] BMI (Body Mass 2020-04-07 00:00:00 34.7 kg/m2 [facility] Body Weight 2020-04-07 00:00:00 3440 [oz_av] [facility] Height 2020-03-01 00:00:00 66 [in_i] [facility] BP Diastolic 2020-02-12 00:00:00 73 mm[Hg] [facility] Height 2020-02-12 00:00:00 66 [in_i] [facility] BMI (Body Mass 2020-02-12 00:00:00 35.8 kg/m2 [facility] [employer] [facility] BP Systolic 2020-02-12 00:00:00 108 mm[Hg] [facility] Body Weight 2020-02-12 00:00:00 3552 [oz_av] [facility] BP Diastolic 2020-02-03 00:00:00 80 mm[Hg] [facility] Height 2020-02-03 00:00:00 66 [in_i] [facility] BMI (Body Mass 2020-02-03 00:00:00 35.3 kg/m2 [facility] [employer] [facility] BP Systolic 2020-02-03 00:00:00 118 mm[Hg] [facility] Body Weight 2020-02-03 00:00:00 219 [lb_av] [facility] BP Diastolic 2020-01-13 00:00:00 76 mm[Hg] [facility] Height 2020-01-13 00:00:00 66 [in_i] [facility] BMI (Body Mass 2020-01-13 00:00:00 35.3 kg/m2 [facility] [employer] [facility] BP Systolic 2020-01-13 00:00:00 116 mm[Hg] [facility] Body Weight 2020-01-13 00:00:00 219 [lb_av] [facility] [facility] BP Diastolic 2020-01-09 00:00:00 76 mm[Hg] [facility] Height 2020-01-09 00:00:00 66 [in_i] [facility] BMI (Body Mass 2020-01-09 00:00:00 35.3 kg/m2 [facility] BP Systolic 2020-01-09 00:00:00 116 mm[Hg] [facility] Body Weight 2020-01-09 00:00:00 3504 [oz_av] [facility] BP Diastolic 2019-12-23 00:00:00 73 mm[Hg] [facility] Height 2019-12-23 00:00:00 66 [in_i] [facility] BMI (Body Mass 2019-12-23 00:00:00 37.4 kg/m2 [facility] BP Systolic 2019-12-23 00:00:00 109 mm[Hg] [facility] Body Weight 2019-12-23 00:00:00 232 [lb_av] [facility] Height 2019-12-18 00:00:00 66 [in_i] [facility] BMI (Body Mass 2019-12-18 00:00:00 37.4 kg/m2 [facility] Index) Group Body Weight 2019-12-18 00:00:00 3712 [oz_av] [facility] BP Diastolic 2019-12-16 00:00:00 73 mm[Hg] [facility] Height 2019-12-16 00:00:00 66 [in_i] [facility] BMI (Body Mass 2019-12-16 00:00:00 37.4 kg/m2 [facility] Index) Group BP Systolic 2019-12-16 00:00:00 109 mm[Hg] [facility] Body Weight 2019-12-16 00:00:00 232 [lb_av] [facility] BP Diastolic 2019-12-09 00:00:00 73 mm[Hg] [facility] Height 2019-12-09 00:00:00 66 [in_i] [facility] BMI (Body Mass 2019-12-09 00:00:00 37.4 kg/m2 [facility] Index) Group BP Systolic 2019-12-09 00:00:00 109 mm[Hg] [facility] Body Weight 2019-12-09 00:00:00 3712 [oz_av] [facility] BP Diastolic 2019-11-18 00:00:00 83 mm[Hg] [facility] Height 2019-11-18 00:00:00 66 [in_i] [facility] BMI (Body Mass 2019-11-18 00:00:00 38.4 kg/m2 [facility] Index) Group BP Systolic 2019-11-18 00:00:00 120 mm[Hg] [facility] Body Weight 2019-11-18 00:00:00 3808 [oz_av] [facility] Height 2019-10-22 00:00:00 66 [in_i] [facility] BP Diastolic 2019-08-27 00:00:00 86 mm[Hg] [facility] Height 2019-08-27 00:00:00 66 [in_i] [facility] BMI (Body Mass 2019-08-27 00:00:00 40.8 kg/m2 [facility] Index) Group BP Systolic 2019-08-27 00:00:00 128 mm[Hg] [facility] Body Weight 2019-08-27 00:00:00 4040 [oz_av] [facility] BP Diastolic 2018-12-19 00:00:00 77 mm[Hg] [facility] Height 2018-12-19 00:00:00 66 [in_i] [facility] BMI (Body Mass 2018-12-19 00:00:00 40.8 kg/m2 [facility] Index) Group BP Systolic 2018-12-19 00:00:00 118 mm[Hg] [facility] Body Weight 2018-12-19 00:00:00 4048 [oz_av] [facility] BP Diastolic 2018-09-27 00:00:00 81 mm[Hg] [facility] Height 2018-09-27 00:00:00 66 [in_i] [facility] BMI (Body Mass 2018-09-27 00:00:00 40.4 kg/m2 [facility] Index) Group BP Systolic 2018-09-27 00:00:00 118 mm[Hg] [facility] Body Weight 2018-09-27 00:00:00 4000 [oz_av] [facility] BP Diastolic 2018-09-23 00:00:00 78 mm[Hg] [facility] Height 2018-09-23 00:00:00 66 [in_i] [facility] BMI (Body Mass 2018-09-23 00:00:00 40.5 kg/m2 [facility] Index) Group BP Systolic 2018-09-23 00:00:00 108 mm[Hg] [facility] Body Weight 2018-09-23 00:00:00 4016 [oz_av] [facility] BP Diastolic 2018-09-20 00:00:00 83 mm[Hg] [facility] Height 2018-09-20 00:00:00 66 [in_i] [facility] BMI (Body Mass 2018-09-20 00:00:00 40.8 kg/m2 [facility] Index) Group BP Systolic 2018-09-20 00:00:00 118 mm[Hg] [facility] Body Weight 2018-09-20 00:00:00 4049 [oz_av] [facility] BP Diastolic 2018-08-29 00:00:00 92 mm[Hg] [facility] Height 2018-08-29 00:00:00 66 [in_i] [facility] BMI (Body Mass 2018-08-29 00:00:00 40.5 kg/m2 [facility] Index) Group BP Systolic 2018-08-29 00:00:00 108 mm[Hg] [facility] Body Weight 2018-08-29 00:00:00 4016 [oz_av] [facility] Temperature Oral (F) 2022-12-27 19:16:00 98.8 F [facility] Height 2022-12-27 19:16:00 5 [ft_i] [facility] BMI Calculated 2022-12-27 19:16:00 [facility] Weight 2022-12-27 19:16:00 [facility] Systolic (mm Hg) 2022-12-27 19:16:00 Dave [facility] Diastolic (mm Hg) 2022-12-27 19:16:00 Mem [facility] Heart Rate 2022-12-27 19:16:00 [facility] Temperature Oral (F) 2022-09-28 06:00:00 98.2 F [facility] Heart Rate 2022-09-28 06:00:00 [facility] Systolic (mm Hg) 2022-09-28 06:00:00 Dave rial [facility] Diastolic (mm Hg) 2022-09-28 06:00:00 Mem [facility] Height 2022-09-28 03:47:00 5 [ft_i] [facility] BMI Calculated 2022-09-28 03:47:00 [facility] Weight 2022-09-28 03:47:00 [facility] Systolic (mm Hg) 2022-07-02 03:14:00 Dave rial [facility] Diastolic (mm Hg) 2022-07-02 03:14:00 Mem orial [facility] Heart Rate 2022-07-02 03:14:00 [facility] Temperature Oral (F) 2022-07-02 03:14:00 98.5 F [facility] Height 2022-07-02 03:14:00 5 [ft_i] [facility] BMI Calculated 2022-07-02 03:14:00 [facility] Weight 2022-07-02 03:14:00 [facility] Diastolic (mm Hg) 2014-02-02 16:18:00 Mem [facility] Systolic (mm Hg) 2014-02-02 16:18:00 Dave rial [facility] Heart Rate 2014-02-02 16:18:00 [facility] Respitory Rate 2014-02-02 16:18:00 [facility] Respitory Rate 2014-02-02 15:21:00 Memori al [facility] Diastolic (mm Hg) 2014-02-02 15:21:00 Mem [facility] Systolic (mm Hg) 2014-02-02 15:21:00 Dave rial [facility] Heart Rate 2014-02-02 15:21:00 [facility] Temperature Oral (F) 2014-02-02 15:21:00 96.7 F [facility] Temperature Oral (F) 2014-02-02 13:27:00 97.5 F [facility] Respitory Rate 2014-02-02 13:19:00 [facility] Heart Rate 2014-02-02 13:19:00 [facility] Systolic (mm Hg) 2014-02-02 13:19:00 Dave rial [facility] Diastolic (mm Hg) 2014-02-02 13:19:00 Mem orial [facility] Temperature Oral (F) 2014-02-02 10:51:00 97.7 F [facility] Height 2014-02-02 08:51:00 167.64 cm [facility] BMI Calculated 2014-02-02 08:51:00 [facility] Weight 2014-02-02 08:51:00 [facility] Procedures Procedure Date / Time Performing Source Performed Clinician RAPID RESPONSE TEAM DOCUMENTATION 2022-05-[address] [facility] 05:01:00 Unassigned, No [place] [facility] Branch unlisted imaging order 2022-03-23 [facility] 00:00:00 Group unlisted imaging order 2021-07-06 [facility] 00:00:00 Group unlisted imaging order 2020-06-10 [facility] 00:00:00 Group XR, knee, 1 or 2 view 2020-02-02 [facility] 00:00:00 Group XR, knee, 1 or 2 view 2019-12-16 [facility] 00:00:00 Group unlisted imaging order 2019-12-16 [facility] 00:00:00 Group XR, knee, 3 view 2019-07-30 [facility] 00:[facility]:00 Group Colonoscopy 2017-09-11 [facility] 00:00:00 [facility] Esophagogastroduodenoscopy 2017-08-14 [facility] 00:[facility]00 [facility] Ankle Surgery [place] Cholecystectomy [place] Ankle Arthrosc[facility] Foot joint operations<sup>1</sup> [facility] Excision of intra-abdominal mass [facility] Cholecystectomy [facility] Plan of Care Planned Activity Planned Date Details Comments Source Diagnostic Test Pending 2022-04-24 BMP, serum or [facility] 00:00:00 plasma [code = Group BMP, serum or plasma] Diagnostic Test Pending 2022-04-24 CBC w/ auto diff [facility] 00:00:00 [code = CBC w/ Group auto diff] Instructions [facility] Encounters Start End Encounter Admission Attending Care Care Encounter Source Date/Time Date/Time Type Type Clinicians Facility Department ID 2022-12-27 2022-12-28 Emergency [facility] [id number] Memlorene 19:09:24 00:20:00 Marlon 03 l [place] Lizabeth nn 2022-12-27 2022-12-27 Outpatient SHERRELL Sims [facility] [id number] 14:09:24 19:20:00 Eligio Lin 2022-12-27 2022-12-27 Emergency E AGUSTINA SIMS [id number] [facility]FB 14:09:00 19:20:00 ELIGIO 03 2022-12-06 2022-12-06 Outpatient Shield MMG [facility] [id number] [facility] 00:00:00 00:00:00 004 [facility] 2022-12-06 2022-12-06 Leonardo MMG [place] - [id number] M atagor 00:00:00 00:00:00 Discovery josr Peters GAS REFRIGERATOR SERVICER: 600 [facility] [place], [place] [address], [facility], [place] [address] , Ph. 2022-10-20 2022-10-20 Outpatient Shield MMG MM [id number] [facility] 00:00:00 00:00:00 929 [facility] 2022-09-28 2022-09-28 Emergency [facility] [id number] Memoria 03:45:50 07:09:00 Marlon 02 [facility] 2022-09-28 2022-09-28 Emergency [facility] [id number] Memoria 03:45:50 07:09:00 Marlon 02 [facility] 2022-09-27 2022-09-28 Outpatient Alejandro Thomson [facility] [id number] 22:45:50 02:09:00 Vivek 02 2022-09-27 2022-09-28 Emergency E JULIET ALEJANDRO MHNE MHNE [id number] MHNE 22:45:00 02:09:00 02 2022-09-27 2022-09-28 Emergency E JULIET ALEJANDRO MHNE MHNE [id number] MHNE 22:45:00 02:09:00 2022-09-28 2022-09-28 Outpatient BAKHT, MHNE MHNE [id number] MHNE 01:00:00 02:00:00 [facility] 2022-09-28 2022-09-28 Outpatient BAKHT, MHNE MHNE [id number] MHNE 01:00:00 02:00:00 FARID 2022-09-14 2022-09-15 [id number] [facility] 20:30:00 01:53:[address] [place] [address] 2022-08-23 2022-08-23 Outpatient Shield MMG [facility] [id number] [place] 00:00:00 00:00:00 621 [facility] 2022-08-23 2022-08-23 Leonardo MMG [place] - [id number] M atagor 00:00:00 00:00:00 Discovery Lorraine da GAS REFRIGERATOR SERVICER: 600 [facility] - [address], [place] [address] , Ph. 2022-07-02 2022-07-02 Emergency [facility] [id number] Memoria 02:16:09 04:05:00 Straughn 01 [facility] 2022-07-02 2022-07-02 Emergency [facility] [id number] Memoria 02:16:09 04:05:00 Marlon 01 [facility] 2022-07-01 2022-07-01 Outpatient Amanda [facility] [id number] 21:16:09 23:05:00 Zelalem Ortiz 2022-05-31 2022-05-31 Orders Doctor ZELALEM [id number] Univers 00:00:00 00:00:00 Only Unassigned, NICOLE [id number] ity of [employer] [facility] [id number] Izaiah as [phone] [address] 2022-05-18 2022-05-18 Telephone Girish [facility] [id number] Univers 00:00:00 00:00:00 [facility] [id number] it y of MARIBEL [id number] Izaiah as COSME?BLEA [id number] Ak emily [address] MEDICAL OFFICE BUILDING 2022-05-16 2022-05-16 Outpatient Shield MMG MM [id number] [place] 00:00:00 00:00:00 314 [facility] 2022-05-16 2022-05-16 Leonardo MM [place] - [id number] M atagor 00:00:00 00:00:00 Discovery Lorraine da GAS REFRIGERATOR SERVICER: [address] [place], [place] [address] - [address], [place] [address] , Ph. 2022-04-24 2022-04-24 Outpatient PHUONG PETERS [facility] [id number] [place] 09:28:00 09:28:00 LEONARDO -[id number] da [facility] 2022-04-24 2022-04-24 Outpatient Shield MMG MMG [id number] [place] 00:00:00 00:00:00 220 [facility] 2022-04-24 2022-04-24 Leonardo MMG [place] - [id number] M at[place]or 00:00:00 00:00:00 Discovery josr Peters GAS REFRIGERATOR SERVICER: [address] [place], [place] [address] - [address], [place] [address] , Ph. 2022-03-23 2022-03-23 Outpatient PHUONG PETERS [facility] [id number] [place] 10:45:00 10:45:00 LEONARDO -[id number] da [facility] 2022-03-23 2022-03-23 Outpatient Shield MMG MMG [id number] [place] 00:00:00 00:00:00 119 [facility] 2022-03-23 2022-03-23 Leonardo MMG [place] - [id number] M atagor 00:00:00 00:00:00 Discovery josr Peters GAS REFRIGERATOR SERVICER: [address] [place], [place] [address]rda - [address], [place] [address] , Ph. 2022-02-21 2022-02-21 Outpatient Shield MMG MMG [id number] [place] 00:00:00 00:00:00 220 [facility] 2022-02-21 2022-02-21 Leonardo MMG [place] - [id number] M at[place]or 00:00:00 00:00:00 Discovery josr Peters GAS REFRIGERATOR SERVICER: [address] [place] [address] [place] - [address], [place] [address] , Ph. 2022-02-15 2022-02-15 Outpatient Shield MMG MMG [id number] [place] 00:00:00 00:00:00 214 [facility] 2022-01-19 2022-01-19 Outpatient EL LORRAINE, [facility] [id number] [place] 11:24:00 11:24:00 LEONARDO -[id number] da [facility] 2022-01-19 2022-01-19 Outpatient Shield MMG MMG [id number] [place] 00:00:00 00:00:00 117 [facility] 2022-01-19 2022-01-19 Leonardo MMG [place] - [id number] M at[place]or 00:00:00 00:00:00 Discovery Lorraine da GAS REFRIGERATOR SERVICER: [address] [place] [address] , Ph. 2022-01-17 2022-01-17 Outpatient Shield MMG MMG [id number] [place] 00:00:00 00:00:00 115 [facility] 2021-07-06 2021-07-06 Outpatient Shield MMG MMG [id number] [place] 02:23:00 02:23:00 504 [facility] 2021-07-06 2021-07-06 Leonardo MMG [place] - [id number] M [place] 00:00:00 00:00:00 Discovery Lorraine da GAS REFRIGERATOR SERVICER: 600 [facility] - [address] [place] [address] , Ph. 2021-03-04 2021-03-04 Outpatient Shield MMG MMG [id number] [place] 09:46:00 09:46:00 231 [facility] 2021-03-04 2021-03-04 Pascale MMG [place] - [id number] [place] 00:00:00 00:00:00 Discovery josr Cantrell LABORATORY ANIMAL FACILITY SUPERVISOR-C: 600 [facility] - [address] [place] [address] , Ph. 2021-01-06 2021-01-06 Outpatient Shield MMG MMG [id number] [place] 04:08:00 04:08:00 104 [facility] 2020-12-08 2020-12-08 Outpatient Shield MMG MMG [id number] 211 [place] 10:51:00 10:51:00 006 [facility] 2020-12-08 2020-12-08 Leonardo MMG [place] - [id number] M [facility] 00:00:00 00:00:00 Discovery Lorraine da GAS REFRIGERATOR SERVICER: 600 [facility] [place] - [address], [place] [address] , Ph. 2020-07-08 2020-07-08 Outpatient Shield MMG MMG [id number] 210 [place] 10:46:00 10:46:00 506 [facility] 2020-07-08 2020-07-08 Leonardo MM [place] - [id number] M [facility] 00:00:00 00:00:00 Discovery Lorraine da GAS REFRIGERATOR SERVICER: 600 [facility] [place] - [address], [place] [address] , Ph. 2020-06-30 2020-06-30 Outpatient Shield MMG MMG [id number] 210 [place] 03:21:00 03:21:00 505 [facility] 2020-06-30 2020-06-30 Outpatient Shield MMG MMG [id number] [place] 03:18:00 03:18:00 428 [facility] 2020-06-10 2020-06-10 Outpatient DESAI_RAKES MEHOP [facility] 111 [id number] [place] 11:25:00 11:25:00 H [id number] [facility] 2020-06-09 2020-06-09 Outpatient DESAI_RAKES MEHOP [facility] 111 [id number] [place] 09:39:00 09:39:00 H [id number] [facility] 2020-06-08 2020-06-08 Outpatient DESAI_RAKES MEHOP OKHOP 111 [id number] [place] 04:52:00 04:52:00 H [id number] [facility] 2020-06-02 2020-06-02 Outpatient Shield MMG MMG [id number] [place] 11:04:00 11:04:00 331 [facility] 2020-05-31 2020-05-31 Outpatient DESAI_MONY [facility] 111 [id number] [place] 01:47:00 01:47:00 H [id number] [facility] 2020-05-31 2020-05-31 Efrain Payton [facility] [place] - [id number] [place] 00:00:00 00:00:00 Abigail Lara MD: [id number] [facility] photocopier technician [place] [address] [facility] [address], [facility] Program [address] , Ph. 2020-05-28 2020-05-28 Outpatient DESAI_MONY [facility] 111 [id number] [place] 03:14:00 03:14:00 H [id number] [facility] 2020-05-27 2020-05-27 Outpatient Shield MMG MMG [id number] [place] 10:43:00 10:43:00 325 [facility] 2020-05-24 2020-05-24 Outpatient Shield MMG MMG [id number] 210 [place] 11:22:00 11:22:00 322 [facility] 2020-05-24 2020-05-24 Leonardo CERNAG [place] - [id number] M at[place]or 00:00:00 00:00:00 Discovery josr Peters GAS REFRIGERATOR SERVICER: 600 [facility] [address] [place] [address] , Ph. 2020-04-07 2020-04-07 Outpatient Shield MMG MMG [id number] [place] 11:12:00 11:12:00 203 [facility] 2020-04-07 2020-04-07 Outpatient Shield MMG MMG [id number] 210 [place] 11:12:00 11:12:00 205 [facility] 2020-04-07 2020-04-07 Leonardo MMG [place] - [id number] M [place] 00:00:00 00:00:00 Discovery Lorraine da GAS REFRIGERATOR SERVICER: 600 [facility] [place] - [address], [place] [address] , Ph. 2020-03-04 2020-03-04 Outpatient DESAI_RAKES MEHOP MEHOP 111 [id number] [place] 09:24:00 09:24:00 H [id number] [facility] 2020-03-04 2020-03-04 Outpatient DESAI_RAKES MEHOP MEHOP 111 [id number] [place] 09:24:00 09:24:00 H 42691 [facility] 2020-03-01 2020-03-01 Outpatient Shield MMG MMG [id number] 201 [place] 09:29:00 09:29:00 228 [facility] 2020-03-01 2020-03-01 Outpatient Shield MMG MMG [id number] 201 [place] 09:29:00 09:29:00 229 [facility] 2020-03-01 2020-03-01 Leonardo MMG [place] - [id number] M [place] 00:00:00 00:00:00 Discovery Lorraine da GAS REFRIGERATOR SERVICER: [address] [facility] [address], [place] [address] , Ph. 2020-02-24 2020-02-24 Outpatient DESAI_RAKES MEHOP OKHOP 111 [id number] [place] 05:12:00 05:12:00 H 15734 [facility] 2020-02-17 2020-02-17 Outpatient Shield MMG MMG [id number] [place] 06:49:00 06:49:00 215 [facility] 2020-02-12 2020-02-12 Outpatient Shield MMG MMG [id number] 201 [place] 09:46:00 09:46:00 210 [facility] 2020-02-12 2020-02-12 Leonardo MMG [place] - [id number] M [place] 00:00:00 00:00:00 Discovery Lorraine da GAS REFRIGERATOR SERVICER: [address] [facility] [address], [place] [address] , Ph. 2020-02-09 2020-02-09 Outpatient DESAI_RAJERO MEHOP [facility] 111 [id number] [place] 12:15:00 12:15:00 H 13922 [facility] 2020-02-09 2020-02-09 Iqra UMANA [place] - [id number] [place] 00:00:00 00:00:00 Renetta willett, PERMIT AGENT: [facility] [address] [facility] , Ph. [phone] 2020-02-08 Outpatient cMcDonald MMG [facility] [id number] [place] 11:24:00 11:24:00 206 [facility] 2020-02-03 2020-02-03 Outpatient cMcDonald MMG MM [id number]- [place] 12:09:00 12:09:00 201 [facility] 2020-02-03 2020-02-03 Tono [facility] [place] - [id number] M at[place]or 00:00:00 00:00:00 Discovery josr Mcclellan MD: [address] [place] [address] [address], [place] [address] , Ph. 2020-01-21 2020-01-21 Outpatient cMcDonald MMG MMG [id number]- [place] 02:48:00 02:48:00 118 [facility] 2020-01-18 2020-01-18 Outpatient cMcDonald MMG MMG [id number]- [place] 01:17:00 01:17:00 115 [facility] 2020-01-16 2020-01-16 Outpatient cMcDonald MMG MMG [id number]- [place] 12:04:00 12:04:00 113 [facility] 2020-01-15 2020-01-15 Outpatient DESAI_RAJERO MEHOP [facility] 111 [id number] [place] 05:47:00 05:47:00 H [id number] [facility] 2020-01-13 2020-01-13 Outpatient Shield MMG MMG [id number] 201 [place] 11:34:00 11:34:00 110 [facility] 2020-01-13 2020-01-13 Tono MMG [place] - [id number] M [place] 00:00:00 00:00:00 Discovery josr Mcclellan MD: [address] [facility] [address], [place] [address] , Ph. [phone] 2020-01-09 2020-01-09 Outpatient Shield MMG MMG [id number] 201 [place] 10:12:00 10:12:00 106 [facility] 2020-01-09 2020-01-09 Outpatient Shield MMG MMG [id number] 201 [place] 10:12:00 10:12:00 108 [facility] 2020-01-09 2020-01-09 Leonardo MMG [place] - [id number] M [place] 00:00:00 00:00:00 Discovery josr Peters GAS REFRIGERATOR SERVICER: [address] [facility] [address], [facility] [address] , Ph. 2020-01-08 2020-01-08 Outpatient Shield MMG MMG [id number] 201 [place] 03:08:00 03:08:00 105 [facility] 2019-12-25 2019-12-25 Outpatient cMcDonald MMG MMG 8784- [place] 03:52:00 03:52:00 022 [facility] 2019-12-25 2019-12-25 Outpatient cMcDonald MMG MMG [id number] [place] 03:52:00 03:52:00 023 [facility] 2019-12-23 2019-12-23 Outpatient cMcDonald MMG MMG 8784- [place] 10:29:00 10:29:00 020 [facility] 2019-12-23 2019-12-23 MARISA Gunter [id number] 00:00:00 00:00:00 (Out) [facility] [id number] Surgical [id number] [facility] [id number] [address] [place] 2019-12-23 2019-12-23 Tono MM [place] - [id number] M at[place] 00:00:00 00:00:00 Discovery josr Mcclellan MD: 600 [facility] - [address], [place] [address] , Ph. 2019-12-21 2019-12-21 Outpatient cMcDonald MMG MMG 8784- [place] 01:43:00 01:43:00 018 [facility] 2019-12-18 2019-12-18 Outpatient cMcDonald MMG MMG [place] 10:49:00 10:49:00 015 [facility] 2019-12-18 2019-12-18 Telephone Veronica [facility] [id number] 00:00:00 00:00:00 [facility] [id number] Surgical [id number] [facility] [id number] [address] [place] 2019-12-18 2019-12-18 Leonardo [facility] [place] - [id number] M at[place]or 00:00:00 00:00:00 Discovery josr Peters GAS REFRIGERATOR SERVICER: [address] [facility] [place] [address], [facility] [address] , Ph. 2019-12-16 2019-12-16 Outpatient cMcDonald MMG MM 87- [place] 10:06:00 10:06:00 013 [facility] 2019-12-16 2019-12-16 Tono [facility] [place] - [id number] M at[place]or 00:00:00 00:00:00 Discovery josr Mcclellan MD: [address] [facility] [place] - [address], [place] [address] , Ph. [phone] 2019-12-15 2019-12-15 Outpatient cMcDonald MMG MMG 8784- [place] 09:46:00 09:46:00 012 [facility] 2019-12-10 2019-12-10 Outpatient Shield [facility]G [id number] 201 [place] 09:30:00 09:30:00 [facility]8 [facility] 2019-12-09 2019-12-09 Outpatient [facility] MM [id number] 201 [place] 09:44:00 09:44:00 006 [facility] 2019-12-09 2019-12-09 Leonardo [facility] [place] - [id number] M [place] 00:00:00 00:00:00 Discovery josr Peters G[employer] RE[employer]ERATOR SERVICER: [address] [facility] [address], [place] [address] , Ph. 2019-12-08 2019-12-08 Orders Doctor ZELALEM [id number] 00:00:00 00:00:00 Only Unassigned, NICOLE [id number] [facility] [id number] 2019-12-05 2019-12-05 Hospital [facility] [id number] 12:04:47 23:59:00 [facility]counter [facility] [id number] Surgical [id number] Specialti [id number] es [address] [place] 2019-12-05 2019-12-05 Office [facility] [id number] 10:06:53 10:21:53 Visit [facility] [id number] Surgical [id number] Specialti [phone] es [address] [place] 2019-12-05 2019-12-05 [id number] [facility] 10:15:00 10:15:00 TONO villavicencio [facility] 2019-12-05 2019-12-05 Letter [facility] [id number] 00:00:00 00:00:00 (Out) [facility] [id number] Surgical [id number] Specialti [id number] es [address] [place] 2019-11-18 2019-11-18 Outpatient Shield [facility]G MM 8784-20 [address] [place] 01:50:00 01:50:[address] [facility] 2019-11-18 2019-11-18 Outpatient [facility] MM 8784-20 200 [place] 01:50:00 01:50:00 [facility] 2019-11-18 2019-11-18 Outpatient [facility] MMG 8784-20 [address] [place] 01:50:00 01:50:00 [facility] 2019-11-18 2019-11-18 Leonardo MMG [place] - [id number] M atag[place] 00:00:00 00:00:00 Discovery Lorraine da GAS REFRIGERATOR SERVICER: [address] [facility] [address] [place] [address] , Ph. 2019-10-22 2019-10-22 Outpatient [facility] MMG 8784-20 [address] [place] 06:57:00 06:57:00 [facility] 2019-10-22 2019-10-22 Leonardo MMG [place] - [id number] M [place] 00:00:00 00:00:00 Discovery Lorraine da GAS REFRIGERATOR SERVICER: [address] [facility] [place] [address] [address] , Ph. 2019-08-27 2019-08-27 Outpatient [facility] MMG 8784-20 200 [place] 04:58:00 04:58:00 624 [facility] 2019-08-27 2019-08-27 Leonardo MMG [place] - [id number] M [place] 00:00:00 00:00:00 Discovery Lorraine da GAS REFRIGERATOR SERVICER: [address] [facility] [place] - [address] [place] [address] , Ph. 2019-08-25 2019-08-25 Outpatient [facility] MMG 8784-20 200 [place] 09:54:00 09:54:00 622 [facility] 2019-07-30 2019-07-30 Outpatient [facility] MMG 8784-20 200 [place] 05:09:00 05:09:00 527 [facility] 2019-07-30 2019-07-30 Leonardo MMG [place] - [id number] M [place] 00:00:00 00:00:00 Discovery Lorraine da GAS REFRIGERATOR SERVICER: [address] [facility] [place] - [address] [address] , Ph. 2019-06-08 2019-06-08 Outpatient Shield ERYNG MM 8784-20 200 [place] 02:34:00 02:34:00 405 [facility] 2019-06-05 2019-06-05 Leonardo CERNA [place] - [id number] M [place] 00:00:00 00:00:00 Discovery josr Peters GAS REFRIGERATOR SERVICER: [address] [place] [address], [place] [address] , Ph. 2018-12-31 2018-12-31 Outpatient Shield ERYNG MM 8784-20 200 [place] 03:36:00 03:36:00 402 [facility] 2018-12-19 2018-12-19 Leonardo CERNA [place] - [id number] M [place] 00:00:00 00:00:00 Discovery josr Peters GAS REFRIGERATOR SERVICER: [address] [place] [address] [place] [address] , Ph. 2018-09-27 2018-09-27 Kate MM [place] - [id number] M [place] 00:00:00 00:00:00 Nubia [facility] GAS REFRIGERATOR SERVICER: [address] [place] [address], [place] [address] , Ph. 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 2018-09-20 2018-09-20 Kate CERNA [place] - [id number] M [place] 00:00:00 00:00:00 Nubia [facility] GAS REFRIGERATOR SERVICER: [address] [place] [address], [place] [address] , Ph. 2018-08-29 2018-08-29 Yair Mack [facility] [place] - [id number] M atagor 00:00:00 00:00:00 MD Fran: Yozons [address] Group Abigail Sadler - [address], [facility], [place] [address] , Ph. 2014-02-02 2014-02-02 [facility] [id number] Memoria 08:45:00 16:27:00 Emergency r Marlon 00 l [facility] 2014-02-02 2014-02-02 [facility] [id number] [place] 08:45:00 16:27:00 Emergency r Straughn 00 l [facility] 2014-02-02 2014-02-02 Outpatient Dee, [id number] 02:45:00 10:27:00 Amado [id number]. [id number] 00 Fernando [id number] 5.0.101 01 Results Test Description Test Time Test Comments Results Result Comments Source RADRPT 2022-09-28 05:27:45 Test Item Value Reference Range Interpretation Comme nts RADRPT (test code = RADRPT) PROCEDURE INFORMATION: [...] findings. Navin Steinberg MD On 09/28/2022 00:26:27; [id number] [id number] 05:27:45 Test Item Value Reference Range Interpretation Comments RADRPT (test code = PROCEDURE INFORMATION: RADRPT) Exam: XR Pelvis Exam date and time: [...] findings. Navin Steinberg MD On 09/28/2022 00:26:27; [id number] [facility]IMULATING [id number] 01:34:00 Test Item Value Reference Range Interpretation Comments THYROID STIMULATING HORMONE 0.434 mcIU/ML 0.340-4.820 N (test code = TSH) - CTA CHEST FOR [id number] 23:44:00 [facility] : 1985 Sex: F Name: ESPERANZA DAIGLE [facility] : 1985 Age/S: 36 / F [address] Unit #: [id number] Loc: [place] [address] Phys: Maye Victor DO Acct: [id number] Dis Date: Status: REG ER PHONE #: [phone] Exam Date: 09/14/2022 2330 FAX #: Reason: chest pain, r/o PE EXAMS: CPT: [id number] [address] Location: H3 Chest CTA , 09/14/22 TECHNIQUE: Chest CTA with and withoutcontrast was performed on a helical scanner. 2D Coronal and sagittal images acquired on the CT workstation system by the principal technologist. Volumetric imaging acquired utilizing maximum intensity [...] limits. No cardiac decompensation seen . Upper abdominalstructures visualized are unremarkable. Patient status post cholecystectomy. There is no acute osseous finding. Mild multilevel thoracic spondylosis IMPRESSION: No PE or acute cardiopulmonary process PAGE 1 Signed Report (CONTINUED) Name: ESPERANZA DAIGLE : 1985 Age/S: 36 /F [address] Unit #: [id number] Loc: [place] [address] Phys: Maye Victor DO Acct: [id number] Dis Date: Status: REG ER PHONE #: [phone] Exam Date: 09/14/2022 2338 FAX #: Reason: chest pain, r/o PE EXAMS: CPT: [id number] [place] [address] (Continued) No acute osseous finding at 4163 Reported and signed by: Ciera Slaughter M.D. CC: Maye Victor DO Technologist:Maria Ines Nunn RT(R)(CT) CTDI: DLP: Trnscb Date/Time: 09/14/2022 (6049) [email or web address] Orig Print D/T: S: 09/14/2022 (3489) PAGE 2 Signed ReportTHROMBOPLASTIN TIME [id number] 22:49:00 Test Item Value Reference Range Interpretation Comments THROMBOPLASTIN TIME PARTIAL 32.1 SECONDS 26-35 N (test code = PTT) [id number] 22:49:00 Test Item Value Reference Range Interpretation [...] TE STS AND APPROPRIATECLIN ICAL EUALUATIONS. PROTHROMBIN [id number] 22:49:00 Test Item Value Reference Range Interpretation [...] Infarction (to prevent recurrent infar ct). HCG [id number] 21:37:00 Test Item Value Reference Range Interpretation Comments HCG SERUM (test < 1 mi-IU/ML 0-6 N 0 - 6 NOT P REGNANT > 6 code = HCG) SUGGESTIVE OF E NOBLE RISES TWO FOLD EVERY 2 DAYS; S UGGEST RECONFIRMING AF TER 2 DAYS. 150,000-2 00,[address] TRIMESTER 10 ,000 - 50,000 2ND & 3R D TRIMESTER BASIC METABOLIC [id number] 21:37:00 Test Item Value Reference Range Interpretation [...] MG/DL 8.5-10.1 N = CA) TROP-I HIGH [id number] 21:37:00 Test Item Value Reference Range Interpretation [...] may varyby method. - XR CHEST 1 [id number] 21:35:00 [facility] : 1985 Sex: F Name: ESPERANZA DAIGLE [facility] : 1985 Age/S: 36 / F [address] Unit #: [id number] Loc: [place] [address] Phys: Maye Victor DO Acct: [id number] Dis Date: Status: REG ER PHONE #: [phone] Exam Date: 09/14/20222115 FAX #: Reason: chest pain EXAMS: CPT: [id number] XRCHEST 1 V 35526 Fluoro Time: DAP (Gy m2): Air Kerma [...] DAIGLE : 1985 Age/S: 36 / F [address] Unit #: [id number] Loc: [place] [address] Phys: Maye Victor DO Acct: [id number] Dis Date: Status: REG ER PHONE #: [phone] Date: 09/14/20222115 FAX #: Reason: chest pain EXAMS: CPT: [id number] XR CHEST 1 V 62543 Fluoro Time: DAP (Gy m2): Air Kerma (mGy): (Continued) Technologist: Vivek Estrada, RT(R)(CT) Trnscb Date/Time: 09/14/2022 (2134) [email or web address] Orig Print D/T: S: 09/14/2022 (2137) PAGE 2 Signed ReportCBC W/O [id number] 21:16:00 Test Item Value Reference Range Interpretation [...] Basic metabolic 2000 panel - Serum or [id number] 13:42:00 Test Item Value Reference Range Interpretation [...] code = 9.9 mg/dL 8.6-10.0 calcium level) [facility] W Auto Differential panel - [id number] 13:10:00 Test Item Value Reference Range Interpretation [...] NRBC# (test code = NRBC#) 0 K/uL [facility] + B and SARS CoV + SARS CoV 2 Ag panel, IA, upper respiratory [id number] 09:42:00 Test Item Value Reference Range Interpretation Comments RAPID SARS COV (test code = RAPID negative SARS COV) RAPID FLU A (test code = RAPID FLU negative A) RAPID FLU B (test code = RAPID FLU negative B) [facility] W Auto Differential panel - [id number] 09:30:00 Test Item Value Reference Range Interpretation Comments white blood count (test code = 8.9 K/uL 4.0-11.5 white blood count) red blood count (test code = red 4.70 M/uL 3.80-5.20 blood count) hemoglobin (test code = 14.4 g/dL 10.5-15.7 hemoglobin) hematocrit (test code = 43.4 % 34.0-50.0 hematocrit) MCV [Entitic volume] (test code = 92.3 fL 86-100 91981-8) mean corpuscular hemoglobin (test 30.6 pg 26.2-33.4 [...] 44.4-80.1 leukocytes in Blood (test code = 04158-0) Immature granulocytes [#/volume] 0.0 K/uL 0.0-0.03 in Blood (test code = 13381-5) lymphocyte% (test code = 24.1 % 10.0-50.0 lymphocyte%) mono % (test code = mono %) 6.2 % 3.6-12.0 eos % (test code = eos %) 2.7 % 0.0-5.4 Basophils/100 leukocytes in 0.4 % 0.1-1.2 Unspecified specimen (test code = 22619-9) Band form neutrophils [#/volume] 5.89 K/uL 1.56-6.13 in Blood (test code = 66553-7) Lymphocytes [#/volume] in 2.1 K/uL 1.18-3.74 Unspecified specimen by Automated count (test code = 24147-5) mono # (test code = mono #) 0.55 K/uL 0.24-0.86 eos # (test code = eos #) 0.24 K/uL 0.04-0.36 basophil # (test code = basophil 0.04 K/uL 0.01-0.08 #) NRBC% (test code = NRBC%) 0 /100 WBC 0-0.2 NRBC# (test code = NRBC#) 0 K[facility]L [facility] 1999 [facility] - Serum or Plasma 2020-12-08 09:30:00 [...] Serum or Plasma (test code = 6768-6) [facility] CenterLipid 1995 panel - Serum or [id number] 09:30:00 Test Item Value Reference Range Interpretation Comments cholesterol level (test code = 230 mg/dL 150-200 H cholesterol level) triglycerides level (test code = 149 mg/dL <150 triglycerides level) HDL cholesterol (test code = HDL 43 mg/dL >65 L cholesterol) LDL cholesterol direct (test code = 167 mg/dL <100 H LDL cholesterol direct) cholesterol risk ratio (test code = 5.348 cholesterol risk ratio) [facility] GroupUrinalysis complete W Reflex Culture panel - Urine 2020-12-08 09:30:00 Test Item Value Reference Range Interpretation Comments Color of Urine by Auto (test light yellow code = 54041-8) Appearance of Urine (test code = SL cloudy clear A 5767-9) Glucose [Presence] in Urine by negative negative Automated test strip (test code = 32586-7) Bilirubin.total [Mass/volume] in negative negative Urine (test code = 1978-6) Ketones [Mass/volume] in Urine negative negative by Automated test strip (test code = 52890-0) Specific gravity of Urine by 1.020 1.003-1.030 Automated test strip (test code = 29312-2) blood urine (test code = blood negative negative urine) pH of Urine (test code = 2756-5) 5.500 5-9 protein urine (UA) (test code = negative negative protein urine (UA)) Urobilinogen [Presence] in Urine normal 0.2-1.0 (test code = 78440-7) Nitrite [Presence] in Urine by negative negative Test strip (test code = 5802-4) Leukocyte esterase [Presence] in negative negative Urine by Automated test strip (test code = 49323-9) Erythrocytes [#/volume] in Urine =1-5 0-5 by Automated count (test code = 798-9) Leukocytes [#/area] in Urine =11-14 0-5 H sediment by Automated count (test code = 66463-2) Epithelial cells [Presence] in =6-10 0-5 Urine sediment by Light microscopy (test code = 02779-4) Bacteria identified in Urine by tntc (4 none detect H Culture (test code = 630-4) Casts [#/area] in Urine sediment =2-5 none detect by Automated count (test code = 92830-6) urine culture added? (test code yes = urine culture added?) Pathologic casts [Presence] in none seen none detect Urine by Automated (test code = 54321-9) [facility] CenterBacteria identified in Urine by [id number] 09:30:00Bacteria Ur [facility], [id number] 09:30:00 Test Item Value Reference Range Interpretation [...] Minimum inhibitory concentration (NELSON) (test code = 42592-2) cefTAZidime [Susceptibility] by <=2 Minimum inhibitory concentration (NELSON) (test code = 133-9) cefTRIAXone [Susceptibility] by <=1 Minimum inhibitory concentration (NELSON) (test code = 141-2) Ciprofloxacin [Susceptibility] by <=0.25 Minimum inhibitory concentration (NELSON) (test code = 185-9) Ampicillin+Sulbactam [Susceptibility] =16/8 by Minimum inhibitory concentration (NELSON) (test code = 32-3) Ertapenem [Susceptibility] by Minimum <=0.25 inhibitory concentration (NELSON) (test code = 16262-3) Aztreonam [Susceptibility] by Minimum <=2 inhibitory concentration (NELSON) (test code = 44-8) Cefepime [Susceptibility] by Minimum <=1 inhibitory concentration (NELSON) (test code = 6644-9) Meropenem [Susceptibility] by Minimum <=0.5 inhibitory concentration (NELSON) (test code = 6652-2) Moxifloxacin [Susceptibility] by <=1 Minimum inhibitory concentration (NELSON) (test code = 48209-3) Amikacin [Susceptibility] by Minimum <=8 inhibitory concentration (NELSON) (test code = 12-5) Piperacillin+Tazobactam =2/4 [Susceptibility] by Minimum inhibitory concentration (NELSON) (test code = 412-7) Ceftaroline [Susceptibility] by <=0.25 Minimum inhibitory concentration (NELSON) (test code = 35191-3) Tigecycline [Susceptibility] by <=1 Minimum inhibitory concentration (NELSON) (test code = 14645-5) [facility] CenterHemoglobin A1c [Mass/volume] in [id number] 00:00:00 Test Item Value Reference Range Interpretation Comments Hemoglobin A1c [Mass/volume] in Blood 5.7 % 4.0-6.0 (test code = 13350-6) [facility] CenterDifferential panel, method unspecified - [id number] 00:00:00NeutrophilsBandLymphocyteAtypical LymphMonocyteEosinophilBasophilMetamyelocyteMyelocytePromyelocyteAbs Neutrophil Count (Man)Abs Lymph Count (Man)Abs Monocyte Count (Man)Abs Eosinophil Count (Man)Abs Basophil Count (Man)Platelet EstimatePlatelet MorphologyHypochromasiaAnisocytosisTear Drop CellsStomatocytKPC Promise of Vicksburgpregnancy test, [id number] 05:20:00 Test Item Value Reference Range Interpretation Comments Choriogonadotropin ( test) negative neg [Presence] in Urine (test code = 2106-3) [facility] CenterUrinalysis macro (dipstick) panel - [id number] 17:11:00 Test Item Value Reference Range Interpretation Comments Leukocytes (test code = Trace Leukocytes) Nitrite (test code = Nitrite) negative Urobilinogen (test code = .2 Urobilinogen) Protein (test code = Protein) Negative pH (test code = pH) 5.5 Blood (test code = Blood) Negative Specific [place] (test code = 1.030 Specific [place]) Ketone (test code = Ketone) Negative Bilirubin (test code = Bilirubin) Negative Glucose (test code = Glucose) Negative Appearance (test code = Turbid Appearance) Color (test code = Color) Dark Yellow [facility] W Auto Differential panel - [id number] 03:24:00 Test Item Value Reference Range Interpretation Comments white blood count (test code = 9.8 K/uL 4.0-11.5 white blood count) red blood count (test code = red 4.89 M/uL 3.80-5.20 blood count) hemoglobin (test code = 15.2 g/dL 10.5-15.7 hemoglobin) hematocrit (test code = 44.9 % 34.0-50.0 hematocrit) MCV [Entitic volume] (test code = 91.8 fL 86-100 87356-4) mean corpuscular hemoglobin (test 31.1 pg 26.2-33.4 [...] 44.4-80.1 leukocytes in Blood (test code = 55450-2) Immature granulocytes [#/volume] 0.1 K/uL 0.0-0.03 H in Blood (test code = 08180-2) lymphocyte% (test code = 22.9 % 10.0-50.0 lymphocyte%) mono % (test code = mono %) 6.0 % 3.6-12.0 eos % (test code = eos %) 1.8 % 0.0-5.4 Basophils/100 leukocytes in 0.5 % 0.1-1.2 Unspecified specimen (test code = 09451-8) Band form neutrophils [#/volume] 6.69 K/uL 1.56-6.13 H in Blood (test code = 70083-0) Lymphocytes [#/volume] in 2.2 K/uL 1.18-3.74 Unspecified specimen by Automated count (test code = 80938-9) mono # (test code = mono #) 0.59 K/uL 0.24-0.86 eos # (test code = eos #) 0.18 K/uL 0.04-0.36 basophil # (test code = basophil 0.05 K/uL 0.01-0.08 #) NRBC% (test code = NRBC%) 0 /100 WBC 0-0.2 NRBC# (test code = NRBC#) 0 K/uL [facility] CenterDifferential panel, method unspecified - [id number] 03:24:00NeutrophilsBandLymphocyteAtypical LymphMonocyteEosinophilBasophilMetamyelocyteMyelocyteNucleated RedBlood CellAbs Neutrophil Count (Man)Abs Lymph Count (Man)Abs Monocyte Count (Man)Abs Eosinophil Count (Man)Abs Basophil Count (Man)Platelet EstimatePlatelet MorphologyHypochromasiaAnisocytosisMacrocytosisToxic GranulationToxic VacuolationAlliance Health CenterComprehensive metabolic 2000 panel - Serum or [id number] 03:24:00 Test Item Value Reference Range Interpretation [...] Serum or Plasma (test code = 6768-6) [facility] GroupLipase [Enzymatic activity/volume] in Serum or Plasma 2020-05-22 03:24:00 Test Item Value Reference Range Interpretation Comments lipase (test code = lipase) 18 U/L 13-60 [facility] Grouprapid flu (A+B)2018-09-23 08:08:00 Test Item Value Reference Range Interpretation Comments Flu (test code = Flu) negative [facility] Centerrapid strep group A, [id number] 08:08:00 Test Item Value Reference Range Interpretation Comments Strep Result (test code = Strep negative Result) [facility] Centerrapid flu (A+B)2018-09-23 08:08:00 Test Item Value Reference Range Interpretation Comments Flu (test code = Flu) negative [facility] Centerrapid strep group A, [id number] 08:08:00 Test Item Value Reference Range Interpretation Comments Strep Result (test code = Strep negative Result) [facility] GroupURINE AND [id number] 12:10:23 Test Item Value Reference Range Interpretation Comments UA Urobilinogen (test code = UA 1.0 0.1-1.0 Urobilinogen) [facility] AND [id number] 12:10:23 Test Item Value Reference Range Interpretation Comments UA Leuk Est (test Negative (02/02/14 6:10 code = UA Leuk Est) AM) [facility] AND [id number] 12:10:23 Test Item Value Reference Range Interpretation Comments UA Nitrite (test code Negative (02/02/14 6:10 = UA Nitrite) AM) [facility] AND [id number] 12:10:23 Test Item Value Reference Range Interpretation Comments UA Color (test code = Yellow *NA*(02/02/14 UA Color) 6:10 AM) [facility] AND [id number] 12:10:23 Test Item Value Reference Range Interpretation Comments UA Turbidity (test code = Clear (02/02/14 6:10 UA Turbidity) AM) [facility] AND [id number] 12:10:23 Test Item Value Reference Range Interpretation Comments UA Spec Grav (test code = UA Spec 1.025 1 Grav) [facility] AND [id number] 12:10:23 Test Item Value Reference Range Interpretation Comments UA pH (test code = UA pH) 6.0 1 5.0-8.0 [facility] AND [id number] 12:10:23 Test Item Value Reference Range Interpretation Comments UA Glucose (test code Negative (02/02/14 6:10 = UA Glucose) AM) [facility] AND [id number] 12:10:23 Test Item Value Reference Range Interpretation Comments UA Protein (test code Negative (02/02/14 6:10 = UA Protein) AM) [facility] AND [id number] 12:10:23 Test Item Value Reference Range Interpretation Comments UA Ketones (test code = UA Ketones) 15 mg/dL [facility] AND [id number] 12:10:23 Test Item Value Reference Range Interpretation Comments UA Bili (test code = Small *ABN*(02/02/14 UA Bili) 6:10 AM) [facility] AND [id number] 12:10:23 Test Item Value Reference Range Interpretation Comments UA Blood (test code = Negative (02/02/14 6:10 UA Blood) AM) [facility] AND [id number] 12:10:23 Test Item Value Reference Range Interpretation Comments UA Sq Epi (test code = None Seen (02/02/14 6:10 UA Sq Epi) AM) [facility] AND [id number] 12:10:23 Test Item Value Reference Range Interpretation Comments UA WBC (test code = UA None Seen (02/02/14 6:10 WBC) AM) [facility] AND [id number] 12:10:23 Test Item Value Reference Range Interpretation Comments Micro? (test code = Performed (02/02/14 6:10 Micro?) AM) [facility] AND [id number] 12:10:23 Test Item Value Reference Range Interpretation Comments UA RBC (test None Seen See_Comment [Automated mes mati] code = UA RBC) (02/02/14 6:10 The system w hich AM) generated this result transmitted ref erence range: <=2. The reference range was not used to int erpret this result as normal/abnormal . [facility] AND [id number] 12:10:23 Test Item Value Reference Range Interpretation Comments UA Bacteria (test code = None Seen (02/02/14 UA Bacteria) 6:10 AM) [facility] AND [id number] 12:10:23 Test Item Value Reference Range Interpretation Comments UA Urobilinogen (test code = UA 1.0 0.1-1.0 Urobilinogen) [facility] AND [id number] 12:10:23 Test Item Value Reference Range Interpretation Comments UA Leuk Est (test Negative (02/02/14 6:10 code = UA Leuk Est) AM) [facility] AND [id number] 12:10:23 Test Item Value Reference Range Interpretation Comments UA Nitrite (test code Negative (02/02/14 6:10 = UA Nitrite) AM) [facility] AND [id number] 12:10:23 Test Item Value Reference Range Interpretation Comments UA Color (test code = Yellow *NA*(02/02/14 UA Color) 6:10 AM) [facility] AND [id number] 12:10:23 Test Item Value Reference Range Interpretation Comments UA Turbidity (test code = Clear (02/02/14 6:10 UA Turbidity) AM) [facility] AND [id number] 12:10:23 Test Item Value Reference Range Interpretation Comments UA Spec Grav (test code = UA Spec 1.025 1 Grav) [facility] AND [id number] 12:10:23 Test Item Value Reference Range Interpretation Comments UA pH (test code = UA pH) 6.0 1 5.0-8.0 [facility] AND [id number] 12:10:23 Test Item Value Reference Range Interpretation Comments UA Glucose (test code Negative (02/02/14 6:10 = UA Glucose) AM) [facility] AND [id number] 12:10:23 Test Item Value Reference Range Interpretation Comments UA Protein (test code Negative (02/02/14 6:10 = UA Protein) AM) [facility] AND [id number] 12:10:23 Test Item Value Reference Range Interpretation Comments UA Ketones (test code = UA Ketones) 15 mg/dL [facility] AND [id number] 12:10:23 Test Item Value Reference Range Interpretation Comments UA Bili (test code = Small *ABN*(02/02/14 UA Bili) 6:10 AM) [facility] AND [id number] 12:10:23 Test Item Value Reference Range Interpretation Comments UA Blood (test code = Negative (02/02/14 6:10 UA Blood) AM) [facility] AND [id number] 12:10:23 Test Item Value Reference Range Interpretation Comments UA Sq Epi (test code = None Seen (02/02/14 6:10 UA Sq Epi) AM) [facility] AND [id number] 12:10:23 Test Item Value Reference Range Interpretation Comments UA WBC (test code = UA None Seen (02/02/14 6:10 WBC) AM) [facility] AND [id number] 12:10:23 Test Item Value Reference Range Interpretation Comments Micro? (test code = Performed (02/02/14 6:10 Micro?) AM) [facility] AND [id number] 12:10:23 Test Item Value Reference Range Interpretation Comments UA RBC (test code = UA None Seen (02/02/14 6:10 <=2 RBC) AM) [facility] AND [id number] 12:10:23 Test Item Value Reference Range Interpretation Comments UA Bacteria (test code = None Seen (02/02/14 UA Bacteria) 6:10 AM) [facility]akaon[facility]NTAPABWAHJ6917-[facility]-86 11:41:00 Test Item Value Reference Range Interpretation Comments Lymphocytes # (test code = Lymphocytes 3.4 1.0-5.5 #) [facility] HospitalIqijsigCCUZYTWCHX8916-41-74 11:41:00 Test Item Value Reference Range Interpretation Comments Basophils (test code = 0.3 See_Comment [Aut omated message] The Basophils) system which ge nerated this result tra nsmitted reference range : <=1.0. The reference r frankie was not used to int erpret this result as normal/abnormal . [facility]2014-12-01 11:41:00 Test Item Value Reference Range Interpretation Comments eGFR (test code = eGFR) 99 [facility]2014-12-01 11:41:00 Test Item Value Reference Range Interpretation Comments Calcium Lvl (test code = Calcium Lvl) 9.4 8.5-10.5 [facility]2014-12-01 11:41:00 Test Item Value Reference Range Interpretation Comments CO2 (test code = CO2) 26 24-32 [facility]2014-12-01 11:41:00 Test Item Value Reference Range Interpretation Comments Chloride Lvl (test code = Chloride Lvl) 101 95-109 [facility]2014-12-01 11:41:00 Test Item Value Reference Range Interpretation Comments BUN (test code = BUN) 14 7-22 [facility]2014-12-01 11:41:00 Test Item Value Reference Range Interpretation Comments Glucose Lvl (test code = Glucose Lvl) 81 70-99 [facility]2014-12-01 11:41:00 Test Item Value Reference Range Interpretation Comments Potassium Lvl (test code = Potassium 3.6 3.5-5.1 Lvl) [facility]2014-12-01 11:41:00 Test Item Value Reference Range Interpretation Comments Sodium Lvl (test code = Sodium Lvl) 138 135-145 [facility]2014-12-01 11:41:00 Test Item Value Reference Range Interpretation Comments Creatinine Lvl (test code = Creatinine 0.8 0.5-1.4 Lvl) [facility]2014-12-01 11:41:00 Test Item Value Reference Range Interpretation Comments Bili Total (test code = Bili Total) 0.5 0.2-1.3 [facility]2014-12-01 11:41:00 Test Item Value Reference Range Interpretation Comments Alk Phos (test code = Alk Phos) 60 39-136 [facility]2014-12-01 11:41:00 Test Item Value Reference Range Interpretation Comments AST (test code = AST) 15 See_Comment [Auto mated message] The system which ge nerated this result transmit karis reference range : <=37. The reference range was not used to interpr et this result as parisa l/abnormal. [facility]2014-12-01 11:41:00 Test Item Value Reference Range Interpretation Comments ALT (test code = ALT) 20 See_Comment [Auto mated message] The system which ge nerated this result transmit karis reference range : <=65. The reference range was not used to interpr et this result as parisa l/abnormal. [facility]2014-12-01 11:41:00 Test Item Value Reference Range Interpretation Comments Albumin Lvl (test code = Albumin Lvl) 4.1 3.5-5.0 [facility]2014-12-01 11:41:00 Test Item Value Reference Range Interpretation Comments Total Protein (test code = Total 8.1 6.4-8.4 Protein) [facility]2014-12-01 11:41:00 Test Item Value Reference Range Interpretation Comments B/C Ratio (test code = B/C Ratio) 18 6-25 [facility]2014-12-01 11:41:00 Test Item Value Reference Range Interpretation Comments AGAP (test code = AGAP) 14.6 10.0-20.0 [facility]2014-12-01 11:41:00 Test Item Value Reference Range Interpretation Comments A/G Ratio (test code = A/G Ratio) 1.0 0.7-1.6 [facility]2014-12-01 11:41:00 Test Item Value Reference Range Interpretation Comments Globulin (test code = Globulin) 4.0 2.0-4.0 [facility]2014-12-01 11:41:00 Test Item Value Reference Range Interpretation Comments Lipase Lvl (test code = Lipase Lvl) 125 73-393 [facility]lx[facility]mtFKNIOFCLUKDIP9173-15-60 11:41:00 Test Item Value Reference Range Interpretation Comments S Preg (test code = S Negative (02/02/14 5:41 Preg) AM) [facility] HospitalWnteefjFPTZUWUSWK4830-87-75 11:41:00 Test Item Value Reference Range Interpretation Comments RBC (test code = RBC) 4.95 4.20-5.40 [facility] HospitalAujwsskGMQSJBGFLG6144-92-24 11:41:00 Test Item Value Reference Range Interpretation Comments WBC (test code = WBC) 10.2 3.7-10.4 [facility] HospitalZovpthwMMIILFMHEW5304-07-66 11:41:00 Test Item Value Reference Range Interpretation Comments RDW (test code = RDW) 12.0 11.5-14.5 [facility] HospitalLbfdybiKCEQVXVHXO0524-83-87 11:41:00 Test Item Value Reference Range Interpretation Comments MPV (test code = MPV) 7.5 7.4-10.4 [facility] HospitalUjtbwpfOLJSHMLCUH4813-03-82 11:41:00 Test Item Value Reference Range Interpretation Comments Platelet (test code = Platelet) 272 133-450 [facility] HospitalUbnyxmaIADOWZVRPA8548-70-76 11:41:00 Test Item Value Reference Range Interpretation Comments MCV (test code = MCV) 90.1 80.0-98.0 [facility] HospitalUnopgskJIKGDDKESY6722-69-03 11:41:00 Test Item Value Reference Range Interpretation Comments Hct (test code = Hct) 44.6 36.0-48.0 [facility] HospitalOcrhqawRBWGXDZAJR9175-78-66 11:41:00 Test Item Value Reference Range Interpretation Comments MCHC (test code = MCHC) 35.1 32.0-36.0 [facility] HospitalQvsaseyXSSRWALDSH8146-13-16 11:41:00 Test Item Value Reference Range Interpretation Comments MCH (test code = MCH) 31.6 pg 27.0-31.0 [facility] HospitalRvzxivbEGYNZHWCJC4989-78-55 11:41:00 Test Item Value Reference Range Interpretation Comments Hgb (test code = Hgb) 15.7 12.0-16.0 [facility] HospitalChtmaxxYTAYQJYTNJ0989-77-87 11:41:00 Test Item Value Reference Range Interpretation Comments Basophils # (test code 0.0 See_Comment [Aut omated message] The = Basophils #) system which generated this result tra nsmitted reference range : <=0.2. The reference r frankie was not used to int erpret this result as normal/abnormal . [facility] HospitalUsqvvuuMEGLOJOHEW9936-36-89 11:41:00 Test Item Value Reference Range Interpretation Comments Monocytes # (test code 0.5 See_Comment [Aut omated message] The = Monocytes #) system which generated this result tra nsmitted reference range : <=0.8. The reference r frankie was not used to int erpret this result as normal/abnormal . [facility]2014-12-01 11:41:00 Test Item Value Reference Range Interpretation Comments eGFR (test code = eGFR) 99 [facility]2014-12-01 11:41:00 Test Item Value Reference Range Interpretation Comments Calcium Lvl (test code = Calcium Lvl) 9.4 8.5-10.5 [facility]2014-12-01 11:41:00 Test Item Value Reference Range Interpretation Comments CO2 (test code = CO2) 26 24-32 [facility]2014-12-01 11:41:00 Test Item Value Reference Range Interpretation Comments Chloride Lvl (test code = Chloride Lvl) 101 95-109 [facility]2014-12-01 11:41:00 Test Item Value Reference Range Interpretation Comments BUN (test code = BUN) 14 7-22 [facility]2014-12-01 11:41:00 Test Item Value Reference Range Interpretation Comments Glucose Lvl (test code = Glucose Lvl) 81 70-99 [facility]2014-12-01 11:41:00 Test Item Value Reference Range Interpretation Comments Potassium Lvl (test code = Potassium 3.6 3.5-5.1 Lvl) [facility]2014-12-01 11:41:00 Test Item Value Reference Range Interpretation Comments Sodium Lvl (test code = Sodium Lvl) 138 135-145 [facility]2014-12-01 11:41:00 Test Item Value Reference Range Interpretation Comments Creatinine Lvl (test code = Creatinine 0.8 0.5-1.4 Lvl) [facility] HospitalOjtqttyNHEOQLBILE8586-38-00 11:41:00 Test Item Value Reference Range Interpretation Comments Eosinophils # (test code 0.2 See_Comment [A utomated message] The = Eosinophils #) system whic h generated this result tra nsmitted reference range : <=0.5. The reference r frankie was not used to int erpret this result as normal/abnormal . [facility]2014-12-01 11:41:00 Test Item Value Reference Range Interpretation Comments Bili Total (test code = Bili Total) 0.5 0.2-1.3 [facility]2014-12-01 11:41:00 Test Item Value Reference Range Interpretation Comments Alk Phos (test code = Alk Phos) 60 39-136 [facility]2014-12-01 11:41:00 Test Item Value Reference Range Interpretation Comments AST (test code = AST) 15 <=37 [facility]2014-12-01 11:41:00 Test Item Value Reference Range Interpretation Comments ALT (test code = ALT) 20 <=65 [facility]2014-12-01 11:41:00 Test Item Value Reference Range Interpretation Comments Albumin Lvl (test code = Albumin Lvl) 4.1 3.5-5.0 [facility]2014-12-01 11:41:00 Test Item Value Reference Range Interpretation Comments Total Protein (test code = Total 8.1 6.4-8.4 Protein) [facility]2014-12-01 11:41:00 Test Item Value Reference Range Interpretation Comments B/C Ratio (test code = B/C Ratio) 18 6-25 [facility]2014-12-01 11:41:00 Test Item Value Reference Range Interpretation Comments AGAP (test code = AGAP) 14.6 10.0-20.0 [facility]2014-12-01 11:41:00 Test Item Value Reference Range Interpretation Comments A/G Ratio (test code = A/G Ratio) 1.0 0.7-1.6 [facility]2014-12-01 11:41:00 Test Item Value Reference Range Interpretation Comments Globulin (test code = Globulin) 4.0 2.0-4.0 [facility]2014-12-01 11:41:00 Test Item Value Reference Range Interpretation Comments Lipase Lvl (test code = Lipase Lvl) 125 73-393 [facility]DuyvtaaLGWLARICGFBWJ7974-27-01 11:41:00 Test Item Value Reference Range Interpretation Comments S Preg (test code = S Negative (02/02/14 5:41 Preg) AM) [facility] HospitalUusmsvpSEECVMDQEF4780-81-71 11:41:00 Test Item Value Reference Range Interpretation Comments RBC (test code = RBC) 4.95 4.20-5.40 [facility] HospitalSuxvurvMSXPDHRICB5177-88-72 11:41:00 Test Item Value Reference Range Interpretation Comments WBC (test code = WBC) 10.2 3.7-10.4 [facility] HospitalNfxhmbtHZDZOMBRZR4424-38-41 11:41:00 Test Item Value Reference Range Interpretation Comments RDW (test code = RDW) 12.0 11.5-14.5 [facility] HospitalVmnkpaeJMCDPGQHIS9831-22-33 11:41:00 Test Item Value Reference Range Interpretation Comments MPV (test code = MPV) 7.5 7.4-10.4 [facility] HospitalXvffemzUPXWUFMNPL4461-87-73 11:41:00 Test Item Value Reference Range Interpretation Comments Platelet (test code = Platelet) 272 133-450 [facility] HospitalKrdzoqbQEHIYKNMTG7688-82-43 11:41:00 Test Item Value Reference Range Interpretation Comments MCV (test code = MCV) 90.1 80.0-98.0 [facility] HospitalXfhleopZYHQLAHXVS4952-59-07 11:41:00 Test Item Value Reference Range Interpretation Comments Hct (test code = Hct) 44.6 36.0-48.0 [facility] HospitalHqjskgaARRPGNAEBC0831-77-05 11:41:00 Test Item Value Reference Range Interpretation Comments MCHC (test code = MCHC) 35.1 32.0-36.0 [facility] HospitalKcwdaqcXZECTVHENC5876-67-43 11:41:00 Test Item Value Reference Range Interpretation Comments Segs (test code = Segs) 59.3 45.0-75.0 [facility] HospitalIwftjnoEESJDGSSFS1667-48-19 11:41:00 Test Item Value Reference Range Interpretation Comments MCH (test code = MCH) 31.6 pg 27.0-31.0 [facility] HospitalNtiyhjkJQZUYMBIHC4023-17-40 11:41:00 Test Item Value Reference Range Interpretation Comments Hgb (test code = Hgb) 15.7 12.0-16.0 [facility] HospitalCihfwwxBTQOFPJKZM6853-12-80 11:41:00 Test Item Value Reference Range Interpretation Comments Basophils # (test code = Basophils #) 0.0 <=0.2 [place] [address]-12-01 11:41:00 Test Item Value Reference Range Interpretation Comments Monocytes # (test code = Monocytes #) 0.5 <=0.8 [facility] HospitalPmytzmbTUSCPHXOFV2056-60-15 11:41:00 Test Item Value Reference Range Interpretation Comments Eosinophils # (test code = Eosinophils 0.2 <=0.5 #) [facility] HospitalZkocdktKJAMMFXFES2907-79-59 11:41:00 Test Item Value Reference Range Interpretation Comments Segs (test code = Segs) 59.3 45.0-75.0 [facility] HospitalMvebwwfWCASKVGVNS9446-16-03 11:41:00 Test Item Value Reference Range Interpretation Comments Lymphocytes (test code = Lymphocytes) 33.4 20.0-40.0 [facility] HospitalKqfxuszJNJREIENXG8034-30-70 11:41:00 Test Item Value Reference Range Interpretation Comments Eosinophils (test code = Eosinophils) 2.2 <=4.0 [facility] HospitalVkcchkuIGBBFOWRCC4704-63-08 11:41:00 Test Item Value Reference Range Interpretation Comments Monocytes (test code = Monocytes) 4.8 2.0-12.0 [facility] HospitalXsjyxzcVQDQATSTOX8001-36-90 11:41:00 Test Item Value Reference Range Interpretation Comments Segs-Bands # (test code = Segs-Bands #) 6.1 1.5-8.1 [facility] HospitalChaakbzSTUIFZANCU9455-57-52 11:41:00 Test Item Value Reference Range Interpretation Comments Lymphocytes (test code = Lymphocytes) 33.4 20.0-40.0 [facility] HospitalRdoxrerCLWCKBQINJ7076-39-72 11:41:00 Test Item Value Reference Range Interpretation Comments Lymphocytes # (test code = Lymphocytes 3.4 1.0-5.5 #) [facility] HospitalPaiialqIKVKOPUAYH1671-75-96 11:41:00 Test Item Value Reference Range Interpretation Comments Basophils (test code = Basophils) 0.3 <=1.0 [facility] HospitalSgporhoFLHSTYOGLA4034-09-05 11:41:00 Test Item Value Reference Range Interpretation Comments Eosinophils (test code = 2.2 See_Comment [A utomated message] The Eosinophils) system which ge nerated this result tra nsmitted reference range : <=4.0. The reference r frankie was not used to int erpret this result as normal/abnormal . [facility] HospitalPdwqmdqTVCBAZTNFW8924-24-09 11:41:00 Test Item Value Reference Range Interpretation Comments Monocytes (test code = Monocytes) 4.8 2.0-12.0 [facility] HospitalGsowjmhDNQDTEZOZV9629-83-15 11:41:00 Test Item Value Reference Range Interpretation Comments Segs-Bands # (test code = Segs-Bands #) 6.1 1.5-8.1 [facility] Notes Date/Time Note Provider Source 2022-09-28 [id number]:15:00PROCEDURE [facility] 00:15:00 INFORMATION: Exam: XR Pelvis Exam date and [...] findings. Navin Steinberg MD On 09/28/2022 00:26:27; UI-[id number] ReportsLNDiagnostic ReportsTXTAVAvailable for patient [id number] ReportsLNIEMelroseWakefield HospitalEwlgwiahd7658-92-28K54:30:00 2022-09-14 [id number]:13:[address] [facility] 21:13:00 [facility] ([facility])EMERGENCY PROVIDER REPORTREPORT#:[id number] REPORT STATUS: SignedDATE:09/14/22 TIME:2112 PATIENT: ESPERANZA DAIGLE UNIT #: [id number]#: [id number] ROOM/BED:: 83 AGE: 36 SEX: F PCP PHYS: No Primary or Family PhysicianSERVICE AUTHOR: Maye Victor DO * ALL edits or amendments must be made on the electronic/computer document * HPI-Palpit/Arrhyth GeneralInitial Greet Date/Time 09/14/222033 PresentationChief Complaint Chest pain, Palpitations Free Text HPI NotesFree Text HPI NotesThe patient is a 36-year-old female with a past medical history significant for GERD and insomnia who is presenting with palpitations and chest pain which 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 The patient placed her finger on a pulse ox and her heart rate fluctuated between 140 and 150. This lasted for several minutes and it decreased to the low 100s. It was associated with dizziness. She denies experiencing a syncopal event. She denies any history of fever, runny nose, cough, congestion, recent caffeine use or herbal supplements, history of DVT/PE or shortness of breath. Review of Systems ROS StatementsAll systems rev neg except as marked. Past Medical History - AdultStated Complaint CHEST PAIN, NAUSEA, DIZZYAllergiesCoded Allergies:No Known Allergies (09/14/22) Additional Medical HistoryGERD, INSOMNIA, DEPRESSION, ADHDAdditional Surgical HistoryCHOLECYSTECTOMYAlcohol Use Denies EtOH useDrug Use Denies recreational drugsSmoking status for patients 13 years old or older: Never Smoker Physical Exam Vital SignsVital SignsFirst Documented: Result Date Time Pulse Ox 98 09/14 2042 B/P 140/73 09/14 2042 B/P Mean 95 09/14 2042 O2 Delivery Room air 09/14 2042 Temp 37.6 09/14 2042 Pulse 116 09/14 2042 Resp 18 09/14 2042 Last Documented: Result Date Time Pulse Ox 95 09/15 015 B/P 120/66 09/15 152 B/P Mean 84 09/15 152 O2 Delivery Room air 09/15 152 Temp 37.2 09/15 152 Pulse 74 09/15 152 Resp 16 09/15 152 Review of Vital Signs Reviewed Free Text PE NotesFree Text PE NotesFree Text PE NotesPhysical ExamGeneral/Const General/Const Awake, Alert, No acute distress, Well appearingMS Head Head Atraumatic, NormocephalicEyes Eyes Atraumatic, No scleral icterusEars/Nose/Throat Ears/Nose/Throat Atraumatic, Airway patent, Mucous membranes moist, Pharynx NLMS Neck Neck Atraumatic, Supple, No meningismus, Full range of motionResp/Chest Respiratory/Chest Atraumatic, Breath sounds NL, Breath sounds = bilat, No respiratory distressCardiovascular Cardiovascular Heart rate NL, Regular rhythm, Heart sounds NL, No gallop, No murmursAbdomen/GI Abdomen/GI Atraumatic, Soft, Non-tender, McBurney's non-tender, No guardingMS Back Back Atraumatic, No muscle spasmMS Upper Extrem Upper Extremity/MS Atraumatic, Inspection NL, No swellingMS Lower Extrem Lower Ext/Pelvis/MS Atraumatic, Inspection NL, No swelling, Non-tenderSkin Skin Atraumatic, Color NL, No rash, WarmNeurologic Neurologic Oriented X3, Speech NL, No motor deficits, No sensory deficits Interpretation Diagnostics Lab Results InterpretationResultsLaboratory Tests 09/14/222105:[Embedded Image Not Available] 09/14/222104:[Embedded Image Not Available]Laboratory Tests: 09/15 09/14 09/14 0101 2202 2106 Chemistry TSH (0.340 - 4.820 mcIU/ML) 0.434 Coagulation INR (0.8 - 1.2 INR Unit) 1.04 PTT (Monik) (26 - 35 SECONDS) 32.1 PT Patient/Control Mix (9.3 - 12.9 SECONDS) 11.6 D-Dimer (215 - 500 ng/mLFEU) 1196 *H [...] Glomerular Filtr Rate (>60 estGFR) >=60 max estimate Glucose (70 - 110 MG/DL) 96 Calcium (8.5 - 10.1 MG/DL) 9.5 Troponin I High Sens (0 - 54 ng/L) 3.6 Recent Impressions:RADIOLOGY - XR CHEST 1 V 09/14 2110 Report Impression - Status: SIGNED Entered: 09/14/20222137 IMPRESSION: No acute radiographic abnormality.Impression By: [email or web address] - Cleve Olivares M.D.CAT SCAN - CTA CHEST FOR PE 09/14 2324 Report Impression - Status: SIGNED Entered: 09/14/2022 2347 IMPRESSION: No PE or acute cardiopulmonary process No acute osseous finding Impression By: [email or web address] - Ciera Slaughter M.D. ECG #1 InterpretationText/Dict NoteEKG is independently interpreted by myself. Sinus tachycardia with a heart rateof 117. Normal intervals, no STEMI.Date 09/14/22Time 2040Interpreted by ED physicianRate 117 Re-Evaluation MDM Free Text MDM NotesFree Text MDM NotesDifferential diagnosis includes but is not limited to STEMI, NSTEMI, CHF exacerbation, aortic dissection, cardiac tamponade, arrhythmia, PE, Pneumonia, Pneumothorax, pancreatitis, Boerhhaave s syndrome, cholecystitis, pancreatitis. I reviewed and I independently interpreted the patient's laboratory results. Re-Evaluation/Progress #1Text/Dict NoteThe patient's palpitations have resolved. I reviewed her event monitor and there is no evidence of an arrhythmia. Shared decision-making was performed with the patient regarding an admission to the hospital for observation versus following up with cardiology as an outpatient. I independently reviewed her laboratory results. She would prefer to be discharged home. Return precautions were discussed.Time of Re-Eval 0140Re-Eval Status Improved ED CourseMedication(s) OrderedMedication(s) Ordered:Diagnostic Agents Sig/Britney Start time Last Medication Dose Route Stop Time Status Admin Iopamidol 0 .STK-MED ONE 09/14 2316 DC 09/14 .ROUTE 2338 Electrolytic, Caloric, And Abhinav Sig/Britney Start time Last Medication Dose Route Stop Time Status Admin Sodium Chloride 100 ML .STK-MED ONE 09/14 2340 DC 09/14 IV 09/14 2340 2340 MDM-ComplexityRuled Out DiagnosesPneumothorax, PE Patient Discharge Departure Vital Signs/ConditionVital SignsFirst Documented: Result Date Time Pulse Ox 98 [...] Pulse 74 09/15 0153 Resp 16 09/15 0153 All vital signs available at the time of this entry have been reviewed. Clinical ImpressionClinical ImpressionPrimary Impression: Palpitations Disposition DecisionDischarge )( Discharged to Home Yes )( Time 0145 )( Date 09/15/22 Discharge/Care PlanReferralsProvider Referral: Yordan Gimenez MD Address: [address] [place] [address] at [address] RPT #: [id number] OF REPORTEDEmergency department jenfdl7081-22-50W53:13:00L.[id number]- 0241AVAvailable for patient jaxxKOSDOZWZYPHENY5931-58-37M86:38:39 2014-02-02 3473-85-62K09:13:38EXAM: CT [facility]BDOM[facility] AND [facility] 09:13:38 PELVIS WITH CONTRAST DATE: 02/02/2014 at [facility] 0830 hours. INDICATION: 28-year-old female complaining of generalized abdominal pain with history of 'masses in my stomach.' ADDITIONAL INFORMATION: None. COMPARISON: None. TECHNIQUE: Helical acquisition of the abdomen and pelvis was obtained from the lung bases to the symphysis pubis after administration of oral contrast, and after uneventful administration of 101 mL of Omnipaque 350 intravenous contrast in the venous and delayed phases of contrast enhancement. Axial, sagittal and coronal images were interpreted. FINDINGS: The lung bases, pleura and visualized portions of the heart and pericardium are clear. The liver, bile ducts, spleen, pancreas, and adrenals show no significant abnormalities. [...] or retroperitoneal lymphadenopathy is seen. Skeletal structures demonstrate mild degenerative changes in the lower thoracic spine, but no worrisome lesions. No subcutaneous/soft tissue abnormalities. IMPRESSION:No acute intra-abdominal abnormality.[id number] ReportsLNDiagnostic ReportsTXTAVAvailable for patient [id number] ReportsLNIELas [facility]2014-12-01T17:06:00
[2023-01-30] MEDS ORDERED: MORPHINE 4 MG/ML SYR ONE ×2 (12:30→13:41)
[2023-01-30] MEDS ORDERED: NA CHLORIDE 0.9% 1,000 ML ONE ×2 (12:30→13:41)
[2023-01-30] MEDS ORDERED: FAMOTIDINE 20 MG/2 ML VIAL IV ONE (12:30)
[2023-01-30] MEDS ORDERED: ONDANSETRON 4 MG/2 ML VIAL ONE (12:30)
[2023-01-30 12:41] LABS: Specific Gravity 1.018 (1.005-1.030)
[2023-01-30 12:48] LABS: Specific Gravity 1.018 (1.005-1.030); Urine Bacteria 20-50 /HPF (<20); Urine Bilirubin NEGATIVE (Negative); Urine Blood Negative (Negative); Urine Clarity Turbid (Clear); Urine Color Light-Yellow (Yellow); Urine Glucose NEGATIVE (Negative); Urine Protein NEGATIVE (Negative); Urine RBC <5 /HPF (None Seen); Urine Urobilinogen Normal (Normal)
[2023-01-30 12:48] LABS: Absolute Lymphocytes (CBC) 1.7 K/uL (0.7-4.9); Hematocrit 39.9 % (36.0-45.0); MCV 89.4 fL (80-100); MPV 6.8 fL (7.6-11.3); Platelets 325 thou/uL (152-406); RBC Red Blood Cell Count 4.46 M/uL (3.86-4.86)
[2023-01-30 13:03] LABS: Albumin 3.5 g/dL (3.4-5.0); Bilirubin Total 0.2 mg/dL (0.2-1.0); Protein, Total 7.7 g/dL (6.4-8.2)
[2023-01-30 13:05] LABS: Potassium 3.8 mEq/L (3.5-5.1)
--- NOTE | 2023-01-30 13:12 | RAD REPORT ---
EXAM DESCRIPTION: CTAbdomen Pelvis W Contrast - 01/30/2023 12:56 pm CLINICAL HISTORY: Abdominal pain. ABD PAIN COMPARISON: <Comparisons> TECHNIQUE: Biphasic CT imaging of the abdomen and pelvis was performed with 100 ml non-ionic IV cont rast. All CT scans are performed using dose optimization technique as appropriate and may include automated exposure control or mA/KV adjustment according to patient size. FINDINGS: The lung bases are clear. The liver demonstrates fatty infiltration. Cholecystectomy clips. Spleen, pancreas, adrenal glands an d kidneys are within normal limits. No bowel obstruction, free air, free fluid or abscess. There is a mild colonic wall thickening patter n. The appendix is normal. No evidence of significant lymphadenopathy. No suspicious bony findings. IMPRESSION: Mild nonspecific colitis is suspected.
--- NOTE | 2023-01-30 13:40 | ER ---
Nurse's Notes [facility] Name: Vicenta Daigle Age: 37 yrs Sex: Female : 1985 Arrival Date: 01/30/2023 Time: 11:39 Bed 15 Private MD: Diagnosis: Noninfective gastroenteritis and colitis, unspecified;Left sided colitis without complications;Left upper quadrant abdominal tenderness;Epigastric abdominal tenderness;Fever, unspecified Presentation: 01/30 11:52 Chief complaint: Patient states: "I've had LUQ/LLQ pain, N/V, and low grade fever since mb9 yesterday. The GI center told me to come in and get looked at". Coronavirus screen: Vaccine status: Patient reports being unvaccinated. Ebola Screen: No symptoms or risks identified at this time. Initial Sepsis Screen: Does the patient meet any 2 criteria? HR > 90 bpm. Does the patient have a suspected source of infection? No. Patient's initial sepsis screen is negative. Risk Assessment: Do you want to hurt yourself or someone else? Patient reports no desire to harm self or others. Onset of symptoms was January 30, 2023. 11:52 Method Of Arrival: Ambulatory mb9 11:52 Acuity: SEAN 3 mb9 Triage Assessment: 11:56 General: Appears uncomfortable, Behavior is crying. Pain: Complains of pain in abdomen mb9 Pain radiates to LUQ and LLQ Quality of pain is described as throbbing, Is continuous. EENT: No signs and/or symptoms were reported regarding the EENT system. Neuro: Galvez Agitation-Sedation Scale (RASS): 0 - Alert and Calm Level of Consciousness is awake, alert, obeys commands, Oriented to person, place, time, situation, Appropriate for age. Cardiovascular: Heart tones S1 S2 present Patient's skin is warm and dry. Respiratory: Airway is patent Respiratory effort is even, unlabored, Respiratory pattern is regular, symmetrical, Breath sounds are clear bilaterally. GI: Abdomen is round non-distended, Bowel sounds present X 4 quads. Abd is soft Abdomen is tender to palpation in left upper quadrant and left lower quadrant Reports nausea, vomiting. : No signs and/or symptoms were reported regarding the genitourinary system. Derm: Skin is pink, warm \\T\\ dry. Musculoskeletal: Range of motion: intact in all extremities. Historical: - Allergies: 11:54 Bleach (Sodium Hypochlorite); mb9 - Home Meds: 11:54 Ambien 12.5 Oral tab 1 tab once daily [Active]; pantoprazole oral [Active]; mb9 - PMHx: 11:54 adhd; Anxiety; depressive disorder; gastric ulcer; GERD; hiatal hernia; ibs; insomnia; mb9 - PSHx: 11:54 Cholecystectomy; Exploratory laparotomy; mb9 - Immunization history:: Adult Immunizations up to date. - Social history:: Smoking status: Patient denies any tobacco usage or history of. Screenin:57 [facility] ED Fall Risk Assessment (Adult) History of falling in the last 3 months, mb9 including since admission No falls in past 3 months (0 pts) Confusion or Disorientation No (0 pts) Intoxicated or Sedated No (0 pts) Impaired Gait No (0 pts) Mobility Assist Device Used No (0 pt) Altered Elimination No (0 pt) Score/Fall Risk Level 0 - 2 = Low Risk Oriented to surroundings, Maintained a safe environment, Educated pt \\T\\ family on fall prevention, incl call for assistance when getting out of bed. Abuse screen: Denies threats or abuse. Nutritional screening: No deficits noted. Tuberculosis screening: No symptoms or risk factors identified. Assessment: 11:57 Reassessment: see triage assessment. mb9 14:00 Reassessment: Patient and/or family updated on plan of care and expected duration. Pain mb9 level reassessed. Patient is alert, oriented x 3, equal unlabored respirations, skin warm/dry/pink. Patient states feeling better. Patient states symptoms have improved. Vital Signs: 11:52 BP 118 / 75; Pulse 103; Resp 18; Temp 99.6; Pulse Ox 98% on R/A; Weight 106.59 kg; mb9 Height 5 ft. 6 in. ; Pain 10/10; 13:14 BP 120 / 81; Pulse 89; Resp 16; Pulse Ox 100% ; mb9 14:09 BP 117 / 78; Pulse 84; Resp 16; Pulse Ox 100% on R/A; mb9 15:13 BP 119 / 63; Pulse 78; Resp 18; Pulse Ox 100% ; mb9 11:52 Body Mass Index 37.93 (106.59 kg, 167.64 cm) mb9 11:52 Pain Scale: Adult mb9 ED Course: 11:41 Patient arrived in ED. rg4 11:48 Steve Mcallister MD is Attending Physician. ava 11:52 Rocio Mustafa RN is Primary Nurse. mb9 11:52 Arm band placed on. mb9 11:54 Triage completed. mb9 11:57 Placed in gown. Bed in low position. Call light in reach. Side rails up X 1. Client mb9 placed on continuous cardiac and pulse oximetry monitoring. NIBP monitoring applied. 11:57 No provider procedures requiring assistance completed. mb9 12:25 Inserted saline lock: 20 gauge in right antecubital area, using aseptic technique. mb9 Blood collected. 12:36 CBC with Diff Sent. mb9 12:36 CMP Sent. mb9 12:36 Lipase Sent. mb9 12:36 Test, Urine Sent. mb9 12:36 Urinalysis w/ reflexes Sent. mb9 12:58 CT Abd/Pelvis - IV Contrast Only In Process Unspecified. EDMS 13:37 Han Fiore MD is Referral Physician. ava 15:13 IV discontinued, intact, bleeding controlled, No redness/swelling at site. Pressure mb9 dressing applied. Administered Medications: 12:25 Drug: NS 0.9% IV 1000 ml IV at 1 bolus Per protocol; 1000 mL bolus Route: IV; Rate: 1 mb9 bolus; Site: right antecubital; 14:07 Follow up: Response: No adverse reaction; IV Status: Completed infusion mb9 12:25 Drug: Ondansetron IVP 4 mg IVP once; over 2 minutes Route: IVP; Site: right antecubital;mb9 14:08 Follow up: Response: No adverse reaction mb9 12:29 Drug: morphine IVP or IV 4 mg IVP once over 4 mins Route: IVP; Infused Over: 4 mins; mb9 Site: right antecubital; 14:08 Follow up: Response: No adverse reaction mb9 12:36 Drug: Famotidine IVP 20 mg IVP once; dilute with 10 mL 0.9% NaCl; give over 2 minutes mb9 Route: IVP; Site: right antecubital; 14:08 Follow up: Response: No adverse reaction mb9 13:34 Drug: metroNIDAZOLE IVPB 500 mg 100 ml IVPB at 200 ml/hr once over 30 mins Volume: 100 mb9 ml; Route: IVPB; Rate: 200 ml/hr; Infused Over: 30 mins; Site: right antecubital; 15:09 Follow up: Response: No adverse reaction; IV Status: Completed infusion mb9 13:34 Drug: NS 0.9% IV 1000 ml IV at 1 bolus Per protocol; 1000 mL bolus Route: IV; Rate: 1 mb9 bolus; Site: right antecubital; 15:09 Follow up: Response: No adverse reaction; IV Status: Completed infusion mb9 13:47 Drug: morphine IVP or IV 4 mg IVP once over 4 mins Route: IVP; Infused Over: 4 mins; mb9 Site: right antecubital; 15:09 Follow up: Response: No adverse reaction mb9 13:47 Not Given (Patient Refused): ondansetron 4 mg IVP once; over 2 minutes mb9 14:07 Drug: Ciprofloxacin IVPB 400 mg 200 ml IVPB once over 60 mins Volume: 200 ml; Route: mb9 IVPB; Infused Over: 60 mins; Site: right antecubital; 14:07 Follow up: Response: No adverse reaction; IV Status: Completed infusion mb9 Medication: 12:36 VIS not applicable for this client. mb9 Outcome: 13:39 Discharge ordered by MD. escalante 15:15 Discharged to home ambulatory, with family, mb9 15:15 Condition: stable 15:15 Discharge instructions given to patient, family, Instructed on discharge instructions, follow up and referral plans. Demonstrated understanding of instructions, follow-up care, medications, Prescriptions given X 4, 15:23 Patient left the ED. mb9 Signatures: Dispatcher [employer] EDAR Steve Mcallister MD MD cha Garcia, Rubi rg4 Rocio Mustafa RN RN mb9 Corrections: (The following items were deleted from the chart) 13:37 13:14 Pulse 89bpm; Resp 16bpm; Pulse Ox 100%; mb9 mb9
--- NOTE | 2023-01-30 13:40 | EDPHYS ---
Physician Documentation [facility] Name: Vicenta Daigle Age: 37 yrs Sex: Female : 1985 Arrival Date: 01/30/2023 Time: 11:39 Bed 15 Private MD: ED Physician Steve Mcallister HPI: 01/30 13:21 This 37 yrs old Female presents to ER via Ambulatory with complaints of ava Abdominal Pain. 13:21 The patient presents with abdominal pain in the upper abdomen, in the left upper ava quadrant. Historical: - Allergies: 11:54 Bleach (Sodium Hypochlorite); mb9 - Home Meds: 11:54 Ambien 12.5 Oral tab 1 tab once daily [Active]; pantoprazole oral [Active]; mb9 - PMHx: 11:54 adhd; Anxiety; depressive disorder; gastric ulcer; GERD; hiatal hernia; ibs; insomnia; mb9 - PSHx: 11:54 Cholecystectomy; Exploratory laparotomy; mb9 - Immunization history:: Adult Immunizations up to date. - Social history:: Smoking status: Patient denies any tobacco usage or history of. ROS: 13:27 Constitutional: Negative for fever, chills, and weight loss, Eyes: Negative for injury, ava pain, redness, and discharge, ENT: Negative for injury, pain, and discharge, Neck: Negative for injury, pain, and swelling, Cardiovascular: Negative for chest pain, palpitations, and edema, Respiratory: Negative for shortness of breath, cough, wheezing, and pleuritic chest pain, Back: Negative for injury and pain, : Negative for injury, bleeding, discharge, and swelling, MS/Extremity: Negative for injury and deformity, Skin: Negative for injury, rash, and discoloration, Neuro: Negative for headache, weakness, numbness, tingling, and seizure, Psych: Negative for depression, anxiety, suicide ideation, homicidal ideation, and hallucinations, Allergy/Immunology: Negative for hives, rash, and allergies, Endocrine: Negative for neck swelling, polydipsia, polyuria, polyphagia, and marked weight changes, Hematologic/Lymphatic: Negative for swollen nodes, abnormal bleeding, and unusual bruising, 13:27 Abdomen/GI: Positive for abdominal pain, nausea and vomiting, nausea, diarrhea, Exam: 13:27 Constitutional: This is a well developed, well nourished patient who is awake, alert, ava and in no acute distress. Head/Face: Normocephalic, atraumatic. Eyes: Pupils equal round and reactive to light, extra-ocular motions intact. Lids and lashes normal. Conjunctiva and sclera are non-icteric and not injected. Cornea within normal limits. Periorbital areas with no swelling, redness, or edema. ENT: Nares patent. No nasal discharge, no septal abnormalities noted. Tympanic membranes are normal and external auditory canals are clear. Oropharynx with no redness, swelling, or masses, exudates, or evidence of obstruction, uvula midline. Mucous membranes moist. Neck: Trachea midline, no thyromegaly or masses palpated, and no cervical lymphadenopathy. Supple, full range of motion without nuchal rigidity, or vertebral point tenderness. No Meningismus. Chest/axilla: Normal chest wall appearance and motion. Nontender with no deformity. No lesions are appreciated. Cardiovascular: Regular rate and rhythm with a normal S1 and S2. No gallops, murmurs, or rubs. Normal PMI, no JVD. No pulse deficits. Respiratory: Lungs have equal breath sounds bilaterally, clear to auscultation and percussion. No rales, rhonchi or wheezes noted. No increased work of breathing, no retractions or nasal flaring. Back: No spinal tenderness. No costovertebral tenderness. Full range of motion. Skin: Warm, dry with normal turgor. Normal color with no rashes, no lesions, and no evidence of cellulitis. MS/ Extremity: Pulses equal, no cyanosis. Neurovascular intact. Full, normal range of motion. Neuro: Awake and alert, GCS 15, oriented to person, place, time, and situation. Cranial nerves II-XII grossly intact. Motor strength 5/5 in all extremities. Sensory grossly intact. Cerebellar exam normal. Normal gait. Psych: Awake, alert, with orientation to person, place and time. Behavior, mood, and affect are within normal limits. 13:27 Abdomen/GI: Inspection: abdomen appears normal, Bowel sounds: normal, Palpation: mild abdominal tenderness, in the left upper quadrant, Liver: no appreciated palpable abnormalities, Hernia: not appreciated, Vital Signs: 11:52 BP 118 / 75; Pulse 103; Resp 18; Temp 99.6; Pulse Ox 98% on R/A; Weight 106.59 kg; mb9 Height 5 ft. 6 in. ; Pain 10/10; 13:14 BP 120 / 81; Pulse 89; Resp 16; Pulse Ox 100% ; mb9 14:09 BP 117 / 78; Pulse 84; Resp 16; Pulse Ox 100% on R/A; mb9 15:13 BP 119 / 63; Pulse 78; Resp 18; Pulse Ox 100% ; mb9 11:52 Body Mass Index 37.93 (106.59 kg, 167.64 cm) mb9 11:52 Pain Scale: Adult mb9 MDM: 11:48 Patient medically screened. [facility] 13:30 Differential diagnosis: Nonspecific abd pain, gastritis, pancreatitis, diverticulitis, ava viral gastroenteritis, gastroenteritis, bowel obstruction, diverticulitis, gastritis, gastroesophageal reflux disease, Mesenteric ischemia or infarction, non-specific abd pain, Peptic Ulcer Disease, Pyelonephritis, urinary tract infection. Data reviewed: vital signs, nurses notes, lab test result(s), radiologic studies, CT scan. Consideration of Admission/Observation Escalation of care including admission/observation considered. I considered the following discharge prescriptions or medication management in the emergency department Medications were administered in the Emergency Department. See MAR. Independent interpretation of the following test(s) in the Emergency Department CT Scan: My interpretation is ct abd/pel mild colitis. Test considered but Not performed: EKG: no ekg. Care significantly affected by the following chronic conditions: Obesity, adhd, anxiety, depression, gastric ulcer, hiatal hernia. 01/30 12:13 Order name: CBC with Diff; Complete Time: 13:19 [facility] 01/30 12:13 Order name: CMP; Complete Time: 13:19 [facility] 01/30 12:13 Order name: Lipase; Complete Time: 13:19 [facility] 01/30 12:13 Order name: Test, Urine; Complete Time: 13:19 [facility] 01/30 12:13 Order name: Urinalysis w/ reflexes; Complete Time: 13:19 [facility] 01/30 13:20 Order name: Stool Culture [facility] 01/30 12:13 Order name: CT Abd/Pelvis - IV Contrast Only; Complete Time: 13:19 [facility] 01/30 12:13 Order name: IV Saline Lock; Complete Time: 12:36 [facility] 01/30 12:13 Order name: Labs collected and sent; Complete Time: 12:36 ava Administered Medications: 12:25 Drug: NS 0.9% IV 1000 ml IV at 1 bolus Per protocol; 1000 mL bolus Route: IV; Rate: 1 mb9 bolus; Site: right antecubital; 14:07 Follow up: Response: No adverse reaction; IV Status: Completed infusion mb9 12:25 Drug: Ondansetron IVP 4 mg IVP once; over 2 minutes Route: IVP; Site: right antecubital;mb9 14:08 Follow up: Response: No adverse reaction mb9 12:29 Drug: morphine IVP or IV 4 mg IVP once over 4 mins Route: IVP; Infused Over: 4 mins; mb9 Site: right antecubital; 14:08 Follow up: Response: No adverse reaction mb9 12:36 Drug: Famotidine IVP 20 mg IVP once; dilute with 10 mL 0.9% NaCl; give over 2 minutes mb9 Route: IVP; Site: right antecubital; 14:08 Follow up: Response: No adverse reaction mb9 13:34 Drug: metroNIDAZOLE IVPB 500 mg 100 ml IVPB at 200 ml/hr once over 30 mins Volume: 100 mb9 ml; Route: IVPB; Rate: 200 ml/hr; Infused Over: 30 mins; Site: right antecubital; 15:09 Follow up: Response: No adverse reaction; IV Status: Completed infusion mb9 13:34 Drug: NS 0.9% IV 1000 ml IV at 1 bolus Per protocol; 1000 mL bolus Route: IV; Rate: 1 mb9 bolus; Site: right antecubital; 15:09 Follow up: Response: No adverse reaction; IV Status: Completed infusion mb9 13:47 Drug: morphine IVP or IV 4 mg IVP once over 4 mins Route: IVP; Infused Over: 4 mins; mb9 Site: right antecubital; 15:09 Follow up: Response: No adverse reaction mb9 13:47 Not Given (Patient Refused): ondansetron 4 mg IVP once; over 2 minutes mb9 14:07 Drug: Ciprofloxacin IVPB 400 mg 200 ml IVPB once over 60 mins Volume: 200 ml; Route: mb9 IVPB; Infused Over: 60 mins; Site: right antecubital; 14:07 Follow up: Response: No adverse reaction; IV Status: Completed infusion mb9 Disposition Summary: 11/28/23 13:39 Discharge Ordered Notes: Location: Home [facility] Problem: new ava Symptoms: have improved ava Condition: Stable ava Diagnosis - Noninfective gastroenteritis and colitis, unspecified ava - Left sided colitis without complications ava - Left upper quadrant abdominal tenderness ava - Epigastric abdominal tenderness ava - Fever, unspecified ava Followup: ava - With: Private Physician - When: 2 - 3 days - Reason: Recheck today's complaints, Continuance of care, Re-evaluation by your physician Followup: ava - With: Han Fiore MD - When: 2 - 3 days - Reason: Recheck today's complaints, Continuance of care, Re-evaluation by your physician Discharge Instructions: - Discharge Summary Sheet ava - Abdominal Pain, Adult ava - Food Choices to Help Relieve Diarrhea, Adult ava - Diarrhea, Adult ava - Fever, Adult ava - Abdominal Pain, Adult, [id number] ava - Diarrhea, Adult, [id number] ava - Colitis [facility] Forms: - Medication Reconciliation Form [facility] - Thank You Letter ava - Antibiotic Education ava - Prescription Opioid Use ava - Patient Portal Instructions [facility] - Leadership Thank You Letter [facility] - Work release form mb9 Prescriptions: - ondansetron 4 mg Oral Tablet,disintegrating - take 1 tablet ORAL route every 6-8 hours as needed for nausea and vomiting; 20 ava tablet; Refills: 0, Product Selection Permitted - Cipro 250 mg Oral tablet - take 1 tablet ORAL route every 12 hours; 14 tablet; Refills: 0, Product ava Selection Permitted - Flagyl 500 mg Oral tablet - take 1 tablet ORAL route every 8 hours for 10 days; 21 tablet; Refills: 0, [facility] Product Selection Permitted - Xanax 0.5 mg Oral Tablet - take 1 tablet ORAL route every 8 hours As needed; 20 tablet; Refills: 0, [facility] Product Selection Permitted - dicyclomine 10 mg/5 mL Oral solution - take 10 milliliters ORAL route 4 times per day; 200 milliliter; Refills: 0, [facility] Product Selection Permitted Signatures: Dispatcher [employer] Steve Chirinos MD MD cha Breneman, Rocio Acuna RN RN mb9
[2023-01-30] MEDS ORDERED: METRONIDAZOLE 500mg IVPB 500 MG/100 ML BAG IV ONE (13:41)
[2023-01-30] MEDS ORDERED: CIPROFLOXACIN 400mg IV 400 MG/200 ML BAG IV ONE (13:41)
[2023-01-30 16:02] VITALS: TEMP 99.6
[2023-01-30 16:03] VITALS: O2SAT 100
[2023-01-30 16:05] VITALS: BP 119/63
== END 2023-01-30 15:23 | disposition home or self-care (01) ==
LOC: ER 11:39
DX: K52.9 Noninfective gastroenteritis and colitis, unspecified (principal); K52.89 Other specified noninfective gastroenteritis and colitis; R10.812 Left upper quadrant abdominal tenderness; R10.816 Epigastric abdominal tenderness; R50.9 Fever, unspecified; R11.2 Nausea with vomiting, unspecified
CPT/HCPCS: 96365; 96361; 85025; 81001; 36415; 81025; 83690; 80053; 74177; 96375; 99284; 96366; Q9967; J2405; J0744; J7030 ×2

== ENCOUNTER → 2023-05-11 | Emergency (ER) | payer OTHER ==
[~2023-05-11] MED LIST: ACETAMINOPHEN 500 MG TAB ONE; CIPROFLOXACIN HCL 500 MG TAB ONE; DICYCLOMINE HCL 20 MG/2 ML AMP IM ONE; FAMOTIDINE 20 MG/2 ML VIAL IV ONE; METRONIDAZOLE 500mg IVPB 500 MG/100 ML BAG IV ONE; MORPHINE 4 MG/ML SYR ONE; NA CHLORIDE 0.9% 1,000 ML ONE; ONDANSETRON 4 MG/2 ML VIAL ONE
[2023-05-11 10:07] LABS: Absolute Basophils 0.1 K/uL (0-0.5); Absolute Lymphocytes (CBC) 1.7 K/uL (0.7-4.9); Basophils % 0.8 % (0-1.3); Hematocrit 36.8 % (36.0-45.0); Lymphocytes % 20.4 % (15.3-44.8); MCV 86.5 fL (80-100); MPV 6.7 fL (7.6-11.3); Platelets 352 thou/uL (152-406); RBC Red Blood Cell Count 4.26 M/uL (3.86-4.86)
[2023-05-11 10:11] LABS: Specific Gravity 1.025 (1.005-1.030)
[2023-05-11 10:18] LABS: Specific Gravity 1.025 (1.005-1.030); Urine Bacteria <20 /HPF (<20); Urine Bilirubin NEGATIVE (Negative); Urine Blood Negative (Negative); Urine Clarity Extremely Turbid (Clear); Urine Color Light-Yellow (Yellow); Urine Glucose NEGATIVE (Negative); Urine Mucus Slight /HPF (None Seen); Urine Protein NEGATIVE (Negative); Urine RBC <5 /HPF (None Seen); Urine Urobilinogen Normal (Normal); Urine pH 5.5 (5.0-7.0)
[2023-05-11 10:25] LABS: Albumin 3.3 g/dL (3.4-5.0); Albumin/Globulin Ratio 0.8 (1.1-1.8); Anion Gap 7.7 mEq/L (5.0-15.0); Bilirubin Total 0.3 mg/dL (0.2-1.0); Potassium 3.7 mEq/L (3.5-5.1); Protein, Total 7.3 g/dL (6.4-8.2)
--- NOTE | 2023-05-11 10:43 | RAD REPORT ---
EXAM DESCRIPTION: CTAbdomen Pelvis W Contrast - 05/11/2023 10:22 am CLINICAL HISTORY: Abdominal pain. ABD PAIN COMPARISON: Abdomen Pelvis W Contrast dated 01/30/2023; Abdomen Pelvis W Contrast dated 12/29/19 23; Abdomen Pelvis W Contrast dated 11/12/2022; Abdomen Pelvis W Contrast dated 04/13/2022 TECHNIQUE: Biphasic CT imaging of the abdomen and pelvis was performed with 100 ml non-ionic IV cont rast. All CT scans are performed using dose optimization technique as appropriate and may include automated exposure control or mA/KV adjustment according to patient size. FINDINGS: The lung bases are clear.Cholecystectomy clips. The liver, spleen, pancreas, adrenal glands and kidneys are within normal limits. No bowel obstruction, free air, free fluid or abscess. Colon is decompressed with mild wall thickenin g. Colitis is possible but not definitive. The appendix is normal. No evidence of significant lympha denopathy. No suspicious bony findings. IMPRESSION: Mild colitis is possible but not definitive.
--- NOTE | 2023-05-11 12:04 | ER ---
Nurse's Notes [facility] Name: Vicenta Daigle Age: 37 yrs Sex: Female : 1985 Arrival Date: 05/11/2023 Time: 08:40 Bed 17 Private MD: Diagnosis: Abdominal pain, Generalized;Noninfective gastroenteritis and colitis, unspecified Presentation: 05/10 09:08 Chief complaint: N?D and RUQ pain that radiates to back since last night. Coronavirus hb screen: Client presents with at least one sign or symptom that may indicate coronavirus-19. Provider contacted for isolation considerations. Ebola Screen: No symptoms or risks identified at this time. Initial Sepsis Screen: Does the patient meet any 2 criteria? HR > 90 bpm. No. Patient's initial sepsis screen is negative. Does the patient have a suspected source of infection? No. Patient's initial sepsis screen is negative. Risk Assessment: Do you want to hurt yourself or someone else? Patient reports no desire to harm self or others. Onset of symptoms was May 10, 2023. 09:08 Method Of Arrival: Ambulatory 09:08 Acuity: SEAN 3 hb Triage Assessment: 09:09 General: Appears in no apparent distress. ill, Behavior is calm, cooperative. Pain: hb Pain currently is 7 out of 10 on a pain scale. Neuro: Level of Consciousness is awake, alert, obeys commands, Oriented to person, place, time, situation. Cardiovascular: Patient's skin is warm and dry. Respiratory: Respiratory effort is even, unlabored, Respiratory pattern is regular, symmetrical. GI: Reports upper abdominal pain, diarrhea, nausea. Historical: - Allergies: 09: Bleach (Sodium Hypochlorite); hb - Home Meds: 09:09 Wellbutrin XL 150 mg Oral Tb24 1 tab once daily [Active]; pantoprazole oral [Active]; hb Effexor 150 Oral tab daily [Active]; Ambien 12.5 Oral tab 1 tab once daily [Active]; - PMHx: 09:09 Anxiety; depressive disorder; gastric ulcer; GERD; hiatal hernia; ibs; insomnia; adhd; hb - PSHx: 09:09 Cholecystectomy; Exploratory laparotomy; hb - Immunization history:: Adult Immunizations up to date, Client reports having NOT received the Covid vaccine. Flu vaccine is up to date. - Social history:: Smoking status: Patient/guardian denies using tobacco. - Family history:: not pertinent. Screenin:[address] [facility] ED Fall Risk Assessment (Adult) Score/Fall Risk Level 0 - 2 = Low Risk nj1 Oriented to surroundings, Maintained a safe environment, Hourly rounding (assess needs \T\ fall precautionary measures) done. Abuse screen: Denies threats or abuse. Denies injuries from another. Nutritional screening: No deficits noted. Tuberculosis screening: No symptoms or risk factors identified. Assessment: 09:45 General: Appears in no apparent distress. uncomfortable, Behavior is calm, cooperative, nj1 appropriate for age. 09:45 Pain: Complains of pain in right upper quadrant Pain currently is 7 out of 10 on a pain nj1 scale. Neuro: Level of Consciousness is awake, alert, obeys commands, Oriented to person, place, time, situation. Cardiovascular: Patient's skin is warm and dry. Respiratory: Airway is patent Respiratory effort is even, unlabored. GI: Reports upper abdominal pain, nausea. 11:30 Reassessment: Patient appears in no apparent distress at this time. No changes from nj1 previously documented assessment. Patient and/or family updated on plan of care and expected duration. Pain level reassessed. Patient is alert, oriented x 3, equal unlabored respirations, skin warm/dry/pink. 15:41 Reassessment: Patient states feeling better. Patient states symptoms have improved. kd3 General: Appears in no apparent distress. Behavior is calm, cooperative. Vital Signs: 09:08 BP 122 / 72; Pulse 97; Resp 16; Temp 99.2(O); Pulse Ox 99% on R/A; Weight 108.86 kg hb (R); Height 5 ft. 6 in. ; Pain 7/10; 11:30 BP 99 / 47; Pulse 79; Resp 16; Pulse Ox 99% ; Pain 7/10; nj1 15:31 BP 103 / 62; Pulse 74; Resp 19; Pulse Ox 98% on R/A; kd3 09:08 Body Mass Index 38.74 (108.86 kg, 167.64 cm) hb 09:08 Pain Scale: Adult hb 11:30 Pain Scale: Adult nj1 ED Course: 08:43 Patient arrived in ED. rg4 08:43 Steve Mcallister MD is Attending Physician. ava 09:09 Triage completed. hb 09:09 Arm band placed on. hb 09:09 Client placed on continuous cardiac and pulse oximetry monitoring. NIBP monitoring hb applied. 09:25 Marlene Odell RN is Primary Nurse. nj1 09:50 Inserted saline lock: 22 gauge in right antecubital area, using aseptic technique. nj1 Blood collected. 10:05 Patient has correct armband on for positive identification. Bed in low position. Call nj1 light in reach. Provided Education on: call light, fall precautions. 10:24 CT Abd/Pelvis - IV Contrast Only In Process Unspecified. EDMS 12:02 Han iFore MD is Referral Physician. [facility] 12:10 Report given to Ambika PARR. nj1 15:41 No provider procedures requiring assistance completed. IV discontinued, intact, kd3 bleeding controlled, No redness/swelling at site. Pressure dressing applied. Administered Medications: 09:50 Drug: NS 0.9% IV 1000 ml IV at 1 bolus Per protocol; 1000 mL bolus Route: IV; Rate: 1 nj1 bolus; Site: right antecubital; 09:50 Drug: Ondansetron IVP 4 mg IVP once; over 2 minutes Route: IVP; Site: right antecubital;nj1 11:31 Follow up: Response: Nausea unchanged nj1 09:52 Drug: Famotidine IVP 20 mg IVP once; dilute with 10 mL 0.9% NaCl; give over 2 minutes nj1 Route: IVP; Site: right antecubital; 11:32 Follow up: Response: No adverse reaction nj1 09:54 Drug: morphine IVP or IV 4 mg IVP once over 4 mins Route: IVP; Infused Over: 4 mins; nj1 Site: right antecubital; 11:31 Follow up: Response: No adverse reaction; Pain is unchanged, physician notified nj1 12:24 Drug: Acetaminophen PO 1000 mg PO once Route: PO; kd3 12:25 Drug: metroNIDAZOLE IVPB 500 mg 100 ml IVPB at 200 ml/hr once over 30 mins Volume: 100 kd3 ml; Route: IVPB; Rate: 200 ml/hr; Infused Over: 30 mins; Site: right antecubital; 12:25 Drug: Ciprofloxacin PO 500 mg PO once Route: PO; kd3 12:25 Drug: NS 0.9% IV 1000 ml IV at 1 bolus Per protocol; 1000 mL bolus Route: IV; Rate: 1 kd3 bolus; Site: right antecubital; 13:22 Drug: Dicyclomine IM 20 mg IM once Route: IM; Site: left ventrogluteal; kd3 Medication: 15:41 VIS not applicable for this client. kd3 Outcome: 12:03 Discharge ordered by . ava 15:41 Discharged to home ambulatory, kd3 15:41 Condition: stable 15:41 Discharge instructions given to patient, Instructed on discharge instructions, follow up and referral plans. medication usage, Demonstrated understanding of instructions, follow-up care, medications, Prescriptions given X 4, 15:41 Patient left the ED. kd3 Signatures: Dispatcher [employer] EDMS Steve Mcallister MD MD cha Baxter, Heather, RN RN Carisa Carver4 Ambika Lopez RN RN kd3 Marlene Odell RN RN nj1
--- NOTE | 2023-05-11 12:04 | EDPHYS ---
Physician Documentation [facility] Name: Vicenta Daigle Age: 37 yrs Sex: Female : 1985 Arrival Date: 05/11/2023 Time: 08:40 Bed 17 Private MD: ED Physician Steve Mcallister HPI: 05/10 11:54 This 37 yrs old Female presents to ER via Ambulatory with complaints of ava Abdominal Pain. 11:54 The patient presents with abdominal pain in the right upper quadrant, abdominal ava distention. Onset: The symptoms/episode began/occurred today. The symptoms do not radiate. Associated signs and symptoms: Pertinent positives: nausea and vomiting. The symptoms are described as crampy, dull. Modifying factors: The symptoms are alleviated by nothing, the symptoms are aggravated by nothing. Severity of pain: At its worst the pain was moderate in the emergency department the pain is unchanged. The patient has experienced similar episodes in the past, multiple times. Historical: - Allergies: 09:09 Bleach (Sodium Hypochlorite); hb - Home Meds: 09:09 Wellbutrin XL 150 mg Oral Tb24 1 tab once daily [Active]; pantoprazole oral [Active]; hb Effexor 150 Oral tab daily [Active]; Ambien 12.5 Oral tab 1 tab once daily [Active]; - PMHx: 09:09 Anxiety; depressive disorder; gastric ulcer; GERD; hiatal hernia; ibs; insomnia; adhd; hb - PSHx: 09:09 Cholecystectomy; Exploratory laparotomy; hb - Immunization history:: Adult Immunizations up to date, Client reports having NOT received the Covid vaccine. Flu vaccine is up to date. - Social history:: Smoking status: Patient/guardian denies using tobacco. - Family history:: not pertinent. ROS: 11:54 Constitutional: Negative for fever, chills, and weight loss, Eyes: Negative for injury, ava pain, redness, and discharge, ENT: Negative for injury, pain, and discharge, Neck: Negative for injury, pain, and swelling, Cardiovascular: Negative for chest pain, palpitations, and edema, Respiratory: Negative for shortness of breath, cough, wheezing, and pleuritic chest pain, Back: Negative for injury and pain, : Negative for injury, bleeding, discharge, and swelling, MS/Extremity: Negative for injury and deformity, Skin: Negative for injury, rash, and discoloration, Neuro: Negative for headache, weakness, numbness, tingling, and seizure, Psych: Negative for depression, anxiety, suicide ideation, homicidal ideation, and hallucinations, Allergy/Immunology: Negative for hives, rash, and allergies, Endocrine: Negative for neck swelling, polydipsia, polyuria, polyphagia, and marked weight changes, Hematologic/Lymphatic: Negative for swollen nodes, abnormal bleeding, and unusual bruising, 11:54 Abdomen/GI: Positive for abdominal pain, nausea and vomiting, abdominal cramps, abdominal distension, of the right upper quadrant and right lower quadrant, Exam: 11:54 Constitutional: This is a well developed, well nourished patient who is awake, alert, ava and in no acute distress. Head/Face: Normocephalic, atraumatic. Eyes: Pupils equal round and reactive to light, extra-ocular motions intact. Lids and lashes normal. Conjunctiva and sclera are non-icteric and not injected. Cornea within normal limits. Periorbital areas with no swelling, redness, or edema. ENT: Nares patent. No nasal discharge, no septal abnormalities noted. Tympanic membranes are normal and external auditory canals are clear. Oropharynx with no redness, swelling, or masses, exudates, or evidence of obstruction, uvula midline. Mucous membranes moist. Neck: Trachea midline, no thyromegaly or masses palpated, and no cervical lymphadenopathy. Supple, full range of motion without nuchal rigidity, or vertebral point tenderness. No Meningismus. Chest/axilla: Normal chest wall appearance and motion. Nontender with no deformity. No lesions are appreciated. Cardiovascular: Regular rate and rhythm with a normal S1 and S2. No gallops, murmurs, or rubs. Normal PMI, no JVD. No pulse deficits. Respiratory: Lungs have equal breath sounds bilaterally, clear to auscultation and percussion. No rales, rhonchi or wheezes noted. No increased work of breathing, no retractions or nasal flaring. Back: No spinal tenderness. No costovertebral tenderness. Full range of motion. Skin: Warm, dry with normal turgor. Normal color with no rashes, no lesions, and no evidence of cellulitis. MS/ Extremity: Pulses equal, no cyanosis. Neurovascular intact. Full, normal range of motion. Neuro: Awake and alert, GCS 15, oriented to person, place, time, and situation. Cranial nerves II-XII grossly intact. Motor strength 5/5 in all extremities. Sensory grossly intact. Cerebellar exam normal. Normal gait. Psych: Awake, alert, with orientation to person, place and time. Behavior, mood, and affect are within normal limits. 11:54 Abdomen/GI: Inspection: abdomen appears normal, Bowel sounds: normal, Palpation: mild abdominal tenderness, in the right upper quadrant and right lower quadrant, Liver: no appreciated palpable abnormalities, Hernia: not appreciated, Vital Signs: 09:08 BP 122 / 72; Pulse 97; Resp 16; Temp 99.2(O); Pulse Ox 99% on R/A; Weight 108.86 kg hb (R); Height 5 ft. 6 in. ; Pain 7/10; 11:30 BP 99 / 47; Pulse 79; Resp 16; Pulse Ox 99% ; Pain 7/10; nj1 15:31 BP 103 / 62; Pulse 74; Resp 19; Pulse Ox 98% on R/A; kd3 09:08 Body Mass Index 38.74 (108.86 kg, 167.64 cm) hb 09:08 Pain Scale: Adult hb 11:30 Pain Scale: Adult nj1 MDM: 09:06 Patient medically screened. [facility] 12:00 Differential diagnosis: diverticulitis, gastritis, Mesenteric ischemia or infarction, ava non-specific abd pain, pancreatitis, Peptic Ulcer Disease, Peritonitis, Pyelonephritis, urinary tract infection. Data reviewed: vital signs, nurses notes, lab test result(s), radiologic studies, CT scan. Consideration of Admission/Observation Escalation of care including admission/observation considered. I considered the following discharge prescriptions or medication management in the emergency department Medications were administered in the Emergency Department. See MAR. Test considered but Not performed: EKG: NO EKG. Care significantly affected by the following chronic conditions: Obesity, ANXIETY, DEPRESSION, GERD, HIATAL HERNIA, ADHD. 05/10 08:44 Order name: CBC with Diff; Complete Time: 11:35 [facility] 05/10 08:44 Order name: CMP; Complete Time: 11:35 [facility] 05/10 08:44 Order name: Lipase; Complete Time: 11:35 [facility] 05/10 08:44 Order name: Test, Urine; Complete Time: 11:35 [facility] 05/10 08:44 Order name: Urinalysis w/ reflexes; Complete Time: 11:35 [facility] 05/10 08:44 Order name: CT Abd/Pelvis - IV Contrast Only; Complete Time: 11:35 [facility] 05/10 08:44 Order name: IV Saline Lock; Complete Time: 10:02 [facility] 05/10 08:44 Order name: Labs collected and sent; Complete Time: 10:02 [facility] Administered Medications: 09:50 Drug: NS 0.9% IV 1000 ml IV at 1 bolus Per protocol; 1000 mL bolus Route: IV; Rate: 1 nj1 bolus; Site: right antecubital; 09:50 Drug: Ondansetron IVP 4 mg IVP once; over 2 minutes Route: IVP; Site: right antecubital;nj1 11:31 Follow up: Response: Nausea unchanged nj1 09:52 Drug: Famotidine IVP 20 mg IVP once; dilute with 10 mL 0.9% NaCl; give over 2 minutes nj1 Route: IVP; Site: right antecubital; 11:32 Follow up: Response: No adverse reaction nj1 09:54 Drug: morphine IVP or IV 4 mg IVP once over 4 mins Route: IVP; Infused Over: 4 mins; nj1 Site: right antecubital; 11:31 Follow up: Response: No adverse reaction; Pain is unchanged, physician notified nj1 12:24 Drug: Acetaminophen PO 1000 mg PO once Route: PO; kd3 12:25 Drug: metroNIDAZOLE IVPB 500 mg 100 ml IVPB at 200 ml/hr once over 30 mins Volume: 100 kd3 ml; Route: IVPB; Rate: 200 ml/hr; Infused Over: 30 mins; Site: right antecubital; 12:25 Drug: Ciprofloxacin PO 500 mg PO once Route: PO; kd3 12:25 Drug: NS 0.9% IV 1000 ml IV at 1 bolus Per protocol; 1000 mL bolus Route: IV; Rate: 1 kd3 bolus; Site: right antecubital; 13:22 Drug: Dicyclomine IM 20 mg IM once Route: IM; Site: left ventrogluteal; kd3 Disposition Summary: 05/11/23 12:03 Discharge Ordered Notes: Location: Home ava Problem: new ava Symptoms: have improved ava Condition: Stable ava Diagnosis - Abdominal pain, Generalized ava - Noninfective gastroenteritis and colitis, unspecified ava Followup: ava - With: Private Physician - When: 2 - 3 days - Reason: Recheck today's complaints, Continuance of care, Re-evaluation by your physician Followup: ava - With: Han Fiore MD - When: 2 - 3 days - Reason: Recheck today's complaints, Re-evaluation by your physician Discharge Instructions: - Discharge Summary Sheet ava - Abdominal Pain, Adult ava - Food Choices to Help Relieve Diarrhea, Adult ava - Abdominal Pain, Adult, [id number] ava - Colitis [facility] Forms: - Medication Reconciliation Form [facility] - Thank You Letter ava - Antibiotic Education ava - Prescription Opioid Use ava - Patient Portal Instructions ava - Leadership Thank You Letter ava - Work release form eb Prescriptions: - ondansetron 4 mg Oral Tablet,disintegrating - take 1 tablet ORAL route every 8-12 hours for 5 days as needed for nausea and ava vomiting; 20 tablet; Refills: 0, Product Selection Permitted - Flagyl 500 mg Oral tablet - take 1 tablet ORAL route every 8 hours for 7 days; 30 tablet; Refills: 0, [facility] Product Selection Permitted - Protonix 40 mg Oral Tablet - take 1 tablet ORAL route once daily; 30 tablet; Refills: 0, Product Selection [facility] Permitted - Cipro 500 mg Oral Tablet - take 1 tablet ORAL route every 12 hours for 7 days; 14 tablet; Refills: 0, [facility] Product Selection Permitted - dicyclomine 10 mg/5 mL Oral solution - take 10 milliliters ORAL route 4 times per day; 200 milliliter; Refills: 0, [facility] Product Selection Permitted Signatures: Dispatcher [employer] Steve Chirinos MD MD cha Baxter, Heather RN Ambika Gregory RN RN kd3 Marlene Odell RN RN nj1 Corrections: (The following items were deleted from the chart) 09:33 08:45 Abdomen Limited+[id number].RAD.BRZ ordered. REA LUCIA
[2023-05-11 16:35] VITALS: BP 103/62; TEMP 99.2; O2SAT 98
== END ==
LOC: ER 08:40
DX: K52.9 Noninfective gastroenteritis and colitis, unspecified (principal); Z28.310 Unvaccinated for COVID-19; Z91.048 Other nonmedicinal substance allergy status
CPT/HCPCS: 85025; 81001; 36415; 81025; 83690; 80053; 74177; 96375; 96372; 96374; 99284; Q9967; J0500; J2405; J7030 ×2

== ENCOUNTER 2023-08-01 15:00 | Emergency (ER) | payer OTHER ==
[2023-08-01] MEDS ORDERED: ONDANSETRON 4 MG/2 ML VIAL ONE (15:25)
[2023-08-01] MEDS ORDERED: MORPHINE 4 MG/ML SYR ONE ×2 (15:25→16:32)
[2023-08-01] MEDS ORDERED: NA CHLORIDE 0.9% 1,000 ML ONE (15:26)
[2023-08-01 15:39] LABS: Absolute Eosinophils 0.1 K/uL (0-0.5); Absolute Lymphocytes (CBC) 1.8 K/uL (0.7-4.9); Absolute Monocytes 0.4 K/uL (0.1-1.3); Absolute Neutrophil 6.9 K/uL (1.8-8.0); Basophils % 0.5 % (0-1.3); Eosinophils % 0.8 % (0-4.4); Hematocrit 43.5 % (36.0-45.0); Hemoglobin 14.4 g/dL (12.0-15.0); Lymphocytes % 19.5 % (15.3-44.8); MCH 29.1 pg (27.0-35.0); MCHC 33.2 g/dL (32.0-36.0); MCV 87.9 fL (80-100); Monocytes % 4.7 % (3.3-12.3); Neutrophils % 74.5 % (41.7-73.7); Platelets 389 thou/uL (152-406); RBC Red Blood Cell Count 4.95 M/uL (3.86-4.86); Red Cell Distribution Width 14.5 % (12.1-15.2)
[2023-08-01 15:40] LABS: Specific Gravity 1.013 (1.005-1.030)
[2023-08-01 15:42] LABS: Specific Gravity 1.013 (1.005-1.030); Sqamous Epithelial <5 /HPF (None Seen); Urine Bacteria <20 /HPF (<20); Urine Bilirubin NEGATIVE (Negative); Urine Blood Negative (Negative); Urine Clarity Turbid (Clear); Urine Color Light-Yellow (Yellow); Urine Culture Reflex Order NOT NEEDED; Urine Glucose NEGATIVE (Negative); Urine Ketones NEGATIVE (Negative); Urine Microscopic Reflex YN ORDER UMIC; Urine Mucus Slight /HPF (None Seen); Urine Nitrite NEGATIVE (Negative); Urine Protein NEGATIVE (Negative); Urine RBC <5 /HPF (None Seen); Urine Urobilinogen Normal (Normal); Urine WBC <5 /HPF (<5)
[2023-08-01 16:05] LABS: ALT/SGPT 27 U/L (13-56); Albumin/Globulin Ratio 0.9 (1.1-1.8); Alkaline Phosphatase 63 U/L (45-117); Anion Gap 9.7 mEq/L (5.0-15.0); BUN Blood Urea Nitrogen 12 mg/dL (7-18); Bicarbonate 23 mEq/L (21-32); Bilirubin Total 0.6 mg/dL (0.2-1.0); Globulin 4.6 g/dL (2.3-3.5); Glomerular Filtration Rate 114 ml/min (=/>90); Glucose Level 118 mg/dL (74-106); Lipase 22 U/L (13-75); Potassium 3.7 mEq/L (3.5-5.1); Protein, Total 8.6 g/dL (6.4-8.2); Sodium Level 135 mEq/L (136-145)
[2023-08-01 16:06] LABS: AST/SGOT < 10 U/L (15-37)
--- NOTE | 2023-08-01 16:14 | RAD REPORT ---
EXAM DESCRIPTION: RAD - Abdomen Single View - 08/01/2023 3:52 pm CLINICAL HISTORY: Abdominal pain FINDINGS: The bowel gas pattern is unremarkable with moderate amount of stool throughout the colon. No significant abnormal calcification is displayed. Surgical clips right upper quadrant
--- NOTE | 2023-08-01 16:28 | ER ---
Nurse's Notes [facility] Name: Vicenta Daigle Age: 37 yrs Sex: Female : 1985 Arrival Date: 08/01/2023 Time: 15:00 Bed 2 Private MD: Diagnosis: Irritable bowel syndrome, gastroenteritis Presentation: 07/31 15:21 Chief complaint: Patient states: "I've had upper abdominal pain for the past 3 days and mb9 it got worse today. I started having N/V/D today as well.". Coronavirus screen: Vaccine status: Patient reports being unvaccinated. Ebola Screen: No symptoms or risks identified at this time. Initial Sepsis Screen: Does the patient meet any 2 criteria? HR > 90 bpm. No. Patient's initial sepsis screen is negative. Does the patient have a suspected source of infection? No. Patient's initial sepsis screen is negative. Risk Assessment: Do you want to hurt yourself or someone else? Patient reports no desire to harm self or others. Onset of symptoms was August 01, 2023. 15:21 Method Of Arrival: Ambulatory mb9 15:21 Acuity: SEAN 3 mb9 Triage Assessment: 15:22 General: Appears uncomfortable, Behavior is cooperative. Pain: Complains of pain in mb9 abdomen Pain does not radiate. Pain currently is 8 out of 10 on a pain scale. Quality of pain is described as sharp, Pain began suddenly. EENT: No signs and/or symptoms were reported regarding the EENT system. Neuro: Galvez Agitation-Sedation Scale (RASS): 0 - Alert and Calm Level of Consciousness is awake, alert, obeys commands, Oriented to person, place, time, situation, Appropriate for age. Cardiovascular: Patient's skin is warm and dry. Respiratory: Airway is patent Respiratory effort is even, unlabored, Respiratory pattern is regular, symmetrical, Breath sounds are clear bilaterally. GI: Abdomen is round non-distended, Bowel sounds present X 4 quads. Abd is soft Abdomen is tender to palpation in umbilical area. : No signs and/or symptoms were reported regarding the genitourinary system. Derm: Skin is pink, warm \\T\\ dry. Musculoskeletal: Range of motion: intact in all extremities. Historical: - Allergies: 15:22 Bleach (Sodium Hypochlorite); mb9 - Home Meds: 15:22 Wellbutrin XL 150 mg Oral Tb24 1 tab once daily [Active]; pantoprazole oral [Active]; mb9 Effexor 150 Oral tab daily [Active]; Ambien 12.5 Oral tab 1 tab once daily [Active]; - PMHx: 15:22 adhd; Anxiety; depressive disorder; gastric ulcer; GERD; hiatal hernia; ibs; insomnia; mb9 - PSHx: 15:22 Cholecystectomy; Exploratory laparotomy; mb9 - Immunization history:: Adult Immunizations up to date. - Infectious Disease History:: Denies. - Social history:: Smoking status: Patient denies any tobacco usage or history of. Screenin:23 [facility] ED Fall Risk Assessment (Adult) History of falling in the last 3 months, mb9 including since admission No falls in past 3 months (0 pts) Confusion or Disorientation No (0 pts) Intoxicated or Sedated No (0 pts) Impaired Gait No (0 pts) Mobility Assist Device Used No (0 pt) Altered Elimination No (0 pt) Score/Fall Risk Level 0 - 2 = Low Risk Oriented to surroundings, Maintained a safe environment, Educated pt \\T\\ family on fall prevention, incl call for assistance when getting out of bed. Abuse screen: Denies threats or abuse. Nutritional screening: No deficits noted. Tuberculosis screening: No symptoms or risk factors identified. Assessment: 16:30 Reassessment: No changes from previously documented assessment. Patient and/or family mb9 updated on plan of care and expected duration. Pain level reassessed. Patient is alert, oriented x 3, equal unlabored respirations, skin warm/dry/pink. Vital Signs: 15:21 BP 113 / 73; Pulse 107; Resp 18; Temp 98.2(O); Pulse Ox 100% on R/A; Weight 117.93 kg; mb9 Height 5 ft. 6 in. ; Pain 8/10; 15:34 BP 115 / 82; Pulse 108; Resp 18; Pulse Ox 96% on R/A; ld1 16:48 Pulse 92; Resp 18; Pulse Ox 97% on R/A; ld1 15:21 Body Mass Index 41.96 (117.93 kg, 167.64 cm) [facility] 15:21 Pain Scale: Adult mb9 ED Course: 15:04 Patient arrived in ED. im 15:10 Florian Macario MD is Attending Physician. sp3 15:12 Rocio Mustafa, KAROLYN is Primary Nurse. mb9 15:21 Arm band placed on. mb9 15:22 Triage completed. mb9 15:23 Placed in gown. Bed in low position. Call light in reach. Side rails up X 1. Provided mb9 Education on: press call light if needing anything. Client placed on continuous cardiac and pulse oximetry monitoring. NIBP monitoring applied. ekg monitor on. Door closed. Noise minimized. Warm blanket given. Pillow given. 15:33 Inserted saline lock: 20 gauge in right antecubital area, using aseptic technique. ld1 Blood collected. 15:33 Initial lab(s) drawn, by me, sent to lab. Inserted saline lock: 20 gauge in right mb9 antecubital area, using aseptic technique. 15:52 Abdomen 1 View XRAY In Process Unspecified. EDMS 16:35 No provider procedures requiring assistance completed. mb9 16:46 IV discontinued, intact, bleeding controlled, No redness/swelling at site. Pressure mb9 dressing applied. Administered Medications: 15:28 Drug: Ondansetron IVP 4 mg IVP once; over 2 minutes Route: IVP; Site: right antecubital;mb9 16:30 Follow up: Response: No adverse reaction mb9 15:30 Drug: morphine IVP or IV 4 mg IVP once over 4 mins Route: IVP; Infused Over: 4 mins; mb9 Site: right antecubital; 16:30 Follow up: Response: No adverse reaction mb9 15:33 Drug: NS 0.9% IV 1000 ml IV at 1 bolus Per protocol; 1000 mL bolus Route: IV; Rate: 1 mb9 bolus; Site: right antecubital; 16:46 Follow up: Response: No adverse reaction; IV Status: Completed infusion mb9 16:34 Drug: morphine IVP or IV 4 mg IVP once over 4 mins Route: IVP; Infused Over: 4 mins; mb9 Site: right antecubital; 16:46 Follow up: Response: No adverse reaction mb9 Medication: 16:35 VIS not applicable for this client. mb9 Outcome: 16:27 Discharge ordered by . sp3 16:47 Discharged to home ambulatory, mb9 16:47 Condition: stable 16:47 Discharge instructions given to patient, Instructed on discharge instructions, follow up and referral plans. Demonstrated understanding of instructions, follow-up care, medications, Prescriptions given X 3, 16:51 Patient left the ED. mb9 Signatures: Dispatcher [employer] EDMaye Abdul RN RN ld1 Florian Macario MD MD sp3 Rocio Mustafa RN RN mb9 Tracey Helms Corrections: (The following items were deleted from the chart) 15:34 15:34 Reassessment: see triage assessment mb9 ld1 15:34 15:34 General: Appears in no apparent distress. uncomfortable, Behavior is calm, ld1 cooperative, appropriate for age, ld1 15:34 15:34 Pain: Complains of pain in epigastric area Pain does not radiate. Pain currently ld1 is 8 out of 10 on a pain scale. Quality of pain is described as throbbing, Pain began 2-3 days ago. Is continuous, ld1 15:34 15:34 Neuro: ld1 ld1
--- NOTE | 2023-08-01 16:28 | EDPHYS ---
Physician Documentation [facility] Name: Vicenta Daigle Age: 37 yrs Sex: Female : 1985 Arrival Date: 08/01/2023 Time: 15:00 Bed 2 Private MD: ED Physician Florian Macario HPI: 07/31 15:47 This 37 yrs old Female presents to ER via Ambulatory with complaints of sp3 Abdominal Pain. 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 Symptoms have been ongoing for the last 3 days of worsening with today causing her to have to leave work early. 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 She denies any illicit substance use, alcohol or tobacco.. Historical: - Allergies: 15:22 Bleach (Sodium Hypochlorite); mb9 - Home Meds: 15:22 Wellbutrin XL 150 mg Oral Tb24 1 tab once daily [Active]; pantoprazole oral [Active]; mb9 Effexor 150 Oral tab daily [Active]; Ambien 12.5 Oral tab 1 tab once daily [Active]; - PMHx: 15:22 adhd; Anxiety; depressive disorder; gastric ulcer; GERD; hiatal hernia; ibs; insomnia; mb9 - PSHx: 15:22 Cholecystectomy; Exploratory laparotomy; mb9 - Immunization history:: Adult Immunizations up to date. - Infectious Disease History:: Denies. - Social history:: Smoking status: Patient denies any tobacco usage or history of. ROS: 15:48 Constitutional: Negative for fever, chills, and weight loss, Eyes: Negative for injury, sp3 pain, redness, and discharge, ENT: Negative for injury, pain, and discharge, Neck: Negative for injury, pain, and swelling, Cardiovascular: Negative for chest pain, palpitations, and edema, Respiratory: Negative for shortness of breath, cough, wheezing, and pleuritic chest pain, Back: Negative for injury and pain, MS/Extremity: Negative for injury and deformity, Skin: Negative for injury, rash, and discoloration, Neuro: Negative for headache, weakness, numbness, tingling, and seizure, Psych: Negative for depression, anxiety, suicide ideation, homicidal ideation, and hallucinations, Allergy/Immunology: Negative for hives, rash, and allergies, Endocrine: Negative for neck swelling, polydipsia, polyuria, polyphagia, and marked weight changes, Hematologic/Lymphatic: Negative for swollen nodes, abnormal bleeding, and unusual bruising, 15:48 All other systems are negative, Exam: 15:48 Constitutional: This is a well developed, well nourished patient who is awake, alert, sp3 and in no acute distress. Head/Face: Normocephalic, atraumatic. Eyes: Pupils equal round and reactive to light, extra-ocular motions intact. Lids and lashes normal. Conjunctiva and sclera are non-icteric and not injected. Cornea within normal limits. Periorbital areas with no swelling, redness, or edema. Neck: Trachea midline, no thyromegaly or masses palpated, and no cervical lymphadenopathy. Supple, full range of motion without nuchal rigidity, or vertebral point tenderness. No Meningismus. Chest/axilla: Normal chest wall appearance and motion. Nontender with no deformity. No lesions are appreciated. Cardiovascular: Regular rate and rhythm with a normal S1 and S2. No gallops, murmurs, or rubs. Normal PMI, no JVD. No pulse deficits. Respiratory: Lungs have equal breath sounds bilaterally, clear to auscultation and percussion. No rales, rhonchi or wheezes noted. No increased work of breathing, no retractions or nasal flaring. Back: No spinal tenderness. No costovertebral tenderness. Full range of motion. Skin: Warm, dry with normal turgor. Normal color with no rashes, no lesions, and no evidence of cellulitis. MS/ Extremity: Pulses equal, no cyanosis. Neurovascular intact. Full, normal range of motion. Neuro: Awake and alert, GCS 15, oriented to person, place, time, and situation. Cranial nerves II-XII grossly intact. Motor strength 5/5 in all extremities. Sensory grossly intact. Cerebellar exam normal. Normal gait. Psych: Awake, alert, with orientation to person, place and time. Behavior, mood, and affect are within normal limits. 15:48 Abdomen/GI: Mild epigastric pain to palpation without peritoneal signs, rebound or guarding. Nonsurgical abdomen., Vital Signs: 15:21 BP 113 / 73; Pulse 107; Resp 18; Temp 98.2(O); Pulse Ox 100% on R/A; Weight 117.93 kg; mb9 Height 5 ft. 6 in. ; Pain 8/10; 15:34 BP 115 / 82; Pulse 108; Resp 18; Pulse Ox 96% on R/A; ld1 16:48 Pulse 92; Resp 18; Pulse Ox 97% on R/A; ld1 15:21 Body Mass Index 41.96 (117.93 kg, 167.64 cm) mb9 15:21 Pain Scale: Adult mb9 MDM: 15:12 Patient medically screened. sp3 15:48 Data reviewed: vital signs, nurses notes, old medical records, lab test result(s), sp3 radiologic studies. ED course: 37-year-old female with recurrent abdominal pain and gastroenteritis/colitis type symptoms consistent with IBS as well. Patient has had 4 CAT scans of the abdomen pelvis over the last 6 months with a heavy radiation load. Last CT was 1 month ago which only demonstrated mild colitis and otherwise no other organ abnormality. Patient is status post cholecystectomy. At this time we will obtain laboratory values including CBC, lipase and chemistries as well as a 1 view abdominal x-ray. Urinalysis is also pending. If any abnormalities on that workup we will add on CT however if we can avoid it due to radiation that would be best for the patient. Symptoms will be treated with normal saline, morphine and Zofran and landing on any antibiotics as needed/indicated. Patient is okay with this plan and we will disposition once workup is complete patient is reassessed.. 16:22 ED course: Full workup negative. Due to her prior episodes, we will place her on sp3 antibiotics and Zofran for home. Patient does endorse that she has had some increased life stressors which could be contributing to the IBS. Follow-up with GI and PCP for small bowel follow-through.. 07/31 15:20 Order name: CBC with Diff; Complete Time: 16:07 sp3 07/31 15:20 Order name: CMP; Complete Time: 16:07 sp3 07/31 15:20 Order name: Lipase; Complete Time: 16:07 3 07/31 15:20 Order name: Test, Urine; Complete Time: 16:07 3 07/31 15:20 Order name: Urinalysis w/ reflexes; Complete Time: 16:07 3 07/31 15:20 Order name: Lactate w/ 2H reflex if indic.; Complete Time: 16:07 [facility] 07/31 15:20 Order name: Abdomen 1 View XRAY; Complete Time: 16:16 3 07/31 15:20 Order name: IV Saline Lock; Complete Time: 15:24 3 07/31 15:20 Order name: Labs collected and sent; Complete Time: 15:24 sp3 Administered Medications: 15:28 Drug: Ondansetron IVP 4 mg IVP once; over 2 minutes Route: IVP; Site: right antecubital;mb9 16:30 Follow up: Response: No adverse reaction mb9 15:30 Drug: morphine IVP or IV 4 mg IVP once over 4 mins Route: IVP; Infused Over: 4 mins; mb9 Site: right antecubital; 16:30 Follow up: Response: No adverse reaction mb9 15:33 Drug: NS 0.9% IV 1000 ml IV at 1 bolus Per protocol; 1000 mL bolus Route: IV; Rate: 1 mb9 bolus; Site: right antecubital; 16:46 Follow up: Response: No adverse reaction; IV Status: Completed infusion mb9 16:34 Drug: morphine IVP or IV 4 mg IVP once over 4 mins Route: IVP; Infused Over: 4 mins; mb9 Site: right antecubital; 16:46 Follow up: Response: No adverse reaction mb9 Disposition Summary: 08/01/23 16:27 Discharge Ordered Notes: Location: Home sp3 Condition: Stable sp3 Diagnosis - Irritable bowel syndrome, gastroenteritis sp3 Followup: sp3 - With: Private Physician - When: Upon discharge from the Emergency Department - Reason: Continuance of care Discharge Instructions: - Discharge Summary Sheet sp3 - Irritable Bowel Syndrome, Adult sp3 Forms: - Medication Reconciliation Form sp3 - Antibiotic Education sp3 - Prescription Opioid Use sp3 - Patient Portal Instructions sp3 - Leadership Thank You Letter sp3 - Work release form mb9 Prescriptions: - Cipro 500 mg Oral Tablet - take 1 tablet ORAL route every 12 hours for 10 days; 20 tablet; Refills: 0, sp3 Product Selection Permitted - Flagyl 500 mg Oral Tablet - take 1 tablet ORAL route every 8 hours for 10 days; 30 tablet; Refills: 0, sp3 Product Selection Permitted - ondansetron 8 mg Oral Tablet,disintegrating - take 1 tablet ORAL route every 12 hours; 20 tablet; Refills: 0, Product sp3 Selection Permitted Signatures: Dispatcher [employer] Florian Santiago MD MD sp3 Rocio Mustafa RN RN mb9
[2023-08-01 17:14] VITALS: BP 115/82; TEMP 98.2; O2SAT 97
== END 2023-08-01 16:51 | disposition home or self-care (01) ==
LOC: ER 15:00
DX: K58.9 Irritable bowel syndrome, unspecified (principal); K52.9 Noninfective gastroenteritis and colitis, unspecified
CPT/HCPCS: 96361; 85025; 81001; 36415; 81025; 83605; 83690; 80053; 74018; 96375; 96374; 99285; J2405; J7030

== ENCOUNTER 2024-05-02 00:37 | Emergency (ER) | payer OTHER ==
[2024-05-02] MEDS ORDERED: ONDANSETRON 4 MG/2 ML VIAL ONE (01:14)
[2024-05-02] MEDS ORDERED: FAMOTIDINE 20 MG/2 ML VIAL IV ONE (01:15)
[2024-05-02] MEDS ORDERED: DIPHENOX/ATROP SULF 1 TAB PO ONE (01:15)
[2024-05-02] MEDS ORDERED: NA CHLORIDE 0.9% 1,000 ML ONE (01:15)
[2024-05-02] MEDS ORDERED: METRONIDAZOLE 500mg IVPB 500 MG/100 ML BAG IV ONE (01:29)
[2024-05-02] MEDS ORDERED: CEFTRIAXONE 1000 MG/VIAL ONE (01:29)
[2024-05-02 01:30] LABS: Absolute Basophils 0.1 K/uL (0-0.5); Absolute Eosinophils 0.2 K/uL (0-0.5); Absolute Lymphocytes (CBC) 2.7 K/uL (0.7-4.9); Absolute Monocytes 0.6 K/uL (0.1-1.3); Basophils % 1.2 % (0-1.3); Eosinophils % 2.3 % (0-4.4); Hematocrit 39.1 % (36.0-45.0); Hemoglobin 13.5 g/dL (12.0-15.0); Lymphocytes % 27.8 % (15.3-44.8); MCH 29.8 pg (27.0-35.0); MCHC 34.5 g/dL (32.0-36.0); MCV 86.2 fL (80-100); MPV 6.9 fL (7.6-11.3); Monocytes % 6.1 % (3.3-12.3); Neutrophils % 62.6 % (41.7-73.7); Platelets 381 thou/uL (152-406); RBC Red Blood Cell Count 4.54 M/uL (3.86-4.86); Red Cell Distribution Width 14.6 % (12.1-15.2)
[2024-05-02 01:51] LABS: Albumin 3.3 g/dL (3.4-5.0); Albumin/Globulin Ratio 0.8 (1.1-1.8); Anion Gap 11.7 mEq/L (5.0-15.0); Bilirubin Total 0.4 mg/dL (0.2-1.0); Globulin 4.4 g/dL (2.3-3.5); Potassium 3.7 mEq/L (3.5-5.1); Protein, Total 7.7 g/dL (6.4-8.2)
[2024-05-02] MEDS ORDERED: METOCLOPRAMIDE 10 MG/2mL INJ ONE (03:48)
--- NOTE | 2024-05-02 04:59 | EDPHYS ---
Physician Documentation [facility] Name: Vicenta Daigle Age: 38 yrs Sex: Female : 1985 Arrival Date: 05/02/2024 Time: 00:37 Bed 7 Private MD: ED Physician Zachariah Root HPI: 05/02 00:44 This 38 yrs old Female presents to ER via Unassigned with complaints of Bloody sp4 Stools. 05/03 05:27 38-year-old female presents with complaint of abdominal discomfort and reported bloody sp4 of stool, patient also reports 2 weeks of diarrhea. 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 - Infectious Disease History:: Denies. - Social history:: Smoking status: Patient denies any tobacco usage or history of. Patient/guardian denies using alcohol, street drugs, IV drugs. - Family history:: not pertinent. ROS: 05/03 05:27 Constitutional: Negative for fever, chills, and weight loss, positive abdominal pain, sp4 positive bloody stools, positive diarrhea All other systems are negative, Vital Signs: 05/02 00:50 BP 128 / 79; Pulse 100; Resp 17; Temp 98.3; Pulse Ox 100% ; Weight 122.47 kg; Height 5 jj7 ft. 6 in. ; Pain 4/10; 01:07 BP 117 / 75; Pulse 98; Resp 18; Temp 98.3; Pulse Ox 100% ; Pain 4/10; bm8 02:41 BP 112 / 80; Pulse 92; Resp 18; Temp 98.3; Pulse Ox 100% ; Pain 4/10; bm8 03:30 BP 116 / 77; Pulse 86; Resp 16; Temp 98.1; Pulse Ox 98% on R/A; dd2 00:50 Body Mass Index 43.58 (122.47 kg, 167.64 cm) jj7 00:50 Pain Scale: Adult jj7 01:07 Pain Scale: Adult bm8 02:41 Pain Scale: Adult bm8 Danny Coma Score: 01:07 Eye Response: spontaneous(4). Motor Response: obeys commands(6). Verbal Response: bm8 oriented(5). Total: 15. 02:41 Eye Response: spontaneous(4). Motor Response: obeys commands(6). Verbal Response: bm8 oriented(5). Total: 15. MDM: 01:26 Medical Screening Exam initiated sp4 04:54 ED course: CT CHESTABDOMEN PELVIS WITH IV CONTRAST CLINICAL INDICATIONS: Abdominal sp4 distention COMPARISON: CT abdomen pelvis 05/11/2023 TECHNIQUE: CT images of the chest, abdomen and pelvis were obtained following administration of intravenous contrast. Multiplanar reformats were provided. Dose lowering techniques such as automated exposure control, iterative reconstruction, and mA and/or kV adjustment for patient size was utilized for this examination. CHEST FINDINGS: LOWER NECK: Unremarkable. AIRWAYS: Trachea and mainstem bronchi are patent. LUNGS/PLEURA: Lungs are clear. No focal air space consolidation. No discrete mass or nodules. No pleural effusions or pneumothorax. VASCULATURE: Unremarkable. MEDIASTINUM/NODES: No pathologic adenopathy. HEART: Normal heart size. No pericardial effusion. CHEST WALL: Unremarkable. BONES: Early endplate degenerative changes of thoracic spine. No acute findings. ABDOMEN/PELVIS FINDINGS: LIVER: Diffuse fatty infiltration of the liver without focal lesion. BILIARY: Status post cholecystectomy with surgical clips at gallbladder fossa. No intra- or extrahepatic biliary ductal dilatation. PANCREAS: Unremarkable. SPLEEN: Unremarkable. ADRENALS: Unremarkable. KIDNEYS/URETERS: Unremarkable. STOMACH: Unremarkable. BOWEL: Some mucosal fat deposition diffusely and colon, likely sequela of chronic inflammation. There is trace mucosal enhancement of colon without significant pericolonic stranding, suspicious for mild active inflammation. No bowel obstruction. APPENDIX: Unremarkable. MESENTERY/PERITONEUM: Unremarkable. RETROPERITONEUM: No adenopathy. URINARYBLADDER: Unremarkable. REPRODUCTIVE: Unremarkable. VASCULAR: Unremarkable. ABDOMINAL/PELVIC WALL: Unremarkable. 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 This is exacerbated by superimposed disc bulge and ligamentum flavum hypertrophy, worst at L3-4 and L4-5 level with moderate to severe central canal stenosis. IMPRESSION: 1. Suggestion of mild active on chronic pancolitis. 2. Congenital lumbar canal narrowing exacerbated by superimposed disc bulge and ligamentum flavum hypertrophy, worst at L3-4 and L4-5 level with moderate to severe central canal stenosis. 3. No acute findings in CT chest. Electronically signed by: Nichole Ramirez MD 05/02/2024 04:47 AM . 05/02 01:09 Order name: CBC with Diff; Complete Time: 03:12 sp4 05/02 01:09 Order name: CMP; Complete Time: 03:12 sp4 05/02 01:09 Order name: Lipase; Complete Time: 03:12 sp4 05/02 02:56 Order name: Test, Serum; Complete Time: 03:47 dd2 05/02 01:25 Order name: CT Chest, Abdomen, Pelvis - W/Contrast sp4 05/02 01:09 Order name: IV Saline Lock; Complete Time: 01:21 sp4 05/02 01:09 Order name: Labs collected and sent; Complete Time: 01:21 sp4 Administered Medications: 01:20 Drug: Famotidine IVP 20 mg IVP once; dilute with 10 mL 0.9% NaCl; give over 2 minutes bm8 Route: IVP; Site: right antecubital; 01:46 Follow up: Response: No adverse reaction bm8 01:20 Drug: NS 0.9% IV 1000 ml IV at 1 bolus Per protocol; to be given as a bolus over 60 bm8 minutes Route: IV; Rate: 1 bolus; Site: right antecubital; 02:41 Follow up: Response: No adverse reaction; IV Status: Completed infusion; IV Intake: bm8 1000ml 01:20 Drug: Diphenoxylate-Atropine PO 2 tabs PO once Route: PO; bm8 01:46 Follow up: Response: No adverse reaction bm8 01:21 Drug: Ondansetron IVP 4 mg IVP once; over 2 minutes Route: IVP; Site: right antecubital;bm8 01:46 Follow up: Response: No adverse reaction bm8 01:27 Drug: Rocephin - Rocephin (cefTRIAXone) IVPB 1 grams IVPB once over 30 mins; (mix in 50 bm8 mL NS) Route: IVPB; Infused Over: 30 mins; Site: right antecubital; 02:41 Follow up: Response: No adverse reaction; IV Status: Completed infusion; IV Intake: [id number] 01:45 Drug: metroNIDAZOLE IVPB 500 mg 100 ml IVPB at 200 ml/hr once over 30 mins Volume: 100 bm8 ml; Route: IVPB; Rate: 200 ml/hr; Infused Over: 30 mins; Site: right antecubital; 02:40 Follow up: Response: No adverse reaction; IV Status: Completed infusion; IV Intake: bm8 100ml 03:50 Drug: metoCLOPramide IVP 10 mg IVP once; over 1 to 2 minutes Route: IVP; Site: right bm8 antecubital; Disposition Summary: 05/02/24 04:58 Discharge Ordered Notes: Location: Home sp4 Problem: new sp4 Symptoms: have improved sp4 Condition: Stable sp4 Diagnosis - Infectious gastroenteritis and colitis, unspecified sp4 - Acute pancolitis , Bloodly diarrhea sp4 Followup: sp4 - With: Private Physician - When: 7 - 10 days - Reason: Recheck today's complaints Discharge Instructions: - Discharge Summary Sheet sp4 - Clear Liquid Diet, Adult, [id number] sp4 Forms: - Patient Portal Instructions sp4 Prescriptions: - Cephalexin 500 mg Oral Capsule - take 1 capsule ORAL route every 12 hours for 10 days; 20 capsule; Refills: 0, sp4 Product Selection Permitted - Flagyl 500 mg Oral Tablet - take 1 tablet ORAL route every 8 hours for 10 days; 30 tablet; Refills: 0, sp4 Product Selection Permitted - Lomotil 2.5-0.025 mg Oral tablet - take 1 tablet ORAL route every 6 hours As needed PRN diarrhea; 30 tablet; sp4 Refills: 0, Product Selection Permitted - ondansetron 8 mg Oral Tablet,disintegrating - take 1 tablet ORAL route every 8 hours PRN nausea; 30 tablet; Refills: 0, sp4 Product Selection Permitted Addendum: 05/03/2024 05:33 Addendum: 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 Signatures: Dispatcher [employer] Fely Kenyon RN RN jj7 Zachariah Root MD MD sp4 Varun Sun RN RN bm8
--- NOTE | 2024-05-02 04:59 | ER ---
Nurse's Notes [facility] Name: Vicenta Daigle Age: 38 yrs Sex: Female : 1985 Arrival Date: 05/02/2024 Time: 00:37 Bed 7 Private MD: Diagnosis: Infectious gastroenteritis and colitis, unspecified;Acute pancolitis , Bloodly diarrhea Presentation: 05/02 00:50 Chief complaint: Patient states: DIARRHEA X1 WEEKS. 1 EPISODE OF BLOODY STOOL TONIGHT. jj7 HX OF COLITIS AND IBS. ASO HAVING MILD EPIGASTRIC PAIN THAT RADIATES TO THE RUQ. Coronavirus screen: At this time, the client does not indicate any symptoms associated with coronavirus-19. Ebola Screen: No symptoms or risks identified at this time. Initial Sepsis Screen: Does the patient meet any 2 criteria? HR > 90 bpm. Yes Does the patient have a suspected source of infection? No. Patient's initial sepsis screen is negative. Risk Assessment: Do you want to hurt yourself or someone else? Patient reports no desire to harm self or others. Onset of symptoms was May 02, 2024. 00:50 Method Of Arrival: Ambulatory j7 00:50 Acuity: SEAN 3 jj7 Triage Assessment: 00:50 General: Appears in no apparent distress. comfortable, Behavior is calm, cooperative, jj7 appropriate for age. Pain: Complains of pain in epigastric area. GI: Reports diarrhea, bloody stool, epigastric pain. 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 - Infectious Disease History:: Denies. - Social history:: Smoking status: Patient denies any tobacco usage or history of. Patient/guardian denies using alcohol, street drugs, IV drugs. - Family history:: not pertinent. Screenin:07 [facility] ED Fall Risk Assessment (Adult) History of falling in the last 3 months, bm8 including since admission No falls in past 3 months (0 pts) Confusion or Disorientation No (0 pts) Intoxicated or Sedated No (0 pts) Impaired Gait No (0 pts) Mobility Assist Device Used No (0 pt) Altered Elimination No (0 pt) Score/Fall Risk Level 0 - 2 = Low Risk Oriented to surroundings, Maintained a safe environment, Educated pt \T\ family on fall prevention, incl call for assistance when getting out of bed, Assessed \T\ reinforced patient's understanding of fall precautions, Hourly rounding (assess needs \T\ fall precautionary measures) done, Used ambulatory aids as needed (educated on \T\ assisted with), Used gait belt as appropriate. Abuse screen: Denies threats or abuse. Nutritional screening: No deficits noted. Tuberculosis screening: No symptoms or risk factors identified. Assessment: 01:07 General: Appears in no apparent distress. comfortable, Behavior is calm, cooperative, bm8 appropriate for age. Pain: Complains of pain in abdomen Pain currently is 4 out of 10 on a pain scale. Neuro: No deficits noted. Level of Consciousness is awake, alert, obeys commands, Oriented to person, place, time, situation, Appropriate for age. Cardiovascular: Denies chest pain, Capillary refill < 3 seconds in bilateral fingers Rhythm is sinus rhythm. Respiratory: Airway is patent Respiratory effort is even, unlabored, Respiratory pattern is regular, symmetrical, Breath sounds are clear bilaterally. GI: Abdomen is round non-distended, obese, Stools are reported to be loose, with one episode of bloody stool. Bowel sounds present X 4 quads. Reports lower abdominal pain, upper abdominal pain, diarrhea, bloody stool, Pain is 4 out of 10 on a pain scale. : No signs and/or symptoms were reported regarding the genitourinary system. EENT: No signs and/or symptoms were reported regarding the EENT system. Derm: No signs and/or symptoms reported regarding the dermatologic system. Musculoskeletal: No signs and/or symptoms reported regarding the musculoskeletal system. 02:41 Reassessment: Patient appears in no apparent distress at this time. No changes from bm8 previously documented assessment. Patient and/or family updated on plan of care and expected duration. Pain level reassessed. Patient is alert, oriented x 3, equal unlabored respirations, skin warm/dry/pink. Patient states symptoms have not improved. 04:00 Reassessment: Patient appears in no apparent distress at this time. Patient and/or bm8 family updated on plan of care and expected duration. Pain level reassessed. Patient is alert, oriented x 3, equal unlabored respirations, skin warm/dry/pink. Patient states feeling better. Patient states symptoms have improved. GI: Reports nausea. Vital Signs: 00:50 BP 128 / 79; Pulse 100; Resp 17; Temp 98.3; Pulse Ox 100% ; Weight 122.47 kg; Height 5 jj7 ft. 6 in. ; Pain 4/10; 01:07 BP 117 / 75; Pulse 98; Resp 18; Temp 98.3; Pulse Ox 100% ; Pain 4/10; bm8 02:41 BP 112 / 80; Pulse 92; Resp 18; Temp 98.3; Pulse Ox 100% ; Pain 4/10; bm8 03:30 BP 116 / 77; Pulse 86; Resp 16; Temp 98.1; Pulse Ox 98% on R/A; dd2 00:50 Body Mass Index 43.58 (122.47 kg, 167.64 cm) jj7 00:50 Pain Scale: Adult jj7 01:07 Pain Scale: Adult bm8 02:41 Pain Scale: Adult bm8 [place] Score: 01:07 Eye Response: spontaneous(4). Motor Response: obeys commands(6). Verbal Response: bm8 oriented(5). Total: 15. 02:41 Eye Response: spontaneous(4). Motor Response: obeys commands(6). Verbal Response: bm8 oriented(5). Total: 15. ED Course: 00:39 Patient arrived in ED. jj6 00:44 Zachariah Root MD is Attending Physician. sp4 00:50 Arm band placed on right wrist. Patient placed in an exam room, on a stretcher. jj7 00:59 Triage completed. jj7 01:07 Varun Sun, RN is Primary Nurse. bm8 01:07 Patient has correct armband on for positive identification. Placed in gown. Bed in low bm8 position. Call light in reach. Side rails up X 1. Client placed on continuous cardiac and pulse oximetry monitoring. NIBP monitoring applied. Pulse ox on. NIBP on. Door closed. Noise minimized. Warm blanket given. Pillow given. Verbal reassurance given. Head of bed elevated. 01:07 No provider procedures requiring assistance completed. Initial lab(s) drawn, by , bmErnie sent to lab. Inserted saline lock: 20 gauge in right antecubital area, using aseptic technique. Blood collected. Flushed with 10 mL NS. Patient maintains SpO2 saturation greater than 95% on room air. 03:33 CT Chest, Abdomen, Pelvis - W/Contrast In Process Unspecified. EDMS 05:26 IV discontinued, intact, bleeding controlled, No redness/swelling at site. Pressure dd2 dressing applied. 05:28 Provided Education on: d/c education. dd2 Administered Medications: 01:20 Drug: Famotidine IVP 20 mg IVP once; dilute with 10 mL 0.9% NaCl; give over 2 minutes bm8 Route: IVP; Site: right antecubital; :46 Follow up: Response: No adverse reaction bm8 01:20 Drug: NS 0.9% IV 1000 ml IV at 1 bolus Per protocol; to be given as a bolus over 60 bm8 minutes Route: IV; Rate: 1 bolus; Site: right antecubital; 02:41 Follow up: Response: No adverse reaction; IV Status: Completed infusion; IV Intake: bm8 1000ml 01:20 Drug: Diphenoxylate-Atropine PO 2 tabs PO once Route: PO; bm8 01:46 Follow up: Response: No adverse reaction bm8 01:21 Drug: Ondansetron IVP 4 mg IVP once; over 2 minutes Route: IVP; Site: right antecubital;bm8 01:46 Follow up: Response: No adverse reaction bm8 01:27 Drug: Rocephin - Rocephin (cefTRIAXone) IVPB 1 grams IVPB once over 30 mins; (mix in 50 bm8 mL NS) Route: IVPB; Infused Over: 30 mins; Site: right antecubital; 02:41 Follow up: Response: No adverse reaction; IV Status: Completed infusion; IV Intake: [id number] 01:45 Drug: metroNIDAZOLE IVPB 500 mg 100 ml IVPB at 200 ml/hr once over 30 mins Volume: 100 bm8 ml; Route: IVPB; Rate: 200 ml/hr; Infused Over: 30 mins; Site: right antecubital; 02:40 Follow up: Response: No adverse reaction; IV Status: Completed infusion; IV Intake: bm8 100ml 03:50 Drug: metoCLOPramide IVP 10 mg IVP once; over 1 to 2 minutes Route: IVP; Site: right bm8 antecubital; Medication: 01:07 VIS not applicable for this client. bm8 Intake: 02:40 IV: 100ml; Total: 100ml. bm8 02:41 IV: 50ml; Total: 150ml. bm8 02:41 IV: 1000ml; Total: 1150ml. bm8 Outcome: 04:58 Discharge ordered by . sp4 05:26 Discharged to home ambulatory, dd2 05:26 Condition: stable 05:26 Discharge instructions given to patient, Instructed on discharge instructions, follow up and referral plans. medication usage, Demonstrated understanding of instructions, follow-up care, medications, Prescriptions given X 4, 05:28 Patient left the ED. dd2 Signatures: Dispatcher [employer] EDMS Renee Carreno jj6 Fely Matias RN RN jj7 Zachariah Root MD MD sp4 Varun Sun RN RN bm8 JOAQUIN BONILLA RN RN dd2
[2024-05-02 05:39] VITALS: BP 116/77; TEMP 98.1; O2SAT 98
--- NOTE | 2024-05-02 06:29 | RAD REPORT ---
CT CHEST ABDOMEN PELVIS WITH IV CONTRAST CLINICAL INDICATIONS: Abdominal distention COMPARISON: CT abdomen pelvis 05/11/2023 TECHNIQUE: CT images of the chest, abdomen and pelvis were obtained following administration of intra venous contrast. Multiplanar reformats were provided. Dose lowering techniques such as automated exposure control, iterative reconstruction, and mA and/or kV adjustment for patient size was utilized for this examination. CHEST FINDINGS: LOWER NECK: Unremarkable. AIRWAYS: Trachea and mainstem bronchi are patent. LUNGS/PLEURA: Lungs are clear. No focal air space consolidation. No discrete mass or nodules. No pleu ral effusions or pneumothorax. VASCULATURE: Unremarkable. MEDIASTINUM/NODES: No pathologic adenopathy. HEART: Normal heart size. No pericardial effusion. CHEST WALL: Unremarkable. BONES: Early endplate degenerative changes of thoracic spine. No acute findings. ABDOMEN/PELVIS FINDINGS: LIVER: Diffuse fatty infiltration of the liver without focal lesion. BILIARY: Status post cholecystectomy with surgical clips at gallbladder fossa. No intra- or extrahepa tic biliary ductal dilatation. PANCREAS: Unremarkable. SPLEEN: Unremarkable. ADRENALS: Unremarkable. KIDNEYS/URETERS: Unremarkable. STOMACH: Unremarkable. BOWEL: Some mucosal fat deposition diffusely and colon, likely sequela of chronic inflammation. There is trace mucosal enhancement of colon without significant pericolonic stranding, suspicious for mild active inflammation. No bowel obstruction. APPENDIX: Unremarkable. MESENTERY/PERITONEUM: Unremarkable. RETROPERITONEUM: No adenopathy. URINARY BLADDER: Unremarkable. REPRODUCTIVE: Unremarkable. VASCULAR: Unremarkable. ABDOMINAL/PELVIC WALL: Unremarkable. 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 This is exacerbated by superimp osed disc bulge and ligamentum flavum hypertrophy, worst at L3-4 and L4-5 level with moderate to severe central canal stenosis. IMPRESSION: 1. Suggestion of mild active on chronic pancolitis. 2. Congenital lumbar canal narrowing exacerbated by superimposed disc bulge and ligamentum flavum h ypertrophy, worst at L3-4 and L4-5 level with moderate to severe central canal stenosis. 3. No acute findings in CT chest. Electronically signed by: Nichole Ramirez MD 05/02/2024 04:47 AM [facility] Due to temporary technical issues with the [employer] reporting system, reports are being manuel d by the in-house radiologist without review as a courtesy to ensure prompt reporting the interpreting radiologist is fully responsible for the content of the report. Transcribed Date/Time: 05/02/2024 6:29 AM
== END 2024-05-02 05:28 | disposition home or self-care (01) ==
LOC: ER 00:37
DX: A09 Infectious gastroenteritis and colitis, unspecified (principal)
CPT/HCPCS: 96365; 85025; 36415; 84703; 83690; 80053; 71260; 74177; 96375; 99284; Q9967; J2765; J2405; J7030; J0696